=== PATIENT | male | born 1985 | race Hispanic/Latino ===

== ENCOUNTER 2018-01-06 12:58 | Emergency (ER) | payer SELFPAY ==
[2018-01-06] MEDS ORDERED: LIDOCAINE 1% MPF 5 ML VIAL ONE (14:03)
[2018-01-06] MEDS ORDERED: ONDANSETRON 4 MG (ODT) TAB ONE (14:07)
[2018-01-06] MEDS ORDERED: PROMETHAZINE 25 MG TABLET ONE (14:07)
[2018-01-06] MEDS ORDERED: MEPERIDINE HCL 25 MG/0.5 ML ONE (14:07)
[2018-01-06] MEDS ORDERED: SMZ./TMP. 800/160 MG TABLET ONE (14:35)
--- NOTE | 2018-01-06 14:38 | EDPHYS ---
Physician Documentation [facility] Name: Grace Duong Age: 32 yrs Sex: Male : 1985 Arrival Date: 01/06/2018 Time: 13:00 Bed 28 Private MD: None, None ED Physician Lalito Chau HPI: 01/06 14:24 This 32 yrs old Male presents to ER via Ambulatory with complaints of Abscess. jr8 14:24 The patient presents with an abscess of the scalp. Description: The affected area is jr8 small, draining, erythematous, raised, swollen, warm. Onset: The symptoms/episode began/occurred gradually, 3 day(s) ago. Possible cause(s): unknown. Associated signs and symptoms: The patient has no apparent associated signs or symptoms. Modifying factors: the symptoms are alleviated by nothing, the symptoms are aggravated by pressure, squeezing the lesion and expressing the contents, touching. Severity of symptoms: At their worst the symptoms were moderate, in the emergency department the symptoms are unchanged. The patient has experienced a previous episode. The patient has not recently seen a physician. Historical: - Allergies: 13:17 No Known Allergies; sv - Home Meds: 13:17 None [Active]; sv - PMHx: 13:17 Diabetes - IDDM; Hypertension; sv - PSHx: 13:17 None; sv - Immunization history:: Adult Immunizations up to date. - Social history:: Smoking status: Patient uses tobacco products, denies chronic smoking, but will smoke occasionally. - Ebola Screening: : No symptoms or risks identified at this time. ROS: 14:25 Eyes: Negative for injury, pain, redness, and discharge, ENT: Negative for injury, jr8 pain, and discharge, Neck: Negative for injury, pain, and swelling, Cardiovascular: Negative for chest pain, palpitations, and edema, Respiratory: Negative for shortness of breath, cough, wheezing, and pleuritic chest pain, Abdomen/GI: Negative for abdominal pain, nausea, vomiting, diarrhea, and constipation, Back: Negative for injury and pain, MS/Extremity: Negative for injury and deformity, Neuro: Negative for headache, weakness, numbness, tingling, and seizure. 14:25 Skin: Positive for abscess. Exam: 14:25 Eyes: Pupils equal round and reactive to light, extra-ocular motions intact. Lids and jr8 lashes normal. Conjunctiva and sclera are non-icteric and not injected. Cornea within normal limits. Periorbital areas with no swelling, redness, or edema. ENT: Nares patent. No nasal discharge, no septal abnormalities noted. Tympanic membranes are normal and external auditory canals are clear. Oropharynx with no redness, swelling, or masses, exudates, or evidence of obstruction, uvula midline. Mucous membranes moist. Neck: Trachea midline, no thyromegaly or masses palpated, and no cervical lymphadenopathy. Supple, full range of motion without nuchal rigidity, or vertebral point tenderness. No Meningismus. Cardiovascular: Regular rate and rhythm with a normal S1 and S2. No gallops, murmurs, or rubs. Normal PMI, no JVD. No pulse deficits. Respiratory: Lungs have equal breath sounds bilaterally, clear to auscultation and percussion. No rales, rhonchi or wheezes noted. No increased work of breathing, no retractions or nasal flaring. Abdomen/GI: Soft, non-tender, with normal bowel sounds. No distension or tympany. No guarding or rebound. No evidence of tenderness throughout. Back: No spinal tenderness. No costovertebral tenderness. Full range of motion. MS/ Extremity: Pulses equal, no cyanosis. Neurovascular intact. Full, normal range of motion. Neuro: Awake and alert, GCS 15, oriented to person, place, time, and situation. Cranial nerves II-XII grossly intact. Motor strength 5/5 in all extremities. Sensory grossly intact. Cerebellar exam normal. Normal gait. 14:25 Head/face: Noted is Patient has abscess with induration to right base of scalp. Currently draining . Vital Signs: 13:17 BP 158 / 105; Pulse 113; Resp 18; Temp 98.8(O); Pulse Ox 99% ; Weight 97.52 kg; Height sv 5 ft. 8 in. (172.72 cm); Pain 8/10; 14:30 BP 154 / 98; Pulse 100; Resp 17; Pulse Ox 99% on R/A; kr2 13:17 Body Mass Index 32.69 (97.52 kg, 172.72 cm) sv MDM: 13:19 Patient medically screened. 8 14:37 Data reviewed: vital signs, nurses notes, lab test result(s), and as a result, I will jr8 discharge patient. Data interpreted: Pulse oximetry: on room air is 99 %. Interpretation: normal. Counseling: I had a detailed discussion with the patient and/or guardian regarding: the historical points, exam findings, and any diagnostic results supporting the discharge/admit diagnosis, lab results, the need for outpatient follow up, a family practitioner, to return to the emergency department if symptoms worsen or persist or if there are any questions or concerns that arise at home. 01/06 14:22 Order name: Wound Culture kr2 Administered Medications: 14:10 Drug: Phenergan 25 mg Route: PO; kr2 14:37 Follow up: Response: No adverse reaction kr2 14:10 Drug: Demerol 25 mg Route: IM; Site: left deltoid; kr2 14:37 Follow up: Response: No adverse reaction; Pain is decreased kr2 14:37 Drug: Bactrim (160 mg-800 mg (DS) 1 tablet Route: PO; kr2 15:00 Follow up: Response: Medication administered at discharge. kr2 Disposition: 16:50 Co-signature as Attending Physician, Lalito Chau MD. rn Disposition: 01/06/18 14:37 Discharged to Home. Impression: Cutaneous abscess of head [any part, except face]. - Condition is Stable. - Discharge Instructions: Abscess, Incision and Drainage. - Prescriptions for Bactrim DS 800- 160 mg Oral Tablet - take 1 tablet by ORAL route every 12 hours for 10 days; 20 tablet. Tylenol- Codeine #3 300-30 mg Oral Tablet - take 2 tablets by ORAL route every 6 hours As needed; 12 tablet. - Medication Reconciliation Form, Thank You Letter, Antibiotic Education, Prescription Opioid Use, Work release form form. - Follow up: Private Physician; When: 48 Hours; Reason: Wound Recheck, Recheck today's complaints, Continuance of care, Re-evaluation by your physician. - Problem is new. - Symptoms have improved. Signatures: Dispatcher [employer] Gabriella Baum RN RN sv Williams, Irene, RN RN iw Nieto, Roman, MD MD rn Roszak, Josh, PA PA jr8 Connie Arnold RN RN kr2 Corrections: (The following items were deleted from the chart) 15:04 14:37 01/06/2018 14:37 Discharged to Home. Impression: Cutaneous abscess of head [any iw part, except face]. Condition is Stable. Forms are Work release form, Medication Reconciliation Form, Thank You Letter, Antibiotic Education, Prescription Opioid Use. Follow up: Private Physician; When: 48 Hours; Reason: Wound Recheck, Recheck today's complaints, Continuance of care, Re-evaluation by your physician. Problem is new. Symptoms have improved. jr8
--- NOTE | 2018-01-06 14:38 | ER ---
Nurse's Notes [facility] Name: Grace Duong Age: 32 yrs Sex: Male : 1985 Arrival Date: 01/06/2018 Time: 13:00 Bed 28 Private MD: None, None Diagnosis: Cutaneous abscess of head [any part, except face] Presentation: 01/06 13:15 Presenting complaint: Patient states: abscess to back of head that started about 5 days sv ago. Lanced by pt 3 days ago. Tmax 101. Ibuprofen taken this morning. Transition of care: patient was not received from another setting of care. Onset of symptoms was January 01, 2018. Risk Assessment: Do you want to hurt yourself or someone else? Patient reports no desire to harm self or others. Care prior to arrival: None. 13:15 Method Of Arrival: Ambulatory sv 13:15 Acuity: CHAPARRITA 3 sv 13:20 Initial Sepsis Screen: Does the patient meet any 2 criteria? HR > 90 bpm. Does the hj patient have a suspected source of infection? Yes: Skin breakdown/wound. Historical: - Allergies: 13:17 No Known Allergies; sv - Home Meds: 13:17 None [Active]; sv - PMHx: 13:17 Diabetes - IDDM; Hypertension; sv - PSHx: 13:17 None; sv - Immunization history:: Adult Immunizations up to date. - Social history:: Smoking status: Patient uses tobacco products, denies chronic smoking, but will smoke occasionally. - Ebola Screening: : No symptoms or risks identified at this time. Screenin:19 Abuse screen: Denies threats or abuse. Denies injuries from another. Nutritional hj screening: No deficits noted. Tuberculosis screening: No symptoms or risk factors identified. Fall Risk None identified. Assessment: 13:37 General: Appears in no apparent distress. comfortable, well groomed, well developed, kr2 well nourished, Behavior is calm, cooperative, appropriate for age. Pain: Complains of pain in scalp, neck, shoulders Pain currently is 6 out of 10 on a pain scale. Quality of pain is described as aching, tender, Is continuous, Alleviated by medications, rest, Aggravated by increased activity. Neuro: Level of Consciousness is awake, alert, obeys commands, Oriented to person, place, time, situation, Appropriate for age. Cardiovascular: Capillary refill < 3 seconds in bilateral fingers Patient's skin is warm and dry. Respiratory: Airway is patent Respiratory effort is even, unlabored, Respiratory pattern is regular, symmetrical. GI: Abdomen is flat, non-distended. : No signs and/or symptoms were reported regarding the genitourinary system. EENT: Nares are clear bilaterally Oral mucosa is moist. Throat is clear. Derm: Skin is intact, is healthy with good turgor, Skin is pink, warm \T\ dry. Abscess located on scalp has no drainage, is red, is raised, pustules present to scalp. 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 Musculoskeletal: Circulation, motion, and sensation intact. 14:05 Reassessment: Patient appears in no apparent distress at this time. Patient and/or kr2 family updated on plan of care and expected duration. Pain level reassessed. Patient is alert, oriented x 3, equal unlabored respirations, skin warm/dry/pink. 15:00 Reassessment: Patient appears in no apparent distress at this time. Patient and/or kr2 family updated on plan of care and expected duration. Pain level reassessed. Patient is alert, oriented x 3, equal unlabored respirations, skin warm/dry/pink. States pain has decreased. Verbalized understanding of caring for wound and symptoms to report. Dressing to scalp remains intact. Patient states feeling better. Vital Signs: 13:17 BP 158 / 105; Pulse 113; Resp 18; Temp 98.8(O); Pulse Ox 99% ; Weight 97.52 kg; Height sv 5 ft. 8 in. (172.72 cm); Pain 8/10; 14:30 BP 154 / 98; Pulse 100; Resp 17; Pulse Ox 99% on R/A; kr2 13:17 Body Mass Index 32.69 (97.52 kg, 172.72 cm) sv ED Course: 13:00 Patient arrived in ED. mr 13:00 None, None is Private Physician. mr 13:16 Triage completed. sv 13:17 Arm band placed on left wrist. sv 13:18 Peng Ramirez, BERKLEY is Primary Nurse. hj 13:18 Vance Silva PA is PHCP. jr8 13:18 Lalito Chau MD is Attending Physician. jr8 13:20 Patient has correct armband on for positive identification. Bed in low position. Call light in reach. Side rails up X 1. 14:05 Assist provider with I \T\ D: of an abscess on scalp Set up I\T\D tray. Performed by Vance ibarra 2 Shira SPRINGER Culture sent to lab. Wound packed. plain packing strip, covered with gauze and secured with foam tape Dressing with 4X4s, tape Patient tolerated well. 15:00 Patient did not have IV access during this emergency room visit. kr2 Administered Medications: 14:10 Drug: Phenergan 25 mg Route: PO; kr2 14:37 Follow up: Response: No adverse reaction kr2 14:10 Drug: Demerol 25 mg Route: IM; Site: left deltoid; kr2 14:37 Follow up: Response: No adverse reaction; Pain is decreased kr2 14:37 Drug: Bactrim (160 mg-800 mg (DS) 1 tablet Route: PO; kr2 15:00 Follow up: Response: Medication administered at discharge. kr2 Outcome: 14:37 Discharge ordered by . jr8 15:00 Discharged to home ambulatory, with family. kr2 15:00 Condition: good 15:00 Discharge instructions given to patient, family, Instructed on discharge instructions, follow up and referral plans. medication usage, wound care, Demonstrated understanding of instructions, follow-up care, medications, wound care, Prescriptions given X 2. 15:04 Patient left the ED. iw Addendum: 01/10/2018 09:31 Addendum: Culture Results: Positive wound culture. No further action required. Bacteria s s sensitive to prescribed antibiotic. Signatures: Gabriella Mullins RN RN sv Rivera, Maria mr Gretel Corcoran, BERKLEY GOODEN Madeline Ogden RN RN ss Roszak, Josh, PA PA jr8 Peng Ramirez RN RN hj Reaves, Karey, RN RN kr2 Corrections: (The following items were deleted from the chart) 01/06 13:22 13:19 General: Appears in no apparent distress. uncomfortable, Behavior is calm, hj cooperative, appropriate for age, hj 13:22 13:19 Pain: Complains of pain in scalp hj hj
[2018-01-06 15:08] VITALS: BP 158/105; TEMP 98.8; O2SAT 99
== END 2018-01-06 15:04 | disposition home or self-care (01) ==
LOC: ER 12:58
PROC: 0J900ZZ Drainage of Scalp Subcutaneous Tissue and Fascia, Open Approach (ICD-10-PCS; principal; 2018-01-06)
DX: L02.811 Cutaneous abscess of head [any part, except face] (principal); I10 Essential (primary) hypertension; Z72.0 Tobacco use
CPT/HCPCS: 87070; 87077; 87186; 87205; 96372; 99284; J2175

== ENCOUNTER 2018-02-10 12:27 | Emergency (ER) | payer SELFPAY ==
[2018-02-10] MEDS ORDERED: NA CHLORIDE 0.9% 1,000 ML ONE ×2 (14:05→15:43)
[2018-02-10] MEDS ORDERED: LIDOCAINE 2% W/EPI 1:200,000 MPF 20 ML VIAL IM ONE (14:24)
[2018-02-10 14:53] LABS: Potassium 4.3 mmol/L (3.5-5.1)
[2018-02-10 16:19] LABS: Absolute Lymphocytes (CBC) 2.8 K/uL (0.7-4.9); Absolute Monocytes 1.1 K/uL (0.1-1.3); Basophils % 0.5 % (0-1.3); Eosinophils % 0.2 % (0-4.4); Hematocrit 42.8 % (39.6-49.0); Lymphocytes % 25.7 % (15.3-44.8); MCH 29.4 pg (27.0-35.0); MCV 86.5 fL (80-100); MPV 9.8 fL (7.6-11.3); Monocytes % 10.1 % (3.3-12.3); RBC Red Blood Cell Count 4.95 M/uL (4.33-5.43)
--- NOTE | 2018-02-10 17:15 | ER ---
Nurse's Notes [facility] Name: Grace Duong Age: 32 yrs Sex: Male : 1985 Arrival Date: 02/10/2018 Time: 12:27 Bed 20 Private MD: Diagnosis: Abscess of Scalp Presentation: 02/10 13:14 Presenting complaint: Patient states: boil on the back of head for about 2 months, came em to the ER and was drained but never fully resolved, has been squeezing clear/bloody pus out, reports fever but didn't check it, took a Tylenol 3 this morning. Transition of care: patient was not received from another setting of care. Onset of symptoms was November 2017. Risk Assessment: Do you want to hurt yourself or someone else? Patient reports no desire to harm self or others. Initial Sepsis Screen: Does the patient meet any 2 criteria? HR > 90 bpm. No. Patient's initial sepsis screen is negative. Does the patient have a suspected source of infection? No. Patient's initial sepsis screen is negative. Care prior to arrival: None. 13:14 Method Of Arrival: Ambulatory em 13:14 Acuity: CHAPARRITA 4 iw Triage Assessment: 13:20 General: Appears in no apparent distress. uncomfortable, Behavior is calm, cooperative. em Pain: Complains of pain in base of the skull. Historical: - Allergies: 13:20 No Known Allergies; em - PMHx: 13:20 Diabetes - IDDM; Hypertension; em - PSHx: 13:20 None; em - Immunization history:: Adult Immunizations up to date. - Social history:: Smoking status: Patient uses tobacco products, denies chronic smoking, but will smoke occasionally. - Ebola Screening: : Patient negative for fever greater than or equal to 101.5 degrees Fahrenheit, and additional compatible Ebola Virus Disease symptoms Patient denies exposure to infectious person Patient denies travel to an Ebola-affected area in the 21 days before illness onset No symptoms or risks identified at this time. Screenin:23 Abuse screen: Denies threats or abuse. Nutritional screening: No deficits noted. em Tuberculosis screening: No symptoms or risk factors identified. Fall Risk None identified. Assessment: 13:21 General: Appears in no apparent distress. uncomfortable, Behavior is calm, cooperative. em Pain: Complains of pain in base of the skull Pain currently is 8 out of 10 on a pain scale. Pain began 2 months ago. Neuro: Level of Consciousness is awake, alert, obeys commands, Oriented to person, place, time, situation. Cardiovascular: Capillary refill < 3 seconds Patient's skin is warm and dry. Respiratory: Airway is patent Respiratory effort is even, unlabored, Respiratory pattern is regular, symmetrical. GI: Patient currently denies nausea, vomiting. : No signs and/or symptoms were reported regarding the genitourinary system. EENT: No signs and/or symptoms were reported regarding the EENT system. Derm: Skin is intact, Skin is pink, warm \T\ dry. Abscess located on base of the skull is half dollar sized, has no drainage, is red, is raised, was lanced by patient prior to arrival. Musculoskeletal: Range of motion: intact in all extremities. 14:00 Reassessment: Patient appears in no apparent distress at this time. I agree with above iw assessment by Christos Godfrey LVN. 14:30 Reassessment: Patient appears in no apparent distress at this time. Patient and/or em family updated on plan of care and expected duration. Pain level reassessed. Patient is alert, oriented x 3, equal unlabored respirations, skin warm/dry/pink. 15:29 Reassessment: Patient appears in no apparent distress at this time. Patient and/or em family updated on plan of care and expected duration. Pain level reassessed. Patient is alert, oriented x 3, equal unlabored respirations, skin warm/dry/pink. Cade at bedside discussing POC Patient states symptoms have improved. 16:30 Reassessment: Patient appears in no apparent distress at this time. Patient and/or em family updated on plan of care and expected duration. Pain level reassessed. Patient is alert, oriented x 3, equal unlabored respirations, skin warm/dry/pink. 17:39 Reassessment: Patient appears in no apparent distress at this time. Patient and/or em family updated on plan of care and expected duration. Pain level reassessed. Patient is alert, oriented x 3, equal unlabored respirations, skin warm/dry/pink. Patient states feeling better. Vital Signs: 13:20 BP 153 / 96; Pulse 138; Resp 18; Temp 98.8(O); Pulse Ox 99% on R/A; Weight 79.38 kg; em Height 5 ft. 8 in. (172.72 cm); Pain 8/10; 14:00 BP 129 / 86; Pulse 126; Resp 18; Pulse Ox 100% on R/A; em 15:25 BP 150 / 98; Pulse 110; Resp 16; Temp 98.8(O); Pulse Ox 99% on R/A; em 16:39 BP 157 / 103; Pulse 109; Resp 18; Pulse Ox 99% on R/A; em 17:38 BP 165 / 109; Pulse 102; Resp 18; Pulse Ox 99% on R/A; em 13:20 Body Mass Index 26.61 (79.38 kg, 172.72 cm) em ED Course: 12:27 Patient arrived in ED. as 13:13 Cade Lazo PA is PHCP. jm 13:13 Joseph Laguerre MD is Attending Physician. [facility] 13:14 Christos Godfrey LVN is Primary Nurse. em 13:20 Arm band placed on. em 13:23 Patient has correct armband on for positive identification. Bed in low position. Call em light in reach. 14:15 Triage completed. iw 14:15 Initial lab(s) drawn, by me, sent to lab. Inserted saline lock: 20 gauge in right dh3 antecubital area, using aseptic technique. Blood collected. 16:45 Assist provider with I \T\ D: of an abscess on back of head Set up I\T\D tray. Performed by em Cade SPRINGER Wound packed. iodoform gauze, Dressing with 4X4s, Patient tolerated well. IV discontinued, intact, bleeding controlled, No redness/swelling at site. Pressure dressing applied. 17:14 Peng Amaya MD is Referral Physician. jmm Administered Medications: 14:14 Drug: NS 0.9% 1000 ml Route: IV; Rate: 1 bolus; Site: right antecubital; em 15:49 Follow up: IV Status: Completed infusion; IV Intake: 1000ml em 16:00 Drug: NS 0.9% 1000 ml Route: IV; Rate: 1 bolus; Site: right antecubital; em 17:40 Follow up: IV Status: Completed infusion; IV Intake: 1000ml em Point of Care Testing: Blood Glucose: 13:43 Blood Glucose: 278 mg/dL; em Ranges: Intake: 15:49 IV: 1000ml; Total: 1000ml. em 17:40 IV: 1000ml; Total: 2000ml. em Outcome: 17:14 Discharge ordered by . david 17:38 Discharged to home ambulatory. em 17:38 Condition: good 17:38 Discharge instructions given to patient, Instructed on discharge instructions, follow up and referral plans. medication usage, Demonstrated understanding of instructions, follow-up care, medications, Prescriptions given X 2. 17:41 Patient left the ED. em Signatures: Cade Lazo PA PA jmm Munoz, Edgar, KINESIOTHERAPIST KINESIOTHERAPIST Judie Bustamante Irene, RN RN Tereza Echevarria [facility]
--- NOTE | 2018-02-10 17:15 | EDPHYS ---
Physician Documentation [facility] Name: Grace Duong Age: 32 yrs Sex: Male : 1985 Arrival Date: 02/10/2018 Time: 12:27 Bed 20 Private MD: ED Physician Joseph Laguerre HPI: 02/10 13:32 This 32 yrs old Male presents to ER via Ambulatory with complaints of Boil. m 13:32 The patient presents with an abscess of the scalp and base of the skull. Onset: The jmm symptoms/episode began/occurred gradually, 2 month(s) ago. Possible cause(s): unknown. Associated signs and symptoms: Pertinent negatives: fever. This is a 32 year old male with a history of dm that presents to the ED with swelling to his posterior scalp for the past 2 months. The patient states that he was inistially evaluated in the ED and the abscess was drained. Patient denies fever but states he is concerned because of increased swelling and the wound does not currently drain. . Historical: - Allergies: 13:20 No Known Allergies; em - PMHx: 13:20 Diabetes - IDDM; Hypertension; em - PSHx: 13:20 None; em - Immunization history:: Adult Immunizations up to date. - Social history:: Smoking status: Patient uses tobacco products, denies chronic smoking, but will smoke occasionally. - Ebola Screening: : Patient negative for fever greater than or equal to 101.5 degrees Fahrenheit, and additional compatible Ebola Virus Disease symptoms Patient denies exposure to infectious person Patient denies travel to an Ebola-affected area in the 21 days before illness onset No symptoms or risks identified at this time. ROS: 13:32 Constitutional: Negative for fever, chills, and weight loss, Cardiovascular: Negative jmm for chest pain, palpitations, and edema, Respiratory: Negative for shortness of breath, cough, wheezing, and pleuritic chest pain, Abdomen/GI: Negative for abdominal pain, nausea, vomiting, diarrhea, and constipation, Back: Negative for injury and pain. 13:32 Skin: Positive for erythema. 13:32 All other systems are negative. Exam: 13:32 Respiratory: Normal respirations, no respiratory distress appreciated jmm 13:32 Abdomen/GI: Non distended, soft MS/ Extremity: Moves all extremities, no obvious deformities appreciated, no edema noted to the lower extremities 13:32 Constitutional: The patient appears in no acute distress, alert, awake. 13:32 Head/face: posterior scalp swelling appreciated. 13:32 Cardiovascular: Rate: tachycardic. 13:32 Skin: posterior scalp swelling with erythema appreciated. . 13:32 Neuro: Orientation: is normal, Mentation: is normal, Memory: is normal. Vital Signs: 13:20 BP 153 / 96; Pulse 138; Resp 18; Temp 98.8(O); Pulse Ox 99% on R/A; Weight 79.38 kg; em Height 5 ft. 8 in. (172.72 cm); Pain 8/10; 14:00 BP 129 / 86; Pulse 126; Resp 18; Pulse Ox 100% on R/A; em 15:25 BP 150 / 98; Pulse 110; Resp 16; Temp 98.8(O); Pulse Ox 99% on R/A; em 16:39 BP 157 / 103; Pulse 109; Resp 18; Pulse Ox 99% on R/A; em 17:38 BP 165 / 109; Pulse 102; Resp 18; Pulse Ox 99% on R/A; em 13:20 Body Mass Index 26.61 (79.38 kg, 172.72 cm) em Procedures: 16:52 I \T\ D: Incision and drainage was performed for an abscess of the scalp Prepped with [facility] Betadine, Anesthetized with 5 ml's 1% Lidocaine w/ Epi. Incised with #11 blade. Drained moderate amount purulent fluid. Packed with iodoform gauze, Dressing: sterile 4x4 gauze, the patient tolerated the procedure well. MDM: 13:32 Patient medically screened. [facility] 17:13 Data reviewed: vital signs, nurses notes. Counseling: I had a detailed discussion with [facility] the patient and/or guardian regarding: the historical points, exam findings, and any diagnostic results supporting the discharge/admit diagnosis, the need for outpatient follow up, to return to the emergency department if symptoms worsen or persist or if there are any questions or concerns that arise at home. 17:13 ED course: Patient advised of the need to follow up with General Surgery for wound [facility] care. Patient given wound return precautions. Patient understood and agrees with the plan of care. . 02/10 13:36 Order name: [facility]; Complete Time: 15:12 [facility] 02/10 13:36 Order name: CBC with Diff; Complete Time: 17:12 [facility] 02/10 13:36 Order name: Saline Lock; Complete Time: 14:00 [facility] 02/10 13:36 Order name: Glucose, Ancillary Testing EDMS Administered Medications: 14:14 Drug: NS 0.9% 1000 ml Route: IV; Rate: 1 bolus; Site: right antecubital; em 15:49 Follow up: IV Status: Completed infusion; IV Intake: 1000ml em 16:00 Drug: NS 0.9% 1000 ml Route: IV; Rate: 1 bolus; Site: right antecubital; em 17:40 Follow up: IV Status: Completed infusion; IV Intake: 1000ml em Point of Care Testing: Blood Glucose: 13:43 Blood Glucose: 278 mg/dL; em Ranges: Critical Glucose Levels:Adult <50 mg/dl or >400 mg/dl <40 mg/dl or >180 mg/dl Disposition: 02/10/18 17:14 Discharged to Home. Impression: Abscess of Scalp. - Condition is Stable. - Discharge Instructions: Skin Abscess. - Prescriptions for Augmentin 875- 125 mg Oral Tablet - take 1 tablet by ORAL route every 12 hours for 10 days; 20 tablet. Bactrim DS 800- 160 mg Oral Tablet - take 1 tablet by ORAL route every 12 hours for 10 days; 20 tablet. - Medication Reconciliation Form, Thank You Letter, Antibiotic Education, Prescription Opioid Use, Work release form form. - Follow up: Peng Amaya MD; When: 2 - 3 days; Reason: Wound Recheck, Recheck today's complaints, Continuance of care, Re-evaluation by your physician. Addendum: 02/13/2018 10:06 Co-signature as Attending Physician, Joseph Laguerre MD I agree with the assessment and c gautam plan of care. Signatures: Dispatcher [employer] Joseph Varghese MD MD cha Mickail, Joel, PA PA Christos Dillard, SAIL REPAIR PERSON SAIL REPAIR PERSON em Corrections: (The following items were deleted from the chart) 02/10 17:41 17:14 02/10/2018 17:14 Discharged to Home. Impression: Abscess of Scalp. Condition is em Stable. Forms are Medication Reconciliation Form, Thank You Letter, Antibiotic Education, Prescription Opioid Use. Follow up: Peng Amaya; When: 2 - 3 days; Reason: Wound Recheck, Recheck today's complaints, Continuance of care, Re-evaluation by your physician. david
[2018-02-10 18:03] VITALS: TEMP 98.8
[2018-02-10 18:05] VITALS: O2SAT 99
[2018-02-10 18:07] VITALS: BP 165/109
== END 2018-02-10 17:41 | disposition home or self-care (01) ==
LOC: ER 12:27
PROC: 0J900ZZ Drainage of Scalp Subcutaneous Tissue and Fascia, Open Approach (ICD-10-PCS; principal; 2018-02-10)
DX: L02.811 Cutaneous abscess of head [any part, except face] (principal); E13.9 Other specified diabetes mellitus without complications; Z79.4 Long term (current) use of insulin; I10 Essential (primary) hypertension
CPT/HCPCS: 36415; 80048; 82962; 85025; 96360; 96361; 99284; J7030

== ENCOUNTER 2018-03-23 18:14 | Emergency (ER) | payer SELFPAY ==
[2018-03-23 19:36] LABS: Absolute Lymphocytes (CBC) 2.1 K/uL (0.7-4.9); Absolute Monocytes 0.8 K/uL (0.1-1.3); Absolute Neutrophil 3.3 K/uL (1.8-8.0); Eosinophils % 3.4 % (0-4.4); Hematocrit 39.3 % (39.6-49.0); Lymphocytes % 33.1 % (15.3-44.8); MCH 30.4 pg (27.0-35.0); MCV 87.8 fL (80-100); MPV 9.1 fL (7.6-11.3); RBC Red Blood Cell Count 4.48 M/uL (4.33-5.43)
[2018-03-23 19:38] LABS: Protime INR 0.87
[2018-03-23 19:55] LABS: ALT/SGPT 24 U/L (12-78); AST/SGOT 25 U/L (15-37); Albumin 2.2 g/dL (3.4-5.0); Alkaline Phosphatase 136 U/L (45-117); BUN Blood Urea Nitrogen 17 mg/dL (7-18); Bicarbonate 25 mmol/L (21-32); Bilirubin Direct < 0.1 mg/dL (0-0.2); Bilirubin Total 0.1 mg/dL (0.2-1.0); Magnesium 2.2 mg/dL (1.8-2.4); NT PRO-BNP 45 pg/mL (<125); Potassium 4.5 mmol/L (3.5-5.1); Protein, Total 6.4 g/dL (6.4-8.2); Sodium Level 139 mmol/L (136-145); Troponin (Emerg Dept Use Only) < 0.02 ng/mL (0.0-0.045)
[2018-03-23 19:58] LABS: Glucose Level 490 mg/dL (74-106)
[2018-03-23] MEDS ORDERED: INSULIN -REGULAR HUMAN 50 UNIT/0.5 ML ML ONE (20:17)
[2018-03-23] MEDS ORDERED: NA CHLORIDE 0.9% 1,000 ML ONE (20:17)
[2018-03-23] MEDS ORDERED: ASPIRIN 81 MG CHEWABLE TABLET ONE (20:34)
--- NOTE | 2018-03-23 21:16 | RAD REPORT ---
EXAM DESCRIPTION: Cornelius Single View03/23/2018 7:46 pm CLINICAL HISTORY: Chest pain COMPARISON: 2010 FINDINGS: The lungs appear clear of acute infiltrate. The heart is normal size IMPRESSION: No acute abnormalities displayed
[2018-03-23 21:35] LABS: Urine Blood 2+ (NEG); Urine Glucose 3+ (NEG); Urine Protein 2+ (NEG)
--- NOTE | 2018-03-23 23:13 | ER ---
Nurse's Notes [facility] Name: Grace Duong Age: 32 yrs Sex: Male : 1985 Arrival Date: 03/23/2018 Time: 18:15 Bed 15 Private MD: Diagnosis: Chest pain, unspecified;Hyperglycemia, unspecified Presentation: 03/23 18:24 Presenting complaint: Patient states: Intermittent chest pain that started yesterday. aj while patient was "relaxing" at home. Transition of care: patient was not received from another setting of care. Onset of symptoms was March 22, 2018. Risk Assessment: Do you want to hurt yourself or someone else? Patient reports no desire to harm self or others. Initial Sepsis Screen: Does the patient meet any 2 criteria? No. Patient's initial sepsis screen is negative. Does the patient have a suspected source of infection? No. Patient's initial sepsis screen is negative. Care prior to arrival: None. 18:24 Method Of Arrival: Ambulatory aj 18:24 Acuity: CHAPARRITA 3 aj Triage Assessment: 18:26 General: Appears in no apparent distress. comfortable, Behavior is calm, cooperative, aj appropriate for age. Pain: Complains of pain in anterior aspect of right upper chest, xyphoid area, mid-sternal area and right breast. Neuro: Level of Consciousness is awake, alert, obeys commands, Oriented to person, place, time, situation, Appropriate for age. Cardiovascular: Reports chest pain, Capillary refill < 3 seconds in bilateral fingers Patient's skin is warm and dry. Respiratory: Airway is patent Respiratory effort is even, unlabored, Respiratory pattern is regular, symmetrical. Derm: Skin is intact, is healthy with good turgor, Skin is pink, warm \\T\\ dry. normal. Historical: - Allergies: 18:26 No Known Allergies; aj - Home Meds: 18:26 insulin [Active]; aj - PMHx: 18:26 Diabetes - IDDM; Hypertension; aj - PSHx: 18:26 None; aj - Immunization history:: Adult Immunizations up to date. - Social history:: Smoking status: Patient uses tobacco products, smokes one-half pack cigarettes per day, Patient uses alcohol, weekly. - Ebola Screening: : Patient negative for fever greater than or equal to 101.5 degrees Fahrenheit, and additional compatible Ebola Virus Disease symptoms Patient denies exposure to infectious person Patient denies travel to an Ebola-affected area in the 21 days before illness onset No symptoms or risks identified at this time. Screenin:52 Abuse screen: Denies threats or abuse. Nutritional screening: No deficits noted. tl3 Tuberculosis screening: No symptoms or risk factors identified. Fall Risk None identified. Assessment: 18:50 General: Appears uncomfortable, well groomed, well developed, well nourished, Behavior tl3 is cooperative, anxious. Pain: Complains of pain in chest and right breast and mid-sternal area and xyphoid area and anterior aspect of right upper chest Pain does not radiate. Pain began intermittant. Neuro: Level of Consciousness is awake, alert, obeys commands, Oriented to person, place, time, situation, Appropriate for age. Neuro: Reports possible anxiety due to a recent loss in the family. Cardiovascular: Reports chest pain, Heart tones S1 S2 present Patient's skin is warm and dry. Rhythm is regular. Respiratory: Airway is patent Respiratory effort is even, unlabored, Respiratory pattern is regular, symmetrical, Breath sounds are clear bilaterally. GI: No signs and/or symptoms were reported involving the gastrointestinal system. : No signs and/or symptoms were reported regarding the genitourinary system. EENT: No signs and/or symptoms were reported regarding the EENT system. Derm: No signs and/or symptoms reported regarding the dermatologic system. 19:25 Reassessment: Patient appears in no apparent distress at this time. No changes from ak1 previously documented assessment. Patient is alert, oriented x 3, equal unlabored respirations, skin warm/dry/pink. 20:51 Reassessment: Patient appears in no apparent distress at this time. No changes from ak1 previously documented assessment. Patient and/or family updated on plan of care and expected duration. Pain level reassessed. Patient is alert, oriented x 3, equal unlabored respirations, skin warm/dry/pink. pt resting with eyes closed. will continue to monitor. 22:19 Reassessment: Patient appears in no apparent distress at this time. pt repeat lab sent ak1 to outside lab, pt informed of wait for results. pt resting with eyes closed, resp even and unlabored. will continue to monitor. Vital Signs: 18:26 BP 138 / 89; Pulse 103; Resp 16; Temp 97.6; Pulse Ox 98% on R/A; Weight 88.45 kg; aj Height 5 ft. 8 in. (172.72 cm); 20:37 BP 154 / 98; Pulse 91; Resp 17; Pulse Ox 98% ; ms 22:18 BP 133 / 88; Pulse 97; Resp 12; Temp 98.1(O); Pulse Ox 97% on R/A; Pain 0/10; ak1 23:21 BP 130 / 87; Pulse 86; Resp 12; Pulse Ox 97% on R/A; Pain 0/10; ak1 18:26 Body Mass Index 29.65 (88.45 kg, 172.72 cm) aj ED Course: 18:15 Patient arrived in ED. am2 18:25 Triage completed. aj 18:26 Arm band placed on left wrist. Patient placed in an exam room. aj 18:36 Vance Silva PA is PHCP. jr8 18:36 Jose Cruz MD is Attending Physician. jr8 18:49 Deepti Hall, RN is Primary Nurse. tl3 18:49 No provider procedures requiring assistance completed. Inserted saline lock: 20 gauge tl3 in right forearm, using aseptic technique. Blood collected. Patient maintains SpO2 saturation greater than 95% on room air. 18:52 Patient has correct armband on for positive identification. Placed in gown. Bed in low tl3 position. Call light in reach. Side rails up X 1. Pulse ox on. NIBP on. Warm blanket given. 19:42 XRAY Chest (1 view) In Process Unspecified. EDMS 22:19 Primary Nurse role handed off by Deepti Hall, RN ak1 22:19 Nilsa Royal, RN is Primary Nurse. ak1 22:49 Troponin (emerg Dept Use Only) Sent. ak1 23:27 IV discontinued, intact, bleeding controlled, No redness/swelling at site. Pressure ak1 dressing applied. Administered Medications: 20:12 Drug: Insulin Regular Human 10 units {Co-Signature: jlaureen (Fili Gray RN).} Route: ak1 IVP; Site: right forearm; 21:14 Follow up: Response: No adverse reaction ak1 20:14 Drug: NS 0.9% 1000 ml Route: IV; Rate: 1000 ml; Site: right forearm; ak1 21:14 Follow up: IV Status: Completed infusion ak1 20:34 Drug: Aspirin Chewable Tablet 324 mg Route: PO; ak1 21:14 Follow up: Response: No adverse reaction ak1 Point of Care Testing: Blood Glucose: 21:25 Blood Glucose: 149 mg/dL; ak1 22:04 Blood Glucose: 163 mg/dL; ak1 Ranges: Outcome: 23:12 Discharge ordered by MD. gunderson 23:20 Condition: stable ak1 23:27 Discharged to home ambulatory. ak1 23:27 Discharge instructions given to patient. 23:27 Instructed on discharge instructions, follow up and referral plans. Demonstrated understanding of instructions, follow-up care. 23:31 Patient left the ED. ak1 Signatures: Dispatcher [employer] EDMS Alexandria Rico, Shira David RN, ms, Josh, PA PA jr8 Nilsa Royal RN RN ak1 Alexandria Jordan am2 Deepti Hall RN RN tl3 Fili Gray RN jd3
--- NOTE | 2018-03-23 23:13 | EDPHYS ---
Physician Documentation [facility] Name: Grace Duong Age: 32 yrs Sex: Male : 1985 Arrival Date: 03/23/2018 Time: 18:15 Bed 15 Private MD: ED Physician Jose Cruz HPI: 03/23 20:17 This 32 yrs old Male presents to ER via Ambulatory with complaints of Chest jr8 Pain > 30 y/o. 20:17 The patient or guardian reports chest pain that is located primarily in the substernal jr8 area. The pain does not radiate. Associated signs and symptoms: The patient has no apparent associated signs or symptoms. The chest pain is described as sharp. Duration: The patient or guardian reports multiple episodes. Modifying factors: The symptoms are alleviated by nothing. the symptoms are aggravated by nothing. Severity of pain: At its worst the pain was moderate in the emergency department the pain has improved. The patient has not experienced similar symptoms in the past. The patient has not recently seen a physician. Historical: - Allergies: 18:26 No Known Allergies; aj - Home Meds: 18:26 insulin [Active]; aj - PMHx: 18:26 Diabetes - IDDM; Hypertension; aj - PSHx: 18:26 None; aj - Immunization history:: Adult Immunizations up to date. - Social history:: Smoking status: Patient uses tobacco products, smokes one-half pack cigarettes per day, Patient uses alcohol, weekly. - Ebola Screening: : Patient negative for fever greater than or equal to 101.5 degrees Fahrenheit, and additional compatible Ebola Virus Disease symptoms Patient denies exposure to infectious person Patient denies travel to an Ebola-affected area in the 21 days before illness onset No symptoms or risks identified at this time. ROS: 20:17 Eyes: Negative for injury, pain, redness, and discharge, ENT: Negative for injury, jr8 pain, and discharge, Neck: Negative for injury, pain, and swelling, Respiratory: Negative for shortness of breath, cough, wheezing, and pleuritic chest pain, Abdomen/GI: Negative for abdominal pain, nausea, vomiting, diarrhea, and constipation, Back: Negative for injury and pain, MS/Extremity: Negative for injury and deformity, Skin: Negative for injury, rash, and discoloration, Neuro: Negative for headache, weakness, numbness, tingling, and seizure. 20:17 Cardiovascular: Positive for chest pain, Negative for edema, orthopnea, palpitations, paroxysmal nocturnal dyspnea. Exam: 20:17 Eyes: Pupils equal round and reactive to light, extra-ocular motions intact. Lids and jr8 lashes normal. Conjunctiva and sclera are non-icteric and not injected. Cornea within normal limits. Periorbital areas with no swelling, redness, or edema. ENT: Nares patent. No nasal discharge, no septal abnormalities noted. Tympanic membranes are normal and external auditory canals are clear. Oropharynx with no redness, swelling, or masses, exudates, or evidence of obstruction, uvula midline. Mucous membranes moist. Neck: Trachea midline, no thyromegaly or masses palpated, and no cervical lymphadenopathy. Supple, full range of motion without nuchal rigidity, or vertebral point tenderness. No Meningismus. Cardiovascular: Regular rate and rhythm with a normal S1 and S2. No gallops, murmurs, or rubs. Normal PMI, no JVD. No pulse deficits. Respiratory: Lungs have equal breath sounds bilaterally, clear to auscultation and percussion. No rales, rhonchi or wheezes noted. No increased work of breathing, no retractions or nasal flaring. Abdomen/GI: Soft, non-tender, with normal bowel sounds. No distension or tympany. No guarding or rebound. No evidence of tenderness throughout. Back: No spinal tenderness. No costovertebral tenderness. Full range of motion. Skin: Warm, dry with normal turgor. Normal color with no rashes, no lesions, and no evidence of cellulitis. MS/ Extremity: Pulses equal, no cyanosis. Neurovascular intact. Full, normal range of motion. Neuro: Awake and alert, GCS 15, oriented to person, place, time, and situation. Cranial nerves II-XII grossly intact. Motor strength 5/5 in all extremities. Sensory grossly intact. Cerebellar exam normal. Normal gait. Vital Signs: 18:26 BP 138 / 89; Pulse 103; Resp 16; Temp 97.6; Pulse Ox 98% on R/A; Weight 88.45 kg; aj Height 5 ft. 8 in. (172.72 cm); 20:37 BP 154 / 98; Pulse 91; Resp 17; Pulse Ox 98% ; ms 22:18 BP 133 / 88; Pulse 97; Resp 12; Temp 98.1(O); Pulse Ox 97% on R/A; Pain 0/10; ak1 23:21 BP 130 / 87; Pulse 86; Resp 12; Pulse Ox 97% on R/A; Pain 0/10; ak1 18:26 Body Mass Index 29.65 (88.45 kg, 172.72 cm) aj MDM: 19:16 Patient medically screened. [facility] 23:11 Data reviewed: vital signs, nurses notes, lab test result(s), EKG, radiologic studies, jr8 plain films, and as a result, I will discharge patient. Data interpreted: Pulse oximetry: on room air is 97 %. Interpretation: normal. Counseling: I had a detailed discussion with the patient and/or guardian regarding: the historical points, exam findings, and any diagnostic results supporting the discharge/admit diagnosis, lab results, radiology results, the need for outpatient follow up, a family practitioner, to return to the emergency department if symptoms worsen or persist or if there are any questions or concerns that arise at home. 03/23 19:17 Order name: Basic Metabolic Panel; Complete Time: 20:16 03/23 19:17 Order name: CBC with Diff; Complete Time: 19:42 [facility] 03/23 19:17 Order name: LFT's; Complete Time: 20:16 03/23 19:17 Order name: Magnesium; Complete Time: 20:16 03/23 19:17 Order name: NT PRO-BNP; Complete Time: 20:16 03/23 19:17 Order name: PT-INR; Complete Time: 19:42 [facility] 03/23 19:17 Order name: Troponin (emerg Dept Use Only); Complete Time: 20:16 03/23 19:17 Order name: XRAY Chest (1 view); Complete Time: 21:26 [facility] 03/23 20:04 Order name: Urine Dipstick--Ancillary (enter results) rg2 03/23 20:04 Order name: Urine Dipstick-Ancillary; Complete Time: 21:43 EDMS 03/23 21:15 Order name: Troponin (emerg Dept Use Only); Complete Time: 23:11 [facility] 03/23 18:38 Order name: EKG - Nurse/Tech; Complete Time: 18:38 03/23 18:38 Order name: EKG; Complete Time: 18:38 03/23 19:17 Order name: Cardiac monitoring; Complete Time: 19:18 [facility] 03/23 19:17 Order name: EKG - Nurse/Tech; Complete Time: 19:19 [facility] 03/23 19:17 Order name: IV Saline Lock; Complete Time: 19:19 [facility] 03/23 19:17 Order name: Labs collected and sent; Complete Time: 19:24 [facility] 03/23 19:17 Order name: O2 Per Protocol; Complete Time: 19:19 [facility] 03/23 19:17 Order name: O2 Sat Monitoring; Complete Time: 19:19 [facility] 03/23 19:17 Order name: Urine Dipstick-Ancillary (obtain specimen); Complete Time: 19:47 Administered Medications: 20:12 Drug: Insulin Regular Human 10 units {Co-Signature: bart (Flii Gray RN).} Route: ak1 IVP; Site: right forearm; 21:14 Follow up: Response: No adverse reaction ak1 20:14 Drug: NS 0.9% 1000 ml Route: IV; Rate: 1000 ml; Site: right forearm; ak1 21:14 Follow up: IV Status: Completed infusion ak1 20:34 Drug: Aspirin Chewable Tablet 324 mg Route: PO; ak1 21:14 Follow up: Response: No adverse reaction ak1 Point of Care Testing: Blood Glucose: 21:25 Blood Glucose: 149 mg/dL; ak1 22:04 Blood Glucose: 163 mg/dL; ak1 Ranges: Critical Glucose Levels:Adult <50 mg/dl or >400 mg/dl <40 mg/dl or >180 mg/dl Disposition: 03/24 07:31 Co-signature as Attending Physician, Jose Cruz MD I agree with the assessment and kdr plan of care. Disposition: 03/23/18 23:12 Discharged to Home. Impression: Chest pain, unspecified, Hyperglycemia, unspecified. - Condition is Stable. - Discharge Instructions: Nonspecific Chest Pain, Hyperglycemia, Blood Glucose Monitoring, Adult. - Medication Reconciliation Form, Thank You Letter, Antibiotic Education, Prescription Opioid Use, Work release form form. - Follow up: Private Physician; When: 2 - 3 days; Reason: Recheck today's complaints, Continuance of care, Re-evaluation by your physician. - Problem is new. - Symptoms have improved. Signatures: Dispatcher [employer] EDAlexandria Petit, RN RN Jose Shirley MD MD kdr Roszak, Josh, PA PA jr8 Nilsa Royal, RN RN ak1 Peng Ramirez RN RN hj Fili Gray RN jd3 Corrections: (The following items were deleted from the chart) 03/23 23:31 23:12 03/23/2018 23:12 Discharged to Home. Impression: Chest pain, unspecified; ak1 Hyperglycemia, unspecified. Condition is Stable. Forms are Medication Reconciliation Form, Thank You Letter, Antibiotic Education, Prescription Opioid Use. Follow up: Private Physician; When: 2 - 3 days; Reason: Recheck today's complaints, Continuance of care, Re-evaluation by your physician. Problem is new. Symptoms have improved. jr8
[2018-03-24 01:57] VITALS: TEMP 98.1
[2018-03-24 02:05] VITALS: BP 130/96; O2SAT 96
--- NOTE | 2018-03-24 07:34 | EKG ---
Test Date: 2018-03-23 Test Time: 18:33:26 Sheeting Puller: MARCELLE MEASUREMENT RESULTS: Intervals: Rate: 88 PA: 142 QRSD: 76 QT: 358 QTc: 433 Dulce: P: 54 PA: 142 QRS: -27 T: 22 INTERPRETIVE STATEMENTS: Normal sinus rhythm Inferior infarct, age undetermined Abnormal ECG Compared to ECG 12/27/2010 18:45:04 Myocardial infarct finding now present Atrial fibrillation no longer present Ventricular premature complex(es) no longer present Electronically Signed On 03-24-18 07:33:53 CDT by Bennett Butt
== END 2018-03-23 23:31 | disposition home or self-care (01) ==
LOC: ER 18:14
DX: E11.65 Type 2 diabetes mellitus with hyperglycemia (principal); F17.210 Nicotine dependence, cigarettes, uncomplicated; Z79.4 Long term (current) use of insulin
CPT/HCPCS: 36415; 71045; 80048; 80076; 81003; 82962; 83735; 83880; 84484; 85025; 85610; 93005; 96361; 96374; 99284; J7030

== ENCOUNTER 2018-04-18 17:17 | Emergency (ER) | payer SELFPAY ==
--- NOTE | 2018-04-18 19:57 | ER ---
Nurse's Notes [facility] Name: Grace Duong Age: 33 yrs Sex: Male : 1985 Arrival Date: 04/18/2018 Time: 17:22 Bed 9 Private MD: Diagnosis: Pain in left leg Presentation: 04/18 17:30 Presenting complaint: Patient states: He slipped in the shower this morning, now he is aj1 having pain to his left hip and left leg. Denies hitting head, denies LOC. Patient reports pain with ambulation. Transition of care: patient was not received from another setting of care. Onset of symptoms was April 18, 2018 at 09:00. Risk Assessment: Do you want to hurt yourself or someone else? Patient reports no desire to harm self or others. Initial Sepsis Screen: Does the patient meet any 2 criteria? No. Patient's initial sepsis screen is negative. Does the patient have a suspected source of infection? No. Patient's initial sepsis screen is negative. Care prior to arrival: None. 17:30 Method Of Arrival: Ambulatory aj1 17:31 Acuity: CHAPARRITA 3 aj1 Triage Assessment: 17:31 General: Appears in no apparent distress. uncomfortable, Behavior is calm, cooperative, aj1 appropriate for age. 17:31 Pain: Complains of pain in left hip and left leg Pain currently is 7 out of 10 on a aj1 pain scale. Quality of pain is described as tense, tightness Is continuous, Alleviated by rest, Aggravated by increased activity, repositioning, weight bearing. Neuro: Level of Consciousness is awake, alert, obeys commands, Oriented to person, place, time, situation. Cardiovascular: Patient's skin is warm and dry. Respiratory: Airway is patent Respiratory effort is even, unlabored, Respiratory pattern is regular, symmetrical. Musculoskeletal: Range of motion: limited in left hip. Injury Description: Patient states that he fell in the shower. Historical: - Allergies: 17:31 No Known Allergies; aj1 - Home Meds: 17:31 insulin [Active]; aj1 - PMHx: 17:31 Diabetes - IDDM; Hypertension; aj1 - PSHx: 17:31 None; aj1 - Immunization history:: Flu vaccine is not up to date. - Social history:: Smoking status: Patient uses tobacco products, one pack a week. - Ebola Screening: : Patient denies travel to an Ebola-affected area in the 21 days before illness onset. - Family history:: not pertinent. Screenin:36 Abuse screen: Denies threats or abuse. Nutritional screening: No deficits noted. bb Tuberculosis screening: No symptoms or risk factors identified. Fall Risk None identified. Assessment: 19:36 General: Appears in no apparent distress. Behavior is calm, cooperative. Pain: bb Complains of pain in left leg and left hip. Neuro: Level of Consciousness is awake, alert, obeys commands, Oriented to person, place, time, situation. Cardiovascular: No deficits noted. Respiratory: Respiratory effort is even, unlabored, Respiratory pattern is regular. GI: No deficits noted. No signs and/or symptoms were reported involving the gastrointestinal system. Derm: Skin is dry, Skin is normal, Skin temperature is warm. Musculoskeletal: Circulation, motion, and sensation intact. 20:13 Reassessment: No changes from previously documented assessment. Patient is alert, bb oriented x 3, equal unlabored respirations, skin warm/dry/pink. pt verbalized understanding of and agrees to plan of care discharge instructions given pt ambulated with steady gait to exit work note given. Vital Signs: 17:31 BP 138 / 96; Pulse 118; Resp 20; Temp 98.3; Pulse Ox 98% on R/A; Weight 83.91 kg (R); aj1 Height 5 ft. 8 in. (172.72 cm) (R); Pain 7/10; 20:13 BP 146 / 99; Pulse 107; Resp 16 S; Temp 97.8(O); Pulse Ox 98% on R/A; Pain 7/10; bb 17:31 Body Mass Index 28.13 (83.91 kg, 172.72 cm) aj1 ED Course: 17:22 Patient arrived in ED. rg4 17:31 Arm band placed on Patient placed in waiting room, Patient notified of wait time. aj1 17:34 Triage completed. aj1 18:26 Carla Murphy LVN is Primary Nurse. ed1 18:46 Babita Baker MD is Attending Physician. ma2 19:36 Patient has correct armband on for positive identification. Bed in low position. Call bb light in reach. 19:36 No provider procedures requiring assistance completed. Patient did not have IV access bb during this emergency room visit. 19:38 Primary Nurse role handed off by Carla Murphy LVN bb 19:38 Cristal Mendoza, RN is Primary Nurse. bb Administered Medications: No medications were administered Outcome: 19:56 Discharge ordered by . eyal 20:14 Discharged to home ambulatory. bb 20:14 Condition: stable 20:14 Discharge instructions given to patient, Instructed on discharge instructions, follow up and referral plans. Demonstrated understanding of instructions, follow-up care. 20:14 Patient left the ED. bb Signatures: Gauri Mac RN RN aj1 Cristal Mendoza, RN RN bb Carla Murphy LVN LVN ed1 Karoline Duong rg4 Babita Baker MD MD ma2
--- NOTE | 2018-04-18 19:57 | EDPHYS ---
Physician Documentation [facility] Name: Grace Duong Age: 33 yrs Sex: Male : 1985 Arrival Date: 04/18/2018 Time: 17:22 Bed 9 Private MD: ED Physician Babita Baker HPI: 04/18 19:13 This 33 yrs old Male presents to ER via Ambulatory with complaints of Leg ma2 Injury. 19:13 The patient presents with a contusion, an injury, pain. The complaints affect the left ma2 hernandez. Onset: The symptoms/episode began/occurred suddenly, 1 day(s) ago. Modifying factors: The symptoms are alleviated by. Associated signs and symptoms: The patient has no apparent associated signs or symptoms. Treatment prior to arrival includes: no previous treatment. Severity of symptoms: At their worst the symptoms were moderate, in the emergency department the symptoms are unchanged. Severity of symptoms: At their worst the symptoms were mild, moderate, in the emergency department the symptoms. The patient has not experienced similar symptoms in the past. Historical: - Allergies: 17:31 No Known Allergies; aj1 - Home Meds: 17:31 insulin [Active]; aj1 - PMHx: 17:31 Diabetes - IDDM; Hypertension; aj1 - PSHx: 17:31 None; aj1 - Immunization history:: Flu vaccine is not up to date. - Social history:: Smoking status: Patient uses tobacco products, one pack a week. - Ebola Screening: : Patient denies travel to an Ebola-affected area in the 21 days before illness onset. - Family history:: not pertinent. ROS: 19:55 Constitutional: Negative for fever, chills, and weight loss, Cardiovascular: Negative ma2 for chest pain, palpitations, and edema, Abdomen/GI: Negative for abdominal pain, nausea, diarrhea, and constipation. 19:55 MS/extremity: Positive for pain, Negative for injury or acute deformity, contusion, tingling. 19:55 All other systems are negative. Exam: 19:55 Constitutional: This is a well developed, well nourished patient who is awake, alert, ma2 and in no acute distress. Chest/axilla: Normal chest wall appearance and motion. Nontender with no deformity. No lesions are appreciated. Cardiovascular: Regular rate and rhythm with a normal S1 and S2. No gallops, murmurs, or rubs. Normal PMI, no JVD. No pulse deficits. Respiratory: Lungs have equal breath sounds bilaterally, clear to auscultation and percussion. No rales, rhonchi or wheezes noted. No increased work of breathing, no retractions or nasal flaring. Abdomen/GI: Soft, non-tender, with normal bowel sounds. No distension or tympany. No guarding or rebound. No evidence of tenderness throughout. Skin: Warm, dry with normal turgor. Normal color with no rashes, no lesions, and no evidence of cellulitis. MS/ Extremity: Pulses equal, no cyanosis. Neurovascular intact. Full, normal range of motion. Neuro: Awake and alert, GCS 15, oriented to person, place, time, and situation. Cranial nerves II-XII grossly intact. Motor strength 5/5 in all extremities. Sensory grossly intact. Cerebellar exam normal. Normal gait. Vital Signs: 17:31 BP 138 / 96; Pulse 118; Resp 20; Temp 98.3; Pulse Ox 98% on R/A; Weight 83.91 kg (R); aj1 Height 5 ft. 8 in. (172.72 cm) (R); Pain 7/10; 20:13 BP 146 / 99; Pulse 107; Resp 16 S; Temp 97.8(O); Pulse Ox 98% on R/A; Pain 7/10; bb 17:31 Body Mass Index 28.13 (83.91 kg, 172.72 cm) [facility] MDM: 18:46 Patient medically screened. [facility] 19:55 Differential diagnosis: dislocation, open fracture, contusion, abrasion. Data reviewed: [facility] vital signs, nurses notes. Data reviewed: EMS record. Counseling: I had a detailed discussion with the patient and/or guardian regarding: the historical points, exam findings, and any diagnostic results supporting the discharge/admit diagnosis, the presence of at least one elevated blood pressure reading (>120/80) during this emergency department visit, the need for outpatient follow up. Administered Medications: No medications were administered Disposition: 04/18/18 19:56 Discharged to Home. Impression: Pain in left leg. - Condition is Stable. - Discharge Instructions: Form - Excuse from Work, School, or Physical Activity. - Work release form, Medication Reconciliation Form, Thank You Letter, Antibiotic Education, Prescription Opioid Use form. - Follow up: Private Physician; When: Tomorrow; Reason: Continuance of care. Signatures: Dispatcher [employer] Gauri Reid RN RN aj1 Cristal Mendoza RN RN bb Alzahri, Mohammad, MD MD ma2 Corrections: (The following items were deleted from the chart) 20:14 19:56 04/18/2018 19:56 Discharged to Home. Impression: Pain in left leg. Condition is bb Stable. Forms are Medication Reconciliation Form, Thank You Letter, Antibiotic Education, Prescription Opioid Use. Follow up: Private Physician; When: Tomorrow; Reason: Continuance of care. ma2
[2018-04-18 20:34] VITALS: O2SAT 98
[2018-04-18 20:35] VITALS: BP 146/99; TEMP 97.8
== END 2018-04-18 20:14 | disposition home or self-care (01) ==
LOC: ER 17:17
DX: M79.662 Pain in left lower leg (principal); I10 Essential (primary) hypertension; E11.9 Type 2 diabetes mellitus without complications; Z79.4 Long term (current) use of insulin
CPT/HCPCS: 99281

== ENCOUNTER 2018-05-22 14:51 | Emergency (ER) | payer SELFPAY ==
[2018-05-22 16:11] LABS: Urine Blood 1+ (NEG); Urine Glucose 2+ (NEG); Urine Protein 3+ (NEG); Urine Specific Gravity 1.025 (1.005-1.030)
[2018-05-22] MEDS ORDERED: ONDANSETRON 4 MG/2 ML VIAL ONE (16:17)
[2018-05-22] MEDS ORDERED: NA CHLORIDE 0.9% 1,000 ML ONE (16:17)
[2018-05-22] MEDS ORDERED: KETOROLAC 30 MG/ML INJ ONE (16:17)
[2018-05-22 16:24] LABS: Urine Bacteria <20 /HPF (NONE SEEN); Urine Culture Reflex Order NOT NEEDED
[2018-05-22 16:47] LABS: Absolute Lymphocytes (CBC) 3.4 K/uL (0.7-4.9); Absolute Monocytes 1.2 K/uL (0.1-1.3); Absolute Neutrophil 6.5 K/uL (1.8-8.0); Basophils % 0.7 % (0-1.3); Hematocrit 40.9 % (39.6-49.0); Lymphocytes % 29.7 % (15.3-44.8); MCH 29.7 pg (27.0-35.0); MCV 87.6 fL (80-100); MPV 8.3 fL (7.6-11.3); Monocytes % 10.6 % (3.3-12.3); RBC Red Blood Cell Count 4.67 M/uL (4.33-5.43)
[2018-05-22 16:54] LABS: ALT/SGPT 37 U/L (12-78); AST/SGOT 34 U/L (15-37); Albumin 2.3 g/dL (3.4-5.0); Alkaline Phosphatase 90 U/L (45-117); BUN Blood Urea Nitrogen 20 mg/dL (7-18); Bicarbonate 29 mmol/L (21-32); Bilirubin Direct < 0.1 mg/dL (0-0.2); Bilirubin Total 0.2 mg/dL (0.2-1.0); Glucose Level 302 mg/dL (74-106); Lipase 210 U/L (73-393); Potassium 4.3 mmol/L (3.5-5.1); Protein, Total 6.3 g/dL (6.4-8.2); Sodium Level 141 mmol/L (136-145)
--- NOTE | 2018-05-22 16:59 | EDPHYS ---
Physician Documentation [facility] Name: Grace Duong Age: 33 yrs Sex: Male : 1985 Arrival Date: 05/22/2018 Time: 14:53 Bed 28 Private MD: None, None ED Physician Konrad Wade HPI: 05/22 18:03 This 33 yrs old Male presents to ER via Ambulatory with complaints of gs Abdominal Pain. 18:03 The patient presents to the emergency department with nausea, vomiting, diarrhea. gs Onset: The symptoms/episode began/occurred 2 day(s) ago. Possible causes: unknown. The symptoms are aggravated by nothing. The symptoms are alleviated by nothing. Associated signs and symptoms: Pertinent positives: abdominal pain, Pertinent negatives: fever. Severity of symptoms: At their worst the symptoms were moderate in the emergency department the symptoms have improved markedly. The patient has experienced similar episodes in the past, a few times. The patient has not recently seen a physician. Historical: - Allergies: 14:56 No Known Allergies; aa5 - PMHx: 14:56 Diabetes - IDDM; Hypertension; aa5 - PSHx: 14:56 None; aa5 - Immunization history:: Adult Immunizations unknown. - Social history:: Smoking status: Patient uses tobacco products, 1 pack a week . - Ebola Screening: : No symptoms or risks identified at this time. ROS: 18:03 All other systems are negative. gs Exam: 18:03 Head/Face: Normocephalic, atraumatic. Eyes: Pupils equal round and reactive to light, gs extra-ocular motions intact. Lids and lashes normal. Conjunctiva and sclera are non-icteric and not injected. Cornea within normal limits. Periorbital areas with no swelling, redness, or edema. ENT: Nares patent. No nasal discharge, no septal abnormalities noted. Tympanic membranes are normal and external auditory canals are clear. Oropharynx with no redness, swelling, or masses, exudates, or evidence of obstruction, uvula midline. Mucous membranes moist. Neck: Trachea midline, no thyromegaly or masses palpated, and no cervical lymphadenopathy. Supple, full range of motion without nuchal rigidity, or vertebral point tenderness. No Meningismus. Chest/axilla: Normal chest wall appearance and motion. Nontender with no deformity. No lesions are appreciated. Cardiovascular: Regular rate and rhythm with a normal S1 and S2. No gallops, murmurs, or rubs. Normal PMI, no JVD. No pulse deficits. Respiratory: Lungs have equal breath sounds bilaterally, clear to auscultation and percussion. No rales, rhonchi or wheezes noted. No increased work of breathing, no retractions or nasal flaring. Back: No spinal tenderness. No costovertebral tenderness. Full range of motion. Skin: Warm, dry with normal turgor. Normal color with no rashes, no lesions, and no evidence of cellulitis. MS/ Extremity: Pulses equal, no cyanosis. Neurovascular intact. Full, normal range of motion. Neuro: Awake and alert, GCS 15, oriented to person, place, time, and situation. Cranial nerves II-XII grossly intact. Motor strength 5/5 in all extremities. Sensory grossly intact. Cerebellar exam normal. Normal gait. 18:03 Constitutional: The patient appears alert, awake. 18:03 Abdomen/GI: Palpation: mild abdominal tenderness, in all quadrants, rebound tenderness, is not appreciated. Vital Signs: 14:56 BP 164 / 107; Pulse 113; Resp 18; Temp 98.6(TE); Pulse Ox 98% on R/A; Weight 95.25 kg aa5 (R); Height 5 ft. 8 in. (172.72 cm) (R); Pain 8/10; 15:15 BP 156 / 107; Pulse 99; Resp 18; Pulse Ox 100% on R/A; tl3 16:44 BP 153 / 110; Pulse 96; Resp 18; Pulse Ox 100% on R/A; tl3 17:14 BP 156 / 107; Pulse 102; Resp 18; Pulse Ox 99% on R/A; tl3 14:56 Body Mass Index 31.93 (95.25 kg, 172.72 cm) aa5 MDM: 15:57 Patient medically screened. 18:03 Data reviewed: vital signs, nurses notes, lab test result(s). Response to treatment: gs the patient's symptoms have markedly improved after treatment, the patient's symptoms have resolved after treatment, pt wants discharge, no time for CT. 05/22 15:17 Order name: Urine Culture [facility] 05/22 15:17 Order name: Urine Microscopic Only; Complete Time: 16:55 [facility] 05/22 15:56 Order name: Basic Metabolic Panel; Complete Time: 16:55 05/22 15:56 Order name: CBC with Diff; Complete Time: 16:55 05/22 15:56 Order name: Hepatic Function; Complete Time: 16:55 05/22 15:56 Order name: Lipase; Complete Time: 16:55 05/22 15:17 Order name: Urine Dipstick-Ancillary (obtain specimen); Complete Time: 16:07 [facility] 05/22 15:56 Order name: IV Saline Lock; Complete Time: 16:23 05/22 15:56 Order name: Labs collected and sent; Complete Time: 16:23 05/22 16:04 Order name: Urine Dipstick--Ancillary (enter results); Complete Time: 16:55 bd Administered Medications: 16:22 Drug: Zofran 4 mg Route: IVP; Infused Over: 2 mins; Site: left antecubital; tl3 17:16 Follow up: Response: No adverse reaction tl3 16:23 Drug: TORadol 30 mg Route: IVP; Infused Over: 2 mins; Site: left antecubital; tl3 17:15 Follow up: Response: No adverse reaction; Pain is decreased tl3 16:23 Drug: NS 0.9% 1000 ml Route: IV; Rate: 1 bolus; Site: left antecubital; Delivery: tl3 Primary tubing; 17:15 Follow up: IV Status: Completed infusion; IV Intake: 700ml tl3 Disposition: 05/22/18 16:58 Discharged to Home. Impression: Vomiting, Diarrhea, unspecified. - Condition is Stable. - Discharge Instructions: Diarrhea, Adult, Nausea and Vomiting, Adult. - Prescriptions for Zofran 4 mg Oral Tablet - take 1 tablet by ORAL route every 12 hours As needed; 6 tablet. - Medication Reconciliation Form, Thank You Letter, Antibiotic Education, Prescription Opioid Use, Work release form form. - Follow up: None, None; When: 2 - 3 days; Reason: Re-evaluation by your physician. Signatures: Dispatcher [employer] EDLauren Nascimento FNP-C FNP-Rosanna Moss, RN RN aa5 Konrad Wade MD MD gs Lowrey, Tammy RN RN tl3 Corrections: (The following items were deleted from the chart) 15:56 15:17 Urine Test ordered. snw tl3 17:17 16:58 05/22/2018 16:58 Discharged to Home. Impression: Vomiting; Diarrhea, unspecified. tl3 Condition is Stable. Forms are Medication Reconciliation Form, Thank You Letter, Antibiotic Education, Prescription Opioid Use. Follow up: None None; When: 2 - 3 days; Reason: Re-evaluation by your physician. gs
--- NOTE | 2018-05-22 16:59 | ER ---
Nurse's Notes [facility] Name: Grace Duong Age: 33 yrs Sex: Male : 1985 Arrival Date: 05/22/2018 Time: 14:53 Bed 28 Private MD: None, None Diagnosis: Vomiting;Diarrhea, unspecified Presentation: 05/22 14:55 Presenting complaint: Patient states: LLQ pain and left low back pain that began last aa5 night. Pt also reports N/V/D. Transition of care: patient was not received from another setting of care. Onset of symptoms was May 2018. Risk Assessment: Do you want to hurt yourself or someone else? Patient reports no desire to harm self or others. Initial Sepsis Screen: Does the patient meet any 2 criteria? No. Patient's initial sepsis screen is negative. Does the patient have a suspected source of infection? No. Patient's initial sepsis screen is negative. Care prior to arrival: None. 14:55 Method Of Arrival: Ambulatory aa5 14:55 Acuity: CHAPARRITA 3 aa5 Historical: - Allergies: 14:56 No Known Allergies; aa5 - PMHx: 14:56 Diabetes - IDDM; Hypertension; aa5 - PSHx: 14:56 None; aa5 - Immunization history:: Adult Immunizations unknown. - Social history:: Smoking status: Patient uses tobacco products, 1 pack a week . - Ebola Screening: : No symptoms or risks identified at this time. Screenin:15 Abuse screen: Denies threats or abuse. Nutritional screening: No deficits noted. tl3 Tuberculosis screening: No symptoms or risk factors identified. Fall Risk None identified. Assessment: 15:15 General: Appears in no apparent distress. uncomfortable, well groomed, well developed, tl3 well nourished, Behavior is calm, cooperative, appropriate for age. Pain: Complains of pain in abdomen. Neuro: Level of Consciousness is awake, alert, obeys commands, Oriented to person, place, time, situation, Appropriate for age. Cardiovascular: Patient's skin is warm and dry. Respiratory: Airway is patent. GI: Bowel sounds present X 4 quads. Abd is non tender Reports lower abdominal pain, diarrhea, vomiting, since yesterday. 16:44 Reassessment: Patient appears in no apparent distress at this time. No changes from tl3 previously documented assessment. Patient and/or family updated on plan of care and expected duration. Pain level reassessed. Patient is alert, oriented x 3, equal unlabored respirations, skin warm/dry/pink. lights dimmed, no further needs at this time. 17:14 Reassessment: Patient appears in no apparent distress at this time. No changes from tl3 previously documented assessment. Patient and/or family updated on plan of care and expected duration. Pain level reassessed. Patient is alert, oriented x 3, equal unlabored respirations, skin warm/dry/pink. pt needs to be discharged to P/U daughter at school, Dr Wade discussed POC with pt. Vital Signs: 14:56 BP 164 / 107; Pulse 113; Resp 18; Temp 98.6(TE); Pulse Ox 98% on R/A; Weight 95.25 kg aa5 (R); Height 5 ft. 8 in. (172.72 cm) (R); Pain 8/10; 15:15 BP 156 / 107; Pulse 99; Resp 18; Pulse Ox 100% on R/A; tl3 16:44 BP 153 / 110; Pulse 96; Resp 18; Pulse Ox 100% on R/A; tl3 17:14 BP 156 / 107; Pulse 102; Resp 18; Pulse Ox 99% on R/A; tl3 14:56 Body Mass Index 31.93 (95.25 kg, 172.72 cm) aa5 ED Course: 14:53 Patient arrived in ED. mr 14:54 None, None is Private Physician. mr 14:55 Arm band placed on. aa5 14:56 Triage completed. aa5 15:15 Patient has correct armband on for positive identification. tl3 15:15 No provider procedures requiring assistance completed. tl3 15:21 Konrad Wade MD is Attending Physician. gs 15:53 Deepti Hall, BERKLEY is Primary Nurse. tl3 16:20 Initial lab(s) drawn, by me, sent to lab. Inserted saline lock: 20 gauge in left tl3 antecubital area, using aseptic technique. Blood collected. 16:58 None, None is Referral Physician. gs 17:14 IV discontinued, intact, bleeding controlled, No redness/swelling at site. Pressure tl3 dressing applied. Administered Medications: 16:22 Drug: Zofran 4 mg Route: IVP; Infused Over: 2 mins; Site: left antecubital; tl3 17:16 Follow up: Response: No adverse reaction tl3 16:23 Drug: TORadol 30 mg Route: IVP; Infused Over: 2 mins; Site: left antecubital; tl3 17:15 Follow up: Response: No adverse reaction; Pain is decreased tl3 16:23 Drug: NS 0.9% 1000 ml Route: IV; Rate: 1 bolus; Site: left antecubital; Delivery: tl3 Primary tubing; 17:15 Follow up: IV Status: Completed infusion; IV Intake: 700ml tl3 Intake: 17:15 IV: 700ml; Total: 700ml. tl3 Outcome: 16:58 Discharge ordered by . albino 17:14 Discharged to home ambulatory. tl3 17:14 Condition: stable 17:14 Discharge instructions given to patient, Instructed on discharge instructions, follow up and referral plans. medication usage, Demonstrated understanding of instructions, follow-up care, medications, Prescriptions given X 1. 17:17 Patient left the ED. tl3 Signatures: Marie Young Audri, RN RN aa5 Konrad Wade MD MD gs Lowrey, Tammy, RN RN tl3
[2018-05-22 18:37] VITALS: TEMP 98.6
[2018-05-22 18:40] VITALS: BP 156/107; O2SAT 99
== END 2018-05-22 17:17 | disposition home or self-care (01) ==
LOC: ER 14:51
DX: R11.10 Vomiting, unspecified (principal); R19.7 Diarrhea, unspecified; E11.9 Type 2 diabetes mellitus without complications; I10 Essential (primary) hypertension; Z79.4 Long term (current) use of insulin; F17.210 Nicotine dependence, cigarettes, uncomplicated
CPT/HCPCS: 36415; 80048; 80076; 81003; 81015; 83690; 85025; 87077; 87086; 87088; 87186; 96361; 96374; 96375; 99284; J2405; J7030

== ENCOUNTER 2018-08-11 13:10 | Emergency (ER) | payer SELFPAY ==
--- NOTE | 2018-08-11 13:28 | ER ---
Nurse's Notes [facility] Name: Grace Duong Age: 33 yrs Sex: Male : 1985 Arrival Date: 08/11/2018 Time: 13:12 Bed 6 Private MD: Diagnosis: Carpal tunnel syndrome, right upper limb Presentation: 08/11 13:13 Presenting complaint: Patient states: right arm pain x 1 day after moving furniture sv yesterday. Transition of care: patient was not received from another setting of care. Onset of symptoms was August 10, 2018. Care prior to arrival: None. 13:13 Method Of Arrival: Ambulatory sv 13:13 Acuity: CHAPARRITA 3 sv 13:38 Risk Assessment: Do you want to hurt yourself or someone else? Patient reports no sg desire to harm self or others. Initial Sepsis Screen: Does the patient meet any 2 criteria? No. Patient's initial sepsis screen is negative. Does the patient have a suspected source of infection? No. Patient's initial sepsis screen is negative. Triage Assessment: 13:13 General: Appears in no apparent distress. uncomfortable, Behavior is calm, cooperative, sv appropriate for age. Neuro: Level of Consciousness is awake, alert, obeys commands, Oriented to person, place, time, situation. Respiratory: Respiratory effort is even, unlabored, Respiratory pattern is regular, symmetrical. Derm: Skin is normal, right hand is cool to touch and pale. Musculoskeletal: Range of motion: intact in all extremities. Historical: - Allergies: 13:14 No Known Allergies; sv - PMHx: 13:14 Diabetes - IDDM; Hypertension; sv - PSHx: 13:14 None; sv - Immunization history:: Flu vaccine is not up to date. - Social history:: Smoking status: Patient uses tobacco products, denies chronic smoking, but will smoke occasionally, Patient/guardian denies using alcohol, street drugs, The patient lives with family. - Ebola Screening: : No symptoms or risks identified at this time. - Family history:: not pertinent. - Hospitalizations: : No recent hospitalization is reported. Screenin:30 Abuse screen: Denies threats or abuse. Denies injuries from another. Nutritional jl7 screening: No deficits noted. Tuberculosis screening: No symptoms or risk factors identified. Never had TB. Fall Risk None identified. Assessment: 13:30 General: Appears in no apparent distress. comfortable, well groomed, well developed, jl7 well nourished, Behavior is calm, cooperative, appropriate for age. Pain: Complains of pain in right arm Quality of pain is described as aching, sharp. Neuro: No deficits noted. Reports tingling. Cardiovascular: No deficits noted. Respiratory: Airway is patent Respiratory effort is even, unlabored, Respiratory pattern is regular, symmetrical, Breath sounds are clear. GI: No deficits noted. Abdomen is round non-distended. : No signs and/or symptoms were reported regarding the genitourinary system. EENT: No signs and/or symptoms were reported regarding the EENT system. Derm: Skin is pink, warm \\T\\ dry. Musculoskeletal: Circulation, motion, and sensation intact. Range of motion: intact in all extremities, Swelling absent Reports pain in right hand and right arm. 13:40 Reassessment: Patient appears in no apparent distress at this time. pt reports " the sg doctor said i was going to get pills, a shot for pain, and prescription before i go home." notified, at bedside updating pt on POC and po medication, no shot due to no specific medication at this facility, pt and pt family stated understanding, pt to be d/c to home as ordered. Vital Signs: 13:14 BP 130 / 98; Pulse 88; Resp 18; Temp 97.8; Pulse Ox 99% ; Weight 90.72 kg; Height 5 ft. sv 8 in. (172.72 cm); 13:14 Body Mass Index 30.41 (90.72 kg, 172.72 cm) sv ED Course: 13:12 Patient arrived in ED. as 13:13 Triage completed. sv 13:15 Arm band placed on. sv 13:19 Saqib Wiseman, NATALIA is PHCP. pm1 13:19 Babita Baker MD is Attending Physician. pm1 13:30 Patient has correct armband on for positive identification. Adult w/ patient. Pulse ox sg on. NIBP on. 13:35 Rosales Marsh, BERKLEY is Primary Nurse. sg 13:35 No provider procedures requiring assistance completed. Patient did not have IV access sg during this emergency room visit. Administered Medications: 13:35 Drug: Gabapentin 600 mg Route: PO; sg 13:45 Follow up: Response: No adverse reaction sg Outcome: 13:27 Discharge ordered by MD. birch 13:40 Discharged to home ambulatory, with family. 13:40 Condition: good 13:40 Discharge instructions given to patient, Instructed on discharge instructions, follow up and referral plans. medication usage, safety practices, Demonstrated understanding of instructions, follow-up care, medications, Prescriptions given X 1. 13:46 Patient left the ED. sg Signatures: Gabriella Mullins RN RN sv Gay, Steven, RN RN Judie Amaya Patrick, SPECIAL SKILLS OFFICER SPECIAL SKILLS OFFICER pm1 Niko Umaña RN RN jl7 Babita Baker MD MD ma2 Corrections: (The following items were deleted from the chart) 13:15 13:13 Acuity: CHAPARRITA 4 [facility]
--- NOTE | 2018-08-11 13:28 | EDPHYS ---
Physician Documentation [facility] Name: Grace Duong Age: 33 yrs Sex: Male : 1985 Arrival Date: 08/11/2018 Time: 13:12 Bed 6 Private MD: ED Physician Babita Baker HPI: 08/11 13:24 This 33 yrs old Male presents to ER via Ambulatory with complaints of Arm ma2 Pain, Hand Pain. 13:24 The patient or guardian complains of pain. The complaints affect the dorsal aspect of ma2 right forearm, right wrist and right hand. Onset: The symptoms/episode began/occurred gradually, 1 day(s) ago. Associated signs and symptoms: Pertinent negatives: decreased range of motion, deformity, erythema, numbness, pain, swelling, tingling, vomiting, warmth. Severity of symptoms: At their worst the symptoms were mild, in the emergency department the symptoms are unchanged. The patient has not experienced similar symptoms in the past. Historical: - Allergies: 13:14 No Known Allergies; sv - PMHx: 13:14 Diabetes - IDDM; Hypertension; sv - PSHx: 13:14 None; sv - Immunization history:: Flu vaccine is not up to date. - Social history:: Smoking status: Patient uses tobacco products, denies chronic smoking, but will smoke occasionally, Patient/guardian denies using alcohol, street drugs, The patient lives with family. - Ebola Screening: : No symptoms or risks identified at this time. - Family history:: not pertinent. - Hospitalizations: : No recent hospitalization is reported. ROS: 13:25 Constitutional: Negative for fever, chills, and weight loss, Cardiovascular: Negative ma2 for chest pain, palpitations, and edema, Abdomen/GI: Negative for abdominal pain, nausea, diarrhea, and constipation. 13:25 MS/extremity: Positive for pain, tingling, Negative for abrasion, contusion, decreased range of motion, deformity, puncture, rash, swelling. 13:25 All other systems are negative. Exam: 13:25 Constitutional: This is a well developed, well nourished patient who is awake, alert, ma2 and in no acute distress. Chest/axilla: Normal chest wall appearance and motion. Nontender with no deformity. No lesions are appreciated. Cardiovascular: Regular rate and rhythm with a normal S1 and S2. No gallops, murmurs, or rubs. Normal PMI, no JVD. No pulse deficits. Respiratory: Lungs have equal breath sounds bilaterally, clear to auscultation and percussion. No rales, rhonchi or wheezes noted. No increased work of breathing, no retractions or nasal flaring. Abdomen/GI: Soft, non-tender, with normal bowel sounds. No distension or tympany. No guarding or rebound. No evidence of tenderness throughout. Skin: Warm, dry with normal turgor. Normal color with no rashes, no lesions, and no evidence of cellulitis. MS/ Extremity: Pulses equal, no cyanosis. Neurovascular intact. Full, normal range of motion. Neuro: Awake and alert, GCS 15, oriented to person, place, time, and situation. Cranial nerves II-XII grossly intact. Motor strength 5/5 in all extremities. Sensory grossly intact. Cerebellar exam normal. Normal gait. 13:25 Musculoskeletal/extremity: Circulation is intact in all extremities. Vital Signs: 13:14 BP 130 / 98; Pulse 88; Resp 18; Temp 97.8; Pulse Ox 99% ; Weight 90.72 kg; Height 5 ft. sv 8 in. (172.72 cm); 13:14 Body Mass Index 30.41 (90.72 kg, 172.72 cm) sv MDM: 13:19 Patient medically screened. pm1 13:25 Differential diagnosis: contusion, abrasion, tendonitis, likely perephral neuropathy or ma2 CTS. Data reviewed: vital signs, nurses notes. Counseling: I had a detailed discussion with the patient and/or guardian regarding: the historical points, exam findings, and any diagnostic results supporting the discharge/admit diagnosis, the presence of at least one elevated blood pressure reading (>120/80) during this emergency department visit, the need for outpatient follow up. Response to treatment: the patient's symptoms have markedly improved after treatment. Administered Medications: 13:35 Drug: Gabapentin 600 mg Route: PO; sg 13:45 Follow up: Response: No adverse reaction sg Disposition: 08/11/18 13:27 Discharged to Home. Impression: Carpal tunnel syndrome, right upper limb. - Condition is Stable. - Discharge Instructions: Carpal Tunnel Syndrome, Peripheral Neuropathy. - Prescriptions for Neurontin 300 mg Oral Capsule - take 1 capsule by ORAL route At bedtime; 20 capsule. - Work release form, Medication Reconciliation Form, Thank You Letter, Antibiotic Education, Prescription Opioid Use form. - Follow up: Private Physician; When: Tomorrow; Reason: Continuance of care. Signatures: Gabriella Mullins RN RN Rosales Marsh RN RN sg Saqib Wiseman, NATALIA TECHNICAL BUSINESS SYSTEMS ANALYST pm1 Babita Baker MD MD ma2 Corrections: (The following items were deleted from the chart) 13:46 13:27 08/11/2018 13:27 Discharged to Home. Impression: Carpal tunnel syndrome, right sg upper limb. Condition is Stable. Forms are Medication Reconciliation Form, Thank You Letter, Antibiotic Education, Prescription Opioid Use. Follow up: Private Physician; When: Tomorrow; Reason: Continuance of care. ma2
[2018-08-11 14:07] VITALS: BP 130/98; TEMP 97.8; O2SAT 99
== END 2018-08-11 13:46 | disposition home or self-care (01) ==
LOC: ER 13:10
DX: G56.01 Carpal tunnel syndrome, right upper limb (principal); I10 Essential (primary) hypertension; Z72.0 Tobacco use
CPT/HCPCS: 99283

== ENCOUNTER 2018-11-23 18:07 | Emergency (ER) | payer SELFPAY ==
--- OUTSIDE RECORDS SUMMARY | 2018-11-23 18:09 | XMS REPORT ---
:1985 [facility] Address [address] [place] [address] Care Team Providers Name Role Phone Unavailable Unavailable Unavailable Problems This patient has no known problems. Allergies, Adverse Reactions, Alerts This patient has no known allergies or adverse reactions. Medications This patient has no known medications.
--- NOTE | 2018-11-23 21:17 | RAD REPORT ---
EXAM DESCRIPTION: RAD - Chest Single View - 11/23/2018 9:07 pm CLINICAL HISTORY: COUGH Chest pain. COMPARISON: <Comparisons> FINDINGS: Portable technique limits examination quality. The lungs are grossly clear. The heart is normal in size. No displaced fractures. IMPRESSION: No acute intrathoracic process suspected.
--- NOTE | 2018-11-23 21:25 | RAD REPORT ---
EXAM DESCRIPTION: US - Extrem Venous W Compress Lj - 11/23/2018 9:17 pm CLINICAL HISTORY: PAIN Bilateral leg edema and swelling. COMPARISON: <Comparisons> TECHNIQUE: Real-time sonographic interrogation of the left and right lower extremity deep venous sys tems was performed. FINDINGS: Normal compressibility, flow augmentation, phasic flow and spontaneous flow is identified in both the left and right lower extremity deep venous systems. IMPRESSION: No sonographic evidence of left or right lower extremity deep venous thrombosis.
[2018-11-23 21:34] LABS: Absolute Lymphocytes (CBC) 2.8 K/uL (0.7-4.9); Absolute Monocytes 0.9 K/uL (0.1-1.3); Absolute Neutrophil 4.6 K/uL (1.8-8.0); Basophils % 0.8 % (0-1.3); Eosinophils % 4.2 % (0-4.4); Hematocrit 38.8 % (39.6-49.0); Lymphocytes % 32.3 % (15.3-44.8); MPV 7.9 fL (7.6-11.3); Monocytes % 10.5 % (3.3-12.3); RBC Red Blood Cell Count 4.46 M/uL (4.33-5.43)
[2018-11-23 21:47] LABS: Protime INR 1.02
[2018-11-23 21:54] LABS: ALT/SGPT 25 U/L (12-78); AST/SGOT 15 U/L (15-37); Albumin 2.6 g/dL (3.4-5.0); Alkaline Phosphatase 72 U/L (45-117); BUN Blood Urea Nitrogen 26 mg/dL (7-18); Bicarbonate 27 mmol/L (21-32); Bilirubin Direct < 0.1 mg/dL (0-0.2); Bilirubin Total 0.2 mg/dL (0.2-1.0); Glucose Level 235 mg/dL (74-106); Lipase 240 U/L (73-393); NT PRO-BNP 308 pg/mL (<125); Protein, Total 6.3 g/dL (6.4-8.2); Sodium Level 142 mmol/L (136-145); Troponin (Emerg Dept Use Only) < 0.02 ng/mL (0.0-0.045)
[2018-11-23 23:11] LABS: Urine Blood TRACE (NEG); Urine Glucose TRACE (NEG); Urine Protein 3+ (NEG); Urine Specific Gravity >1.030 (1.005-1.030)
--- NOTE | 2018-11-23 23:20 | EDPHYS ---
Physician Documentation [facility] Name: Grace Duong Age: 33 yrs Sex: Male : 1985 Arrival Date: 11/23/2018 Time: 18:08 Bed 25 Private MD: Unknown, Unknown ED Physician Joseph Laguerre HPI: 11/23 20:45 This 33 yrs old Male presents to ER via Ambulatory with complaints of Foot otis Pain and left leg pain. 20:45 The patient presents with decreased range of motion, pain, that is acute. The otis complaints affect the right foot, right leg. Context: The problem was sustained at an unknown location. Onset: The symptoms/episode began/occurred 2 day(s) ago. Modifying factors: The symptoms are alleviated by elevation of extremity, the symptoms are aggravated by nothing. weight bearing. Associated signs and symptoms: The patient has no apparent associated signs or symptoms. Severity of symptoms: At their worst the symptoms were mild, in the emergency department the symptoms are unchanged. The patient has not experienced similar symptoms in the past. Historical: - Allergies: 18:18 No Known Allergies; ss - PMHx: 18:18 Diabetes - IDDM; Hypertension; stroke; ss - PSHx: 18:18 None; ss - Immunization history:: Adult Immunizations up to date. - Social history:: Smoking status: . - Ebola Screening: : No symptoms or risks identified at this time. - Family history:: not pertinent. ROS: 20:45 Constitutional: Negative for fever, chills, and weight loss, Eyes: Negative for injury, otis pain, redness, and discharge, ENT: Negative for injury, pain, and discharge, Neck: Negative for injury, pain, and swelling, Cardiovascular: Negative for chest pain, palpitations, and edema, Respiratory: Negative for shortness of breath, cough, wheezing, and pleuritic chest pain, Abdomen/GI: Negative for abdominal pain, nausea, vomiting, diarrhea, and constipation, Back: Negative for injury and pain, : Negative for injury, bleeding, discharge, and swelling, Skin: Negative for injury, rash, and discoloration, Neuro: Negative for headache, weakness, numbness, tingling, and seizure, Psych: Negative for depression, anxiety, suicide ideation, homicidal ideation, and hallucinations, Allergy/Immunology: Negative for hives, rash, and allergies, Endocrine: Negative for neck swelling, polydipsia, polyuria, polyphagia, and marked weight changes, Hematologic/Lymphatic: Negative for swollen nodes, abnormal bleeding, and unusual bruising. 20:45 MS/extremity: Positive for pain, swelling, tenderness, of the left leg. Exam: 20:45 Constitutional: This is a well developed, well nourished patient who is awake, alert, otis and in no acute distress. Head/Face: Normocephalic, atraumatic. Eyes: Pupils equal round and reactive to light, extra-ocular motions intact. Lids and lashes normal. Conjunctiva and sclera are non-icteric and not injected. Cornea within normal limits. Periorbital areas with no swelling, redness, or edema. ENT: Nares patent. No nasal discharge, no septal abnormalities noted. Tympanic membranes are normal and external auditory canals are clear. Oropharynx with no redness, swelling, or masses, exudates, or evidence of obstruction, uvula midline. Mucous membranes moist. Neck: Trachea midline, no thyromegaly or masses palpated, and no cervical lymphadenopathy. Supple, full range of motion without nuchal rigidity, or vertebral point tenderness. No Meningismus. Chest/axilla: Normal chest wall appearance and motion. Nontender with no deformity. No lesions are appreciated. Cardiovascular: Regular rate and rhythm with a normal S1 and S2. No gallops, murmurs, or rubs. Normal PMI, no JVD. No pulse deficits. Respiratory: Lungs have equal breath sounds bilaterally, clear to auscultation and percussion. No rales, rhonchi or wheezes noted. No increased work of breathing, no retractions or nasal flaring. Abdomen/GI: Soft, non-tender, with normal bowel sounds. No distension or tympany. No guarding or rebound. No evidence of tenderness throughout. Back: No spinal tenderness. No costovertebral tenderness. Full range of motion. Skin: Warm, dry with normal turgor. Normal color with no rashes, no lesions, and no evidence of cellulitis. Neuro: Awake and alert, GCS 15, oriented to person, place, time, and situation. Cranial nerves II-XII grossly intact. Motor strength 5/5 in all extremities. Sensory grossly intact. Cerebellar exam normal. Normal gait. Psych: Awake, alert, with orientation to person, place and time. Behavior, mood, and affect are within normal limits. 20:45 Musculoskeletal/extremity: Extremities: swelling, ROM: limited active range of motion, limited passive range of motion, Circulation is intact in all extremities. Compartment Syndrome exam of affected extremity: is normal. DVT Exam: negative Homans' sign noted on exam, no appreciated bluish discoloration, no erythema, no increased warmth, pain, swelling, tenderness. Vital Signs: 18:18 BP 130 / 69; Pulse 94; Resp 18; Temp 99.9(TE); Pulse Ox 98% on R/A; Weight 89.36 kg; ss Height 5 ft. 8 in. (172.72 cm); 23:54 BP 126 / 66; Pulse 88; Resp 17; Temp 98.5; Pulse Ox 100% ; rv 18:18 Body Mass Index 29.95 (89.36 kg, 172.72 cm) ss MDM: 20:07 Patient medically screened. [facility] 20:48 Data reviewed: vital signs, nurses notes, lab test result(s), EKG, radiologic studies, otis doppler, plain films. 05 20:45 Order name: Basic Metabolic Panel; Complete Time: 23:16 [facility] 11/23 20:45 Order name: CBC with Diff; Complete Time: 23:16 [facility] 11/23 20:45 Order name: LFT's; Complete Time: 23:16 [facility] 11/23 20:45 Order name: Magnesium; Complete Time: 23:16 [facility] 11/23 20:45 Order name: NT PRO-BNP; Complete Time: 23:16 [facility] 11/23 20:45 Order name: PT-INR; Complete Time: 23:16 [facility] 11/23 20:45 Order name: Troponin (emerg Dept Use Only); Complete Time: 23:16 [facility] 11/23 20:45 Order name: XRAY Chest (1 view); Complete Time: 23:16 [facility] 11/23 20:45 Order name: Cardiac monitoring; Complete Time: 22:56 [facility] 11/23 20:45 Order name: US Extremity Venous W Compression Lj; Complete Time: 23:16 [facility] 11/23 20:45 Order name: Lipase; Complete Time: 23:16 [facility] 11/23 20:45 Order name: Urine Culture [facility] 11/23 23:05 Order name: Urine Dipstick--Ancillary (enter results); Complete Time: 23:16 2 11/23 20:45 Order name: EKG - Nurse/Tech; Complete Time: 22:56 [facility] 11/23 20:45 Order name: IV Saline Lock; Complete Time: 22:56 [facility] 11/23 20:45 Order name: Labs collected and sent; Complete Time: 22:56 [facility] 11/23 20:45 Order name: O2 Per Protocol; Complete Time: 22:56 [facility] 11/23 20:45 Order name: O2 Sat Monitoring; Complete Time: 22:56 [facility] 11/23 20:45 Order name: Urine Dipstick-Ancillary (obtain specimen); Complete Time: 22:54 [facility] Administered Medications: No medications were administered Disposition: 11/23/18 23:19 Discharged to Home. Impression: Edema, unspecified, Type 1 diabetes mellitus, Unspecified kidney failure - insufficency. - Condition is Stable. - Discharge Instructions: Type 1 Diabetes Mellitus, Diagnosis, Adult, Edema, Edema, [id number]-[id number], Chronic Kidney Disease, Adult, [id number], Type 1 Diabetes Mellitus, Self Care, Adult, Type 1 Diabetes Mellitus, Diagnosis, Adult, Myru-gc-Ovir, Type 1 Diabetes Mellitus, Self Care, Adult, Arjr-ng-Fonz, Peripheral Edema. - Medication Reconciliation Form, Thank You Letter, Antibiotic Education, Prescription Opioid Use form. - Follow up: Private Physician; When: 2 - 3 days; Reason: Recheck today's complaints, Continuance of care, Re-evaluation by your physician. - Problem is new. - Symptoms have improved. Signatures: Dispatcher [employer] EDNV Joseph Laguerre MD MD cha Smirch, Shelby, RN RN ss Vicente, Ronaldo, RN RN rv Corrections: (The following items were deleted from the chart) 23:56 23:19 11/23/2018 23:19 Discharged to Home. Impression: Edema, unspecified; Type 1 rv diabetes mellitus; Unspecified kidney failure - insufficency. Condition is Stable. Forms are Medication Reconciliation Form, Thank You Letter, Antibiotic Education, Prescription Opioid Use. Follow up: Private Physician; When: 2 - 3 days; Reason: Recheck today's complaints, Continuance of care, Re-evaluation by your physician. Problem is new. Symptoms have improved. otis
--- NOTE | 2018-11-23 23:20 | ER ---
Nurse's Notes [facility] Name: Grace Duong Age: 33 yrs Sex: Male : 1985 Arrival Date: 11/23/2018 Time: 18:08 Bed 25 Private MD: Unknown, Unknown Diagnosis: Edema, unspecified;Type 1 diabetes mellitus;Unspecified kidney failure-insufficency Presentation: 11/23 18:17 Presenting complaint: Patient states: he had stroke September 17 2018 and was home all the ss time, L foot is swollen, he tripped up on it several times;. Transition of care: patient was not received from another setting of care. Onset of symptoms was November 23, 2018. Risk Assessment: Do you want to hurt yourself or someone else? Patient reports no desire to harm self or others. Initial Sepsis Screen: Does the patient meet any 2 criteria? No. Patient's initial sepsis screen is negative. Does the patient have a suspected source of infection? No. Patient's initial sepsis screen is negative. Care prior to arrival: None. 18:17 Method Of Arrival: Ambulatory ss 18:17 Acuity: CHAPARRITA 4 ss Historical: - Allergies: 18:18 No Known Allergies; ss - PMHx: 18:18 Diabetes - IDDM; Hypertension; stroke; ss - PSHx: 18:18 None; ss - Immunization history:: Adult Immunizations up to date. - Social history:: Smoking status: . - Ebola Screening: : No symptoms or risks identified at this time. - Family history:: not pertinent. Screenin:42 Abuse screen: Denies threats or abuse. Denies injuries from another. Nutritional rv screening: No deficits noted. Tuberculosis screening: No symptoms or risk factors identified. Fall Risk None identified. Assessment: 20:41 General: Appears in no apparent distress. comfortable, Behavior is calm, cooperative. rv Pain: Denies pain. Neuro: Level of Consciousness is awake, alert, obeys commands, Oriented to person, place, time, situation. Cardiovascular: Capillary refill < 3 seconds. Respiratory: Airway is patent. GI: No signs and/or symptoms were reported involving the gastrointestinal system. : No signs and/or symptoms were reported regarding the genitourinary system. EENT: No signs and/or symptoms were reported regarding the EENT system. Derm: Skin is intact. Musculoskeletal: Swelling present in left leg. Vital Signs: 18:18 BP 130 / 69; Pulse 94; Resp 18; Temp 99.9(TE); Pulse Ox 98% on R/A; Weight 89.36 kg; Height 5 ft. 8 in. (172.72 cm); 23:54 BP 126 / 66; Pulse 88; Resp 17; Temp 98.5; Pulse Ox 100% ; rv 18:18 Body Mass Index 29.95 (89.36 kg, 172.72 cm) ED Course: 18:08 Patient arrived in ED. ag5 18:09 Unknown, Unknown is Private Physician. ag5 18:18 Triage completed. 18:20 Arm band placed on right wrist. 20:07 Joseph Laguerre MD is Attending Physician. [facility] 20:30 Roman Quinn, RN is Primary Nurse. rv 20:42 Patient has correct armband on for positive identification. Bed in low position. Call rv light in reach. Pulse ox on. NIBP on. 21:07 XRAY Chest (1 view) In Process Unspecified. EDMS 21:16 US Extremity Venous W Compression Lj In Process Unspecified. EDMS 21:30 No provider procedures requiring assistance completed. Inserted saline lock: 20 gauge rv in right forearm, using aseptic technique. Blood collected. 23:55 IV discontinued, intact, bleeding controlled, No redness/swelling at site. Pressure rv dressing applied. Administered Medications: No medications were administered Outcome: 23:19 Discharge ordered by . otis 23:55 Discharged to home via wheelchair. rv 23:55 Condition: good 23:55 Discharge instructions given to patient, Instructed on discharge instructions, follow up and referral plans. Demonstrated understanding of instructions, follow-up care. 23:56 Patient left the ED. rv Signatures: Dispatcher [employer] EDJoseph Woods MD MD cha Smirch, Shelby, RN RN Roman Quinn, RN RN Abdi Galan 5
[2018-11-24 01:10] VITALS: BP 126/66; TEMP 98.5; O2SAT 100
== END 2018-11-23 23:56 | disposition home or self-care (01) ==
LOC: ER 18:07
DX: R60.0 Localized edema (principal); E10.9 Type 1 diabetes mellitus without complications; N19 Unspecified kidney failure; I10 Essential (primary) hypertension; Z79.4 Long term (current) use of insulin
CPT/HCPCS: 36415; 71045; 80048; 80076; 81003; 83690; 83735; 83880; 84484; 85025; 85610; 87086; 87088; 93970; 99284

== ENCOUNTER 2019-07-24 19:21 | Inpatient (IN) | payer OTHER, SELFPAY ==
--- OUTSIDE RECORDS SUMMARY | 2019-07-24 19:23 | XMS REPORT | Summary of Care ---
:1985 Author Organization [facility] Health Address [address] [place] [address] Care Team Providers Name Role Phone Rhonda Pittman Elias ABDI Primary Care Provider Encounter Details Date Type Department Care Team Description 03/06/2019 Orders Only [facility] Doctor Unassigned, No [address] [facility] [place] [address] [address] [place] [address] Allergies No Known Allergiesdocumented as of this encounter (statuses as of 03/13/2019) Medications Medication Sig Dispensed Refills Start Date End Date Status carvedilol 25 mg Take 1 tablet by 60 tablet 5 09/30/2018 03/29/2019 Active tabletIndications: mouth 2 (two) Acute ischemic right times daily with MCA stroke meals for 180 days. atorvastatin 40 mg Take 1 tablet by 30 tablet 11 09/30/2018 09/30/2019 Active tabletIndications: mouth at bedtime. Acute ischemic right MCA stroke metFORMIN 500 mg Take 1 tablet by 60 tablet 11 09/30/2018 09/30/2019 Active tabletIndications: mouth 2 (two) Acute ischemic right times daily with MCA stroke meals. tamsulosin 0.4 mg 24 Take 1 capsule by 30 capsule 5 09/30/2018 03/29/2019 Active hr mouth daily for capsuleIndications: 180 days. Acute ischemic right MCA stroke insulin NPH 100 inject 14 Units 4.2 mL 11 09/30/2018 09/30/2019 Active unit/mL under the skin injectionIndications every evening. : Acute ischemic right MCA stroke insulin regular inject 10 Units 6 mL 11 09/30/2018 09/30/2019 Active human 100 unit/mL under the skin 2 injectionIndications (two) times daily : Acute ischemic before breakfast right MCA stroke and dinner. insulin NPH (HUMULIN inject 16 Units 4.8 mL 11 09/30/2018 09/30/2019 Active N NPH U-100 INSULIN) under the skin 100 unit/mL every morning. injectionIndications : Acute ischemic right MCA stroke aspirin 81 mg Take 1 tablet 30 tablet 5 10/01/2018 Active chewable through enteral tabletIndications: tube daily. Acute ischemic right MCA stroke apixaban 5 mg Take 1 tablet by 60 tablet 5 10/09/2018 Active tabletIndications: mouth 2 (two) Acute ischemic right times daily. MCA stroke vitamin B complex (B Take 100 mg by 0 Active COMPLEX-100 ORAL) mouth 2 (two) times daily. traMADOL 50 mg Take 1 tablet by 28 tablet 0 11/16/2018 Active tabletIndications: mouth every 6 Acute right arterial (six) hours as ischemic stroke, MCA needed for Pain (middle cerebral (scale 7-10). artery) zolpidem 10 mg Take 1 tablet by 30 tablet 2 12/21/2018 Active tabletIndications: mouth at bedtime Adjustment insomnia as needed for Insomnia. documented as of this encounter (statuses as of 03/13/2019) Active Problems Problem Noted Date Received intravenous tissue plasminogen activator (t-PA) in emergency 2018 department Cerebral edema 09/18/2018 Polysubstance abuse 09/18/2018 Noncompliance with medication regimen 09/18/2018 Cigarette smoker 09/18/2018 Alcohol abuse 09/18/2018 Obesity due to excess calories without serious comorbidity 09/18/2018 Subclavian vein thromboembolism, chronic, right 09/18/2018 Cerebral infarction due to occlusion of right internal carotid artery 2018 Acute ischemic right MCA stroke 09/17/2018 documented as of this encounter (statuses as of 03/13/2019) Social History Tobacco Use Types Packs/Day Years Used Date Current Every Day Smoker Cigarettes 0.5 15 Smokeless Tobacco: Never Used Alcohol Use Drinks/Week oz/Week Comments Yes heavy until 09/17/2018 Sex Assigned at Date Recorded Not on file Job Start Date Occupation Industry Not on file Not on file Not on file Travel History Travel Start Travel End No recent travel history available. documented as of this encounter Last Filed Vital Signs Not on filedocumented in this encounter Plan of Treatment Health Maintenance Due Date Last Done Comments PNEUMOCOCCAL 0-64 YEARS COMBINED 1989 SERIES (1 of 1 - PPSV23) EYE EXAM 1993 URINE MICROALBUMIN 1993 VARICELLA VACCINES (1 of 2 - 13+ 1996 2-dose series) FOOT EXAM 2001 DTaP,Tdap,and Td Vaccines (1 - 2002 Tdap) INFLUENZA VACCINE (Retired 03/18/2019 version) HgA1C 07/12/2019 01/10/2019, 09/17/2018 CREATININE (SERUM) 09/27/2019 09/26/2018, 09/25/2018, 09/24/2018, Additional history exists LDL-C 01/11/2020 01/10/2019, 09/18/2018 documented as of this encounter Procedures Procedure Name Priority Date/Time Associated Diagnosis Comments AUTHORIZATION FOR RELEASE Routine 03/06/2019 12:01 AM OF PHI CDT documented in this encounter Results Not on filedocumented in this encounter Insurance Payer Benefit Plan / Subscriber ID Effective Dates Phone Address Type Group [employer] MEDICAID OF xxxxxxxxx 2018-Present [phone] [address] [place] [id number] [place] [phone] documented as of this encounter
--- OUTSIDE RECORDS SUMMARY | 2019-07-24 19:23 | XMS REPORT ---
:1985 Author Organization [facility] Address [address] [place] [address] Dr. Daniel [address] [place] [id number] Care Team Providers Name Role Phone Unavailable Unavailable Unavailable Problems This patient has no known problems. Allergies, Adverse Reactions, Alerts This patient has no known allergies or adverse reactions. Medications This patient has no known medications.
[2019-07-24] MEDS ORDERED: NA CHLORIDE 0.9% 1,000 ML ONE (19:34)
[2019-07-24 19:43] LABS: Absolute Lymphocytes (CBC) 1.7 K/uL (0.7-4.9); Basophils % 0.5 % (0-1.3); Hematocrit 35.9 % (39.6-49.0); Lymphocytes % 17.8 % (15.3-44.8); MPV 7.5 fL (7.6-11.3); RBC Red Blood Cell Count 4.11 M/uL (4.33-5.43)
[2019-07-24 19:47] LABS: Protime INR 0.96
--- NOTE | 2019-07-24 19:57 | RAD REPORT ---
EXAM DESCRIPTION: CT - Head Brain Wo Cont - 07/24/2019 7:49 pm CLINICAL HISTORY: SEIZURE Headache, drowsiness COMPARISON: Head C Spine Mpr Wo Con dated 01/23/2017 TECHNIQUE: All CT scans are performed using dose optimization technique as appropriate and may inclu de automated exposure control or mA/KV adjustment according to patient size. FINDINGS: No intracranial hemorrhage, hydrocephalus or extra-axial fluid collection.Large areas of g liosis are seen in the right cerebral hemisphere presumably related to previous infarct or trauma.No areas of brain edema or evidence of midline shift. The paranasal sinuses and mastoids are clear. The calvarium is intact. IMPRESSION: No acute intracranial abnormality. MRI brain may be considered for further assessment i f clinical symptomology persists or progresses.
[2019-07-24 20:06] LABS: Potassium 4.2 mmol/L (3.5-5.1)
[2019-07-24 20:08] LABS: Troponin (Emerg Dept Use Only) 1.26 ng/mL (0.0-0.045)
--- NOTE | 2019-07-24 20:11 | RAD REPORT ---
EXAM DESCRIPTION: RAD - Chest Single View - 07/24/2019 8:02 pm CLINICAL HISTORY: possible seizure Chest pain. COMPARISON: Chest Single View dated 11/23/2018; Chest Single View dated 03/23/2018; CHEST SINGLE VIEW da roopa 12/27/2010; CHEST SINGLE VIEW dated 12/02/2005; Head Brain Wo Cont dated 07/24/2019 FINDINGS: Portable technique limits examination quality. Moderate to severe bilateral pulmonary opacities are present likely representing pulmonary edema or p neumonia. The heart is normal in size. No displaced fractures.
--- NOTE | 2019-07-24 20:43 | RAD REPORT ---
EXAM DESCRIPTION: CT - Chest For Pe Angio - 07/24/2019 8:31 pm CLINICAL HISTORY: Chest pain. eval for PE COMPARISON: Chest Single View dated 07/24/2019 TECHNIQUE: CT angiogram of the pulmonary arteries was performed with MIP. All CT scans are performed using dose optimization technique as appropriate and may include automated exposure control or mA/KV adjustment according to patient size. FINDINGS: No evidence of pulmonary thromboembolism. No acute aortic finding demonstrated. Moderate bilateral pulmonary opacities are seen which may represent pneumonia or pulmonary edema. Moderate bilateral pleural effusions are present, slightly larger on the right. No concerning bony finding. IMPRESSION: No evidence of pulmonary thromboembolism. Moderate bilateral air opacities which may represent pneumonia or pulmonary edema. Moderate bilateral pleural effusions, slightly greater on the right.
[2019-07-24] MEDS ORDERED: CLOPIDOGREL 75 MG TABLET ONE (21:04)
[2019-07-24] MEDS ORDERED: ASPIRIN 81 MG CHEWABLE TABLET ONE (21:04)
--- NOTE | 2019-07-24 21:31 | EDPHYS ---
Physician Documentation [facility] Name: Grace Duong Age: 34 yrs Sex: Male : 1985 Arrival Date: 07/24/2019 Time: 19:27 Bed 26 Private MD: ED Physician Lalito Chau HPI: 07/24 19:48 This 34 yrs old Male presents to ER via EMS with complaints of possible rn seizure. 19:48 The patient presents with seizure activity. Onset: The symptoms/episode began/occurred rn just prior to arrival. Possible causes: unknown. Current symptoms: In the emergency department the patient's symptoms have improved. The patient has experienced similar episodes in the past. Family called 911 for possible seizure, went blank, seemed confused and had difficulty speaking, unsure how long it lasted, now pretty much back to baseline except for mild confusion. Family states smoked marijuana prior to episode, but same batch he has smoked before without reaction. Had stroke in september that left him weak on left side, no recent trauma, does report seen here recently for difficulty breathing and cleared to go home. No recent trauma. . Historical: - Allergies: 19:37 No Known Allergies; fc - Home Meds: 19:37 atorvastatin oral oral [Active]; carvedilol oral oral [Active]; Levemir subcutaneous fc subcutaneous [Active]; Metformin Oral [Active]; Hydrochlorothiazide Oral [Active]; - PMHx: 19:37 Diabetes - IDDM; Hypertension; CVA; left sided paralysis; High Cholesterol; fc - PSHx: 19:37 None; fc - Immunization history:: Last tetanus immunization: up to date Flu vaccine is not up to date. Patient has never been vaccinated. - Social history:: Smoking status: Patient uses tobacco products, denies chronic smoking, but will smoke occasionally, Patient uses alcohol, occasionally. street drugs, marijuana, once a week. - Ebola Screening: : Patient negative for fever greater than or equal to 101.5 degrees Fahrenheit, and additional compatible Ebola Virus Disease symptoms Patient denies exposure to infectious person Patient denies travel to an Ebola-affected area in the 21 days before illness onset. - Family history:: not pertinent. - Hospitalizations: : No recent hospitalization is reported. ROS: 19:48 Constitutional: Negative for fever, chills, and weight loss, Eyes: Negative for injury, rn pain, redness, and discharge, Neck: Negative for injury, pain, and swelling, Cardiovascular: Negative for chest pain, palpitations, and edema, Respiratory: Negative for shortness of breath, cough, wheezing, and pleuritic chest pain, Abdomen/GI: Negative for abdominal pain, nausea, vomiting, diarrhea, and constipation, Back: Negative for injury and pain, MS/Extremity: Negative for injury and deformity, Skin: Negative for injury, rash, and discoloration, Neuro: Negative for headache Exam: 19:48 Constitutional: This is a well developed, well nourished patient who is awake, alert, rn and in no acute distress. Head/Face: Normocephalic, atraumatic. Eyes: Pupils equal round and reactive to light, extra-ocular motions intact. Lids and lashes normal. Conjunctiva and sclera are non-icteric and not injected. Cornea within normal limits. Periorbital areas with no swelling, redness, or edema. ENT: dry MM Neck: Trachea midline, no thyromegaly or masses palpated, and no cervical lymphadenopathy. Supple, full range of motion without nuchal rigidity, or vertebral point tenderness. No Meningismus. Cardiovascular: Tachycardic, regular, no murmur Respiratory: + mild tachypnea with clear bilaterla breath sounds Abdomen/GI: soft, non-tender Skin: Warm, dry MS/ Extremity: Pulses equal, no cyanosis. Neuro: Awake and alert, GCS 15, oriented to person, place, not time. Mild left lower facial droop, + LUE and RLE 4/5 strength. 5/5 RUE/LLE. Vital Signs: 19:18 BP 144 / 102; Pulse 114; Resp 28; Temp 98.0(O); Pulse Ox 96% on R/A; Weight 97.52 kg fc (R); Height 5 ft. 6 in. (167.64 cm) (R); Pain 0/10; 19:42 jp3 20:30 BP 152 / 112; Pulse 115; Resp 27; Pulse Ox 97% on 5 lpm NC; rv 21:00 BP 166 / 125; Pulse 119; Resp 31; Pulse Ox 99% on 5 lpm NC; rv 22:00 BP 156 / 118; Pulse 130; Resp 29; Pulse Ox 98% on 5 lpm NC; rv 22:38 BP 143 / 101; Pulse 126; Resp 21 A; Pulse Ox 100% on BiPAP; rv 23:57 BP 142 / 107; Pulse 121; Resp 26; Pulse Ox 100% on BiPAP; rv 07/25 00:38 BP 127 / 90; Pulse 118; Resp 24; Pulse Ox 99% on R/A; rv 01:25 BP 157 / 110; Pulse 118; Resp 26; Pulse Ox 98% on BiPAP; rv 07/24 19:18 Body Mass Index 34.70 (97.52 kg, 167.64 cm) fc 07/24 19:42 POC Glucose: 301 jp3 MDM: 19:27 Patient medically screened. rn 21:27 Differential Diagnosis: CVA, pneumonia, seizure, sepsis, TIA, volume depletion, rn pulmonary edema, syncope, cardiac event. Data reviewed: vital signs, nurses notes, lab test result(s), EKG, radiologic studies, CT scan, plain films, and as a result, I will admit patient. Counseling: I had a detailed discussion with the patient and/or guardian regarding: the historical points, exam findings, and any diagnostic results supporting the discharge/admit diagnosis, lab results, radiology results, the need for further work-up and treatment in the hospital. Response to treatment: the patient's symptoms have mildly improved after treatment, and as a result, I will admit patient. Admission orders: after a detailed discussion of the patient's condition and case, the admit orders are written by me. ED course: Admitted to Dr. Sandy for seizure vs syncope, seems on exam and vitals more respiratory/cardiac, placed on bipap and abx ordered, updated family, will need cardiology consult and echo in AM.. 23:04 ED course: Dr Sandy evaluated patient, requests transfer for higher level of care, rn feels patient too ill, and no ICU beds. Attempting transfer to [facility]. Improved on bipap, given lasix and nitro paste. Most likely pulmonary edema with renal insufficiency and heart failure given story and results. . 23:48 ED course: [facility] called back, at capacity, declines transfer. . rn 07/24 19:28 Order name: CBC with Diff; Complete Time: 20:11 rn 07/24 19:28 Order name: Basic Metabolic Panel; Complete Time: 23:00 rn 07/24 19:28 Order name: Protime (+inr); Complete Time: 20:11 rn 07/24 19:28 Order name: Ptt, Activated; Complete Time: 20:11 rn 07/24 19:28 Order name: Troponin (emerg Dept Use Only); Complete Time: 23:00 rn 07/24 19:52 Order name: Glucose, Ancillary Testing; Complete Time: 20:11 EDMS 07/24 19:28 Order name: CT Head Brain wo Cont; Complete Time: 20:11 rn 07/24 19:28 Order name: XRAY Chest (1 view); Complete Time: 20:49 rn 07/24 20:11 Order name: CT Chest For PE Angio; Complete Time: 20:49 rn 07/24 21:07 Order name: Blood Culture Adult (2) rn 07/24 21:16 Order name: BIPAP rn 07/24 22:41 Order name: NT PRO-BNP; Complete Time: 23:00 EDMS 07/24 19:28 Order name: IV Start; Complete Time: 19:34 rn 07/24 19:28 Order name: EKG; Complete Time: 19:29 rn 07/24 19:28 Order name: EKG - Nurse/Tech; Complete Time: 19:42 rn 07/24 19:28 Order name: Glucose Level; Complete Time: 19:41 rn Administered Medications: 19:33 Drug: NS 0.9% 1000 ml Route: IV; Rate: 1000 ml; Site: right antecubital; rv 21:15 Drug: Aspirin Chewable Tablet 324 mg Route: PO; rv 22:34 Follow up: Response: No adverse reaction rv 21:15 Drug: PlaVIX 75 mg Route: PO; rv 22:34 Follow up: Response: No adverse reaction rv 21:33 Drug: Valium 2 mg Route: PO; rv 22:33 Follow up: Response: No adverse reaction rv 21:35 Drug: Rocephin - (cefTRIAXone) 1 grams Route: IVPB; Infused Over: 30 mins; Site: right rv wrist; 21:36 Follow up: IV Status: Completed infusion rv 21:36 Drug: Zithromax 500 mg Route: IVPB; Infused Over: 1 hrs; Site: right wrist; rv 23:16 Follow up: Response: Adverse reaction, Physician notified; IV Status: Completed infusionrv 22:33 Drug: Lovenox 100 mg Route: Sub-Q; Site: left lower abdomen; rv 23:58 Follow up: Response: No adverse reaction rv 22:33 Drug: Lasix 40 mg Route: IVP; Site: right antecubital; rv 23:58 Follow up: Response: No adverse reaction rv 23:04 Drug: Benadryl 25 mg Route: IVP; Site: right wrist; rv 23:58 Follow up: Response: No adverse reaction rv 23:16 Drug: Nitro-Bid Ointment 2 % 1 inches Route: Transdermal; Site: anterior chest wall; rv 23:58 Follow up: Response: No adverse reaction rv Disposition: :27 Critical Care:. rn Disposition: 07/24/19 21:30 Hospitalization ordered by Manish Sandy for Inpatient Admission. Preliminary diagnosis are Dyspnea, unspecified, Altered mental status, unspecified, Pneumonia, Pulmonary edema. - Bed requested for Intensive Care Unit. - Status is Inpatient Admission. rv - Condition is Fair. - Problem is new. - Symptoms have improved. UTI on Admission? No Critical care time excluding procedures: Critical care time: Bedside Care: 25 minutes, Consultation: 5 minutes. Total time: 30 rn minutes Signatures: Dispatcher [employer] [facility] Lilliam James RN RN mw Chretien, Felicia, RN RN fc Nieto, Roman, MD MD rn Vicente, Ronaldo, RN RN rv Corrections: (The following items were deleted from the chart) 22:41 21:08 PROBNP+C.LAB.BRZ ordered. [facility] 07/25 00:51 07/24 21:30 Hospitalization Ordered by Manish Sandy for Inpatient Admission. tyrone Preliminary diagnosis is Dyspnea, unspecified; Altered mental status, unspecified; Pneumonia; Pulmonary edema. Bed requested for Intensive Care Unit. Status is Inpatient Admission. Condition is Fair. Problem is new. Symptoms have improved. UTI on Admission? No. rn 07/25 01:29 00:51 07/24/2019 21:30 Hospitalization Ordered by Manish Sandy for Inpatient rv Admission. Preliminary diagnosis is Dyspnea, unspecified; Altered mental status, unspecified; Pneumonia; Pulmonary edema. Bed requested for Intensive Care Unit. Status is Inpatient Admission. Condition is Fair. Problem is new. Symptoms have improved. UTI on Admission? No. tyrone
--- NOTE | 2019-07-24 21:31 | ER ---
Nurse's Notes [facility] Name: Grace Duong Age: 34 yrs Sex: Male : 1985 Arrival Date: 07/24/2019 Time: 19:27 Bed 26 Private MD: Diagnosis: Dyspnea, unspecified;Altered mental status, unspecified;Pneumonia;Pulmonary edema Presentation: 07/24 19:18 Presenting complaint: EMS states: that they were toned for pt having absent seizure. fc Upon their arrival pt was waking up but could not speak. After approx 2 minutes pt was able to speak but remained confused. Transition of care: patient was not received from another setting of care. Onset of symptoms was July 24, 2019. Risk Assessment: Do you want to hurt yourself or someone else? Patient reports no desire to harm self or others. Initial Sepsis Screen: Does the patient meet any 2 criteria? RR > 20 per min. HR > 90 bpm. Yes Does the patient have a suspected source of infection? No. Patient's initial sepsis screen is negative. Care prior to arrival: IV initiated. 20 GA, in the right antecubital area, Glucose check: 267. 19:18 Method Of Arrival: EMS: [facility] 19:18 Acuity: CHAPARRITA 2 fc Triage Assessment: 19:18 General: Appears in no apparent distress. comfortable, obese, Behavior is calm, fc cooperative, appropriate for age. Pain: Denies pain. EENT: No signs and/or symptoms were reported regarding the EENT system. Neuro: Level of Consciousness is awake, alert, Oriented to person, Bowling Ball Patcher are left side paralysis due to hx of CVA. Paralysis in left arm(s) leg(s) Speech is normal, Facial droop on left, hx of cva. Cardiovascular: No deficits noted. Respiratory: No deficits noted. GI: Abdomen is round non-distended. : No deficits noted. Derm: Skin is pink, warm \\T\\ dry. Historical: - Allergies: 19:37 No Known Allergies; fc - Home Meds: 19:37 atorvastatin oral oral [Active]; carvedilol oral oral [Active]; Levemir subcutaneous fc subcutaneous [Active]; Metformin Oral [Active]; Hydrochlorothiazide Oral [Active]; - PMHx: 19:37 Diabetes - IDDM; Hypertension; CVA; left sided paralysis; High Cholesterol; fc - PSHx: 19:37 None; fc - Immunization history:: Last tetanus immunization: up to date Flu vaccine is not up to date. Patient has never been vaccinated. - Social history:: Smoking status: Patient uses tobacco products, denies chronic smoking, but will smoke occasionally, Patient uses alcohol, occasionally. street drugs, marijuana, once a week. - Ebola Screening: : Patient negative for fever greater than or equal to 101.5 degrees Fahrenheit, and additional compatible Ebola Virus Disease symptoms Patient denies exposure to infectious person Patient denies travel to an Ebola-affected area in the 21 days before illness onset. - Family history:: not pertinent. - Hospitalizations: : No recent hospitalization is reported. Screenin:18 Abuse screen: Denies threats or abuse. Nutritional screening: No deficits noted. fc Tuberculosis screening: No symptoms or risk factors identified. Fall Risk Fall in past 12 months (25 points). Secondary diagnosis (15 points) impaired mobility, CVA, IV access (20 points). Ambulatory Aid- Crutches/Cane/Walker (15 pts). Gait- Impaired (20 pts.). Mental Status- Overestimates/Forgets Limitations (15 pts.). Total Basilio Fall Scale indicates High Risk Score (45 or more points). Fall prevention measures have been instituted. Side Rails Up X 2 Placed Close to Nursing Station 1:1 Attendant Assigned Frequent Obs/Assessments Occuring Family Present and informed to notify staff if the need to leave the bedside As available patient and family educated on Fall Prevention Program and Strategies. Assessment: 20:25 General: Appears in no apparent distress. Pain: Denies pain. Neuro: Level of rv Consciousness is awake, alert, obeys commands, Oriented to person, place, time, situation. Cardiovascular: Patient's skin is warm and dry. Respiratory: Airway is patent. Derm: Skin is intact. 20:59 Reassessment: Patient is ripping seizure pad off the bed rail and throwing it across aj1 the room. Explained to patient that seizure pads are to keep him safe if he has another seizure, Patient states "I DON'T WANT THEM BESIDE ME!!!" and rips the other seizure pad off, throwing it across the room. Patient is sitting on the edge of the bed, explained to patient that he needs to sit back in the bed so he does not fall. Patient was assisted to a comfortable position in the bed, with the help of family. Patient remains restless and soon as he is laying down he is sitting up and scooting forward in the bed. Patient's family is at bedside, reminding patient to lay back and not to get out of the bed. 22:41 Reassessment: patient hooked to Bipap machine by RT. patient is tolerating the machine. rv Respiratory: Respiratory effort is even, relaxed. Vital Signs: 19:18 BP 144 / 102; Pulse 114; Resp 28; Temp 98.0(O); Pulse Ox 96% on R/A; Weight 97.52 kg fc (R); Height 5 ft. 6 in. (167.64 cm) (R); Pain 0/10; 19:42 jp3 20:30 BP 152 / 112; Pulse 115; Resp 27; Pulse Ox 97% on 5 lpm NC; rv 21:00 BP 166 / 125; Pulse 119; Resp 31; Pulse Ox 99% on 5 lpm NC; rv 22:00 BP 156 / 118; Pulse 130; Resp 29; Pulse Ox 98% on 5 lpm NC; rv 22:38 BP 143 / 101; Pulse 126; Resp 21 A; Pulse Ox 100% on BiPAP; rv 23:57 BP 142 / 107; Pulse 121; Resp 26; Pulse Ox 100% on BiPAP; rv 07/25 00:38 BP 127 / 90; Pulse 118; Resp 24; Pulse Ox 99% on R/A; rv 01:25 BP 157 / 110; Pulse 118; Resp 26; Pulse Ox 98% on BiPAP; rv 07/24 19:18 Body Mass Index 34.70 (97.52 kg, 167.64 cm) 07/24 19:42 POC Glucose: 301 jp3 ED Course: 19:18 Arm band placed on Patient placed in an exam room, on a stretcher. 19:18 Patient has correct armband on for positive identification. Placed in gown. Bed in low fc position. Call light in reach. Side rails up X2. Seizure precautions initiated. residential monitor on. Pulse ox on. NIBP on. 19:18 No provider procedures requiring assistance completed. Maintain EMS IV. Dressing fc intact. Good blood return noted. Site clean \\T\\ dry. Gauge \\T\\ site: 20 gauge to right a/c. 19:27 Patient arrived in ED. rn 19:27 Lalito Chau MD is Attending Physician. rn 19:30 Roman Quinn, BERKLEY is Primary Nurse. rv 19:33 Triage completed. fc 19:36 Warm blanket given. Verbal reassurance given. jp3 19:36 Initial lab(s) drawn, by me, sent to lab. Patient maintains SpO2 saturation greater jp3 than 95% on room air. 19:49 CT Head Brain wo Cont In Process Unspecified. EDMS 20:01 XRAY Chest (1 view) In Process Unspecified. EDMS 20:31 CT Chest For PE Angio In Process Unspecified. EDMS 21:15 First set of blood cultures drawn by me. rv 21:15 Inserted saline lock: 20 gauge in right wrist, using aseptic technique. Blood collected.rv 21:29 Manish Sandy is Hospitalizing Provider. rn 21:31 Second set of blood cultures drawn by me. rv 07/25 01:27 Patient admitted, IV remains in place. rv Administered Medications: 07/24 19:33 Drug: NS 0.9% 1000 ml Route: IV; Rate: 1000 ml; Site: right antecubital; rv 21:15 Drug: Aspirin Chewable Tablet 324 mg Route: PO; rv 22:34 Follow up: Response: No adverse reaction rv 21:15 Drug: PlaVIX 75 mg Route: PO; rv 22:34 Follow up: Response: No adverse reaction rv 21:33 Drug: Valium 2 mg Route: PO; rv 22:33 Follow up: Response: No adverse reaction rv 21:35 Drug: Rocephin - (cefTRIAXone) 1 grams Route: IVPB; Infused Over: 30 mins; Site: right rv wrist; 21:36 Follow up: IV Status: Completed infusion rv 21:36 Drug: Zithromax 500 mg Route: IVPB; Infused Over: 1 hrs; Site: right wrist; rv 23:16 Follow up: Response: Adverse reaction, Physician notified; IV Status: Completed infusionrv 22:33 Drug: Lovenox 100 mg Route: Sub-Q; Site: left lower abdomen; rv 23:58 Follow up: Response: No adverse reaction rv 22:33 Drug: Lasix 40 mg Route: IVP; Site: right antecubital; rv 23:58 Follow up: Response: No adverse reaction rv 23:04 Drug: Benadryl 25 mg Route: IVP; Site: right wrist; rv 23:58 Follow up: Response: No adverse reaction rv 23:16 Drug: Nitro-Bid Ointment 2 % 1 inches Route: Transdermal; Site: anterior chest wall; rv 23:58 Follow up: Response: No adverse reaction rv Output: 07/25 00:37 Urine: 700ml (Voided); Total: 700ml. rv Outcome: 07/24 21:30 Decision to Hospitalize by Provider. rn 07/25 01:25 Admitted to ICU accompanied by nurse, via stretcher, room 1, with oxygen, on monitor, rv with chart, Report called to xena vizcaino Condition: good Instructed on the need for admit. 01:29 Patient left the ED. rv Signatures: Dispatcher [employer] EDMS Gauri Mac RN RN aj1 Marisol Garcia RN RN fc Lalito Chau MD MD rn Vicente, Ronaldo, RN RN rv Mohit Wilson jp3 Corrections: (The following items were deleted from the chart) 07/24 21:46 21:46 Rocephin - (cefTRIAXone) 1 grams IVPB in right wrist over 30 mins rv rv 21:49 21:48 Inserted saline lock: 20 gauge in right wrist, using aseptic technique. Blood rv collected. rv
[2019-07-24] MEDS ORDERED: AZITHROMYCIN 500 MG INJ IVPB ONE (21:35)
[2019-07-24] MEDS ORDERED: NA CHLORIDE 0.9% 250 ML ONE (21:35)
[2019-07-24] MEDS ORDERED: CEFTRIAXONE/SWI 1gm 1 GM/10 ML SYR ONE (21:36)
[2019-07-24] MEDS ORDERED: DIAZEPAM 2 MG TABLET ONE (21:37)
[2019-07-24] MEDS ORDERED: FUROSEMIDE 40 MG/4 ML VIAL ONE (22:30)
[2019-07-24] MEDS ORDERED: ENOXAPARIN 100 MG/ML SYR SQ ONE (22:30)
[2019-07-24] MEDS ORDERED: DIPHENHYDRAMINE 50 MG/ML VIAL ONE (23:03)
[2019-07-24] MEDS ORDERED: NITROGLYCERIN 1 GM PKT TD ONE (23:08)
--- NOTE | 2019-07-25 00:26 | P.HP ---
Certification for Inpatient Patient admitted to: Inpatient With expected LOS: >2 Midnights Practitioner: I am a practitioner with admitting privileges, knowledge of patient current condition, hospital course, and medical plan of care. Services: Services provided to patient in accordance with Admission requirements found in Title 42 Section 412.3 of the Code of Federal Regulations Patient History Date of Service: 07/25/19 Reason for admission: Shortness of breath History of Present Illness: 34-year-old unfortunate gentleman with a history large stroke in the right cerebral hemisphere, left-sided hemiplegia presented to the ED with a complaint of progressive shortness of breath since 5 days ago. He developed acute respiratory distress today. There is a report patient experienced an episode where he went blank, not responding calls for a minute. The episode occurred while he was sitting in his wheelchair. Patient noted to be in acute respiratory distress in the ED. He denied any fever or chills or chest pain. He is noted to be tachycardic and tachypneic. The patient is suspected to have had a syncopal episode or seizures. CTA thorax was performed which is negative for pulmonary embolus but reported bilateral lung opacities and bilateral moderate pleural effusion. Troponins elevated to 1.26. Also noted T-wave inversions in the lateral leads. Of note, is a suspected history of clotting issues given that he was treated with Apixaban for 3 months after his stroke diagnosis. Multiple family members also have experienced strokes and heart attacks. The patient states he was diagnosed with "small clots in his hands" at a point in time during his hospitalization for the stroke. Today, patient has no leukocytosis, he denies any fever. His PTT is moderately elevated. I suspect patient has acute systolic heart failure, possible cardiac ischemic event and possible residual seizures from old stroke. An attempt was made to transfer him to [facility] given patient got hospitalized there during his CVA event but family declined. An attempt to transfer him to [facility] was unsuccessful because they stated they are full to capacity. Patient is admitted for further management. Allergies No Known Allergies Allergy (Unverified 08/24/11 20:01) Home Medications: Allopurinol 300 mg PO BID 07/25/19 Atorvastatin Calcium 40 mg PO BEDTIME 07/25/19 Hydralazine HCl 25 mg PO BID 07/25/19 Insulin Detemir [Levemir Flextouch] 40 units SQ BID 07/25/19 Metformin HCl 1,000 mg PO BID 07/25/19 carvediloL [Carvedilol] 25 mg PO BID 07/25/19 - Past Medical/Surgical History Diabetic: Yes -: DM type 2 -: History of CVA -: Clotting problems -: Hypertension - Family History Mother -: Heart disease, Stroke Brother -: Stroke - Social History Alcohol use: Yes CD- Drugs: Yes Place of Residence: Home Review of Systems Other: General: No fever, no malaise, no unintentional weight loss. Eyes: No eye discharge, Respiratory: Nonproductive cough. CVS: No chest pain, no palpitation, no lightheadedness. GI: No abdominal pain, no nausea no vomit, no constipation, no diarrhea. Genitourinary: No dysuria, no urinary frequency, no incontinence, no hematuria. Musculoskeletal: No joint pains, or joint swelling, no gait instability. Neurology: No headache, no problem with swallowing. Except as documented, all other systems reviewed and negative. Physical Examination - Physical Exam General: Alert, Acute distress HEENT: PERRLA, Mucous membr. moist/pink, EOMI Neck: Supple, No Thyromegaly Respiratory: Diminished (Bilateral diminished breath sound) Cardiovascular: Normal pulses, Other (Tachycardia), Edema (Bilateral lower extremity edema, worse on the left) Capillary refill: <2 Seconds Gastrointestinal: Normal bowel sounds, No tenderness Musculoskeletal: No erythema Integumentary: No rashes, No tenderness/swelling Neurological: Normal speech, Other (Left-sided weakness) - Studies Laboratory Data (last 24 hrs) 07/24/19 19:33: PT 11.3, INR 0.96, APTT 42.9 H 07/24/19 19:33: Sodium 143, Potassium 4.2, BUN 25 H, Creatinine 1.35 H, Glucose 338 H 07/24/19 19:33: WBC 9.3, Hgb 11.9 L, Hct 35.9 L, Plt Count 483 H Assessment and Plan - Problems (Diagnosis) (1) Acute respiratory failure Current Visit: Yes Status: Acute (2) Bilateral pneumonia Current Visit: Yes Status: Acute (3) Syncope Current Visit: Yes Status: Acute (4) NSTEMI (non-ST elevated myocardial infarction) Current Visit: Yes Status: Acute (5) Pleural effusion Current Visit: Yes Status: Acute (6) History of CVA (cerebrovascular accident) Current Visit: Yes Status: Acute (7) DM type 2 (diabetes mellitus, type 2) Current Visit: Yes Status: Acute (8) Hypertension Current Visit: Yes Status: Acute - Plan Admit to ICU BiPAP therapy as tolerated IV Lasix Full-dose Lovenox. Aggressive blood pressure control. Nitroglycerin drip as needed to keep SBP less than 140. Coreg, aspirin and Lipitor Obtain echocardiogram Cardiology Consult. Start aggressive antibiotic therapy-IV vancomycin and Zosyn Follow blood cultures. Prophylactic IV Keppra for possible seizures Neurology consult Noted patient's PTT is moderately elevated. Given the history prior CVA, treated with anticoagulation, given history of clotting issues in the family, he will need hypercoagulable workup. - Advance Directives Does patient have a Living Will: No Does patient have a Durable POA for Healthcare: No
[2019-07-25] MEDS ORDERED: GLUCAGON 1 MG/VIAL IM PRN (02:05)
[2019-07-25] MEDS ORDERED: D50W 25 GM/50 ML SYRINGE IV PRN (02:05)
[2019-07-25] MEDS: ALBUTEROL 2.5 MG/3 ML NEB SOL NEB SCH ×4 (02:05→20:00)
[2019-07-25] MEDS ORDERED: ONDANSETRON 4 MG/2 ML VIAL IV PRN (02:05)
[2019-07-25] MEDS ORDERED: ACETAMINOPHEN 500 MG TAB PO PRN (02:05)
[2019-07-25] MEDS: carvediloL 12.5 MG TAB PO SCH ×2 (03:00→17:20)
[2019-07-25] MEDS: IPRATROPIUM BROM 0.5MG/2.5ML NEB SCH ×6 (03:01→23:45)
[2019-07-25 04:01] LABS: Troponin I 1.46 ng/mL (0.0-0.045)
[2019-07-25] MEDS: INSULIN -REGULAR HUMAN 50 UNIT/0.5 ML ML SQ SCH ×4 (06:17→21:01)
[2019-07-25] MEDS ORDERED: levETIRAcetam 500 MG in NA CHLORIDE 0.9% 100 ML IV SCH (06:45)
[2019-07-25] MEDS ORDERED: LEVETIRACETAM 500 MG/5 ML VIAL IV ONE (06:50)
[2019-07-25] MEDS ORDERED: NA CHLORIDE 0.9% 100 ML ONE (06:50)
[2019-07-25] MEDS: ENOXAPARIN 100 MG/ML SYR SQ SCH ×2 (10:08→20:26)
[2019-07-25] MEDS: FUROSEMIDE 40 MG/4 ML VIAL IV SCH ×2 (10:08→17:20)
[2019-07-25] MEDS: ASPIRIN EC 81 MG TAB PO SCH (10:09)
--- NOTE | 2019-07-25 10:38 | ECHO ---
HEIGHT: 5 ft 6 in WEIGHT: 220 lb 14.4 oz DATE OF STUDY: 07/25/[address]: inna marquez 2-DIMENSIONAL: YES M.MODE: YES DOPPLER: YES COLOR FLOW: YES TDS: NO PORTABLE: NO DEFINITY: NO BUBBLE STUDY: NO DIAGNOSIS: NSTEMI CARDIAC HISTORY: CATHERIZATION: NO SURGERY: NO PROSTHETIC VALVE: NO PACEMAKER: NO MEASUREMENTS (cm) DIASTOLIC (NORMALS) SYSTOLIC (NORMALS) IVSd 1.1 (0.6-1.2) LA Diam 4.0 (1.9-4.0) LVEF 30-35% LVIDd 5.5 (3.5-5.7) LVIDs 4.8 (2.0-3.5) %FS 12% LVPWd 1.2 (0.6-1.2) Ao Diam 2.9 (2.0-3.7) 2 DIMENSIONAL ASSESSMENT: RIGHT ATRIUM: NORMAL LEFT ATRIUM: DILATED RIGHT VENTRICLE: NORMAL LEFT VENTRICLE: NORMAL TRICUSPID VALVE: NORMAL MITRAL VALVE: NORMAL PULMONIC VALVE: NORMAL AORTIC VALVE: NORMAL PERICARDIAL EFFUSION: NONE AORTIC ROOT: NORMAL LEFT VENTRICULAR WALL MOTION: GLOBAL HYPOKINESIS. DOPPLER/COLOR FLOW: MILD MITRAL REGURGITATION. COMMENTS: DEPRESSED LEFT VENTRICULAR EJECTION FRACTION. DILATED LEFT ATRIUM. MILD MITRAL REGURGITATION. TECHNOLOGIST: JOSEE SANTOS
--- NOTE | 2019-07-25 12:28 | CON ---
History Of Present Illness: He is a 34-year-old man, who came to the hospital because of seizure occ urred. Apparently, his witnessed some of that grand mal seizure, total loss of consciousness, t onic-clonic motion. When ambulance arrived to bring him to the hospital, he was awakening and the se izure was over. Since being here in the hospital, head CT shows an old stroke in the right cerebral hemisphere. He has a lot of gliosis showing an old stroke on his CAT scan. The patient had his stro ke in September 2018. All his therapy was at [facility] in [place]. There was no angiography, no stents, no surgery. He was on Eliquis and had an unknown seizure medicine for 3 months and both of those were stopped at a followup visit. Not sure what type of physical therapy he has had. Patient had atrial fibrillation in 2010. 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 Since then, he has cut way down on methamphetamine use, but his last dose was about a week ago. He continues to use marijuana. Medications: His outpatient medications have been Lipitor, allopurinol, carvedilol, metformin, hydra lazine, and insulin. Family History: In his family, nearly every family member has had vascular disease and in their 40s or 30s. The patient uses tobacco regularly. Physical Examination: General: He is 5 feet 6 inches, 220 pounds. He is using BiPAP. He can understand speech and answer questions that he offers little in the way of effort to speak. I think he has significant expressiv e aphasia. His answers most of his questions for him. He is able to form a few words. I think maybe he has more dysarthria and dysphagia and aphasia. Heart: Reveals a summation gallop. His heart rate is 105, sinus rhythm. Lungs: Reveal a lot of large airway junky type sounds. His chest x-ray shows bilateral pleural effu sions. The heart seems to be enlarged on the x-ray. I do not appreciate a murmur on the cardiac exa m. Extremities: Mild edema. Distal pulses diminished. Assessment And Plan: The patient's troponin levels are very elevated 1.26, 1.46, 1.32. So, this is a pattern that may indicate he had some myocardial necrosis at the time of his seizure. It certainly is possible. I believe the patient has severe cardiomyopathy. We need to do an echocardiogram. We will probably need a cardiac cath. I would like him to be seen by Dr. Hinojosa and the decision unit rn before we engage in a cardiac cath. Also like to see what the echocardiogram shows before we do veronica t. So, for the time being, we will treat his heart failure using medications, do noninvasive studies , and consider doing a cardiac cath later in the week. PEEWEE Voice ID: [id number] Report ID: [id number]
--- NOTE | 2019-07-25 14:40 | EKG ---
Test Date: 2019-07-24 Test Time: 19:37:45 Sample Grinder: RV MEASUREMENT RESULTS: Intervals: Rate: 113 WY: 148 QRSD: 88 QT: 336 QTc: 460 [place]: P: 62 WY: 148 QRS: 27 T: 178 INTERPRETIVE STATEMENTS: Sinus tachycardia ST & T wave abnormality, consider lateral ischemia Abnormal ECG Compared to ECG 03/23/2018 18:33:26 ST (T wave) deviation now present Possible ischemia now present Sinus rhythm no longer present Myocardial infarct finding no longer present Electronically Signed On 07-25-19 14:39:03 PERFORATOR by Chetan Contreras
--- NOTE | 2019-07-25 14:40 | EKG ---
Test Date: 2019-07-24 Test Time: 19:38:10 Roller Operator: RV MEASUREMENT RESULTS: Intervals: Rate: 0 OK: QRSD: 0 QT: 0 QTc: 0 [place]: P: OK: QRS: 0 T: 0 INTERPRETIVE STATEMENTS: No QRS complexes found, no ECG analysis possible Compared to ECG 07/24/2019 19:37:45 no comparison is possible Electronically Signed On 07-25-19 14:39:00 SENIOR UI UX DEVELOPER by Chetan Contreras
[2019-07-25] MEDS ORDERED: IPRATROPIUM BROM 0.5MG/2.5ML ONE ×3 (16:11→23:44)
[2019-07-25] MEDS ORDERED: carvediloL 25 MG TAB ONE (17:20)
[2019-07-25] MEDS ORDERED: FUROSEMIDE 40 MG/4 ML VIAL ONE (17:20)
[2019-07-25] MEDS ORDERED: carvediloL 12.5 MG TAB ONE (17:21)
[2019-07-25] MEDS ORDERED: MULTIVITAMIN TAB PO ONE (20:23)
[2019-07-25] MEDS ORDERED: ENOXAPARIN 100 MG/ML SYR SQ ONE (20:24)
[2019-07-25] MEDS ORDERED: ATORVASTATIN 40 MG TAB ONE (20:24)
[2019-07-25] MEDS: levETIRAcetam 500 MG in NA CHLORIDE 0.9% 100 ML IV SCH (20:25)
[2019-07-25] MEDS ORDERED: THIAMINE HCL 100 MG TABLET ONE (20:26)
[2019-07-25] MEDS: THIAMINE HCL 100 MG TABLET PO SCH (20:26)
[2019-07-25] MEDS: MULTIVITAMIN TAB PO SCH (20:26)
[2019-07-25] MEDS: FOLIC ACID 1 MG TABLET PO SCH (20:26)
[2019-07-25] MEDS: SACUBITRIL/VALSARTAN 24/26 MG TAB PO SCH (20:26)
[2019-07-25] MEDS: ATORVASTATIN 40 MG TAB PO SCH (20:26)
[2019-07-25 20:29] LABS: Urine Appearance CLEAR; Urine Bilirubin NEGATIVE (NEG); Urine Blood 1+ (NEG); Urine Color YELLOW; Urine Glucose 1+ (NEG); Urine Protein 2+ (NEG); Urine Urobilinogen 0.2 mg/dL (0.2-1.0)
[2019-07-25 20:34] LABS: Barbiturates NEGATIVE (NEGATIVE); Benzodiazepines NEGATIVE (NEGATIVE); Cocaine NEGATIVE (NEGATIVE); METHAMPHETAM NEGATIVE (NEGATIVE); Methadone NEGATIVE (NEGATIVE); Opiates NEGATIVE (NEGATIVE); Phencyclidine NEGATIVE (NEGATIVE); THC Cannibis NEGATIVE (NEGATIVE)
[2019-07-25] MEDS ORDERED: INSULIN -REGULAR HUMAN 50 UNIT/0.5 ML ML ONE (21:04)
[2019-07-25 21:13] LABS: Urine Amorphous Sediment TRACE /HPF (NONE SEEN); Urine Bacteria <20 /HPF (NONE SEEN)
[2019-07-25] MEDS: LORazepam 2 MG/ML VIAL IV PRN (21:46)
[2019-07-25] MEDS ORDERED: LORazepam 2 MG/ML VIAL ONE (21:49)
--- NOTE | 2019-07-25 23:32 | CON ---
Reason For Consultation: Mr. Duong is a 34-year-old patient with consultation called because of jef parmar. History Of Present Illness: Mr. Duong is a 34-year-old patient with a large right hemispheric strok e with dense left arm much more than leg and face paresis, who also has a history of drug abuse inclu ding apparently methamphetamines. He admits to marijuana and heavy alcohol use, comes in with report ed seizure-like activity involving the paretic upper extremity. There is no clear description of the episode and the patient is unable to give one. He was seen in the emergency room with head CT scan done around 7:30 last night. The study identified a large area of gliosis in the right cerebral mo sphere from his prior infarct. With respect to the reason for the infarct, there was reportedly clot ting issues and apparently family members also had clots and he has had clots of the vascular territo regulo besides brain. He was on apixaban for a while. Since hospitalization and being in the ICU, the re is no further seizure-like activity while he is now on Keppra 500 mg every 12 hours IV. The patie nt is now placed on alcohol withdrawal prophylaxis as he admits to drinking perhaps 6 or 12 beers on a daily basis and mixed drinks, and his last drink was just prior to coming into the hospital. Past Medical History: Diabetes mellitus, insulin dependent; hypertension; dyslipidemia; gout; heart failure with low ejection fraction; and history of clotting issues. Family History: Stroke and heart disease in mother and brother also with stroke. Social History: Heavy alcohol and drug abuse. Allergies: NO KNOWN DRUG ALLERGIES. Medications: At home allopurinol 300 mg twice daily, atorvastatin 40 mg at bedtime, hydralazine 25 m g twice daily, Levemir FlexTouch 40 units subcutaneously twice daily, metformin 1000 mg twice daily, carvedilol 25 mg twice daily. Review of Systems: The patient denies any recent chills, fevers, or nausea, vomiting, arthralgias, myalgias. He has a d ense weakness in the left upper extremity with no swallowing issues. He does ambulate despite the we akness in the left lower extremity. He has no other positives on a 10-point systems review. Physical Examination: Vital Signs: Blood pressure 141/100, pulse up to 112, respiratory rate 14 to 19, temperature is afeb rile 97.5, saturation is 97% to 99%. He is on 3 L oxygen by nasal cannula. General/Neurologic: Mr. Duong is resting in bed. He is alert and oriented to person, place, situat ion. He follows commands appropriately. He has no expressive or receptive aphasias. Cranial nerves did not show any obvious deficits, although potentially subtle left facial and left nasolabial fold decreased, but good excursions bilaterally. Labial, lingual, and guttural sounds are good. No signi ficant positives except for mild field deficits on his right. His motor examination in the left uppe r extremity, unable to elicit any movement proximally and distally. In the right, he has 5/5 strengt h. In the left lower extremity, he has 4/5 strength proximally and distally. On the right, he has 5 /5. Sensation decreased in the left upper extremity compared to the right side and decreased in the left lower extremity compared to the right side. Coordination intact in right upper extremity with s ome difficulty due to weakness in the right lower extremity that easily and smoothly moves leg up and down. Reflexes are hyperreflexic in the left upper extremity and depressed in the right upper extre mity and at the patellae bilaterally. The patient will be ambulated with the physical therapist. Laboratory Studies: White blood cell count 9.3, hemoglobin 11.9, hematocrit 35.9, platelets 438. IN R 0.96. Chemistries; sodium 143, potassium 4.3, chloride 112, carbon dioxide 25, BUN 25, creatinine 1.35, glucose range of 151 to 338, calcium is low at 8.0. He does have elevated rapid troponins and being ruled out for myocardial infarction. Echocardiogram shows ejection fraction 30% to 35% with di lated left atrium and mild mitral regurgitation. His chest and thorax CT angiogram shows no evidence of pulmonary embolism. There is moderate bilateral air opacifications, which may represent pneumoni a or pulmonary edema and moderate bilateral pleural effusions slightly greater on the right. His lew ctrocardiogram shows sinus tachycardia, rate 113. There are ST and T-wave abnormalities consider lat eral ischemia. Assessment: Mr. Duong is a 34-year-old patient with apparent clotting issues and history of large r ight hemispheric stroke producing dense arm paresis more than the leg and face. He also has numbness on the left side. Apparently, had a seizure in the setting of heavy alcohol use along with chronic stroke and abuse of drugs. He does have a urine toxicity pending. Plan: 1.Continue Keppra 500 mg twice daily. 2.The patient was strongly advised to stop using drugs and drinking alcohol. He will likely benefit from an alcohol cessation and drug cessation program. 3.His anticoagulation currently aspirin 81 mg daily and may require revision to be placed on stronge r anticoagulation including Xarelto or Eliquis. However, given the patient's history of heavy alcoho l use, this may be not advisable as he will likely be prone to intracerebral hemorrhages. His chest x-ray suggests possibility of pneumonia and that may be treated accordingly by primary team. There i s also the possibility of alcohol withdrawal and should be on the thiamine, folic acid, and multivita min along with lorazepam as needed for potential alcohol withdrawal. NAGA/NARAYAN Voice ID: [id number] Report ID: [id number]
[2019-07-26] MEDS: ALBUTEROL 2.5 MG/3 ML NEB SOL NEB SCH ×5 (01:35→23:25)
[2019-07-26] MEDS: IPRATROPIUM BROM 0.5MG/2.5ML NEB SCH ×6 (03:30→23:25)
[2019-07-26] MEDS ORDERED: IPRATROPIUM BROM 0.5MG/2.5ML ONE ×2 (03:32→16:30)
[2019-07-26 04:54] LABS: Absolute Lymphocytes (CBC) 2.7 K/uL (0.7-4.9); Basophils % 1.2 % (0-1.3); Hematocrit 33.9 % (39.6-49.0); Lymphocytes % 26.8 % (15.3-44.8); MPV 8.5 fL (7.6-11.3); RBC Red Blood Cell Count 3.95 M/uL (4.33-5.43)
[2019-07-26 04:56] LABS: Protime INR 1.09
[2019-07-26 05:12] LABS: Magnesium 1.8 mg/dL (1.8-2.4); Phosphorus 3.8 mg/dL (2.5-4.9); Thyroid Stimulating Hormone 1.43 uIU/mL (0.360-3.740)
[2019-07-26] MEDS ORDERED: carvediloL 12.5 MG TAB ONE (05:52)
[2019-07-26] MEDS ORDERED: MAGNESIUM SULFATE 1 gm IVPB 1 GM/100 ML BAG IV ONE ×2 (05:52→06:00)
[2019-07-26] MEDS: carvediloL 12.5 MG TAB PO SCH ×3 (06:09→17:39)
[2019-07-26] MEDS ORDERED: MULTIVITAMIN TAB PO ONE (08:01)
[2019-07-26] MEDS ORDERED: FOLIC ACID 1 MG TABLET ONE (08:02)
[2019-07-26] MEDS ORDERED: THIAMINE HCL 100 MG TABLET ONE (08:03)
[2019-07-26] MEDS ORDERED: ASPIRIN EC 81 MG TAB PO ONE (08:03)
[2019-07-26] MEDS ORDERED: ENOXAPARIN 100 MG/ML SYR SQ ONE (08:03)
[2019-07-26] MEDS: levETIRAcetam 500 MG in NA CHLORIDE 0.9% 100 ML IV SCH ×2 (08:30→22:32)
[2019-07-26] MEDS: ENOXAPARIN 100 MG/ML SYR SQ SCH ×2 (08:30→22:28)
[2019-07-26] MEDS: ASPIRIN EC 81 MG TAB PO SCH (08:31)
[2019-07-26] MEDS: MULTIVITAMIN TAB PO SCH (08:31)
[2019-07-26] MEDS: FOLIC ACID 1 MG TABLET PO SCH (08:31)
[2019-07-26] MEDS: FUROSEMIDE 40 MG TABLET PO SCH ×2 (08:31→22:27)
[2019-07-26] MEDS: THIAMINE HCL 100 MG TABLET PO SCH (08:31)
[2019-07-26] MEDS: SACUBITRIL/VALSARTAN 24/26 MG TAB PO SCH ×2 (08:33→22:27)
[2019-07-26] MEDS: INSULIN -REGULAR HUMAN 50 UNIT/0.5 ML ML SQ SCH ×4 (08:35→22:29)
[2019-07-26] MEDS ORDERED: INSULIN -REGULAR HUMAN 50 UNIT/0.5 ML ML ONE ×2 (08:40→13:26)
[2019-07-26] MEDS ORDERED: lisinopriL 5 MG TAB PO SCH (09:00)
[2019-07-26] MEDS ORDERED: LORazepam 2 MG/ML VIAL ONE (10:51)
--- NOTE | 2019-07-26 11:21 | PN ---
Date of Progress Note: 07/26/2019 Mr. Duong came in with congestive heart failure. Echocardiogram showed an ejection fraction of 30% to 35%. Creatinine is 1.35. He has dyslipidemia as well. History of drug use. He has improved on IV Lasix, but remains slightly tachycardic. Normal blood pressure. He is on inhalers, aspirin, Lipi tor, Coreg, and Lasix. I am going to add lisinopril 5 mg daily to his regimen. I am going to double his carvedilol to 25 mg twice a day. I am going to switch him to p.o. Lasix 40 twice a day. Hopefu lly, we will get him out to telemetry later on this afternoon. Mr. Duong may require a heart cathet erization sometime down the road, but not at this point. Hopefully, serial echocardiography will amanda w some improvement and we do not have to consider a defibrillator on him. KRISTIN/NARAYAN Voice ID: [id number] Report ID: [id number]
--- NOTE | 2019-07-26 13:28 | P.PN ---
Subjective Date of Service: 07/26/19 Chief Complaint: Shortness of breath Patient weaned off oxygen. Not dyspneic, afebrile. Agitated this morning. Sitter required since high fall risk due to left sided hemiparesis after CVA. He is unable to provide a reliable ROS. Physical Examination - Vital Signs Temperature: 97.6 F Blood Pressure: 131/81 Pulse: 96 Respirations: 16 Pulse Ox (%): 96 - Physical Exam General: In no apparent distress, Confused, Obese, Other (AGITATED but not combattive ) HEENT: Atraumatic, Normocephalic, EOMI Neck: Supple Respiratory: Diminished, Other (Decreased breath sounds in both lung bases) Cardiovascular: No edema, Regular rate/rhythm, Normal S1 S2 Gastrointestinal: Normal bowel sounds, Soft and benign, Non-distended Musculoskeletal: No swelling, No erythema, No tenderness Integumentary: No rashes, Warmth Neurological: Abnormal strength, Abnormal tone, Abnormal affect Assessment & Plan Physician Review Additional Text: Impression: Patient is a 34 year old male with a known PMH of CVA, alcohol abuse brought in by EMS for acute shortness of breath and possible seizure events. He was found to have bilateral pleural effusion and pulmonary edema. PNA could not be excluded. Started empirically on ceftriaxone and azithromycin, required BIPAP due to acute hypoxic respiratory failure. Basic labs with evidence of NSTEMI. Cardiology contemplating a diagnostic angiogram at the end of the week. Neurology was consulted for possible seizure evaluation. Patient counseled to curb alcohol consumption since it can lower seizure threshold post CVA. Problems (Diagnosis) (1) Acute respiratory failure (2) Bilateral pneumonia (3) Syncope (4) NSTEMI (non-ST elevated myocardial infarction) (5) Pleural effusion (6) History of CVA (cerebrovascular accident) (7) DM type 2 (diabetes mellitus, type 2) (8) Hypertension PLAN: 1. Downgrade to floor status with a sitter and telemetry 2. Monitor for EtOH withdrawal syndrome 3. Continue empiric abx coverage, and diuresis 3. PT/OT 4. Will evaluate for psych needs 5. Will defer future plan for angiogram to cardiology
[2019-07-26] MEDS ORDERED: ALBUTEROL 2.5 MG/3 ML NEB SOL ONE (16:30)
[2019-07-26] MEDS: AMPICILLIN/SULBACT 3 GM in NA CHLORIDE 0.9% 100 ML IVPB SCH ×2 (17:34→23:20)
[2019-07-26] MEDS: LORazepam 2 MG/ML VIAL IV PRN (21:38)
[2019-07-26] MEDS: ATORVASTATIN 40 MG TAB PO SCH (22:29)
[2019-07-27] MEDS: IPRATROPIUM BROM 0.5MG/2.5ML NEB SCH ×5 (03:00→19:50)
[2019-07-27 05:22] LABS: Absolute Lymphocytes (CBC) 2.7 K/uL (0.7-4.9); Basophils % 0.8 % (0-1.3); Hematocrit 32.7 % (39.6-49.0); Lymphocytes % 32.2 % (15.3-44.8); MPV 8.9 fL (7.6-11.3); RBC Red Blood Cell Count 3.81 M/uL (4.33-5.43)
[2019-07-27] MEDS: carvediloL 12.5 MG TAB PO SCH ×2 (06:02→17:10)
[2019-07-27 07:06] LABS: Magnesium 1.9 mg/dL (1.8-2.4); Potassium 3.7 mmol/L (3.5-5.1)
[2019-07-27] MEDS: levETIRAcetam 500 MG in NA CHLORIDE 0.9% 100 ML IV SCH ×2 (08:10→21:15)
[2019-07-27] MEDS: SACUBITRIL/VALSARTAN 24/26 MG TAB PO SCH ×2 (08:11→21:15)
[2019-07-27] MEDS: ENOXAPARIN 100 MG/ML SYR SQ SCH ×2 (08:11→21:00)
[2019-07-27] MEDS: INSULIN -REGULAR HUMAN 50 UNIT/0.5 ML ML SQ SCH ×4 (08:11→21:16)
[2019-07-27] MEDS: ASPIRIN EC 81 MG TAB PO SCH (08:11)
[2019-07-27] MEDS: FUROSEMIDE 40 MG TABLET PO SCH ×2 (08:12→21:16)
[2019-07-27] MEDS: MULTIVITAMIN TAB PO SCH (08:12)
[2019-07-27] MEDS: FOLIC ACID 1 MG TABLET PO SCH (08:12)
[2019-07-27] MEDS: THIAMINE HCL 100 MG TABLET PO SCH (08:12)
[2019-07-27] MEDS: ALBUTEROL 2.5 MG/3 ML NEB SOL NEB SCH ×3 (08:23→19:50)
[2019-07-27] MEDS: AMPICILLIN/SULBACT 3 GM in NA CHLORIDE 0.9% 100 ML IVPB SCH ×3 (09:26→17:11)
--- NOTE | 2019-07-27 11:32 | P.PN ---
Subjective Date of Service: 07/27/19 Chief Complaint: Shortness of breath Patient emotionally labile this morning. Uncooperative with staff. at bedside unable to handle patient. Psych consult placed. Physical Examination - Vital Signs Temperature: 97.4 F Blood Pressure: 118/76 Pulse: 96 Respirations: 16 Pulse Ox (%): 92 - Physical Exam General: In no apparent distress, Confused HEENT: Atraumatic, Normocephalic, EOMI Neck: Supple Respiratory: Clear to auscultation bilaterally, Normal air movement Cardiovascular: Normal pulses, Regular rate/rhythm, Normal S1 S2 Gastrointestinal: Normal bowel sounds, Soft and benign, Non-distended Musculoskeletal: No swelling, No contractures, No erythema Integumentary: Warmth Neurological: Normal speech, Normal affect Assessment & Plan Physician Review Additional Text: Impression: Patient is a 34 year old male with a known PMH of CVA, alcohol abuse brought in by EMS for acute shortness of breath and possible seizure events. He was found to have bilateral pleural effusion and pulmonary edema. PNA could not be excluded. Started empirically on ceftriaxone and azithromycin, required BIPAP due to acute hypoxic respiratory failure. Basic labs with evidence of NSTEMI. Cardiology recommends medical management with Coreg and Diovan given an EF of 31%. He has already been started on Coreg. Neurology was consulted for possible seizure evaluation. Patient counseled to curb alcohol consumption since it can lower seizure threshold post CVA. He has been downgraded to general floor. The rest of the hospital course marked by emotional lability. Psychiatry consulted on 07/27/2019 Problems (Diagnosis) (1) Acute respiratory failure (2) Bilateral pneumonia (3) Syncope (4) NSTEMI (non-ST elevated myocardial infarction) (5) Pleural effusion (6) History of CVA (cerebrovascular accident) (7) DM type 2 (diabetes mellitus, type 2) (8) Hypertension PLAN: 1. Consult Psychiatry for behavioral issues 2. Continue Coreg. Diovan to be started if blood pressure tolerates. 3. Lower risk for EtOH withdrawal syndrome. Continue thiamine, folic acid a multi-vitamin 4. Continue UNASYN. Ok to transition to Augmentin if patient cooperative with PO intake 5. Continue insulin sliding scale for diabetes Time Spent Managing Pts Care (In Minutes): 25
--- NOTE | 2019-07-27 11:34 | PN ---
A 34-year-old man. Mr. Duong seems to be comfortable. He has been rather uncooperative with physic al exams, not even wanting to wake up or speak when the doctors are in there. His ejection fraction is in the 30s. I think if we can give him either Entresto and Coreg or if he cannot afford Entresto, Diovan and Coreg, then we will do as well as can be expected. His habits of severe drug abuse have probably caused this. I do not think there is any treatment we could give him that would help him as much as stopping the drugs. Thank you very much for your kind referral of Mr. Duong. LIDYA/NARAYAN Voice ID: [id number] Report ID: [id number]
[2019-07-27] MEDS: ATORVASTATIN 40 MG TAB PO SCH (21:17)
[2019-07-27] MEDS: LORazepam 2 MG/ML VIAL IV PRN (22:30)
[2019-07-28] MEDS: AMPICILLIN/SULBACT 3 GM in NA CHLORIDE 0.9% 100 ML IVPB SCH ×4 (00:18→17:24)
[2019-07-28] MEDS: ALBUTEROL 2.5 MG/3 ML NEB SOL NEB SCH ×4 (02:00→20:05)
[2019-07-28] MEDS: IPRATROPIUM BROM 0.5MG/2.5ML NEB SCH ×6 (04:00→20:05)
[2019-07-28] MEDS: carvediloL 12.5 MG TAB PO SCH (06:03)
[2019-07-28 06:19] LABS: Absolute Lymphocytes (CBC) 3.2 K/uL (0.7-4.9); Basophils % 1.2 % (0-1.3); Hematocrit 34.3 % (39.6-49.0); Lymphocytes % 36.5 % (15.3-44.8); MPV 7.7 fL (7.6-11.3); RBC Red Blood Cell Count 3.96 M/uL (4.33-5.43)
[2019-07-28 06:30] LABS: Magnesium 1.7 mg/dL (1.8-2.4); Phosphorus 3.7 mg/dL (2.5-4.9); Potassium 3.9 mmol/L (3.5-5.1)
[2019-07-28] MEDS: INSULIN -REGULAR HUMAN 50 UNIT/0.5 ML ML SQ SCH ×4 (07:30→20:46)
[2019-07-28] MEDS: levETIRAcetam 500 MG in NA CHLORIDE 0.9% 100 ML IV SCH ×2 (08:55→20:44)
[2019-07-28] MEDS ORDERED: POTASSIUM CL SA 10 MEQ TAB PO ONE (09:00)
[2019-07-28] MEDS ORDERED: MAGNESIUM SULFATE 1 gm IVPB 1 GM/100 ML BAG IV ONE (09:00)
[2019-07-28] MEDS: MULTIVITAMIN TAB PO SCH (09:57)
[2019-07-28] MEDS: THIAMINE HCL 100 MG TABLET PO SCH (09:57)
[2019-07-28] MEDS: SACUBITRIL/VALSARTAN 24/26 MG TAB PO SCH ×2 (09:58→20:44)
[2019-07-28] MEDS: ASPIRIN EC 81 MG TAB PO SCH (09:58)
[2019-07-28] MEDS: FUROSEMIDE 40 MG TABLET PO SCH ×2 (09:58→20:44)
[2019-07-28] MEDS: FOLIC ACID 1 MG TABLET PO SCH (09:58)
[2019-07-28] MEDS: ENOXAPARIN 100 MG/ML SYR SQ SCH ×2 (10:02→21:00)
--- NOTE | 2019-07-28 11:02 | PN ---
Mr. Duong is doing very well with respect to his heart failure, but his heart rate is still high wit h Coreg 25 b.i.d. This is not capable of controlling his heart rate. We are going to switch to Lopr delbert. Continue Adriana. LIDYA/NARAYAN Voice ID: [id number] Report ID: [id number]
[2019-07-28] MEDS ORDERED: ZIPRASIDONE MESYLA 20 MG/VIAL IM ONE (11:41)
[2019-07-28] MEDS ORDERED: WATER FOR INJ,STERILE 10 ML IM PRN (11:41)
[2019-07-28] MEDS: LORazepam 2 MG/ML VIAL IV PRN (11:54)
--- NOTE | 2019-07-28 13:33 | P.PN ---
Subjective Date of Service: 07/28/19 Chief Complaint: Shortness of breath Subjective: Other (-Very drowsy this am - refusing to open eyes , able to voice no to questions of complains - review of notes hsow he does not like to wake when MD rounds - later reported to be agitated and theatening to leave after intially seen) Review of Systems is unable to be obtained Physical Examination - Vital Signs Temperature: 97.5 F Blood Pressure: 142/91 Pulse: 100 Respirations: 16 Pulse Ox (%): 96 - Physical Exam General: Obese HEENT: Atraumatic, Normocephalic Neck: Supple, 2+ carotid pulse no bruit Respiratory: Clear to auscultation bilaterally, Crackles/rales Cardiovascular: Regular rate/rhythm, Normal S1 S2, Edema (1+) Gastrointestinal: Normal bowel sounds, Soft and benign, Non-distended Neurological: Other (Drowsy initially but later awake and agitated) - Studies Laboratory Last Values WBC 8.7 K/uL (4.3-10.9) 07/28/19 06:00 RBC 3.96 M/uL (4.33-5.43) L 07/28/19 06:00 Hgb 11.6 g/dL (13.6-17.9) L 07/28/19 06:00 Hct 34.3 % (39.6-49.0) L 07/28/19 06:00 MCV 86.8 fL (80-100) 07/28/19 06:00 MCH 29.4 pg (27.0-35.0) 07/28/19 06:00 MCHC 33.9 g/dL (32.0-36.0) 07/28/19 06:00 RDW 13.7 % (12.1-15.2) 07/28/19 06:00 Plt Count 471 K/uL (152-406) H 07/28/19 06:00 MPV 7.7 fL (7.6-11.3) D 07/28/19 06:00 Neutrophils % 42.9 % (41.7-73.7) 07/28/19 06:00 Lymphocytes % 36.5 % (15.3-44.8) 07/28/19 06:00 Monocytes % 13.9 % (3.3-12.3) H 07/28/19 06:00 Eosinophils % 5.5 % (0-4.4) H 07/28/19 06:00 Basophils % 1.2 % (0-1.3) 07/28/19 06:00 Absolute Neutrophils 3.7 K/uL (1.8-8.0) 07/28/19 06:00 Absolute Lymphocytes 3.2 K/uL (0.7-4.9) 07/28/19 06:00 Absolute Monocytes 1.2 K/uL (0.1-1.3) 07/28/19 06:00 Absolute Eosinophils 0.5 K/uL (0-0.5) 07/28/19 06:00 Absolute Basophils 0.1 K/uL (0-0.5) 07/28/19 06:00 PT 12.8 SECONDS (9.5-12.5) H 07/26/19 04:27 INR 1.09 07/26/19 04:27 APTT 50.8 SECONDS (24.3-36.9) H 07/26/19 04:27 Sodium 144 mmol/L (136-145) 07/28/19 06:00 Potassium 3.9 mmol/L (3.5-5.1) 07/28/19 06:00 Chloride 110 mmol/L (98-107) H 07/28/19 06:00 Carbon Dioxide 28 mmol/L (21-32) 07/28/19 06:00 BUN 16 mg/dL (7-18) 07/28/19 06:00 Creatinine 1.18 mg/dL (0.55-1.3) 07/28/19 06:00 Estimated GFR 70 mL/min (=/>90) L 07/28/19 06:00 Glucose 136 mg/dL (74-106) H 07/28/19 06:00 POC Glucose 177 mg/dl (65-120) H 07/28/19 11:42 Hemoglobin A1c 8.4 % (4.2-6.3) H 07/26/19 04:27 Calcium 8.0 mg/dL (8.5-10.1) L 07/28/19 06:00 Phosphorus 3.7 mg/dL (2.5-4.9) 07/28/19 06:00 Magnesium 1.7 mg/dL (1.8-2.4) L 07/28/19 06:00 Rapid Troponin I 1.26 ng/mL (0.0-0.045) H* 07/24/19 19:33 Troponin I 1.32 ng/mL (0.0-0.045) H* 07/25/19 07:03 NT-Pro-B Natriuret Pep 2811 pg/mL (<125) H 07/25/19 02:58 Triglycerides 191 mg/dL (<150) H 07/26/19 04:27 Cholesterol 145 mg/dL (<200) 07/26/19 04:27 LDL Cholesterol, Calc 68 (<130) 07/26/19 04:27 HDL Cholesterol 39 mg/dL (40-60) L 07/26/19 04:27 Cholesterol/HDL Ratio 3.72 07/26/19 04:27 TSH 1.430 uIU/mL (0.360-3.740) 07/26/19 04:27 Free T4 0.93 ng/dL (0.76-1.46) 07/26/19 04:27 Urine Color Yellow 07/25/19 19:35 Urine Appearance Clear 07/25/19 19:35 Urine pH 6.0 (5.0-7.0) 07/25/19 19:35 Ur Specific [place] 1.010 (1.005-1.030) 07/25/19 19:35 Urine Ketones Negative (NEG) 07/25/19 19:35 Urine Blood 1+ (NEG) H 07/25/19 19:35 Urine Nitrite Negative (NEG) 07/25/19 19:35 Urine Bilirubin Negative (NEG) 07/25/19 19:35 Urine Urobilinogen 0.2 mg/dL (0.2-1.0) 07/25/19 19:35 Ur Leukocyte Esterase Negative (NEG) 07/25/19 19:35 Urine RBC 5-10 /HPF (NONE SEEN) H 07/25/19 19:35 Urine WBC <5 /HPF (<5) 07/25/19 19:35 Ur Squamous Epith Cells <5 /HPF (NONE SEEN) 07/25/19 19:35 Amorphous Sediment Trace /HPF (NONE SEEN) 07/25/19 19:35 Urine Bacteria <20 /HPF (NONE SEEN) 07/25/19 19:35 Urine Culture Reflexed Not needed 07/25/19 19:35 Urine Glucose 1+ (NEG) H 07/25/19 19:35 Urine Total Protein 2+ (NEG) H 07/25/19 19:35 Opiates Screen Negative (NEGATIVE) 07/25/19 19:35 Methadone Screen Negative (NEGATIVE) 07/25/19 19:35 Ur Barbiturates Screen Negative (NEGATIVE) 07/25/19 19:35 Ur Phencyclidine Scrn Negative (NEGATIVE) 07/25/19 19:35 Amphetamines Screen Negative (NEGATIVE) 07/25/19 19:35 Benzodiazepines Screen Negative (NEGATIVE) 07/25/19 19:35 Cocaine Screen Negative (NEGATIVE) 07/25/19 19:35 Ur THC Screen Negative (NEGATIVE) 07/25/19 19:35 Assessment & Plan Physician Review: Patient Assessed, Agree with Above Assessment and Plan Physician Review Additional Text: Impression: Patient is a 34 year old male with a known PMH of CVA, alcohol abuse brought in by EMS for acute shortness of breath and possible seizure events. He was found to have bilateral pleural effusion and pulmonary edema. PNA could not be excluded. Started empirically on ceftriaxone and azithromycin, required BIPAP due to acute hypoxic respiratory failure. Basic labs with evidence of NSTEMI. Cardiology recommends medical management with Coreg and Diovan given an EF of 31%. He has already been started on Coreg. Neurology was consulted for possible seizure evaluation. Patient counseled to curb alcohol consumption since it can lower seizure threshold post CVA. He has been downgraded to general floor. The rest of the hospital course marked by emotional lability. 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
[2019-07-28] MEDS: METOPROLOL TAR 50 MG TAB PO SCH (18:42)
[2019-07-28] MEDS: ATORVASTATIN 40 MG TAB PO SCH (20:44)
[2019-07-29] MEDS: LORazepam 2 MG/ML VIAL IV PRN (00:06)
[2019-07-29] MEDS: IPRATROPIUM BROM 0.5MG/2.5ML NEB SCH ×4 (00:20→12:00)
[2019-07-29] MEDS: AMPICILLIN/SULBACT 3 GM in NA CHLORIDE 0.9% 100 ML IVPB SCH ×2 (00:27→05:16)
[2019-07-29] MEDS: ALBUTEROL 2.5 MG/3 ML NEB SOL NEB SCH ×2 (02:00→08:00)
[2019-07-29] MEDS: METOPROLOL TAR 50 MG TAB PO SCH ×2 (05:16→17:14)
[2019-07-29 06:26] LABS: Bilirubin Total 0.1 mg/dL (0.2-1.0); Magnesium 1.9 mg/dL (1.8-2.4); Potassium 3.8 mmol/L (3.5-5.1); Protein, Total 6.1 g/dL (6.4-8.2)
[2019-07-29] MEDS: INSULIN -REGULAR HUMAN 50 UNIT/0.5 ML ML SQ SCH ×4 (08:38→21:07)
[2019-07-29] MEDS: SACUBITRIL/VALSARTAN 24/26 MG TAB PO SCH ×2 (08:41→21:06)
[2019-07-29] MEDS: THIAMINE HCL 100 MG TABLET PO SCH (08:41)
[2019-07-29] MEDS: ASPIRIN EC 81 MG TAB PO SCH (08:41)
[2019-07-29] MEDS: FUROSEMIDE 40 MG TABLET PO SCH ×2 (08:42→21:06)
[2019-07-29] MEDS: FOLIC ACID 1 MG TABLET PO SCH (08:42)
[2019-07-29] MEDS: MULTIVITAMIN TAB PO SCH (08:42)
[2019-07-29] MEDS: ENOXAPARIN 100 MG/ML SYR SQ SCH ×2 (08:43→21:05)
[2019-07-29] MEDS ORDERED: POTASSIUM CL SA 10 MEQ TAB PO ONE (09:00)
[2019-07-29] MEDS: levETIRAcetam 500 MG in NA CHLORIDE 0.9% 100 ML IV SCH (09:00)
[2019-07-29] MEDS: LORAZEPAM 0.5 MG TABLET PO PRN (10:05)
--- NOTE | 2019-07-29 10:36 | P.PN ---
Subjective Date of Service: 07/29/19 Chief Complaint: Shortness of breath Subjective: No new changes, No C/O voiced, Doing well (-much improved today , awake , orineted and conversating well -s/p mental status started to improved after geodon yesterday) Review of Systems 10-point ROS is otherwise unremarkable Physical Examination - Vital Signs Temperature: 97.4 F Blood Pressure: 126/81 Pulse: 87 Respirations: 18 Pulse Ox (%): 95 - Physical Exam General: Alert, In no apparent distress, Oriented x3, Cooperative, Obese HEENT: Atraumatic, Normocephalic, PERRLA, Mucous membr. moist/pink Neck: Supple, 2+ carotid pulse no bruit, JVD not distended Respiratory: Clear to auscultation bilaterally, Normal air movement Cardiovascular: No edema, Normal pulses, Regular rate/rhythm, Normal S1 S2 Gastrointestinal: Normal bowel sounds, Soft and benign, Non-distended, W/out succussion splash, No ascites, No tenderness Musculoskeletal: No clubbing, No swelling, No contractures Integumentary: No rashes, No breakdown, No significant lesion Neurological: Normal gait, Abnormal speech (some expressive dysphasia, Power 2/ 5 left UE/LE) - Studies Laboratory Last Values WBC 8.7 K/uL (4.3-10.9) 07/28/19 06:00 RBC 3.96 M/uL (4.33-5.43) L 07/28/19 06:00 Hgb 11.6 g/dL (13.6-17.9) L 07/28/19 06:00 Hct 34.3 % (39.6-49.0) L 07/28/19 06:00 MCV 86.8 fL (80-100) 07/28/19 06:00 MCH 29.4 pg (27.0-35.0) 07/28/19 06:00 MCHC 33.9 g/dL (32.0-36.0) 07/28/19 06:00 RDW 13.7 % (12.1-15.2) 07/28/19 06:00 Plt Count 471 K/uL (152-406) H 07/28/19 06:00 MPV 7.7 fL (7.6-11.3) D 07/28/19 06:00 Neutrophils % 42.9 % (41.7-73.7) 07/28/19 06:00 Lymphocytes % 36.5 % (15.3-44.8) 07/28/19 06:00 Monocytes % 13.9 % (3.3-12.3) H 07/28/19 06:00 Eosinophils % 5.5 % (0-4.4) H 07/28/19 06:00 Basophils % 1.2 % (0-1.3) 07/28/19 06:00 Absolute Neutrophils 3.7 K/uL (1.8-8.0) 07/28/19 06:00 Absolute Lymphocytes 3.2 K/uL (0.7-4.9) 07/28/19 06:00 Absolute Monocytes 1.2 K/uL (0.1-1.3) 07/28/19 06:00 Absolute Eosinophils 0.5 K/uL (0-0.5) 07/28/19 06:00 Absolute Basophils 0.1 K/uL (0-0.5) 07/28/19 06:00 PT 12.8 SECONDS (9.5-12.5) H 07/26/19 04:27 INR 1.09 07/26/19 04:27 APTT 50.8 SECONDS (24.3-36.9) H 07/26/19 04:27 Sodium 143 mmol/L (136-145) 07/29/19 05:55 Potassium 3.8 mmol/L (3.5-5.1) 07/29/19 05:55 Chloride 108 mmol/L (98-107) H 07/29/19 05:55 Carbon Dioxide 28 mmol/L (21-32) 07/29/19 05:55 BUN 18 mg/dL (7-18) 07/29/19 05:55 Creatinine 1.36 mg/dL (0.55-1.3) H 07/29/19 05:55 Estimated GFR 59 mL/min (=/>90) L 07/29/19 05:55 Glucose 248 mg/dL (74-106) H 07/29/19 05:55 POC Glucose 292 mg/dl (65-120) H 07/29/19 07:56 Hemoglobin A1c 8.4 % (4.2-6.3) H 07/26/19 04:27 Calcium 8.1 mg/dL (8.5-10.1) L 07/29/19 05:55 Phosphorus 3.7 mg/dL (2.5-4.9) 07/28/19 06:00 Magnesium 1.9 mg/dL (1.8-2.4) 07/29/19 05:55 Total Bilirubin 0.1 mg/dL (0.2-1.0) L 07/29/19 05:55 AST 112 U/L (15-37) H 07/29/19 05:55 ALT 138 U/L (12-78) H 07/29/19 05:55 Alkaline Phosphatase 103 U/L (45-117) 07/29/19 05:55 Rapid Troponin I 1.26 ng/mL (0.0-0.045) H* 07/24/19 19:33 Troponin I 1.32 ng/mL (0.0-0.045) H* 07/25/19 07:03 NT-Pro-B Natriuret Pep 2811 pg/mL (<125) H 07/25/19 02:58 Serum Total Protein 6.1 g/dL (6.4-8.2) L 07/29/19 05:55 Albumin 2.0 g/dL (3.4-5.0) L 07/29/19 05:55 Globulin 4.1 g/dL (2.3-3.5) H 07/29/19 05:55 Albumin/Globulin Ratio 0.5 (1.1-1.8) L 07/29/19 05:55 Triglycerides 191 mg/dL (<150) H 07/26/19 04:27 Cholesterol 145 mg/dL (<200) 07/26/19 04:27 LDL Cholesterol, Calc 68 (<130) 07/26/19 04:27 HDL Cholesterol 39 mg/dL (40-60) L 07/26/19 04:27 Cholesterol/HDL Ratio 3.72 07/26/19 04:27 TSH 1.430 uIU/mL (0.360-3.740) 07/26/19 04:27 Free T4 0.93 ng/dL (0.76-1.46) 07/26/19 04:27 Urine Color Yellow 07/25/19 19:35 Urine Appearance Clear 07/25/19 19:35 Urine pH 6.0 (5.0-7.0) 07/25/19 19:35 Ur Specific [place] 1.010 (1.005-1.030) 07/25/19 19:35 Urine Ketones Negative (NEG) 07/25/19 19:35 Urine Blood 1+ (NEG) H 07/25/19 19:35 Urine Nitrite Negative (NEG) 07/25/19 19:35 Urine Bilirubin Negative (NEG) 07/25/19 19:35 Urine Urobilinogen 0.2 mg/dL (0.2-1.0) 07/25/19 19:35 Ur Leukocyte Esterase Negative (NEG) 07/25/19 19:35 Urine RBC 5-10 /HPF (NONE SEEN) H 07/25/19 19:35 Urine WBC <5 /HPF (<5) 07/25/19 19:35 Ur Squamous Epith Cells <5 /HPF (NONE SEEN) 07/25/19 19:35 Amorphous Sediment Trace /HPF (NONE SEEN) 07/25/19 19:35 Urine Bacteria <20 /HPF (NONE SEEN) 07/25/19 19:35 Urine Culture Reflexed Not needed 07/25/19 19:35 Urine Glucose 1+ (NEG) H 07/25/19 19:35 Urine Total Protein 2+ (NEG) H 07/25/19 19:35 Opiates Screen Negative (NEGATIVE) 07/25/19 19:35 Methadone Screen Negative (NEGATIVE) 07/25/19 19:35 Ur Barbiturates Screen Negative (NEGATIVE) 07/25/19 19:35 Ur Phencyclidine Scrn Negative (NEGATIVE) 07/25/19 19:35 Amphetamines Screen Negative (NEGATIVE) 07/25/19 19:35 Benzodiazepines Screen Negative (NEGATIVE) 07/25/19 19:35 Cocaine Screen Negative (NEGATIVE) 07/25/19 19:35 Ur THC Screen Negative (NEGATIVE) 07/25/19 19:35 Medications List Reviewed: Yes Assessment & Plan Physician Review: Patient Assessed, Agree with Above Assessment and Plan Physician Review Additional Text: Impression: Patient is a 34 year old male with a known PMH of CVA, alcohol abuse brought in by EMS for acute shortness of breath and possible seizure events. He was found to have bilateral pleural effusion and pulmonary edema. PNA could not be excluded. Started empirically on ceftriaxone and azithromycin, required BIPAP due to acute hypoxic respiratory failure. Basic labs with evidence of NSTEMI. Cardiology recommends medical management with Coreg and Diovan given an EF of 31%. He has already been started on Coreg. Neurology was consulted for possible seizure evaluation. Patient counseled to curb alcohol consumption since it can lower seizure threshold post CVA. He has been downgraded to general floor. The rest of the hospital course marked by emotional lability. Psychiatry consulted on 07/27/2019. His mental status has started to improved after geodon use now Problems (Diagnosis) # Acute respiratory failure-resolved # Bilateral pleural effusions and possible pneumonia- improved , off 02 -due to low EF CHF - c/w diuretics - c/w empirical abx -switch to po # Alcholol abuse hx - resolved delirium tremens/encephalopathy - c/w mag/folic/thiamine - possible underlying psychiatry disorder but since improved post geodon , will add as low dose now . 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 /Atrial fib hx - with low EF -c/w diuretics - risk of starting A/C with Eliquis for low EF and hx of atrial fib vs high risk of bleeding from fall and etoh abuse weighed - plan for no A/C now -patient and relatives agreeable to plan -since no insurance , unable to afford Entresto at discharge , will be good to start him on diovan and coreg at discharge per cardiology -Dr Contreras # Syncope- resolved # NSTEMI (non-ST elevated myocardial infarction)- improved , likley due to CM , follow cardiology # History of prior CVA (cerebrovascular accident)- with left weakness- stable -baseline expressive dysphasia causing patient emotional lability - will keep for evaluation with speech therapy in am - I advised patuient family to establish him with [facility] clinic when his is discharge since he gets all his emeergency care there before and may be able to get better finacial help there # DM type 2 (diabetes mellitus, type 2)- on ISSS # Hypertension- improving plan for dc in am after speech eval Critical Care: No
[2019-07-29] MEDS ORDERED: Magnesium Sulfate 2gm IVPB 2 G/50 ML BAG IV ONE (13:22)
[2019-07-29] MEDS ORDERED: ZIPRASIDONE 20 MG CAP PO SCH ×2 (21:00)
[2019-07-29] MEDS: ATORVASTATIN 40 MG TAB PO SCH (21:06)
[2019-07-29] MEDS: levETIRAcetam 500 MG TAB PO SCH (21:06)
[2019-07-29] MEDS: AMOX/K CLAV 500 MG TAB PO SCH (21:15)
[2019-07-29] MEDS: ALBUTEROL 2.5 MG/3 ML NEB SOL NEB PRN (21:20)
[2019-07-30] MEDS: LORAZEPAM 0.5 MG TABLET PO PRN ×3 (01:34→22:29)
[2019-07-30 04:36] LABS: Magnesium 2.1 mg/dL (1.8-2.4); Potassium 3.9 mmol/L (3.5-5.1)
[2019-07-30] MEDS: METOPROLOL TAR 50 MG TAB PO SCH ×2 (05:37→17:34)
[2019-07-30 06:22] VITALS: BMI 35.4
[2019-07-30] MEDS: INSULIN -REGULAR HUMAN 50 UNIT/0.5 ML ML SQ SCH ×4 (07:30→20:37)
[2019-07-30] MEDS ORDERED: POTASSIUM CL SA 10 MEQ TAB PO ONE (09:00)
[2019-07-30] MEDS: SACUBITRIL/VALSARTAN 24/26 MG TAB PO SCH ×2 (09:53→20:36)
[2019-07-30] MEDS: MULTIVITAMIN TAB PO SCH (09:53)
[2019-07-30] MEDS: AMOX/K CLAV 500 MG TAB PO SCH ×2 (09:54→20:36)
[2019-07-30] MEDS: FUROSEMIDE 40 MG TABLET PO SCH ×2 (09:54→20:36)
[2019-07-30] MEDS: ASPIRIN EC 81 MG TAB PO SCH (09:54)
[2019-07-30] MEDS: THIAMINE HCL 100 MG TABLET PO SCH (09:55)
[2019-07-30] MEDS: levETIRAcetam 500 MG TAB PO SCH ×2 (09:55→20:36)
[2019-07-30] MEDS: FOLIC ACID 1 MG TABLET PO SCH (09:55)
[2019-07-30] MEDS: allopurinoL 100 MG TAB PO SCH (09:55)
[2019-07-30] MEDS: ENOXAPARIN 100 MG/ML SYR SQ SCH ×2 (09:56→20:38)
[2019-07-30] MEDS: ESCITALOPRAM 20 MG TAB PO SCH (17:35)
[2019-07-30] MEDS: ATORVASTATIN 40 MG TAB PO SCH (20:37)
[2019-07-30] MEDS: ALBUTEROL 2.5 MG/3 ML NEB SOL NEB PRN (21:30)
[2019-07-31] MEDS: LORAZEPAM 0.5 MG TABLET PO PRN (03:10)
[2019-07-31 04:20] VITALS: TEMP 98.1
[2019-07-31] MEDS: METOPROLOL TAR 50 MG TAB PO SCH (05:27)
--- NOTE | 2019-07-31 08:23 | PN ---
Subjective: Patient is doing very well. No shortness of breath. No anxiety or depression. Review of Systems: 10-point review of systems is otherwise unremarkable. Physical Examination: Vital Signs: Temperature 97.3, pulse 88, blood pressure 128/81, oxygen saturation 97 on room air. HEENT: PERRLA, EOMI remarkable. Neck: Supple. No JVD. Chest: Clear to auscultation. No labored breathing. No wheezing. Heart: Normal S1, S2. Regular rhythm and rate. No murmur. Abdomen: Soft, nontender. Bowel sounds present. Extremities: Lower extremity; no edema, no cyanosis. Skin: No rashes, no lesions. Neuro: Patient awake, alert, and oriented x3. Left-sided weakness due to CVA. Laboratory Data: WBC 8.7, hemoglobin 11.6, and platelets 471. Sodium 144, potassium 3.9, creatinine 1.25, blood sugar 189. Assessment And Plan: This patient was admitted for shortness of breath due to acute respiratory failure which has resolved. He was treated with antibiotics, including Rocephin and azithromycin. Currently, he is off the BiPAP. Cardiology has been following this patient. No chest pain. His ejection fraction is 31%. He is on Coreg. Neurology was consulted for seizure. He is on the Keppra. I discussed the case with the psychiatrist for anxiety and depression. Psychiatry recommended Lexapro 10 mg daily for depression. This patient does not have insurance benefit for SNF placement. Plan to discharge him to home tomorrow. Discussed the case with patient who agree with our plan. Problems: 1. Acute respiratory failure off BiPAP, oxygen saturation 97 on room air. 2. Bilateral pleural effusion and possible pneumonia. IV antibiotics, we will continue Lasix. Currently, he is on oral Augmentin. No fevers or chills. 3. Alcohol abuse. Patient does have some symptoms of withdrawal. Now he is doing well. No anxiety or tremor. We will continue folic acid and thiamine. 4. Anxiety and depression. Psychiatrist has been following this patient and recommended Lexapro 10 mg. his mood stable. 5. Congestive heart failure. His ejection fraction is 31%. Cardiology has been following this patient. Continue current medication including Coreg. 6. Atrial fibrillation. Cardiology has been following this patient. no anticoagulation at this moment. 7. Syncope is resolved. 8. Non-STEMI. No more chest pain. No shortness of breath. Continue CV medications including Diovan and Coreg. 9. History of cerebrovascular accident with left-sided weakness. This is stable. This patient does not have insurance benefit for physical therapy. 10. Type 2 diabetes. Continue sliding scale. 11. Hypertension. His blood pressure is stable. Continue current BP medication. Patient can be discharged in the morning. QT/MODL Voice ID: [id number] Report ID: [id number] MTDD
[2019-07-31] MEDS: SACUBITRIL/VALSARTAN 24/26 MG TAB PO SCH (08:35)
[2019-07-31] MEDS: FUROSEMIDE 40 MG TABLET PO SCH (08:35)
[2019-07-31] MEDS: levETIRAcetam 500 MG TAB PO SCH (08:35)
[2019-07-31] MEDS: ESCITALOPRAM 20 MG TAB PO SCH (08:35)
[2019-07-31] MEDS: AMOX/K CLAV 500 MG TAB PO SCH (08:36)
[2019-07-31] MEDS: THIAMINE HCL 100 MG TABLET PO SCH (08:36)
[2019-07-31] MEDS: ASPIRIN EC 81 MG TAB PO SCH (08:36)
[2019-07-31] MEDS: allopurinoL 100 MG TAB PO SCH (08:36)
[2019-07-31] MEDS: FOLIC ACID 1 MG TABLET PO SCH (08:36)
[2019-07-31] MEDS: MULTIVITAMIN TAB PO SCH (08:36)
[2019-07-31] MEDS: ENOXAPARIN 100 MG/ML SYR SQ SCH (08:39)
[2019-07-31 08:40] VITALS: O2SAT 98
[2019-07-31] MEDS: INSULIN -REGULAR HUMAN 50 UNIT/0.5 ML ML SQ SCH ×2 (08:40→11:30)
[2019-07-31 08:41] VITALS: BP 142/93
--- NOTE | 2019-07-31 15:53 | CON ---
Reason For Consultation: Combative, and agitated behavior. History Of Present Illness: Mr. Duong is a 34-year-old male with psychiatric history significant for alcohol use disorder, severe; cocaine use disorder severe. Patient also has comorbid medical pathologies, which include right cerebrovascular accident with left hemiparesis, insulin-dependent diabetes mellitus, hypertension, hyperlipidemia, and a recent history of acute respiratory distress, and seizure disorder. He was admitted via the ER on the July on account of acute respiratory distress and unresponsiveness secondary to seizure. In the ER was found to have heart failure and non-ST elevated myocardial infarction. The patient was stabilized in the ER as well as in the ICU and currently on the floor. Per medical team, the patient became agitated and combative 3 days after his admission to the floor and a dianosis of Delirium tremens from possible severe alcohol withdrawal was entertained and patient was started on Geodone 20 mg PO daily for agitation and Ativan protocol for alcohol withdrawal. On interview, patient denies having any withdrawal symptoms, no excessive sweating, anxiety, tremors or confusion. Denies feeling irritable, angry. No further history of combative behavior. He is oriented to his environment. Patient did report some frustration over his current limitations post stroke, stating he has not been able to deal with the fact that he now mostly rely on other people for some of his needs. He states prior to the stroke he was independent and never relied on anyone for his care. Patient states he is now having difficulties with speech as well, which he characterized as a new symptom. Patient admits to extensive substance abuse history. State is dependent on cocaine and alcohol, hence certainly impacted his life. He states his cocaine abuse lead to him having the stroke. He reports he is and has 1 daughter and 2 sons, but has 2 step-children from his . Denies having suicidal ideation. Denies past history of suicidal attempts. Denies history of psychosis. No history of bipolar disorder. Prior to stroke, he was working for [employer] following his stroke and is now on disability. Says his is supportive. He reports sleep is good. His appetite is fair and no past history of psychiatric hospitalization. Objective: Vital Signs: Blood pressure 121/78, pulse rate is 84, O2 sat on room air is 95%, temperature is 98.4F. Mental Status: Patient is not well-nourished male, who is lying on bed in his room, watching TV. He was shirtless but covered with bedsheet with his upper chest and arms exposed (covered with Tattoos) Patient is not in any acute distress. Neurologic: Alert and oriented x3. He is cooperative with interview. Observed to be struggling with finding his words with speech spontaneous slightly slurred. Concentration and Memory is limited. He describes his mood as "dysphoric". Affect is not congruent. Thought process linear to circumstantial. Thought content: No delusions, no suicidal and homicidal ideation Laboratory Results: Chemistry indicates elevated glucose of 189g/dl. Hematology indicates hemoglobin of 11.9, which is low. He had platelet count of 183. Urine is negative for UTI. Urine toxicology screen is negative for substance of abuse screened for Diagnoses: -Substance-induced mood disorder -Alcohol withdrawal, rule out delirium tremens (resolved) -Alcohol use disorder, severe -Cocaine use disorder, severe Recommendations: 1. Recommend psychiatric followup 2 weeks post discharge from hospital. 2. Recommend substance abuse treatment program. 3. Recommend starting the patient on Lexapro 10 mg p.o. daily for depression and anxiety symptoms. 4. Recommend to discontinue Geodon 20 mg Po daily as the patient is no longer combative. 5. Recommend Individual psychotherapy 6. The patient does no require further psychiatric followup Discussed recommendations with patient's managing physician. TAYO Voice ID: [id number] Report ID: [id number] LAWRENCE
--- NOTE | 2019-08-01 02:54 | DS ---
Date of Discharge: 07/31/2019 Hospital Course: This patient is a 34-year-old male, who presented for SOB. He has a past medical history including CVA, alcohol abuse, diabetes, hypertension. The patient was found to have bilateral pleural effusion and pulmonary edema on arrival. Pneumonia cannot be excluded. The patient was put on the BiPAP and treated with IV Rocephin and azithromycin. Basic labs also demonstrated evidence of non-STEMI. Both gold marker and finance lecturer were consulted. He was treated with nebulization, diuresis, beta winnie, and ARB. Echo demonstrated an ejection fraction of 31%. Neurology was consulted for possible seizure and the patient received Keppra 500 mg b.i.d. The patient also being treated for alcohol withdrawal with Ativan and folic acid. Patient experienced anxiety and agitation. Psychiatrist was consulted. No suicidal ideation. We started him on Lexapro for anxiety and depression. Overall, his conditions have been greatly improved. Oxygen saturation is above 95% on room air. There is no sign of alcohol withdrawal. Normal seizure when he is in the hospital. He is stable to be discharged. This patient is known to have insurance benefit for SNF and home health. Extensive education regarding to stop alcohol and medication compliance was given. Physical Examination: Vital Signs: Temperature 98.1, respiratory rate 18, pulse rate 88, blood pressure 142/93. Oxygen saturation 98% on room air. HEENT: Normocephalic, atraumatic. PERRLA. EOMI. Neck: Supple. No JVD. Chest: Clear to auscultation. No labored breathing. Mildly decreased breath sounds. Heart: Normal S1, S2. Regular rhythm and rate. No murmur. Abdomen: Soft, nontender. Bowel sounds present. Extremities: Trace edema. No cyanosis. Skin: No rashes or lesion. Neuro: Patient awake and oriented x3. Nonfocal. PSYCH: Mood stable. No anxiety or agitation. Laboratory Data: On discharge, WBC 8.7, hemoglobin 11.6. Sodium 141, potassium 4, creatinine 1.37, glucose 174. Discharge Diagnoses: 1. Acute respiratory failure, resolved. 2. Bilateral pleural effusions and possible pulmonary edema, improved. 3. Possible pneumonia. 4. [id number] myocardial infarction. 5. History of cerebrovascular accident. 6. Hypertension. 7. Diabetes. 8. Alcohol abuse. 9. Syncope. 10. Seizure. Discharge Medications: aspirin 81 mg daily, Diovan 80 mg daily, metoprolol 50 mg b.i.d. For the rest of the home medication, please see medication list. Discharge Instructions: 1. Please follow finance lecturer in 2 weeks. 2. Please follow neurologist in 2 weeks. 3. Please follow PCP in 2 weeks. 4. Please call ED if having shortness of breath, chest pain, or other concern. Discharge Activity: As tolerated. Discharge Diet: Diabetic diet. I spent at least 35 minutes to discharge patient including review of the chart, home medications prescription, physical examination, and patient education. QT/MODL Voice ID: [id number] Report ID: [id number] LAWRENCE
== END 2019-07-31 12:17 | disposition home or self-care (01) | DRG 280 ==
LOC: ER 19:21 → ERHOLD 07-25 01:02 → 3RD-ICU 07-25 01:05 → 4TH 07-26 12:17
PROVIDERS: ADMIT Internal Medicine; ATTEND Internal Medicine
PROC: 5A09457 Assistance with Respiratory Ventilation, 24-96 Consecutive Hours, Continuous Positive Airway Pressure (ICD-10-PCS; principal; 2019-07-25)
DX: I50.23 Acute on chronic systolic (congestive) heart failure (principal); J18.9 Pneumonia, unspecified organism; I21.4 Non-ST elevation (NSTEMI) myocardial infarction; J96.01 Acute respiratory failure with hypoxia; G92 Toxic encephalopathy; F10.231 Alcohol dependence with withdrawal delirium; I69.354 Hemiplegia and hemiparesis following cerebral infarction affecting left non-dominant side; I48.20 Chronic atrial fibrillation, unspecified; I42.7 Cardiomyopathy due to drug and external agent; I11.0 Hypertensive heart disease with heart failure; I10 Essential (primary) hypertension; R55 Syncope and collapse; E11.9 Type 2 diabetes mellitus without complications; F12.10 Cannabis abuse, uncomplicated; F41.8 Other specified anxiety disorders; F15.14 Other stimulant abuse with stimulant-induced mood disorder; F14.14 Cocaine abuse with cocaine-induced mood disorder; R56.9 Unspecified convulsions; R79.1 Abnormal coagulation profile; Z79.4 Long term (current) use of insulin
CPT/HCPCS: 36415; 70450; 71045; 71275; 80048; 80053; 80061; 80307; 81001; 82947; 83036; 83735; 83880; 84100; 84439; 84443; 84484; 84550; 85025; 85610; 85730; 87040; 92523; 93005; 93306; 94660; 96372; 97116; 97161; 97530; 99285; J0295; J0456; J0696; J1200; J1650; J1940; J1953; J3475; J3486; J7030; Q9967

== ENCOUNTER 2019-08-05 03:41 | Inpatient (IN) | payer SELFPAY ==
--- OUTSIDE RECORDS SUMMARY | 2019-08-05 03:44 | XMS REPORT ---
:1985 [facility] Address [address] [place] [address] Dr. Daniel [address] [place] [id number] Care Team Providers Name Role Phone Unavailable Unavailable Unavailable Problems This patient has no known problems. Allergies, Adverse Reactions, Alerts This patient has no known allergies or adverse reactions. Medications This patient has no known medications.
[2019-08-05] MEDS ORDERED: LEVALBUTEROL 1.25 MG/3 ML NEB ONE (04:21)
[2019-08-05] MEDS ORDERED: IPRATROPIUM BROM 0.5MG/2.5ML ONE (04:21)
[2019-08-05 04:35] LABS: Arterial Blood Carboxyhemoglob 0.8 % (0-1.5); Blood Gas Oxyhemoglobin 87.6 % (94-97); Blood O2 Saturation 89.4 % (92-98.5)
[2019-08-05] MEDS ORDERED: PIPER/TAZO/NS 3.375gm 3.375 GM/100 ML BAG ONE (04:38)
--- NOTE | 2019-08-05 05:03 | EDPHYS ---
Physician Documentation [facility] Name: Grace Duong Age: 34 yrs Sex: Male : 1985 Arrival Date: 08/05/2019 Time: 03:43 Bed 4 Private MD: ED Physician Joseph Laguerre HPI: 08/05 04:11 This 34 yrs old Male presents to ER via EMS with complaints of Shortness Of otis Breath. 04:11 The patient has shortness of breath at rest, with light activity. Onset: The otis symptoms/episode began/occurred 3 day(s) ago. Duration: The symptoms are continuous, and are steadily getting worse. The patient's shortness of breath is aggravated by exertion, light activity, supine position. Associated signs and symptoms: Pertinent positives: non-productive cough, fever. Severity of symptoms: At their worst the symptoms were moderate in the emergency department the symptoms are unchanged. The patient has experienced similar episodes in the past, several times. Historical: - Allergies: 03:47 No Known Allergies; rv - Home Meds: 03:47 atorvastatin Oral [Active]; carvedilol Oral [Active]; Hydrochlorothiazide Oral rv [Active]; Levemir subcutaneous [Active]; Metformin Oral [Active]; - PMHx: 03:47 CVA; Diabetes - IDDM; High Cholesterol; Hypertension; left sided paralysis; rv - PSHx: 03:47 None; rv - Immunization history:: Adult Immunizations up to date. - Social history:: Smoking status: Patient/guardian denies using tobacco. - Ebola Screening: : No symptoms or risks identified at this time. ROS: 04:12 Constitutional: Negative for fever, chills, and weight loss, Eyes: Negative for injury, otis pain, redness, and discharge, ENT: Negative for injury, pain, and discharge, Neck: Negative for injury, pain, and swelling, Cardiovascular: Negative for chest pain, palpitations, and edema, Abdomen/GI: Negative for abdominal pain, nausea, vomiting, diarrhea, and constipation, Back: Negative for injury and pain, : Negative for injury, bleeding, discharge, and swelling, MS/Extremity: Negative for injury and deformity, Skin: Negative for injury, rash, and discoloration, Neuro: Negative for headache, weakness, numbness, tingling, and seizure, Psych: Negative for depression, anxiety, suicide ideation, homicidal ideation, and hallucinations, Allergy/Immunology: Negative for hives, rash, and allergies, Endocrine: Negative for neck swelling, polydipsia, polyuria, polyphagia, and marked weight changes, Hematologic/Lymphatic: Negative for swollen nodes, abnormal bleeding, and unusual bruising. 04:12 Respiratory: Positive for cough, shortness of breath, wheezing, expiratory. Exam: 04:12 Constitutional: This is a well developed, well nourished patient who is awake, alert, otis and in no acute distress. Head/Face: Normocephalic, atraumatic. Eyes: Pupils equal round and reactive to light, extra-ocular motions intact. Lids and lashes normal. Conjunctiva and sclera are non-icteric and not injected. Cornea within normal limits. Periorbital areas with no swelling, redness, or edema. ENT: Nares patent. No nasal discharge, no septal abnormalities noted. Tympanic membranes are normal and external auditory canals are clear. Oropharynx with no redness, swelling, or masses, exudates, or evidence of obstruction, uvula midline. Mucous membranes moist. Neck: Trachea midline, no thyromegaly or masses palpated, and no cervical lymphadenopathy. Supple, full range of motion without nuchal rigidity, or vertebral point tenderness. No Meningismus. Chest/axilla: Normal chest wall appearance and motion. Nontender with no deformity. No lesions are appreciated. Cardiovascular: Regular rate and rhythm with a normal S1 and S2. No gallops, murmurs, or rubs. Normal PMI, no JVD. No pulse deficits. Abdomen/GI: Soft, non-tender, with normal bowel sounds. No distension or tympany. No guarding or rebound. No evidence of tenderness throughout. Back: No spinal tenderness. No costovertebral tenderness. Full range of motion. Skin: Warm, dry with normal turgor. Normal color with no rashes, no lesions, and no evidence of cellulitis. MS/ Extremity: Pulses equal, no cyanosis. Neurovascular intact. Full, normal range of motion. Neuro: Awake and alert, GCS 15, oriented to person, place, time, and situation. Cranial nerves II-XII grossly intact. Motor strength 5/5 in all extremities. Sensory grossly intact. Cerebellar exam normal. Normal gait. Psych: Awake, alert, with orientation to person, place and time. Behavior, mood, and affect are within normal limits. 04:12 Respiratory: mild respiratory distress is noted, Respirations: labored breathing, that is mild, accessory muscle usage, that is mild, Breath sounds: bronchial sounds, decreased breath sounds, rhonchi, wheezing: expiratory is heard in the left upper lobe, left lower lobe, left posterior upper lobe and left posterior lower lobe. Vital Signs: 03:45 BP 165 / 107; Pulse 98; Resp 20; Temp 98.8(O); Pulse Ox 94% on 4 lpm NC; Weight 81.65 rv kg; 04:30 BP 157 / 111; Pulse 93; Resp 18; Pulse Ox 100% on R/A; rv 05:00 BP 147 / 93; Pulse 97; Resp 18; Pulse Ox 98% on 3 lpm NC; rv 05:30 BP 140 / 107; Pulse 95; Resp 15; Pulse Ox 98% on 3 lpm NC; rv 06:40 BP 139 / 91; Pulse 91; Resp 19; Pulse Ox 92% on 3 lpm NC; rv MDM: 03:55 Patient medically screened. [facility] 04:13 Data reviewed: vital signs, nurses notes, lab test result(s), EKG, radiologic studies, otis plain films. 08/05 04:10 Order name: Basic Metabolic Panel; Complete Time: 05:24 [facility] 08/05 04:10 Order name: CBC with Diff; Complete Time: 05:24 [facility] 08/05 04:10 Order name: LFT's; Complete Time: 05:24 [facility] 08/05 04:10 Order name: Magnesium; Complete Time: 05:24 [facility] 08/05 04:10 Order name: NT PRO-BNP; Complete Time: 05:24 [facility] 08/05 04:10 Order name: PT-INR; Complete Time: 05:24 [facility] 08/05 04:10 Order name: Troponin (emerg Dept Use Only); Complete Time: 05:24 [facility] 08/05 04:10 Order name: Blood Culture Adult (2) [facility] 08/05 04:10 Order name: Lactate; Complete Time: 05:24 [facility] 08/05 04:10 Order name: ABG; Complete Time: 04:53 [facility] 08/05 06:26 Order name: CBC with Automated Diff EDMS 08/05 06:26 Order name: CBC with Automated Diff EDMS 08/05 06:27 Order name: Comprehensive Metabolic Panel EDMS 08/05 06:27 Order name: Comprehensive Metabolic Panel EDMS 08/05 04:10 Order name: XRAY Chest (1 view) [facility] 08/05 06:27 Order name: Lipid Profile EDMS 08/05 06:27 Order name: Lipid Profile EDMS 08/05 06:27 Order name: Magnesium EDMS 08/05 06:27 Order name: Magnesium EDMS 08/05 06:27 Order name: Phosphorus EDMS 08/05 06:27 Order name: Phosphorus EDMS 08/05 06:27 Order name: NT PRO-BNP EDMS 08/05 06:27 Order name: NT PRO-BNP EDMS 08/05 06:27 Order name: Troponin I EDOR 08/05 06:27 Order name: Troponin I EDOR 08/05 06:27 Order name: Troponin I EDMS 08/05 08:35 Order name: Glucose, Ancillary Testing EDMS 08/05 12:01 Order name: Glucose, Ancillary Testing EDMS 08/05 04:10 Order name: EKG; Complete Time: 04:12 [facility] 08/05 04:10 Order name: Cardiac monitoring; Complete Time: 04:20 [facility] 08/05 04:10 Order name: EKG - Nurse/Tech; Complete Time: 04:20 [facility] 08/05 04:10 Order name: IV Saline Lock; Complete Time: 04:20 [facility] 08/05 04:10 Order name: Labs collected and sent; Complete Time: 04:20 [facility] 08/05 04:10 Order name: O2 Per Protocol; Complete Time: 04:20 [facility] 08/05 04:10 Order name: O2 Sat Monitoring; Complete Time: 04:20 [facility] 08/05 06:26 Order name: CONS Physician Consult EDOR 08/05 06:26 Order name: Heart Healthy EDMS Administered Medications: 04:21 Drug: Xopenex 2.5 mg Route: Inhalation; jd3 06:39 Follow up: Response: No adverse reaction rv 04:22 Drug: AtroVENT Aerosol 0.5 mg Route: Inhalation; jd3 06:39 Follow up: Response: No adverse reaction rv 04:43 Drug: Zosyn 3.375 grams Route: IVPB; Infused Over: 60 mins; Site: right antecubital; rv 06:38 Follow up: IV Status: Completed infusion rv 05:36 Drug: Pepcid 20 mg Route: IVP; Site: right antecubital; rv 06:36 Follow up: Response: No adverse reaction rv 05:39 Drug: Aspirin 162 mg Route: PO; rv 06:38 Follow up: Response: No adverse reaction rv 05:39 Drug: Lovenox 70 mg Route: Sub-Q; Site: abdomen; rv 06:37 Follow up: Response: No adverse reaction rv 05:40 Drug: Coreg 12.5 mg Route: PO; rv 06:38 Follow up: Response: No adverse reaction rv 05:52 Drug: Nitro-Bid Ointment 2 % 1 inches Route: Transdermal; Site: anterior chest wall; rv 06:39 Follow up: Response: No adverse reaction rv 05:52 Drug: Lasix 40 mg Route: IVP; Site: right antecubital; rv 06:38 Follow up: Response: No adverse reaction rv Disposition: 08/05/19 05:03 Hospitalization ordered by Babita Vora for Inpatient Admission. Preliminary diagnosis are Dyspnea, Unspecified combined systolic (congestive) and diastolic (congestive) heart failure, Hypoxemia, Type 1 diabetes mellitus. - Bed requested for Telemetry/MedSurg (Inpatient). - Status is Inpatient Admission. aa5 - Condition is Fair. - Problem is new. - Symptoms have improved. UTI on Admission? No Signatures: Dispatcher [employer] EDMS Lilliam James RN RN mw Woody, Diana RN Joseph Melchor MD MD cha Calderon, Audri, RN RN aa5 Fili Gray RN RN jRoman Ramirez RN RN rv Corrections: (The following items were deleted from the chart) 05:42 05:03 Hospitalization Ordered by Babita Vora MD for Inpatient Admission. Preliminary tyrone diagnosis is Dyspnea; Unspecified combined systolic (congestive) and diastolic (congestive) heart failure; Hypoxemia; Type 1 diabetes mellitus. Bed requested for Telemetry/MedSurg (Inpatient). Status is Inpatient Admission. Condition is Fair. Problem is new. Symptoms have improved. UTI on Admission? No. otis 15:10 05:42 08/05/2019 05:03 Hospitalization Ordered by Babita Vora MD for Inpatient dw Admission. Preliminary diagnosis is Dyspnea; Unspecified combined systolic (congestive) and diastolic (congestive) heart failure; Hypoxemia; Type 1 diabetes mellitus. Bed requested for [facility] ER HOLD. Status is Inpatient Admission. Condition is Fair. Problem is new. Symptoms have improved. UTI on Admission? No. mw 15:10 15:10 08/05/2019 05:03 Hospitalization Ordered by Babita Vora MD for Inpatient dw Admission. Preliminary diagnosis is Dyspnea; Unspecified combined systolic (congestive) and diastolic (congestive) heart failure; Hypoxemia; Type 1 diabetes mellitus. Bed requested for Telemetry/MedSurg (Inpatient). Status is Inpatient Admission. Condition is Fair. Problem is new. Symptoms have improved. UTI on Admission? No. dw 16:32 15:10 08/05/2019 05:03 Hospitalization Ordered by Babita Vora MD for Inpatient aa5 Admission. Preliminary diagnosis is Dyspnea; Unspecified combined systolic (congestive) and diastolic (congestive) heart failure; Hypoxemia; Type 1 diabetes mellitus. Bed requested for Telemetry/MedSurg (Inpatient). Status is Inpatient Admission. Condition is Fair. Problem is new. Symptoms have improved. UTI on Admission? No. dw
--- NOTE | 2019-08-05 05:03 | ER ---
Nurse's Notes [facility] Name: Grace Duong Age: 34 yrs Sex: Male : 1985 Arrival Date: 08/05/2019 Time: 03:43 Bed 4 Private MD: Diagnosis: Dyspnea;Unspecified combined systolic (congestive) and diastolic (congestive) heart failure;Hypoxemia;Type 1 diabetes mellitus Presentation: 08/05 03:43 Presenting complaint: EMS states: HE WAS DIAGNOSED WITH PNEUMONIA LAST VISIT WITH THE ER. TODAY HE COMPLAINED OF DIFFICULTY BREATHING. AT HOME HIS OXYGEN SAT IS AT 82%. HOOKED HIM TO FACE MASK AND SATS WENT UP TO 99%. HE FELT BETTER THAT HE WAS REFUSING TO COME TO THE ER. Transition of care: patient was not received from another setting of care. Onset of symptoms was August 05, 2019 at 01:00. Risk Assessment: Do you want to hurt yourself or someone else? Patient reports no desire to harm self or others. Initial Sepsis Screen: Does the patient meet any 2 criteria? No. Patient's initial sepsis screen is negative. Does the patient have a suspected source of infection? No. Patient's initial sepsis screen is negative. Care prior to arrival: None. 03:43 Method Of Arrival: EMS: [facility] 03:43 Acuity: CHAPARRITA 3 rv Triage Assessment: 03:47 General: Appears in no apparent distress. Behavior is calm, cooperative. Pain: Denies rv pain. Neuro: Level of Consciousness is awake, alert, obeys commands, Oriented to person, place, time, situation. Cardiovascular: Patient's skin is warm and dry. Respiratory: Reports shortness of breath at rest Onset: The symptoms/episode began/occurred suddenly, the patient has mild shortness of breath. Derm: Skin is intact. Musculoskeletal: LEFT SIDED WEAKNESS. Historical: - Allergies: 03:47 No Known Allergies; rv - Home Meds: 03:47 atorvastatin Oral [Active]; carvedilol Oral [Active]; Hydrochlorothiazide Oral rv [Active]; Levemir subcutaneous [Active]; Metformin Oral [Active]; - PMHx: 03:47 CVA; Diabetes - IDDM; High Cholesterol; Hypertension; left sided paralysis; rv - PSHx: 03:47 None; rv - Immunization history:: Adult Immunizations up to date. - Social history:: Smoking status: Patient/guardian denies using tobacco. - Ebola Screening: : No symptoms or risks identified at this time. Screenin:49 Abuse screen: Denies threats or abuse. Denies injuries from another. Nutritional rv screening: No deficits noted. Tuberculosis screening: No symptoms or risk factors identified. Fall Risk None identified. Assessment: 03:49 Respiratory: Airway is patent Respiratory effort is Breath sounds are clear bilaterally.rv 03:49 Cardiovascular: Rhythm is regular. rv 05:42 Reassessment: Patient appears in no apparent distress at this time. Patient and/or rv family updated on plan of care and expected duration. Pain level reassessed. Patient is alert, oriented x 3, equal unlabored respirations, skin warm/dry/pink. Vital Signs: 03:45 BP 165 / 107; Pulse 98; Resp 20; Temp 98.8(O); Pulse Ox 94% on 4 lpm NC; Weight 81.65 rv kg; 04:30 BP 157 / 111; Pulse 93; Resp 18; Pulse Ox 100% on R/A; rv 05:00 BP 147 / 93; Pulse 97; Resp 18; Pulse Ox 98% on 3 lpm NC; rv 05:30 BP 140 / 107; Pulse 95; Resp 15; Pulse Ox 98% on 3 lpm NC; rv 06:40 BP 139 / 91; Pulse 91; Resp 19; Pulse Ox 92% on 3 lpm NC; rv ED Course: 03:43 Patient arrived in ED. aa1 03:43 Roman Quinn, RN is Primary Nurse. rv 03:45 Triage completed. rv 03:48 Arm band placed on Patient placed Patient notified of wait time. rv 03:49 Patient has correct armband on for positive identification. quality assurance monitor final on. Pulse rv ox on. NIBP on. 03:55 Joseph Laguerre MD is Attending Physician. otis 04:20 Inserted saline lock: 18 gauge in right antecubital area, using aseptic technique. rv Blood collected. 04:20 First set of blood cultures drawn by me. rv 04:43 Second set of blood cultures drawn by me. rv 04:53 XRAY Chest (1 view) In Process Unspecified. EDMS 05:02 Babita Vora MD is Hospitalizing Provider. otis 06:40 No provider procedures requiring assistance completed. Patient admitted, IV remains in rv place. Administered Medications: 04:21 Drug: Xopenex 2.5 mg Route: Inhalation; jd3 06:39 Follow up: Response: No adverse reaction rv 04:22 Drug: AtroVENT Aerosol 0.5 mg Route: Inhalation; jd3 06:39 Follow up: Response: No adverse reaction rv 04:43 Drug: Zosyn 3.375 grams Route: IVPB; Infused Over: 60 mins; Site: right antecubital; rv 06:38 Follow up: IV Status: Completed infusion rv 05:36 Drug: Pepcid 20 mg Route: IVP; Site: right antecubital; rv 06:36 Follow up: Response: No adverse reaction rv 05:39 Drug: Aspirin 162 mg Route: PO; rv 06:38 Follow up: Response: No adverse reaction rv 05:39 Drug: Lovenox 70 mg Route: Sub-Q; Site: abdomen; rv 06:37 Follow up: Response: No adverse reaction rv 05:40 Drug: Coreg 12.5 mg Route: PO; rv 06:38 Follow up: Response: No adverse reaction rv 05:52 Drug: Nitro-Bid Ointment 2 % 1 inches Route: Transdermal; Site: anterior chest wall; rv 06:39 Follow up: Response: No adverse reaction rv 05:52 Drug: Lasix 40 mg Route: IVP; Site: right antecubital; rv 06:38 Follow up: Response: No adverse reaction rv Outcome: 05:03 Decision to Hospitalize by Provider. otis 06:40 Admitted to ER Hold. Please see [facility] for further documentation. rv 06:40 Condition: stable 06:40 Instructed on the need for admit. 16:32 Patient left the ED. aa5 Signatures: Dispatcher [employer] EDAnya Nava RN RN aa1 Joseph Laguerre MD MD cha Calderon, Audri, RN RN aa5 Fili Gray RN RN jd3 Vicente, Ronaldo, RN RN rv
[2019-08-05 05:13] LABS: Absolute Lymphocytes (CBC) 2.4 K/uL (0.7-4.9); Basophils % 0.9 % (0-1.3); Hematocrit 37.2 % (39.6-49.0); Lymphocytes % 23.6 % (15.3-44.8); MPV 10.1 fL (7.6-11.3); Protime INR 1.01
[2019-08-05 05:20] LABS: ALT/SGPT 85 U/L (12-78); AST/SGOT 33 U/L (15-37); Albumin 2.2 g/dL (3.4-5.0); Alkaline Phosphatase 87 U/L (45-117); BUN Blood Urea Nitrogen 23 mg/dL (7-18); Bicarbonate 26 mmol/L (21-32); Bilirubin Direct < 0.1 mg/dL (0-0.2); Bilirubin Total 0.2 mg/dL (0.2-1.0); Glucose Level 149 mg/dL (74-106); NT PRO-BNP 3826 pg/mL (<125); Potassium 3.8 mmol/L (3.5-5.1); Protein, Total 6.2 g/dL (6.4-8.2); Sodium Level 145 mmol/L (136-145); Troponin (Emerg Dept Use Only) 0.05 ng/mL (0.0-0.045)
[2019-08-05] MEDS ORDERED: ASPIRIN 81 MG CHEWABLE TABLET ONE ×2 (05:32→11:05)
[2019-08-05] MEDS ORDERED: ENOXAPARIN 80 MG/0.8 ML SQ ONE (05:32)
[2019-08-05] MEDS ORDERED: FAMOTIDINE 20 MG/2 ML VIAL IV ONE (05:32)
[2019-08-05] MEDS ORDERED: carvediloL 6.25 MG TAB ONE (05:32)
[2019-08-05] MEDS ORDERED: NITROGLYCERIN 1 GM PKT TD ONE (05:49)
[2019-08-05] MEDS ORDERED: FUROSEMIDE 40 MG/4 ML VIAL ONE (05:49)
[2019-08-05] MEDS ORDERED: ONDANSETRON 4 MG/2 ML VIAL IV PRN (06:23)
[2019-08-05] MEDS ORDERED: MAGNESIUM HYDROXIDE 8% 30 ML PO PRN (06:23)
[2019-08-05] MEDS ORDERED: ACETAMINOPHEN 500 MG TAB PO PRN (06:23)
[2019-08-05 06:52] VITALS: BMI 28.1
--- NOTE | 2019-08-05 07:58 | P.HP ---
Certification for Inpatient Patient admitted to: Inpatient With expected LOS: >2 Midnights Patient will require the following post-hospital care: None Practitioner: I am a practitioner with admitting privileges, knowledge of patient current condition, hospital course, and medical plan of care. Services: Services provided to patient in accordance with Admission requirements found in Title 42 Section 412.3 of the Code of Federal Regulations Patient History Date of Service: 08/05/19 Reason for admission: Acute CHF exacerbation History of Present Illness: Patient is a 34-year-old gentleman who came to the hospital with difficulty breathing. Patient was in the hospital earlier this year and was diagnosed with a stroke. Patient came back and a month long ago and was found have acute CHF exacerbation with an ejection fraction of 30%. Patient was discharged on diuretics and cardiac medications. However, patient has not been overly compliant with the medications at home. He is also not compliant with his fluid intake. Patient does not have a lot of knowledge regarding congestive heart failure therapy. We did speak with patient regarding daily weights along with measuring intake and output. Patient will be admitted to the hospital for further evaluation. Patient does have orthopnea and PND. Patient has lower extremity edema. Patient looks to have an acute CHF exacerbation with a right-sided pleural effusion. Further workup during hospitalization. Allergies No Known Allergies Allergy (Unverified 08/24/11 20:01) Home Medications: Allopurinol 300 mg PO BID 07/25/19 Atorvastatin Calcium 40 mg PO BEDTIME 07/25/19 Amox/Clavulanate [Augmentin 500-125 mg Tab*] 500 mg PO BID #14 tab 07/31/19 Aspirin Chewable [Aspirin Chewable*] 81 mg PO DAILY #30 tab.chew 07/31/19 Atorvastatin Calcium [Lipitor] 40 mg PO BEDTIME tab 07/31/19 Escitalopram [Lexapro*] 10 mg PO DAILY #30 tab 07/31/19 Furosemide [Lasix*] 40 mg PO DAILY #30 tab 07/31/19 Insulin Detemir [Levemir Flextouch] 40 units SQ BID #1 insuln.pen 07/31/19 Metformin HCl 1,000 mg PO BID #60 tablet 07/31/19 Metoprolol Tartrate [Lopressor*] 50 mg PO BID 6AM 6PM #60 tab 07/31/19 Multivit,Ther Iron,Ca,FA & Min [Centrum Tablet*] 1 tab PO DAILY #30 tab Thiamine HCl [Vitamin B-1*] 100 mg PO DAILY #30 tablet 07/31/19 Valsartan [Diovan] 80 mg PO DAILY #30 tablet 07/31/19 allopurinoL [Zyloprim*] 100 mg PO DAILY tab 07/31/19 levETIRAcetam [Keppra*] 500 mg PO BID #60 tab 07/31/19 - Past Medical/Surgical History Has patient received pneumonia vaccine in the past: No Diabetic: Yes -: DM type 2 -: History of CVA -: Clotting problems -: Hypertension Past Surgical History: Patient denies surgical history - Family History Mother Medical History: Heart disease, Stroke Brother Medical History: Stroke - Social History Smoking Status: Former smoker Alcohol use: Yes CD- Drugs: No Review of Systems 10-point ROS is otherwise unremarkable Physical Examination - Vital Signs Temperature: 98 F Blood Pressure: 165/90 Pulse: 80 Respirations: 16 Pulse Ox (%): 96 - Physical Exam General: Alert, In no apparent distress, Oriented x3 HEENT: Atraumatic, Normocephalic, PERRLA, Mucous membr. moist/pink Neck: Supple, 2+ carotid pulse no bruit, JVD not distended, No Thyromegaly Respiratory: Clear to auscultation bilaterally, Normal air movement Cardiovascular: Regular rate/rhythm, Normal S1 S2, No murmurs Gastrointestinal: Normal bowel sounds, Soft and benign, Non-distended, No tenderness, No masses, No rebound Musculoskeletal: No clubbing, No swelling, No contractures Integumentary: No rashes Neurological: Normal speech, Sensation intact, Cranial nerves 3-12 intact, Other (Patient with left-sided weakness status post stroke), Abnormal gait, Abnormal strength - Studies Laboratory Data (last 24 hrs) 08/05/19 04:20: PT 11.9, INR 1.01 08/05/19 04:20: WBC 10.0 D, Hgb 12.3 L, Hct 37.2 L, Plt Count 362 D 08/05/19 04:20: Sodium 145, Potassium 3.8, BUN 23 H, Creatinine 1.24, Glucose 149 H, Magnesium 2.0, Total Bilirubin 0.2, AST 33, ALT 85 H, Alkaline Phosphatase 87 Assessment & Plan - Problems (Diagnosis) (1) Acute systolic CHF (congestive heart failure) Current Visit: Yes Status: Acute (2) Cardiac LV ejection fraction 30-35% Current Visit: Yes Status: Acute (3) Pulmonary edema Current Visit: Yes Status: Acute (4) Pleural effusion, right Current Visit: Yes Status: Acute (5) DM type 2 (diabetes mellitus, type 2) Current Visit: No Status: Acute Qualifiers: Diabetes mellitus fpc insulin use: with fpc use (6) History of CVA (cerebrovascular accident) Current Visit: No Status: Acute (7) Hypertension Current Visit: No Status: Acute Qualifiers: Hypertension type: essential hypertension Qualified Code(s): I10 - Essential (primary) hypertension - Plan 1. Echocardiogram showed an ejection fraction of 30%. This may need to be repeated 2. Patient may need to be started on Lasix and Aldactone 3. We will start patient on a Beta winnie; will also start patient on angiotensin receptor winnie 4. Cardiology consultation 5. Aggressive diuresis 6. Strict I's and O's 7. Repeat CXR 8. Daily weights 9. Education regarding diet and treatment of congestive heart failure Discharge Plan: Home Plan to discharge in: Greater than 2 days - Advance Directives Does patient have a Living Will: No Does patient have a Durable POA for Healthcare: No - Code Status/Comfort Care Code Status Assessed: Yes Code Status: Full Code Critical Care: No Time Spent Managing PTS Care (In Minutes): 45
[2019-08-05] MEDS ORDERED: D50W 25 GM/50 ML SYRINGE/VIAL IV PRN (08:46)
[2019-08-05] MEDS ORDERED: GLUCAGON 1 MG/VIAL IM PRN (08:46)
[2019-08-05] MEDS: ENOXAPARIN 40 MG/0.4 ML SQ SCH (08:48)
--- NOTE | 2019-08-05 08:53 | RAD REPORT ---
EXAM DESCRIPTION: RAD - Chest Single View - 08/05/2019 4:53 am CLINICAL HISTORY: Cough, dyspnea, history of recent pneumonia diagnosis COMPARISON: CT chest July 24, portable chest July 24 TECHNIQUE: AP portable chest image was obtained 0450 hours . FINDINGS: Lung volumes are low similar to comparison. Extensive airspace opacification is present th roughout both lung banks worse in the right base. Pattern is worse than seen July 24. Trachea is m idline. Heart size is upper normal. Vasculature is prominent. No measurable pleural effusion and no p neumothorax. No acute bony abnormality seen. No acute aortic findings suspected. IMPRESSION: Diffuse pulmonary edema and/or alveolar infiltrate pattern. Patient could have right lung base pneumonia with superimposed pulmonary edema from cardiogenic or no ncardiogenic etiologies.
[2019-08-05] MEDS: POTASSIUM 25 MEQ EFFERV TAB PO SCH ×2 (09:00→22:19)
[2019-08-05] MEDS ORDERED: ASPIRIN EC 81 MG TAB PO SCH (09:00)
[2019-08-05] MEDS ORDERED: FUROSEMIDE 40 MG/4 ML VIAL IV SCH (09:00)
[2019-08-05] MEDS ORDERED: POTASSIUM 25 MEQ EFFERV TAB ONE (10:05)
[2019-08-05] MEDS: HYDRALAZINE HCL 25 MG TABLET PO SCH ×2 (11:00→22:20)
[2019-08-05] MEDS ORDERED: ESCITALOPRAM 20 MG TAB PO SCH (11:00)
[2019-08-05] MEDS: VALSARTAN 80 MG TAB PO SCH (11:00)
[2019-08-05] MEDS: THIAMINE HCL 100 MG TABLET PO SCH (11:00)
[2019-08-05] MEDS: levETIRAcetam 500 MG TAB PO SCH ×2 (11:00→22:26)
[2019-08-05] MEDS: allopurinoL 300 MG TAB PO SCH ×2 (11:00→22:20)
[2019-08-05] MEDS: FUROSEMIDE 40 MG TABLET PO SCH (11:00)
[2019-08-05] MEDS: INSULIN GLARGINE 100 UNITS/ML SQ SCH ×2 (11:00→22:21)
[2019-08-05] MEDS: MULTIVITAMIN TAB PO SCH (11:00)
[2019-08-05] MEDS: ASPIRIN 81 MG CHEWABLE TABLET PO SCH (11:00)
[2019-08-05] MEDS: carvediloL 25 MG TAB PO SCH ×2 (11:00→22:20)
[2019-08-05] MEDS ORDERED: THIAMINE HCL 100 MG TABLET ONE (11:05)
[2019-08-05] MEDS ORDERED: VALSARTAN 80 MG TAB ONE (11:05)
[2019-08-05] MEDS ORDERED: FUROSEMIDE 40 MG TABLET ONE (11:05)
[2019-08-05] MEDS ORDERED: METFORMIN HCL 500 MG TAB ONE (11:06)
[2019-08-05] MEDS ORDERED: levETIRAcetam 500 MG TAB ONE (11:06)
[2019-08-05] MEDS: METFORMIN HCL 500 MG TAB PO SCH ×2 (11:45→17:03)
[2019-08-05] MEDS ORDERED: INSULIN -REGULAR HUMAN 50 UNIT/0.5 ML ML ONE (12:24)
[2019-08-05] MEDS: INSULIN -REGULAR HUMAN 50 UNIT/0.5 ML ML SQ SCH ×3 (12:35→22:21)
--- NOTE | 2019-08-05 13:59 | EKG ---
Test Date: 2019-08-05 Test Time: 03:53:04 Revenue Cycle Consultant: DAVIS MEASUREMENT RESULTS: Intervals: Rate: 96 TX: 152 QRSD: 92 QT: 360 QTc: 454 [place]: P: 52 TX: 152 QRS: -15 T: 116 INTERPRETIVE STATEMENTS: Normal sinus rhythm Nonspecific T wave abnormality Abnormal ECG Compared to ECG 07/24/2019 19:38:10 T-wave abnormality now present Electronically Signed On 08-05-19 13:58:49 [employer] WORK[employer] INST[employer]ER by Bennett Butt
[2019-08-05] MEDS: METOPROLOL TAR 50 MG TAB PO SCH (17:04)
[2019-08-05 17:31] VITALS: O2SAT 99
--- NOTE | 2019-08-05 20:39 | CON ---
Date of Consultation: 08/05/2019 Reason For Admission: Congestive heart failure, acute on chronic exacerbation. History Of Present Illness: Patient is 34-year-old, has a history of CVA, atrial fibrillation, conge stive heart failure, systolic, ejection fraction of 30% to 35%, alcohol abuse, diabetes, hypertension , dyslipidemia, left-sided paralysis, came in with shortness of breath for few days. Was found to gautam ve CHF on the chest x-ray, troponin was 0.05 and 0.06. BNP was 3026, all consistent with CHF. Allergies: NONE. Review of Systems: Negative. Social History: Positive for alcohol. Family History: Noncontributory. Medications: At home include aspirin, metformin, allopurinol, metoprolol, Lipitor, Diovan, Keppra, i nsulin, Coreg, and Lasix. Physical Examination: General: Patient has mild respiratory distress. Vital Signs: Stable, afebrile. HEENT: Negative. Neck: Supple with no bruit. Chest: Reveals rales in both bases. Cardiac: Revealed S3, gallops. Regular rhythm and rate. Abdomen: Benign. Extremities: Revealed 1+ edema. Diagnostic Data: As stated earlier. Impression And Plan: Acute on chronic systolic congestive heart failure. Patient needs diuresis wit h IV Lasix. He should continue his ALEX inhibitor and his Coreg as well as beta winnie. He should w atch his salt intake and be fluid restricted. He has other issues include cerebrovascular accident, diabetes, hypertension, dyslipidemia, alcohol abuse, atrial fibrillation that has resolved as well as left-sided paralysis. All these problems are stable. We will continue to follow them. No need to repeat the echocardiogram that was just done very recently. KRISTIN/NARAYAN Voice ID: [id number] Report ID: [id number]
[2019-08-05] MEDS ORDERED: HOME MED 1 EA UNK (Metformin Hcl [Metformin Hcl] 1,000 MG) PO SCH (21:00)
[2019-08-05] MEDS ORDERED: HOME MED 1 EA UNK (Insulin Detemir [Levemir Flextouch] 40 UNITS) SQ SCH (21:00)
[2019-08-05] MEDS ORDERED: ATORVASTATIN 40 MG TAB PO SCH (21:00)
[2019-08-05] MEDS ORDERED: TEMAZEPAM 15 MG CAP PO ONE (23:56)
[2019-08-06 00:29] LABS: Urine Appearance CLEAR; Urine Bilirubin NEGATIVE (NEG); Urine Blood 2+ (NEG); Urine Color YELLOW; Urine Glucose TRACE (NEG); Urine Protein 3+ (NEG); Urine Urobilinogen 0.2 mg/dL (0.2-1.0)
[2019-08-06 00:31] LABS: Urine Microscopic Reflex ORDER UMIC
[2019-08-06 01:00] LABS: Urine Bacteria <20 /HPF (NONE SEEN); Urine Culture Reflex Order NOT NEEDED
[2019-08-06 04:29] LABS: Basophils % 0.7 % (0-1.3); Hematocrit 32.4 % (39.6-49.0); Lymphocytes % 36.4 % (15.3-44.8); MPV 10.1 fL (7.6-11.3); RBC Red Blood Cell Count 3.78 M/uL (4.33-5.43)
[2019-08-06 04:41] LABS: Albumin 2.1 g/dL (3.4-5.0); Bilirubin Total 0.2 mg/dL (0.2-1.0); Magnesium 1.9 mg/dL (1.8-2.4); Phosphorus 3.5 mg/dL (2.5-4.9); Potassium 3.6 mmol/L (3.5-5.1); Protein, Total 5.6 g/dL (6.4-8.2)
[2019-08-06] MEDS: METOPROLOL TAR 50 MG TAB PO SCH (06:21)
[2019-08-06] MEDS: INSULIN -REGULAR HUMAN 50 UNIT/0.5 ML ML SQ SCH (07:30)
[2019-08-06] MEDS: HYDRALAZINE HCL 25 MG TABLET PO SCH (07:34)
[2019-08-06] MEDS: levETIRAcetam 500 MG TAB PO SCH (07:35)
[2019-08-06] MEDS: ASPIRIN 81 MG CHEWABLE TABLET PO SCH (07:35)
[2019-08-06] MEDS: VALSARTAN 80 MG TAB PO SCH (07:35)
[2019-08-06] MEDS: carvediloL 25 MG TAB PO SCH (07:36)
[2019-08-06] MEDS: THIAMINE HCL 100 MG TABLET PO SCH (07:36)
[2019-08-06] MEDS: METFORMIN HCL 500 MG TAB PO SCH (07:36)
[2019-08-06] MEDS: FUROSEMIDE 40 MG TABLET PO SCH (07:36)
[2019-08-06] MEDS: POTASSIUM 25 MEQ EFFERV TAB PO SCH (07:37)
[2019-08-06] MEDS: MULTIVITAMIN TAB PO SCH (07:37)
[2019-08-06] MEDS: ENOXAPARIN 40 MG/0.4 ML SQ SCH (07:37)
[2019-08-06] MEDS: allopurinoL 300 MG TAB PO SCH (07:37)
[2019-08-06] MEDS: INSULIN GLARGINE 100 UNITS/ML SQ SCH (07:37)
[2019-08-06 07:39] VITALS: BP 124/78
--- NOTE | 2019-08-06 08:10 | P.DS ---
Admission Date: 08/05/19 Discharge Date: 08/06/19 Disposition: ROUTINE DISCHARGE Discharge Condition: GOOD Reason for Admission: Acute CHF exacerbation Brief History of Present Illness: History Of Present Illness: Patient is 34-year-old, has a history of CVA, atrial fibrillation, congestive heart failure, systolic, ejection fraction of 30 % to 35%, alcohol abuse, diabetes, hypertension, dyslipidemia, left-sided paralysis, came in with shortness of breath for few days. Was found to have CHF on the chest x-ray, troponin was 0.05 and 0.06. BNP was 3026, all consistent with CHF. Hospital Course: on admission patient was counselled on daily weight and fluid restrictions . he was started on IV diuretics with good response. He is doing well now and will be discharge to follow with a PCP at the [facility] clinic where he was diagnosed with CVA and may be able to get more social help since non -insured status and no PCP . He was again eveluated by cardiology but nothing added to regime . his lasix has been switched to bumex Vital Signs/Physical Exam: Temp Pulse Resp BP Pulse Ox 97.1 F 84 18 124/78 98 08/06/19 04:00 08/06/19 07:36 08/06/19 04:00 08/06/19 07:36 08/06/19 04:00 General: Alert, Oriented x3 HEENT: Atraumatic, Normocephalic Neck: Supple, JVD not distended, No Thyromegaly Respiratory: Clear to auscultation bilaterally, Normal air movement Cardiovascular: Regular rate/rhythm, Normal S1 S2, Edema (1+ b/l ) Gastrointestinal: Normal bowel sounds, Soft and benign Musculoskeletal: No clubbing, No swelling Integumentary: No rashes, No breakdown Neurological: Abnormal speech (slight expressive dysphasia), Abnormal strength ( left hemiparesis , ) Laboratory Data at Discharge: WBC 8.4 K/uL (4.3-10.9) D 08/06/19 03:34 Hgb 11.1 g/dL (13.6-17.9) L 08/06/19 03:34 Hct 32.4 % (39.6-49.0) L 08/06/19 03:34 Plt Count 346 K/uL (152-406) 08/06/19 03:34 PT 11.9 SECONDS (9.5-12.5) 08/05/19 04:20 INR 1.01 08/05/19 04:20 Sodium 144 mmol/L (136-145) 08/06/19 03:34 Potassium 3.6 mmol/L (3.5-5.1) 08/06/19 03:34 BUN 25 mg/dL (7-18) H 08/06/19 03:34 Creatinine 1.28 mg/dL (0.55-1.3) 08/06/19 03:34 Glucose 159 mg/dL (74-106) H 08/06/19 03:34 Phosphorus 3.5 mg/dL (2.5-4.9) 08/06/19 03:34 Magnesium 1.9 mg/dL (1.8-2.4) 08/06/19 03:34 Total Bilirubin 0.2 mg/dL (0.2-1.0) 08/06/19 03:34 AST 21 U/L (15-37) 08/06/19 03:34 ALT 52 U/L (12-78) 08/06/19 03:34 Alkaline Phosphatase 78 U/L (45-117) 08/06/19 03:34 Troponin I 0.04 ng/mL (0.0-0.045) 08/05/19 19:11 Triglycerides 207 mg/dL (<150) H 08/06/19 03:34 Cholesterol 151 mg/dL (<200) 08/06/19 03:34 HDL Cholesterol 41 mg/dL (40-60) 08/06/19 03:34 Cholesterol/HDL Ratio 3.68 08/06/19 03:34 Home Medications: Allopurinol 300 mg PO BID 07/25/19 Atorvastatin Calcium 40 mg PO BEDTIME 07/25/19 Amox/Clavulanate [Augmentin 500-125 mg Tab*] 500 mg PO BID #14 tab 07/31/19 Aspirin Chewable [Aspirin Chewable*] 81 mg PO DAILY #30 tab.chew 07/31/19 Atorvastatin Calcium [Lipitor] 40 mg PO BEDTIME tab 07/31/19 Escitalopram [Lexapro*] 10 mg PO DAILY #30 tab 07/31/19 Insulin Detemir [Levemir Flextouch] 40 units SQ BID #1 insuln.pen 07/31/19 Metformin HCl 1,000 mg PO BID #60 tablet 07/31/19 Metoprolol Tartrate [Lopressor*] 50 mg PO BID 6AM 6PM #60 tab 07/31/19 Multivit,Ther Iron,Ca,FA & Min [Centrum Tablet*] 1 tab PO DAILY #30 tab Thiamine HCl [Vitamin B-1*] 100 mg PO DAILY #30 tablet 07/31/19 Valsartan [Diovan] 80 mg PO DAILY #30 tablet 07/31/19 levETIRAcetam [Keppra*] 500 mg PO BID #60 tab 07/31/19 Carvedilol [Coreg] 25 mg PO BID 08/05/19 Hydralazine [Apresoline*] 25 mg PO BID 08/05/19 Bumetanide [Bumex] 1 mg PO BID #60 tablet 08/06/19 New Medications: Bumetanide [Bumex] 1 mg PO BID #60 tablet Patient Discharge Instructions: - follow with a PCP at [facility] clinic. -Daily weights check. - Take your diuretics as ordered. - limit fluid intake to less than 1200cc or 64 ounces per day. -Avoid salt intake Diet: Low sodium Activity: Ad tres Physician Review: Patient Assessed, Agree with Above Assessment and Plan Time spent managing pt's care (in minutes): 35
[2019-08-06 08:19] VITALS: TEMP 97.9
[2019-08-06] MEDS ORDERED: ESCITALOPRAM 20 MG TAB PO SCH (21:00)
== END 2019-08-06 09:48 | disposition home or self-care (01) | DRG 292 ==
LOC: ER 03:41 → ERHOLD 06:23 → 4TH 16:27
PROVIDERS: ADMIT Hospitalist; ATTEND Hospitalist
DX: I11.0 Hypertensive heart disease with heart failure (principal); I69.354 Hemiplegia and hemiparesis following cerebral infarction affecting left non-dominant side; I50.23 Acute on chronic systolic (congestive) heart failure; I48.91 Unspecified atrial fibrillation; E11.9 Type 2 diabetes mellitus without complications; E78.5 Hyperlipidemia, unspecified
CPT/HCPCS: 36415; 71045; 80048; 80053; 80061; 80076; 81003; 81015; 82805; 82947; 83605; 83735; 83880; 84100; 84484; 85025; 85610; 87040; 93005; 96365; 96366; 96372; 96375; 99285; J1650; J1815; J1940; J2543

== ENCOUNTER 2019-08-15 01:45 | Inpatient (IN) | payer SELFPAY ==
--- OUTSIDE RECORDS SUMMARY | 2019-08-15 01:47 | XMS REPORT ---
:1985 [facility] Address [address] [place] [address] Dr. Daniel [address] [place] [id number] Care Team Providers Name Role Phone Unavailable Unavailable Unavailable Problems This patient has no known problems. Allergies, Adverse Reactions, Alerts This patient has no known allergies or adverse reactions. Medications This patient has no known medications.
[2019-08-15 03:38] LABS: Absolute Lymphocytes (CBC) 3.4 K/uL (0.7-4.9); Basophils % 0.7 % (0-1.3); Hematocrit 33.6 % (39.6-49.0); Lymphocytes % 33.3 % (15.3-44.8); RBC Red Blood Cell Count 3.89 M/uL (4.33-5.43)
[2019-08-15 03:42] LABS: Protime INR 1.02
[2019-08-15 03:53] LABS: ALT/SGPT 38 U/L (12-78); AST/SGOT 25 U/L (15-37); Albumin 2.4 g/dL (3.4-5.0); Alkaline Phosphatase 89 U/L (45-117); BUN Blood Urea Nitrogen 31 mg/dL (7-18); Bicarbonate 25 mmol/L (21-32); Bilirubin Direct < 0.1 mg/dL (0-0.2); Bilirubin Total 0.2 mg/dL (0.2-1.0); CKMB Creatine Kinase MB 9.9 ng/mL (0.3-3.6); Creatine Phosphokinase 804 U/L (39-308); Glucose Level 173 mg/dL (74-106); Lipase 138 U/L (73-393); Magnesium 1.9 mg/dL (1.8-2.4); NT PRO-BNP 4926 pg/mL (<125); Potassium 3.9 mmol/L (3.5-5.1); Protein, Total 6.3 g/dL (6.4-8.2); Sodium Level 145 mmol/L (136-145); Troponin (Emerg Dept Use Only) 0.02 ng/mL (0.0-0.045)
--- NOTE | 2019-08-15 03:59 | EDPHYS ---
Physician Documentation [facility] Name: Grace Duong Age: 34 yrs Sex: Male : 1985 Arrival Date: 08/15/2019 Time: 01:48 Bed 8 Private MD: ED Physician Berny Lanier HPI: 08/15 02:34 This 34 yrs old Male presents to ER via Wheelchair with complaints of tw4 Breathing Difficulty. 02:34 The patient has shortness of breath at rest. Onset: The symptoms/episode began/occurred tw4 today. Duration: The symptoms are continuous, and are steadily getting worse. The patient's shortness of breath has no apparent modifying factors. Associated signs and symptoms: The patient has no apparent associated signs or symptoms. Severity of symptoms: At their worst the symptoms were moderate in the emergency department the symptoms are unchanged. The patient has not experienced similar symptoms in the past. Historical: - Allergies: 02:06 No Known Allergies; ea - Home Meds: 02:06 Metformin Oral [Active]; Levemir subcutaneous [Active]; Hydrochlorothiazide Oral ea [Active]; carvedilol Oral [Active]; atorvastatin Oral [Active]; - PMHx: 02:06 left sided paralysis; Hypertension; High Cholesterol; Diabetes - IDDM; CVA; ea - PSHx: 02:06 None; ea - Immunization history:: Adult Immunizations up to date. - Coronavirus screen:: The patient has NOT traveled to [place], [place], or [place] in the past 14 days. - Social history:: Smoking status: Patient denies any tobacco usage or history of. - Ebola Screening: : No symptoms or risks identified at this time. ROS: 02:34 Constitutional: Negative for fever, chills, and weight loss. tw4 02:34 Cardiovascular: Negative for chest pain, palpitations, and edema, Abdomen/GI: Negative for abdominal pain, nausea, vomiting, diarrhea, and constipation, Back: Negative for injury and pain, MS/Extremity: Negative for injury and deformity, Skin: Negative for injury, rash, and discoloration, Neuro: Negative for headache, weakness, numbness, tingling, and seizure. 02:34 Respiratory: Positive for shortness of breath, Negative for cough, dyspnea on exertion, hemoptysis, orthopnea, pleurisy, sputum production. Exam: 02:34 Constitutional: This is a well developed, well nourished patient who is awake, alert, tw4 and in no acute distress. Head/Face: Normocephalic, atraumatic. Chest/axilla: Normal chest wall appearance and motion. Nontender with no deformity. No lesions are appreciated. Cardiovascular: Regular rate and rhythm with a normal S1 and S2. No gallops, murmurs, or rubs. Normal PMI, no JVD. No pulse deficits. Abdomen/GI: Soft, non-tender, with normal bowel sounds. No distension or tympany. No guarding or rebound. No evidence of tenderness throughout. Back: No spinal tenderness. No costovertebral tenderness. Full range of motion. MS/ Extremity: Pulses equal, no cyanosis. Neurovascular intact. Full, normal range of motion. Neuro: Awake and alert, GCS 15, oriented to person, place, time, and situation. Cranial nerves II-XII grossly intact. Motor strength 5/5 in all extremities. Sensory grossly intact. Cerebellar exam normal. Normal gait. Psych: Awake, alert, with orientation to person, place and time. Behavior, mood, and affect are within normal limits. 02:34 Respiratory: the patient does not display signs of respiratory distress, Respirations: asymmetrical chest movement, Breath sounds: rales, that are mild, are located in both bases. Vital Signs: 01:59 BP 145 / 94; Pulse 87; Resp 19; Temp 98.5; Pulse Ox 92% on R/A; Weight 99.79 kg; rv 02:30 BP 137 / 90; Pulse 85; Resp 16; Pulse Ox 91% on R/A; rv 03:00 BP 140 / 104; Pulse 82; Resp 17; Pulse Ox 96% on R/A; rv 03:43 BP 140 / 94; Pulse 87; Resp 18; Pulse Ox 95% ; ea 04:08 BP 137 / 93; Pulse 81; Resp 18; Pulse Ox 97% on R/A; ea 05:37 BP 109 / 53; Pulse 83; Resp 17; Pulse Ox 96% on R/A; rv MDM: 01:55 Patient medically screened. tw4 04:21 Differential diagnosis: Anemia asthma, CHF exacerbation, Myocardial Infarction tw4 pneumonia, pulmonary edema, Pulmonary Embolism reactive airway disease. Antibiotic administration: Not indicated. Data reviewed: vital signs, nurses notes. Data interpreted: Pulse oximetry: Interpretation: normal. Test interpretation: by ED physician or midlevel provider: ECG, plain radiologic studies. Counseling: I had a detailed discussion with the patient and/or guardian regarding: the historical points, exam findings, and any diagnostic results supporting the discharge/admit diagnosis, lab results, radiology results. Physician consultation: Babita Vora MD regarding admission, to the telemetry unit. patient's condition, and will see patient in inpatient room. 08/15 02:10 Order name: Blood Culture Adult (2) 08/15 02:10 Order name: BMP; Complete Time: 04:00 08/15 04:01 Interpretation: Normal except: CL 113; BUN 31; GLUC 173; GFR 65. 08/15 02:10 Order name: CBC with Diff; Complete Time: 04:00 08/15 04:01 Interpretation: Normal except: RBC 3.89; HGB 11.3; HCT 33.6; WBC 10.1; PLT 227. 08/15 02:10 Order name: Ckmb; Complete Time: 04:00 08/15 04:01 Interpretation: Abnormal: CKMB 9.9. 08/15 02:10 Order name: CPK; Complete Time: 04:00 08/15 04:01 Interpretation: Abnormal: CPK 804. 08/15 02:10 Order name: Hepatic Function; Complete Time: 04:00 08/15 04:01 Interpretation: Normal except: A/G 0.6; GLOB 3.9; ALB 2.4; TP 6.3. 08/15 02:10 Order name: Lipase; Complete Time: 04:00 08/15 02:10 Order name: Magnesium; Complete Time: 04:00 08/15 04:02 Interpretation: Within normal limits: MG 1.9. 08/15 02:10 Order name: NT PRO-BNP; Complete Time: 04:00 08/15 04:02 Interpretation: Normal except: NT PRO-BNP 4926. 08/15 02:10 Order name: PT-INR; Complete Time: 04:00 08/15 04:02 Interpretation: Within normal limits: PT 12.0. 08/15 02:10 Order name: Ptt, Activated; Complete Time: 04:00 08/15 04:02 Interpretation: Abnormal: PTT 39.2. 08/15 02:10 Order name: Troponin (emerg Dept Use Only); Complete Time: 04:00 08/15 04:02 Interpretation: Within normal limits: TROPED 0.02. tw4 08/15 04:57 Order name: Comprehensive Metabolic Panel EDMS 08/15 04:57 Order name: Comprehensive Metabolic Panel EDMS 08/15 03:30 Order name: Chest Single View XRAY ea 08/15 04:59 Order name: CBC with Automated Diff EDMS 08/15 04:59 Order name: CBC with Automated Diff EDMS 08/15 04:59 Order name: D-Dimer EDMS 08/15 04:59 Order name: D-Dimer EDMS 08/15 04:59 Order name: Magnesium EDMS 08/15 04:59 Order name: Magnesium EDMS 08/15 04:59 Order name: Procalcitonin EDMS 08/15 04:59 Order name: Procalcitonin EDMS 08/15 04:59 Order name: Phosphorus EDMS 08/15 04:59 Order name: Phosphorus EDMS 08/15 04:59 Order name: NT PRO-BNP EDMS 08/15 04:59 Order name: NT PRO-BNP EDMS 08/15 04:59 Order name: Sedimentation Rate, W[place]gren EDMS 08/15 04:59 Order name: Sedimentation Rate, [place]gren EDMS 08/15 02:10 Order name: EKG; Complete Time: 02:11 08/15 02:10 Order name: Cardiac monitoring; Complete Time: 02:08/15 02:10 Order name: EKG - Nurse/Tech; Complete Time: 02:08/15 02:10 Order name: IV Saline Lock; Complete Time: 02:08/15 02:10 Order name: Labs collected and sent; Complete Time: 02:08/15 02:10 Order name: O2 Per Protocol; Complete Time: 02:08/15 02:10 Order name: O2 Sat Monitoring; Complete Time: 02:29 08/15 04:59 Order name: CONS Physician Consult EDMS 08/15 04:59 Order name: CONS Physician Consult EDMS 08/15 04:59 Order name: Heart Healthy [facility] EC:21 Rate is 85 beats/min. Rhythm is regular. QRS King is Normal. QRS interval is normal. QT tw4 interval is normal. No Q waves. T waves are Inverted in lead V6. No ST changes noted. Clinical impression: NSR w/ Non-specific ST/T Changes and Abnormal EKG without significant change. Interpreted by me. Reviewed by me. Administered Medications: 03:56 Drug: Lasix 40 mg Route: IVP; Site: right antecubital; ea 04:34 Drug: Nitro-Bid Ointment 2 % 0.5 inches Route: Transdermal; Site: anterior chest wall; ea Disposition: 08/15/19 03:59 Hospitalization ordered by Babita Vroa for Inpatient Admission. Preliminary diagnosis are Unspecified combined systolic (congestive) and diastolic (congestive) heart failure, Hypoxemia. - Bed requested for Telemetry/MedSurg (Inpatient). - Status is Inpatient Admission. rv - Condition is Fair. - Problem is an ongoing problem. - Symptoms have worsened. UTI on Admission? No Signatures: Dispatcher [employer] [facility] Cesilia Duong RN RN Kaylee Tripathi RN RN ea Wadley, Terrence, MD MD tw4 Roman Quinn RN RN rv Corrections: (The following items were deleted from the chart) 02:37 02:34 Constitutional: This is a well developed, well nourished patient who is awake, tw4 alert, and in no acute distress. Head/Face: Normocephalic, atraumatic. Chest/axilla: Normal chest wall appearance and motion. Nontender with no deformity. No lesions are appreciated. Cardiovascular: Regular rate and rhythm with a normal S1 and S2. No gallops, murmurs, or rubs. Normal PMI, no JVD. No pulse deficits. Respiratory: Lungs have equal breath sounds bilaterally, clear to auscultation and percussion. No rales, rhonchi or wheezes noted. No increased work of breathing, no retractions or nasal flaring. Abdomen/GI: Soft, non-tender, with normal bowel sounds. No distension or tympany. No guarding or rebound. No evidence of tenderness throughout. Back: No spinal tenderness. No costovertebral tenderness. Full range of motion. MS/ Extremity: Pulses equal, no cyanosis. Neurovascular intact. Full, normal range of motion. Neuro: Awake and alert, GCS 15, oriented to person, place, time, and situation. Cranial nerves II-XII grossly intact. Motor strength 5/5 in all extremities. Sensory grossly intact. Cerebellar exam normal. Normal gait. tw4 05:02 03:59 Hospitalization Ordered by Babita Vora MD for Inpatient Admission. Preliminary cg diagnosis is Unspecified combined systolic (congestive) and diastolic (congestive) heart failure; Hypoxemia. Bed requested for Telemetry/MedSurg (Inpatient). Status is Inpatient Admission. Condition is Fair. Problem is an ongoing problem. Symptoms have worsened. UTI on Admission? No. tw4 05:41 05:02 08/15/2019 03:59 Hospitalization Ordered by Babita Vora MD for Inpatient rv Admission. Preliminary diagnosis is Unspecified combined systolic (congestive) and diastolic (congestive) heart failure; Hypoxemia. Bed requested for Telemetry/MedSurg (Inpatient). Status is Inpatient Admission. Condition is Fair. Problem is an ongoing problem. Symptoms have worsened. UTI on Admission? No. cg
--- NOTE | 2019-08-15 03:59 | ER ---
Nurse's Notes [facility] Name: Grace Duong Age: 34 yrs Sex: Male : 1985 Arrival Date: 08/15/2019 Time: 01:48 Bed 8 Private MD: Diagnosis: Unspecified combined systolic (congestive) and diastolic (congestive) heart failure;Hypoxemia Presentation: 08/15 02:00 Presenting complaint: Patient states: Reports he started having shortness of breath ea last night, reports he was admitted for "too much fluid in the lungs" last week and reports his symptoms are similar. Transition of care: patient was not received from another setting of care. Onset of symptoms was August 15, 2019. Risk Assessment: Do you want to hurt yourself or someone else? Patient reports no desire to harm self or others. Initial Sepsis Screen: Does the patient meet any 2 criteria? No. Patient's initial sepsis screen is negative. Does the patient have a suspected source of infection? No. Patient's initial sepsis screen is negative. Care prior to arrival: None. 02:00 Method Of Arrival: Wheelchair ea 02:00 Acuity: CHAPARRITA 3 ea Triage Assessment: 02:07 General: Appears uncomfortable, Behavior is calm, cooperative, appropriate for age. ea Pain: Denies pain. Neuro: Level of Consciousness is awake, alert, obeys commands, Oriented to person, place, time, situation. Cardiovascular: Patient's skin is warm and dry. Respiratory: Reports shortness of breath at rest Airway is patent Respiratory effort is even, Respiratory pattern is symmetrical, Onset: The symptoms/episode began/occurred yesterday, the patient has mild shortness of breath. Derm: Skin is pink, warm \\T\\ dry. Historical: - Allergies: 02:06 No Known Allergies; ea - Home Meds: 02:06 Metformin Oral [Active]; Levemir subcutaneous [Active]; Hydrochlorothiazide Oral ea [Active]; carvedilol Oral [Active]; atorvastatin Oral [Active]; - PMHx: 02:06 left sided paralysis; Hypertension; High Cholesterol; Diabetes - IDDM; CVA; ea - PSHx: 02:06 None; ea - Immunization history:: Adult Immunizations up to date. - Coronavirus screen:: The patient has NOT traveled to [place], [place], or [place] in the past 14 days. - Social history:: Smoking status: Patient denies any tobacco usage or history of. - Ebola Screening: : No symptoms or risks identified at this time. Screenin:04 Abuse screen: Denies threats or abuse. Nutritional screening: No deficits noted. ea Tuberculosis screening: No symptoms or risk factors identified. Fall Risk Secondary diagnosis (15 points) impaired mobility. Assessment: 02:07 Reassessment: See triage assessment. Respiratory: Airway is patent Respiratory effort ea is even, unlabored, Respiratory pattern is regular, symmetrical, Breath sounds with crackles bilaterally. 03:15 Cardiovascular: Rhythm is sinus rhythm. rv 03:32 Reassessment: Patient and/or family updated on plan of care and expected duration. Pain ea level reassessed. Patient is alert, oriented x 3, equal unlabored respirations, skin warm/dry/pink. 04:08 Reassessment: Patient and/or family updated on plan of care and expected duration. Pain ea level reassessed. Patient is alert, oriented x 3, equal unlabored respirations, skin warm/dry/pink. Vital Signs: 01:59 BP 145 / 94; Pulse 87; Resp 19; Temp 98.5; Pulse Ox 92% on R/A; Weight 99.79 kg; rv 02:30 BP 137 / 90; Pulse 85; Resp 16; Pulse Ox 91% on R/A; rv 03:00 BP 140 / 104; Pulse 82; Resp 17; Pulse Ox 96% on R/A; rv 03:43 BP 140 / 94; Pulse 87; Resp 18; Pulse Ox 95% ; ea 04:08 BP 137 / 93; Pulse 81; Resp 18; Pulse Ox 97% on R/A; ea 05:37 BP 109 / 53; Pulse 83; Resp 17; Pulse Ox 96% on R/A; rv ED Course: 01:48 Patient arrived in ED. ds1 01:55 Berny Lanier MD is Attending Physician. tw4 02:00 Kaylee Tripathi RN is Primary Nurse. ea 02:04 Triage completed. ea 02:05 Patient has correct armband on for positive identification. Bed in low position. Call ea light in reach. Side rails up X2. 02:08 Arm band placed on right wrist. Patient placed in an exam room, on a stretcher, on ea pulse oximetry. 03:00 Inserted saline lock: 20 gauge in right antecubital area, using aseptic technique. ea 03:48 Chest Single View XRAY In Process Unspecified. EDMS 03:58 Babita Vora MD is Hospitalizing Provider. tw4 04:08 No provider procedures requiring assistance completed. Patient admitted, IV remains in ea place. Administered Medications: 03:56 Drug: Lasix 40 mg Route: IVP; Site: right antecubital; ea 04:34 Drug: Nitro-Bid Ointment 2 % 0.5 inches Route: Transdermal; Site: anterior chest wall; ea Outcome: 03:59 Decision to Hospitalize by Provider. tw4 04:11 Instructed on the need for admit, Demonstrated understanding of instructions. ea 05:37 Admitted to Med/surg accompanied by tech, via wheelchair, room 209, with chart, Report rv called to KAYLEE GOODEN 05:37 Condition: good 05:41 Patient left the ED. rv Signatures: [facility] Siena Balbuena ds1 Kaylee Tripathi, RN RN Berny Rubin MD MD tw4 Roman Quinn, RN RN rv Corrections: (The following items were deleted from the chart) 03:13 03:13 Cardiovascular: Rhythm is rv rv 05:41 05:37 Admitted to Med/surg accompanied by nurse, via wheelchair, room 209, with chart, rv Report called to ROMI GOODEN rv
[2019-08-15] MEDS ORDERED: NITROGLYCERIN 1 GM PKT TD ONE (04:35)
[2019-08-15] MEDS ORDERED: ACETAMINOPHEN 500 MG TAB PO PRN (04:52)
[2019-08-15] MEDS ORDERED: ONDANSETRON 4 MG/2 ML VIAL IV PRN (04:52)
[2019-08-15] MEDS ORDERED: PIPER/TAZO/NS 3.375gm 3.375 GM/100 ML BAG ONE (05:36)
[2019-08-15 05:56] VITALS: BMI 33.3
[2019-08-15] MEDS ORDERED: METOPROLOL TAR 25 MG TAB PO SCH (06:00)
[2019-08-15] MEDS ORDERED: PIPER/TAZO/NS 3.375gm 3.375 GM/100 ML BAG IVPB SCH ×2 (06:00→11:00)
--- NOTE | 2019-08-15 06:35 | EKG ---
Test Date: 2019-08-15 Test Time: 02:20:52 Mat Machine Operator: JI MEASUREMENT RESULTS: Intervals: Rate: 85 MT: 146 QRSD: 84 QT: 394 QTc: 468 Gibson: P: 54 MT: 146 QRS: -14 T: 86 INTERPRETIVE STATEMENTS: Normal sinus rhythm Possible Left atrial enlargement Nonspecific T wave abnormality Prolonged QT Abnormal ECG Compared to ECG 08/05/2019 03:53:04 Prolonged QT interval now present T-wave abnormality still present Electronically Signed On 08-15-19 06:34:44 [employer] KENNEL by Chetan Contreras
[2019-08-15] MEDS: ALBUTEROL 2.5 MG/3 ML NEB SOL NEB SCH ×3 (07:45→19:40)
[2019-08-15] MEDS: IPRATROPIUM BROM 0.5MG/2.5ML NEB SCH ×3 (07:45→19:40)
--- NOTE | 2019-08-15 07:58 | RAD REPORT ---
EXAM DESCRIPTION: Cornelius Single View08/15/2019 3:48 am CLINICAL HISTORY: Shortness of breath COMPARISON: August 05, 2019 FINDINGS: Diffuse bilateral pulmonary opacities with bilateral pleural effusions The heart is borderline enlarged IMPRESSION: These findings may represent pulmonary edema or pneumonia
[2019-08-15] MEDS ORDERED: FUROSEMIDE 40 MG/4 ML VIAL IV SCH (09:00)
[2019-08-15] MEDS ORDERED: FUROSEMIDE 40 MG TABLET PO ONE (09:23)
[2019-08-15] MEDS: ENOXAPARIN 40 MG/0.4 ML SQ SCH (09:46)
[2019-08-15] MEDS: POTASSIUM 25 MEQ EFFERV TAB PO SCH (09:46)
[2019-08-15] MEDS: VALSARTAN 80 MG TAB PO SCH (09:46)
[2019-08-15] MEDS: ASPIRIN EC 81 MG TAB PO SCH (09:47)
[2019-08-15] MEDS: SPIRONOLACTONE 25 MG TABLET PO SCH ×2 (09:47→20:05)
--- NOTE | 2019-08-15 12:05 | CON ---
Mr. Duong is 34. He has a cardiomyopathy and came to the hospital with congestive heart failure, pu lmonary edema. The patient has a known cardiomyopathy. At some point, he had a cardiac cath and was told there were no blockages. He does not have a defibrillator and his most recent echocardiogram w as done this month, so about 3 weeks ago. This showed an EF in the 30% to 35% range. The patient gautam s an outpatient prescription for Lasix, carvedilol, valsartan, but he actually was not taking any diu retic for a while. Apparently, a medicine was prescribed that they could not afford. Later his started to give him Lasix 40 but he had developed pulmonary edema. Overnight, he has had diuresis a nd feels back to normal. At this point, I think we could probably give Mr. Duong Laseri order for 80 mg every morning with 80 mg in the afternoon if he ever gains weight, teach him about sodium restric tion, teach him about daily weights and monitoring things, so he can avoid hospitalizations. Mr. Ronaldo rodriguez has significant problems with anger control. He pushed his food tray away and dumped water all o kelley the ground because he was mad about something that he did not want to share. I am not sure exact ly what that might have been, but this situation contributes a lot to his well-being with his EF wher e it is. I do not think I would recommend him being on a LifeVest, but he needs to take his medicati ons appropriately. Thank you very much for your kind referral of Mr. Duong. I will follow him with you. PEEWEE Voice ID: [id number] Report ID: [id number]
--- NOTE | 2019-08-15 13:50 | P.HP ---
Certification for Inpatient Patient admitted to: Inpatient With expected LOS: >2 Midnights Patient will require the following post-hospital care: None Practitioner: I am a practitioner with admitting privileges, knowledge of patient current condition, hospital course, and medical plan of care. Services: Services provided to patient in accordance with Admission requirements found in Title 42 Section 412.3 of the Code of Federal Regulations Patient History Date of Service: 08/15/19 Reason for admission: Acute CHF exacerbation/bilateral pulmonary infiltrates History of Present Illness: Patient is a 34-year-old gentleman who comes in the hospital with chest pain and shortness of breath. Patient was found to have cardiomyopathy with an ejection fraction of 30%. Patient recently also had a stroke a year ago. Patient is clinical conditions have been deteriorating over the last year. He has had 3 admissions over the last 3 weeks or shortness of breath. The patient had a chest x-ray performed on this admission which also shows worsening of the bilateral pulmonary infiltrates. Patient will be diuresed and will also start antibiotic therapy. Will get pulmonary consultation as well as cardiology consultation. White count is stable and there is no evidence of fever. But there is concern for progressive pulmonary infiltrates bilaterally. Allergies No Known Allergies Allergy (Unverified 08/24/11 20:01) Home Medications: Allopurinol 300 mg PO BID 07/25/19 Atorvastatin Calcium 40 mg PO BEDTIME 07/25/19 Aspirin Chewable [Aspirin Chewable*] 81 mg PO DAILY #30 tab.chew 07/31/19 Insulin Detemir [Levemir Flextouch] 40 units SQ BID #1 insuln.pen 07/31/19 Metformin HCl 1,000 mg PO BID #60 tablet 07/31/19 Metoprolol Tartrate [Lopressor*] 50 mg PO BID 6AM 6PM #60 tab 07/31/19 Valsartan [Diovan] 80 mg PO DAILY #30 tablet 07/31/19 levETIRAcetam [Keppra*] 500 mg PO BID #60 tab 07/31/19 Carvedilol [Coreg] 25 mg PO BID 08/05/19 Escitalopram [Lexapro*] 20 mg PO DAILY 08/15/19 - Past Medical/Surgical History Diabetic: Yes -: DM type 2 -: History of CVA -: Hypercoagulability -: Hypertension Past Surgical History: Patient denies surgical history - Family History Mother Medical History: Heart disease, Stroke Brother Medical History: Stroke - Social History Smoking Status: Former smoker Alcohol use: Yes CD- Drugs: Yes Caffeine use: No Place of Residence: Home Review of Systems 10-point ROS is otherwise unremarkable Physical Examination - Vital Signs Temperature: 98.9 F Blood Pressure: 132/81 Pulse: 85 Respirations: 20 Pulse Ox (%): 95 - Physical Exam General: Alert, In no apparent distress, Oriented x3 HEENT: Atraumatic, PERRLA, Mucous membr. moist/pink, EOMI, Sclerae nonicteric Neck: Supple, 2+ carotid pulse no bruit, No LAD, Without JVD or thyroid abnormality Respiratory: Diminished, Crackles/rales Cardiovascular: Regular rate/rhythm, Normal S1 S2, No murmurs Gastrointestinal: Normal bowel sounds, Soft and benign, Non-distended, No tenderness Musculoskeletal: No clubbing, No swelling, No tenderness Integumentary: No rashes Neurological: Normal gait, Normal speech, Normal strength at 5/5 x4 extr, Normal tone, Sensation intact, Cranial nerves 3-12 intact, Normal affect Lymphatics: No axilla or inguinal lymphadenopathy - Studies Laboratory Data (last 24 hrs) 08/15/19 02:45: PT 12.0, INR 1.02, APTT 39.2 H 08/15/19 02:45: WBC 10.1 D, Hgb 11.3 L, Hct 33.6 L, Plt Count 227 D 08/15/19 02:45: Sodium 145, Potassium 3.9, BUN 31 H, Creatinine 1.25, Glucose 173 H, Magnesium 1.9, Total Bilirubin 0.2, AST 25, ALT 38, Alkaline Phosphatase 89, Lipase 138 Assessment & Plan - Problems (Diagnosis) (1) Acute systolic CHF (congestive heart failure) Current Visit: No Status: Acute (2) Bilateral pneumonia Current Visit: No Status: Acute (3) Cardiac LV ejection fraction 30-35% Current Visit: No Status: Acute (4) DM type 2 (diabetes mellitus, type 2) Current Visit: No Status: Acute Qualifiers: Diabetes mellitus [facility] insulin 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 Echocardiogram has been reviewed. Continue with diuretics 2. continue with antibiotic therapy 3. We will start patient on a Beta winnie 4. Cardiology consultation & pulmonary consultation 5. Aggressive diuresis 6. Strict I's and O's 7. Repeat CXR 8. Daily weights 9. Education regarding diet and treatment of congestive heart failure Discharge Plan: Home Plan to discharge in: Greater than 2 days - Advance Directives Does patient have a Living Will: No Does patient have a Durable POA for Healthcare: No - Code Status/Comfort Care Code Status Assessed: Yes Code Status: Full Code Critical Care: No Time Spent Managing PTS Care (In Minutes): 40
[2019-08-15] MEDS: carvediloL 25 MG TAB PO SCH (17:11)
[2019-08-16] MEDS: TEMAZEPAM 15 MG CAP PO PRN ×2 (00:36→21:06)
[2019-08-16] MEDS ORDERED: VANCOMYCIN/NS 1 gm 1 GM/250 ML BAG IVPB ONE (01:10)
--- NOTE | 2019-08-16 01:11 | P.PN ---
Date of Service: 08/16/19 BLOOD CX POSITIVE FOR GRAM POSITIVE COCCI-1/4 BOTTLES; POSSIBLY CONTAMINANT. WILL GIVE VANCOMYCIN 1G IVPB X 1
[2019-08-16] MEDS: ALBUTEROL 2.5 MG/3 ML NEB SOL NEB SCH ×2 (01:15→08:29)
[2019-08-16] MEDS: IPRATROPIUM BROM 0.5MG/2.5ML NEB SCH ×2 (01:15→08:29)
[2019-08-16] MEDS ORDERED: VANCOMYCIN 1 GM/VIAL ONE (02:08)
[2019-08-16] MEDS ORDERED: NA CHLORIDE 0.9% 250 ML ONE (02:10)
[2019-08-16] MEDS: carvediloL 25 MG TAB PO SCH ×2 (05:41→17:18)
[2019-08-16 06:05] LABS: Absolute Lymphocytes (CBC) 3.7 K/uL (0.7-4.9); Basophils % 1.2 % (0-1.3); Hematocrit 30.4 % (39.6-49.0); Lymphocytes % 40.5 % (15.3-44.8); RBC Red Blood Cell Count 3.56 M/uL (4.33-5.43)
[2019-08-16 06:24] LABS: Albumin 2.1 g/dL (3.4-5.0); Bilirubin Total 0.2 mg/dL (0.2-1.0); Magnesium 1.8 mg/dL (1.8-2.4); Phosphorus 3.8 mg/dL (2.5-4.9); Protein, Total 5.5 g/dL (6.4-8.2)
[2019-08-16] MEDS ORDERED: MAGNESIUM SULFATE 1 gm IVPB 1 GM/100 ML BAG IV ONE ×2 (06:34→09:00)
[2019-08-16 08:06] LABS: Anisocytosis 2+; Blood Morphology Comment NOTED (NOT SEEN); Platelet Estimate ADEQ
[2019-08-16 08:07] LABS: Poikilocytosis 1+
[2019-08-16] MEDS: ENOXAPARIN 40 MG/0.4 ML SQ SCH (08:37)
[2019-08-16] MEDS: SPIRONOLACTONE 25 MG TABLET PO SCH ×2 (08:37→21:05)
[2019-08-16] MEDS: VALSARTAN 80 MG TAB PO SCH (08:37)
[2019-08-16] MEDS: ASPIRIN EC 81 MG TAB PO SCH (08:38)
[2019-08-16] MEDS: FUROSEMIDE 40 MG TABLET PO SCH (08:38)
[2019-08-16] MEDS: POTASSIUM 25 MEQ EFFERV TAB PO SCH (08:38)
[2019-08-16] MEDS ORDERED: ALBUTEROL 2.5 MG/3 ML NEB SOL NEB PRN (08:39)
--- NOTE | 2019-08-16 08:40 | P.CNS ---
Date of Consult: 08/16/19 Chief Complaint: Acute CHF exacerbation/bilateral pulmonary infiltrates History of Present Illness: Patient is 34 years of age with a history of congestive heart failure admitted with worsening dyspnea orthopnea PND lower extremity edema. He has had multiple admissions for congestive heart failure compliant with these medications denies any fever chills patient is an active smoker patient's vital sign was stable on admission Allergies No Known Allergies Allergy (Unverified 08/24/11 20:01) Home Medications: Allopurinol 300 mg PO BID 07/25/19 Atorvastatin Calcium 40 mg PO BEDTIME 07/25/19 Aspirin Chewable [Aspirin Chewable*] 81 mg PO DAILY #30 tab.chew 07/31/19 Insulin Detemir [Levemir Flextouch] 40 units SQ BID #1 insuln.pen 07/31/19 Metformin HCl 1,000 mg PO BID #60 tablet 07/31/19 Metoprolol Tartrate [Lopressor*] 50 mg PO BID 6AM 6PM #60 tab 07/31/19 Valsartan [Diovan] 80 mg PO DAILY #30 tablet 07/31/19 levETIRAcetam [Keppra*] 500 mg PO BID #60 tab 07/31/19 Carvedilol [Coreg] 25 mg PO BID 08/05/19 Escitalopram [Lexapro*] 20 mg PO DAILY 08/15/19 Furosemide [Lasix] 40 mg PO DAILY 08/15/19 Metoprolol Tartrate [Lopressor] 50 mg PO BID 08/15/19 - Past Medical/Surgical History Diabetic: Yes -: DM type 2 -: History of CVA -: Hypercoagulability -: Hypertension -: Congestive heart failure - Family History Mother Medical History: Heart disease, Stroke Brother Medical History: Stroke - Social History Smoking Status: Current some day smoker Alcohol use: Yes CD- Drugs: Yes Caffeine use: No Place of Residence: Home Review of Systems 10-point ROS is otherwise unremarkable General: Weakness Respiratory: Cough, Shortness of Breath Cardiovascular: Edema Physical Examination Temp Pulse Resp BP Pulse Ox 98.6 F 83 18 139/90 94 08/16/19 04:00 08/16/19 05:41 08/16/19 04:00 08/16/19 05:41 08/16/19 04:00 General: Alert, In no apparent distress, Oriented x3 Neck: Supple Respiratory: Crackles/rales (Crackles bilaterally) Cardiovascular: Regular rate/rhythm, Normal S1 S2, Edema Gastrointestinal: Normal bowel sounds, Soft and benign - Problems (1) Congestive heart failure Current Visit: Yes Status: Acute Plan: Patient is 34 years of age recurrent admissions for congestive heart failure probably has some volume overload pulmonary edema on the chest x-ray BNP is elevated labs reviewed no evidence of sepsis vital signs in oxygenation satisfactory check room air pulse ox possible discharge apparently he has had a cardiac catheterization done also complains of loud snoring excessive daytime somnolence patient will need an outpatient sleep study may benefit from a CPAP to be done as an outpatient meanwhile check if he qualifies for home O2 Qualifiers: Heart failure type: systolic
[2019-08-16] MEDS ORDERED: ESCITALOPRAM 20 MG TAB PO SCH (09:00)
[2019-08-16 13:44] LABS: Barbiturates NEGATIVE (NEGATIVE); Benzodiazepines NEGATIVE (NEGATIVE); Cocaine NEGATIVE (NEGATIVE); METHAMPHETAM NEGATIVE (NEGATIVE); Methadone NEGATIVE (NEGATIVE); Opiates NEGATIVE (NEGATIVE); Phencyclidine NEGATIVE (NEGATIVE); THC Cannibis NEGATIVE (NEGATIVE)
--- NOTE | 2019-08-16 13:49 | P.PN ---
Subjective Date of Service: 08/16/19 Chief Complaint: Acute CHF exacerbation/bilateral pulmonary infiltrates Subjective: Improving Less Dyspneic. Physical Examination - Vital Signs Temperature: 98.3 F Blood Pressure: 139/90 Pulse: 83 Respirations: 20 Pulse Ox (%): 100 - Physical Exam General: Alert, In no apparent distress HEENT: Atraumatic, PERRLA, EOMI Neck: Supple, JVD not distended Respiratory: Diminished, Crackles/rales (at bases R>L) Cardiovascular: Regular rate/rhythm, Normal S1 S2, Edema (1+ bilateral pitting) Gastrointestinal: Normal bowel sounds, No tenderness Musculoskeletal: No tenderness Integumentary: No rashes Neurological: Normal speech, Normal tone, Normal affect Lymphatics: No axilla or inguinal lymphadenopathy - Studies Laboratory Tests 08/16/19 08/16/19 05:40 05:40 WBC 9.1 RBC 3.56 L Hgb 10.4 L Plt Count 324 D Sodium 143 Potassium 4.0 Chloride 111 H BUN 25 H Estimated GFR 65 L Glucose 211 H Calcium 7.9 L Microbiology Data (last 24 hrs): 08/15/19 02:45 Blood - Blood Gram Stain - Final Medications List Reviewed: Yes Assessment And Plan - Plan # Acute systolic CHF (congestive heart failure)-Cardiac LV ejection fraction 30- 35%. probably related to drug abuse -Non compliant at home. -resumed medications including IV lasix for diuresis. -Strict I&O, Fluid restriction and low salt diet. -Education regarding diet and treatment of congestive heart failure #DM type 2 (diabetes mellitus, type 2)- check Hgba1c - BG AC & HS and cover with ISS #History of CVA (cerebrovascular accident)- continue secondary prevention. #Hypertension- continue antihypertensive. -monitor BP -compliance advised. #Depression- continue home meds. patient requested for psych evaluation. Denies HI or SI -Appreciate psych recommendation. Dispo- possible dc home in a.m Discharge Plan: Home Plan to discharge in: 24 Hours
[2019-08-16] MEDS ORDERED: GLUCAGON 1 MG/VIAL IM PRN (13:50)
[2019-08-16] MEDS ORDERED: D50W 25 GM/50 ML SYRINGE/VIAL IV PRN (13:50)
[2019-08-16] MEDS: levETIRAcetam 500 MG TAB PO SCH ×2 (14:42→21:04)
[2019-08-16] MEDS: allopurinoL 300 MG TAB PO SCH ×2 (14:42→21:06)
[2019-08-16] MEDS: INSULIN -REGULAR HUMAN 50 UNIT/0.5 ML ML SQ SCH ×2 (17:18→21:08)
--- NOTE | 2019-08-16 17:58 | PN ---
Mr. Duong is 34, has a history of idiopathic systolic cardiomyopathy with an ejection fraction 30% t o 35%. Came in with pleural effusion, CHF. He is feeling better, but continues to have some mild pe magdalena edema. Mild rales on physical examination. He would do better if we keep 1 more night. He shou ld be on carvedilol. He should be on Lasix, Aldactone, and he should be on a low-dose ALEX inhibitor and he should have a regular followup appointment with a founder or an internal medicine physici an. He needs to be compliant with his medication. He needs to watch his salt intake and fluid intak e. He can go home tomorrow on the above-mentioned regimen. KRISTIN/NARAYAN Voice ID: [id number] Report ID: [id number]
[2019-08-16] MEDS ORDERED: ATORVASTATIN 40 MG TAB PO SCH (21:00)
[2019-08-17] MEDS: carvediloL 25 MG TAB PO SCH (05:05)
[2019-08-17 06:11] LABS: Potassium 4.1 mmol/L (3.5-5.1)
[2019-08-17] MEDS: INSULIN -REGULAR HUMAN 50 UNIT/0.5 ML ML SQ SCH (08:47)
[2019-08-17] MEDS: ENOXAPARIN 40 MG/0.4 ML SQ SCH (08:47)
[2019-08-17] MEDS: POTASSIUM 25 MEQ EFFERV TAB PO SCH (08:47)
[2019-08-17] MEDS: SPIRONOLACTONE 25 MG TABLET PO SCH (08:48)
[2019-08-17] MEDS: ASPIRIN EC 81 MG TAB PO SCH (08:48)
[2019-08-17] MEDS: levETIRAcetam 500 MG TAB PO SCH (08:48)
[2019-08-17] MEDS: FUROSEMIDE 40 MG TABLET PO SCH (08:48)
[2019-08-17] MEDS: VALSARTAN 80 MG TAB PO SCH (08:48)
[2019-08-17] MEDS: allopurinoL 300 MG TAB PO SCH (08:54)
[2019-08-17] MEDS ORDERED: ESCITALOPRAM 20 MG TAB PO SCH (09:00)
[2019-08-17 09:17] VITALS: O2SAT 98
--- NOTE | 2019-08-17 10:59 | P.DS ---
Admission Date: 08/15/19 Discharge Date: 08/17/19 Disposition: ROUTINE DISCHARGE Discharge Condition: GOOD Reason for Admission: Acute CHF exacerbation/bilateral pulmonary infiltrates - Problems (1) Congestive heart failure Current Visit: Yes Status: Acute Qualifiers: Heart failure type: systolic (2) DM type 2 (diabetes mellitus, type 2) Current Visit: No Status: Acute Qualifiers: Diabetes mellitus [facility] insulin use: with [facility]entiary use (3) History of CVA (cerebrovascular accident) Current Visit: No Status: Acute (4) Hypertension Current Visit: No Status: Acute Qualifiers: Hypertension type: essential hypertension Qualified Code(s): I10 - Essential (primary) hypertension (5) Pleural effusion Current Visit: No Status: Acute Hospital Course: Mr. Duong is a 34-year-old male with a history of drug abuse, cardiomyopathy EF 30%, stroke residual left-sided weakness who presented to the ER with complaints of chest pain and shortness of breath. Patient has a history of noncompliance with the diet, fluid restriction and medication. He was found to be in decompensated heart failure was initiated on IV diuretics. He was also seen by power system electrical engineer and ACS was ruled out. Compliance with medication, fluid restrictionand low-salt diet has been strongly advised. His medications have been optimized by power system electrical engineer recommendation. Patient has a history of diabetes mellitus, uncontrolled. He is on Levemir 40 me in units b.i.d. with metformin. He will likely benefit on prandial insulin however patient has no insurance and unable to afford medication. He reported depression with no suicidal or homicidal ideation. He was evaluated by psychiatrist and medications have been adjusted. He will will benefit from outpatient psychotherapy, he intends to seek resources for recommendation. Patient Has been advised to follow up with an internal medicine physician for his primary care needs due to complicated medical history. He has also been recommended to follow up with power system electrical engineer outpatient. He remained hemodynamically stable for discharge home. Vital Signs/Physical Exam: Temp Pulse Resp BP Pulse Ox 97.7 F 85 15 150/80 H 96 08/17/19 08:00 08/17/19 08:48 08/17/19 08:00 08/17/19 08:48 08/17/19 08:00 General: Alert, In no apparent distress HEENT: Atraumatic, PERRLA, EOMI Neck: Supple, JVD not distended Respiratory: Clear to auscultation bilaterally, Normal air movement Cardiovascular: Regular rate/rhythm, Normal S1 S2, Edema Gastrointestinal: Normal bowel sounds, No tenderness Musculoskeletal: No tenderness, Swelling Integumentary: No rashes Neurological: Normal speech, Abnormal strength, Abnormal tone, Abnormal affect Lymphatics: No axilla or inguinal lymphadenopathy Laboratory Data at Discharge: WBC 9.1 K/uL (4.3-10.9) 08/16/19 05:40 Hgb 10.4 g/dL (13.6-17.9) L 08/16/19 05:40 Hct 30.4 % (39.6-49.0) L 08/16/19 05:40 Plt Count 324 K/uL (152-406) D 08/16/19 05:40 PT 12.0 SECONDS (9.5-12.5) 08/15/19 02:45 INR 1.02 08/15/19 02:45 APTT 39.2 SECONDS (24.3-36.9) H 08/15/19 02:45 Sodium 141 mmol/L (136-145) 08/17/19 05:26 Potassium 4.1 mmol/L (3.5-5.1) 08/17/19 05:26 BUN 26 mg/dL (7-18) H 08/17/19 05:26 Creatinine 1.19 mg/dL (0.55-1.3) 08/17/19 05:26 Glucose 239 mg/dL (74-106) H 08/17/19 05:26 Phosphorus 3.8 mg/dL (2.5-4.9) 08/16/19 05:40 Magnesium 2.0 mg/dL (1.8-2.4) 08/17/19 05:26 Total Bilirubin 0.2 mg/dL (0.2-1.0) 08/16/19 05:40 AST 16 U/L (15-37) 08/16/19 05:40 ALT 28 U/L (12-78) 08/16/19 05:40 Alkaline Phosphatase 80 U/L (45-117) 08/16/19 05:40 Lipase 138 U/L (73-393) 08/15/19 02:45 Home Medications: Allopurinol 300 mg PO BID 07/25/19 Atorvastatin Calcium 40 mg PO BEDTIME 07/25/19 Aspirin Chewable [Aspirin Chewable*] 81 mg PO DAILY #30 tab.chew 07/31/19 Insulin Detemir [Levemir Flextouch] 40 units SQ BID #1 insuln.pen 07/31/19 Metformin HCl 1,000 mg PO BID #60 tablet 07/31/19 Valsartan [Diovan] 80 mg PO DAILY #30 tablet 07/31/19 levETIRAcetam [Keppra*] 500 mg PO BID #60 tab 07/31/19 Carvedilol [Coreg] 25 mg PO BID 08/05/19 Escitalopram [Lexapro*] 20 mg PO DAILY 08/15/19 Furosemide [Lasix] 40 mg PO DAILY 08/15/19 Spironolactone [Aldactone*] 25 mg PO BID #60 tab 08/17/19 New Medications: Spironolactone [Aldactone*] 25 mg PO BID #60 tab Diet: Low sodium Activity: Fall precautions Followup: Bennett Butt MD [ACTIVE - CAN ADMIT] - 1 Week Cruz Swift [ACTIVE - CAN ADMIT] - 1-2 Weeks
[2019-08-17 12:19] VITALS: BP 149/98; TEMP 97.6
--- NOTE | 2019-08-17 14:18 | CON ---
Date of Consultation: 08/16/2019 History Of Present Illness: Mr. Grace Duong is a 34-year-old male with history of major depressive disorder and also anxiety. Patient was admitted via the ER on the 08/15/2019 on account of chest pain and shortness of breath. Er evaluation revealed cardiomyopathy with CHF and ejection fraction of 30%. Patient has a recent history of CVA with hemiparesis. Patient has had 3 admissions in the past 3 weeks. Psychiatry consulted to evaluate patient's depression and recommend treatment. Patient's depressive symptoms is describes as depress mood, hopelessness and helplessness, frustrated and reports poor sleep. Patient was met in his room with his . He continues to ruminate how he now to rely on people for help to care for himself. Says he cries all the time, Says is very supportive. Objective: Vital Signs: Blood pressure 150/80, pulse rate 85, O2 saturation is 98 on room air, temperature is 98.7 lbs. Mental Status: Patient is well-nourished male, lying in bed, not in any acute distress. Alert and oriented x3. Moderate psychomotor retardation observed. Speech is essentially normal. Mood is depress, Affect is mood congruent. Thought process linear. Thought content no delusion, no suicidal and homicidal ideation, ruminate about poor choices and no obsessions. Perceptual disturbance: No Auditory or Visual hallucination Diagnoses: 1. Major depressive disorder, rec., moderate. 2. Adjustment disorder with mixed mood and conduct disorder 3 Cocaine use disorder severe Plan And Recommendations: 1. Recommend continue Lexapro 20 mg PO daily. 2. Recommend Seroquel 50 mg p.o. at bedtime 3. Recommend psychotherapy postdischarge. 4. Recommend psychiatric followup postdischarge. Thank you for the consult ARLEEN/NARAYAN Voice ID: [id number] Report ID: [id number] [place]
== END 2019-08-17 12:20 | disposition home or self-care (01) | DRG 291 ==
LOC: ER 01:45 → 2ND 05:04
PROVIDERS: ADMIT Hospitalist; ATTEND Hospitalist
DX: I11.0 Hypertensive heart disease with heart failure (principal); J18.9 Pneumonia, unspecified organism; F33.1 Major depressive disorder, recurrent, moderate; I69.354 Hemiplegia and hemiparesis following cerebral infarction affecting left non-dominant side; I50.23 Acute on chronic systolic (congestive) heart failure; E11.9 Type 2 diabetes mellitus without complications; R06.01 Orthopnea; F43.24 Adjustment disorder with disturbance of conduct; Z79.4 Long term (current) use of insulin
CPT/HCPCS: 36415; 71045; 80048; 80053; 80076; 80307; 82550; 82553; 82947; 83036; 83690; 83735; 83880; 84100; 84145; 84484; 85025; 85379; 85610; 85652; 85730; 87040; 87205; 93005; 94640; 96374; 99285; J1650; J2543; J3370; J3475; J7030

== ENCOUNTER 2020-09-18 22:25 | Observation (INO) | payer OTHER, SELFPAY ==
--- OUTSIDE RECORDS SUMMARY | 2020-09-18 22:27 | XMS REPORT | Continuity of Care Document ---
:1985 Author Organization [facility] t Address [address] [place] [address] Care Team Providers Name Role Phone Doctor Unassigned, Name Attending Clinician Unavailable Problems This patient has no known problems. Allergies, Adverse Reactions, Alerts This patient has no known allergies or adverse reactions. Medications This patient has no known medications. Procedures This patient has no known procedures. Encounters Start End Encounter Admission Attending Care Care Encounter Source Date/Time Date/Time Type Type Clinicians Facility Department ID 2020-05-23 2020-05-23 Orders Doctor CARINA [id number] 00:00:00 00:00:00 Only UnassignedJOHNNIE [id number] [place] [facility] [id number] 2019-03-06 2019-03-06 Orders Doctor CARINA [id number] 00:00:00 00:00:00 Only UnassignedJOHNNIE [id number] [place] [facility] [id number] Results This patient has no known results.
[2020-09-19] MEDS ORDERED: NA CHLORIDE 0.9% 1,000 ML ONE (00:24)
[2020-09-19] MEDS ORDERED: ONDANSETRON 4 MG/2 ML VIAL ONE (00:24)
[2020-09-19] MEDS ORDERED: MORPHINE 4 MG/ML SYR ONE (00:24)
[2020-09-19] MEDS ORDERED: FAMOTIDINE 20 MG/2 ML VIAL IV ONE (00:24)
[2020-09-19 01:35] LABS: Absolute Lymphocytes (CBC) 1.7 K/uL (0.7-4.9); Hematocrit 40.2 % (39.6-49.0); Lymphocytes % 18.6 % (15.3-44.8); MPV 8.9 fL (7.6-11.3); RBC Red Blood Cell Count 4.56 M/uL (4.33-5.43)
[2020-09-19 01:36] LABS: Protime INR 1.99
[2020-09-19 02:07] LABS: Albumin 2.8 g/dL (3.4-5.0); Bilirubin Direct 0.3 mg/dL (0-0.2); Bilirubin Total 0.5 mg/dL (0.2-1.0); Protein, Total 7.7 g/dL (6.4-8.2); Troponin (Emerg Dept Use Only) 0.05 ng/mL (0.0-0.045)
[2020-09-19 02:15] LABS: Magnesium 2.5 mg/dL (1.8-2.4); Potassium 4.7 mmol/L (3.5-5.1)
--- NOTE | 2020-09-19 02:18 | EDPHYS ---
Physician Documentation [facility] Name: Grace Duong Age: 35 yrs Sex: Male : 1985 Arrival Date: 09/18/2020 Time: 22:27 Bed 8 Private MD: ED Physician Joseph Laguerre HPI: 09/19 00:01 This 35 yrs old Male presents to ER via EMS with complaints of Foot Pain. otis 00:01 The patient presents with pain, that is acute. The complaints affect the right leg and otis left leg. Context: The problem was sustained at home. Onset: The symptoms/episode began/occurred 2 day(s) ago. Modifying factors: The symptoms are alleviated by nothing, the symptoms are aggravated by nothing. Associated signs and symptoms: The patient has no apparent associated signs or symptoms. Severity of symptoms: At their worst the symptoms were moderate, severe, in the emergency department the symptoms are unchanged. The patient has experienced similar episodes in the past, several times. Historical: - Allergies: 09/18 22:42 No Known Allergies; mg2 - Home Meds: 22:42 atorvastatin Oral [Active]; Levemir subcutaneous [Active]; Metformin Oral [Active]; mg2 Aspirin Oral [Active]; Warfarin Oral [Active]; - PMHx: 22:42 CVA; Diabetes - IDDM; High Cholesterol; Hypertension; left sided paralysis; CHF; mg2 09/19 05:38 ESRD; mg2 - PSHx: 05:38 on dialysis; abdominal sx; mg2 - Immunization history:: Flu vaccine is not up to date. - Social history:: Smoking status: Patient denies any tobacco usage or history of. Patient/guardian denies using alcohol, street drugs, IV drugs. - Family history:: not pertinent. ROS: 00:01 Constitutional: Negative for fever, chills, and weight loss, Eyes: Negative for injury, otis pain, redness, and discharge, ENT: Negative for injury, pain, and discharge, Neck: Negative for injury, pain, and swelling, Cardiovascular: Negative for chest pain, palpitations, and edema, Respiratory: Negative for shortness of breath, cough, wheezing, and pleuritic chest pain, Abdomen/GI: Negative for abdominal pain, nausea, vomiting, diarrhea, and constipation, Back: Negative for injury and pain, : Negative for injury, bleeding, discharge, and swelling, Skin: Negative for injury, rash, and discoloration, Neuro: Negative for headache, weakness, numbness, tingling, and seizure, Psych: Negative for depression, anxiety, suicide ideation, homicidal ideation, and hallucinations, Allergy/Immunology: Negative for hives, rash, and allergies, Endocrine: Negative for neck swelling, polydipsia, polyuria, polyphagia, and marked weight changes. 00:01 MS/extremity: Positive for pain, of the right leg and left leg, left bfoot cold to touch, up to the knee, right per patient more painful. Exam: 00:01 Constitutional: This is a well developed, well nourished patient who is awake, alert, otis and in no acute distress. Head/Face: Normocephalic, atraumatic. Eyes: Pupils equal round and reactive to light, extra-ocular motions intact. Lids and lashes normal. Conjunctiva and sclera are non-icteric and not injected. Cornea within normal limits. Periorbital areas with no swelling, redness, or edema. ENT: Nares patent. No nasal discharge, no septal abnormalities noted. Tympanic membranes are normal and external auditory canals are clear. Oropharynx with no redness, swelling, or masses, exudates, or evidence of obstruction, uvula midline. Mucous membranes moist. Neck: Trachea midline, no thyromegaly or masses palpated, and no cervical lymphadenopathy. Supple, full range of motion without nuchal rigidity, or vertebral point tenderness. No Meningismus. Chest/axilla: Normal chest wall appearance and motion. Nontender with no deformity. No lesions are appreciated. Cardiovascular: Regular rate and rhythm with a normal S1 and S2. No gallops, murmurs, or rubs. Normal PMI, no JVD. No pulse deficits. Respiratory: Lungs have equal breath sounds bilaterally, clear to auscultation and percussion. No rales, rhonchi or wheezes noted. No increased work of breathing, no retractions or nasal flaring. Abdomen/GI: Soft, non-tender, with normal bowel sounds. No distension or tympany. No guarding or rebound. No evidence of tenderness throughout. Back: No spinal tenderness. No costovertebral tenderness. Full range of motion. Male : Normal genitalia with no discharge or lesions. Skin: Warm, dry with normal turgor. Normal color with no rashes, no lesions, and no evidence of cellulitis. Neuro: Awake and alert, GCS 15, oriented to person, place, time, and situation. Cranial nerves II-XII grossly intact. Motor strength 5/5 in all extremities. Sensory grossly intact. Cerebellar exam normal. Normal gait. Psych: Awake, alert, with orientation to person, place and time. Behavior, mood, and affect are within normal limits. 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 00:21 ECG was reviewed by the Attending Physician. [facility] Vital Signs: 09/18 22:35 BP 121 / 94; Pulse 110; Resp 18; Temp 98.5; Pulse Ox 100% on R/A; Weight 74.84 kg; mg2 Height 5 ft. 8 in. (172.72 cm); 09/19 00:00 BP 123 / 97; Pulse 108; Resp 18; Pulse Ox 100% on R/A; wh 01:15 BP 116 / 102; Pulse 107; Resp 18; Pulse Ox 99% on R/A; wh 02:16 BP 118 / 93; Pulse 103; Resp 17; Pulse Ox 99% on R/A; mg2 04:00 BP 103 / 89; Pulse 101; Resp 18; Pulse Ox 99% on R/A; wh 09/18 22:35 Body Mass Index 25.09 (74.84 kg, 172.72 cm) mg2 MDM: 09/18 22:41 Patient medically screened. [facility] 09/19 00:04 Differential diagnosis: arthritis, cellulitis. Data reviewed: vital signs, nurses [facility] notes, EMS record. Data interpreted: hospital monitor: rate is 110 beats/min, rhythm is regular, Pulse oximetry: on room air is 100 %. Test interpretation: by ED physician or midlevel provider: ECG, plain radiologic studies. Counseling: I had a detailed discussion with the patient and/or guardian regarding: the historical points, exam findings, and any diagnostic results supporting the discharge/admit diagnosis, lab results, radiology results. 09/19 00:43 Order name: Basic Metabolic Panel; Complete Time: 02:17 EDMD 09/19 00:43 Order name: Liver (Hepatic) Function; Complete Time: 02:17 EDMD 09/19 00:43 Order name: Troponin (Emerg Dept Use Only); Complete Time: 02:17 EDMS 09/19 00:00 Order name: XRAY Chest (1 view) [facility] 09/19 00:00 Order name: US LE Arterial Bilateral [facility] 09/19 00:43 Order name: NT PRO-BNP; Complete Time: 02:17 EDMS 09/19 00:43 Order name: Magnesium; Complete Time: 02:17 EDMS 09/19 00:43 Order name: Lipase; Complete Time: 02:17 EDMS 09/19 00:43 Order name: Lactate; Complete Time: 01:27 EDMS 09/19 00:43 Order name: CBC with Automated Diff; Complete Time: 01:47 EDMS 09/19 00:43 Order name: Protime (+INR); Complete Time: 01:47 EDMS 09/19 00:43 Order name: Blood Culture EDMS 09/19 00:43 Order name: Blood Culture EDMS 09/19 02:25 Order name: SARS-COV-2 RT PCR; Complete Time: 02:36 EDMS 09/19 07:44 Order name: Glucose, Ancillary Testing EDMS 09/19 08:16 Order name: Troponin I EDMS 09/19 08:16 Order name: Lipid Profile EDMS 09/19 08:16 Order name: T4 Free EDMS 09/19 08:16 Order name: Thyroid Stimulating Hormone EDMD 09/19 00:00 Order name: EKG; Complete Time: 00:47 [facility] 09/19 00:00 Order name: Cardiac monitoring; Complete Time: 00:03 [facility] 09/19 00:00 Order name: EKG - Nurse/Tech; Complete Time: 00:21 [facility] 09/19 00:00 Order name: IV Saline Lock; Complete Time: 00:03 [facility] 09/19 00:00 Order name: Labs collected and sent; Complete Time: 00:04 otis 09/19 00:00 Order name: O2 Per Protocol; Complete Time: 00:04 [facility] 09/19 00:00 Order name: O2 Sat Monitoring; Complete Time: 00:04 [facility] 09/19 02:53 Order name: Lower Ext Angio EDMS EC:21 Rate is 110 beats/min. Rhythm is regular. QRS [place] is Normal. [place] interval is normal. [facility] QRS interval is normal. QT interval is normal. No Q waves. T waves are Normal. No ST changes noted. Clinical impression: Abnormal EKG without significant change and No evidence of ischemia. Interpreted by me. Reviewed by me. Administered Medications: 00:24 Drug: Zofran (Ondansetron) 4 mg Route: IVP; Site: right antecubital; mg2 02:16 Follow up: Response: No adverse reaction mg2 00:25 Drug: NS 0.9% 1000 ml Route: IV; Rate: 50 ml/hr; Site: right antecubital; mg2 04:29 Follow up: Response: No adverse reaction; IV Status: Infusion continued upon admission wh 00:25 Drug: Pepcid 20 mg Route: IVP; Site: right antecubital; mg2 02:16 Follow up: Response: No adverse reaction mg2 00:25 Drug: morphine 4 mg Route: IVP; Site: right antecubital; mg2 02:16 Follow up: Response: No adverse reaction mg2 Disposition: 09/19/20 02:17 Hospitalization ordered by Truong Chang for Observation. Preliminary diagnosis are Other peripheral vascular diseases, Type 1 diabetes mellitus, End stage renal disease - on HD, Cardiomegaly. - Bed requested for Telemetry/MedSurg (observation). - Status is Observation. bp - Condition is Stable. - Problem is new. - Symptoms have improved. Signatures: Dispatcher [employer] EDMS Joseph Laguerre MD MD cha Attema, Lee, MANAGER IMPLEMENTATION-C MANAGER IMPLEMENTATION-Cla1 Cesilia Duong, RN RN Messi Yee RN RN bp Botello, Elizabeth eb Gardose, Michele, RN RN mg2 Florentin Torres RN Corrections: (The following items were deleted from the chart) 01:16 00:47 BASIC METABOLIC PANEL+C.LAB.BRZ ordered. EDMS EDMS 01:16 00:47 CBC+H.LAB.BRZ ordered. EDMS EDMS 01:16 00:47 HEPATIC FUNCTION+C.LAB.BRZ ordered. EDMS EDMS 01:16 00:47 MAGNESIUM+C.LAB.BRZ ordered. EDMS EDMS 01:16 00:47 PROBNP+C.LAB.BRZ ordered. EDMS EDMS 01:16 00:47 PROTIME (+INR)+COAG.LAB.BRZ ordered. EDMS EDMS 01:16 00:47 TROPONIN (EMERG DEPT USE ONLY)+C.LAB.BRZ ordered. EDMS EDMS 01:16 00:47 LIPASE+C.LAB.BRZ ordered. EDMS EDMS 01:16 00:47 LACTATE+C.LAB.BRZ ordered. EDMS EDMS 01:16 00:47 CORONAVIRUS+MR.LAB.BRZ ordered. EDMS EDMS 01:16 00:47 BLOOD CULTURE*+BA.LAB.BRZ ordered. EDMS EDMS 02:20 02:17 Hospitalization Ordered by Sampson Chau MD for Observation. Preliminary otis diagnosis is Other peripheral vascular diseases; Type 1 diabetes mellitus; End stage renal disease - on HD. Bed requested for Telemetry/MedSurg (observation). Status is Observation. Condition is Stable. Problem is new. Symptoms have improved. otis 02:39 02:20 09/19/2020 02:17 Hospitalization Ordered by Sampson Chau MD for Observation. la1 Preliminary diagnosis is Other peripheral vascular diseases; Type 1 diabetes mellitus; End stage renal disease - on HD; Cardiomegaly. Bed requested for Telemetry/MedSurg (observation). Status is Observation. Condition is Stable. Problem is new. Symptoms have improved. otis 03:19 02:39 09/19/2020 02:17 Hospitalization Ordered by Truong Chang DO for Observation. cg Preliminary diagnosis is Other peripheral vascular diseases; Type 1 diabetes mellitus; End stage renal disease - on HD; Cardiomegaly. Bed requested for Telemetry/MedSurg (observation). Status is Observation. Condition is Stable. Problem is new. Symptoms have improved. la1 07:40 03:19 09/19/2020 02:17 Hospitalization Ordered by Truong Chang DO for Observation. eb Preliminary diagnosis is Other peripheral vascular diseases; Type 1 diabetes mellitus; End stage renal disease - on HD; Cardiomegaly. Bed requested for [facility] ER HOLD. Status is Observation. Condition is Stable. Problem is new. Symptoms have improved. cg 08:30 07:40 09/19/2020 02:17 Hospitalization Ordered by Truong Chang DO for Observation. bp Preliminary diagnosis is Other peripheral vascular diseases; Type 1 diabetes mellitus; End stage renal disease - on HD; Cardiomegaly. Bed requested for Telemetry/MedSurg (observation). Status is Observation. Condition is Stable. Problem is new. Symptoms have improved. eb
--- NOTE | 2020-09-19 02:18 | ER ---
Nurse's Notes [facility] Name: Grace Duong Age: 35 yrs Sex: Male : 1985 Arrival Date: 09/18/2020 Time: 22:27 Bed 8 Private MD: Diagnosis: Other peripheral vascular diseases;Type 1 diabetes mellitus;End stage renal disease-on HD;Cardiomegaly Presentation: 09/18 22:35 Chief complaint: EMS states: patient was just sitting watching tv when he complains of mg2 pain in the right foot and loss of sensation in the left foot and back of the neck pain. BGL- 321 mg/dl. family gave him 1 gm tylenol an hour ago and he took his insulin. denies chest pain. Coronavirus screen: Client denies travel out of the [place] in the last 14 days. At this time, the client does not indicate any symptoms associated with coronavirus-19. Ebola Screen: No symptoms or risks identified at this time. Initial Sepsis Screen: Does the patient meet any 2 criteria? No. Patient's initial sepsis screen is negative. Does the patient have a suspected source of infection? No. Patient's initial sepsis screen is negative. Risk Assessment: Do you want to hurt yourself or someone else? Patient reports no desire to harm self or others. Onset of symptoms was September 18, 2020. 22:35 Method Of Arrival: EMS: [place] [id number] 22:35 Acuity: CHAPARRITA 3 mg2 Triage Assessment: 22:42 General: Appears in no apparent distress. comfortable, Behavior is calm, cooperative. mg2 Pain: Complains of pain in right foot. EENT: No signs and/or symptoms were reported regarding the EENT system. Neuro: Level of Consciousness is awake, alert, obeys commands, Oriented to person, place, time, situation. Cardiovascular: Capillary refill < 3 seconds Patient's skin is warm and dry. Respiratory: Airway is patent Respiratory effort is even, unlabored, Respiratory pattern is regular, symmetrical. GI: No signs and/or symptoms were reported involving the gastrointestinal system. : No signs and/or symptoms were reported regarding the genitourinary system. Derm: Skin is red, both feet. Musculoskeletal: Historical: - Allergies: 22:42 No Known Allergies; mg2 - Home Meds: 22:42 atorvastatin Oral [Active]; Levemir subcutaneous [Active]; Metformin Oral [Active]; mg2 Aspirin Oral [Active]; Warfarin Oral [Active]; - PMHx: 22:42 CVA; Diabetes - IDDM; High Cholesterol; Hypertension; left sided paralysis; CHF; mg2 09/19 05:38 ESRD; mg2 - PSHx: 05:38 on dialysis; abdominal sx; mg2 - Immunization history:: Flu vaccine is not up to date. - Social history:: Smoking status: Patient denies any tobacco usage or history of. Patient/guardian denies using alcohol, street drugs, IV drugs. - Family history:: not pertinent. Screenin/04 22:43 Abuse screen: Denies threats or abuse. Denies injuries from another. Nutritional mg2 screening: No deficits noted. Tuberculosis screening: No symptoms or risk factors identified. Fall Risk IV access (20 points). Assessment: 22:43 General: see triage note. mg2 09/19 00:00 Reassessment: Patient appears in no apparent distress at this time. Patient and/or wh family updated on plan of care and expected duration. Pain level reassessed. Patient is alert, oriented x 3, equal unlabored respirations, skin warm/dry/pink. 01:15 Reassessment: Patient appears in no apparent distress at this time. Patient and/or wh family updated on plan of care and expected duration. Pain level reassessed. Patient is alert, oriented x 3, equal unlabored respirations, skin warm/dry/pink. 02:15 Reassessment: Patient appears in no apparent distress at this time. Patient and/or mg2 family updated on plan of care and expected duration. Pain level reassessed. Patient is alert, oriented x 3, equal unlabored respirations, skin warm/dry/pink. ultrasound done. 04:00 Reassessment: Patient appears in no apparent distress at this time. Patient and/or wh family updated on plan of care and expected duration. Pain level reassessed. Patient is alert, oriented x 3, equal unlabored respirations, skin warm/dry/pink. Awaiting official reading of imaging. 05:15 Reassessment: Patient appears in no apparent distress at this time. Patient and/or wh family updated on plan of care and expected duration. Pain level reassessed. Patient is alert, oriented x 3, equal unlabored respirations, skin warm/dry/pink. 07:38 Reassessment: Patient and/or family updated on plan of care and expected duration. Pain bw level reassessed. pt states pain 8/10. MD aware. pt o2 desat from 96% to 86%. 2L o2 NC placed on patient. o2 now 98%. . Vital Signs: 09/18 22:35 BP 121 / 94; Pulse 110; Resp 18; Temp 98.5; Pulse Ox 100% on R/A; Weight 74.84 kg; mg2 Height 5 ft. 8 in. (172.72 cm); 09/19 00:00 BP 123 / 97; Pulse 108; Resp 18; Pulse Ox 100% on R/A; wh 01:15 BP 116 / 102; Pulse 107; Resp 18; Pulse Ox 99% on R/A; wh 02:16 BP 118 / 93; Pulse 103; Resp 17; Pulse Ox 99% on R/A; mg2 04:00 BP 103 / 89; Pulse 101; Resp 18; Pulse Ox 99% on R/A; wh 09/18 22:35 Body Mass Index 25.09 (74.84 kg, 172.72 cm) mg2 ED Course: 09/18 22:27 Patient arrived in ED. cl3 22:35 Pierce Senior, RN is Primary Nurse. mg2 22:39 Triage completed. mg2 22:40 Joseph Laguerre MD is Attending Physician. otis 22:43 Arm band placed on. mg2 22:43 Patient has correct armband on for positive identification. residential monitor on. Pulse mg2 ox on. NIBP on. 22:43 No provider procedures requiring assistance completed. mg2 09/19 01:46 XRAY Chest (1 view) In Process Unspecified. EDMS 01:59 Ultrasound completed. Patient tolerated well. lc3 01:59 US LE Arterial Bilateral In Process Unspecified. EDMS 02:15 Sampson Chau MD is Hospitalizing Provider. otis 02:39 Truong Chang DO is Hospitalizing Provider. la1 04:11 Lower Ext Angio In Process Unspecified. EDMS 05:27 Patient admitted, IV remains in place. wh 07:05 Primary Nurse role handed off by Pierce Senior, RN bp 07:05 Messi Yee, BERKLEY is Primary Nurse. bp Administered Medications: 00:24 Drug: Zofran (Ondansetron) 4 mg Route: IVP; Site: right antecubital; mg2 02:16 Follow up: Response: No adverse reaction mg2 00:25 Drug: NS 0.9% 1000 ml Route: IV; Rate: 50 ml/hr; Site: right antecubital; mg2 04:29 Follow up: Response: No adverse reaction; IV Status: Infusion continued upon admission 00:25 Drug: Pepcid 20 mg Route: IVP; Site: right antecubital; mg2 02:16 Follow up: Response: No adverse reaction mg2 00:25 Drug: morphine 4 mg Route: IVP; Site: right antecubital; mg2 02:16 Follow up: Response: No adverse reaction mg2 Outcome: 02:17 Decision to Hospitalize by Provider. [facility] 05:27 Admitted to ER Hold. Please see [facility] for further documentation. 05:27 Condition: stable 05:27 Instructed on the need for admit. 08:30 Patient left the ED. bp Signatures: Dispatcher [employer] EDJoseph Woods MD MD cha Attema, Lee, STRIPER MACHINE-C STRIPER MACHINE-Cla1 Kennedy Newby Winsy, RN RN Messi Yee RN RN Pierce Senior RN RN mg2 Abhay Heaton cl3 Wilda James RN RN
[2020-09-19] MEDS ORDERED: ACETAMINOPHEN 500 MG TAB PO PRN (05:23)
[2020-09-19] MEDS ORDERED: GLUCAGON 1 MG/VIAL IM PRN (05:23)
[2020-09-19] MEDS ORDERED: ONDANSETRON 4 MG/2 ML VIAL IV PRN (05:23)
[2020-09-19] MEDS ORDERED: MORPHINE 2 MG/ML SYR IV PRN (05:23)
[2020-09-19] MEDS ORDERED: D50W 25 GM/50 ML SYRINGE IV PRN (05:23)
--- NOTE | 2020-09-19 05:26 | P.HP ---
Certification for Inpatient Patient admitted to: Observation With expected LOS: <2 Midnights Patient will require the following post-hospital care: None Practitioner: I am a practitioner with admitting privileges, knowledge of patient current condition, hospital course, and medical plan of care. Services: Services provided to patient in accordance with Admission requirements found in Title 42 Section 412.3 of the Code of Federal Regulations Patient History Date of Service: 09/19/20 Primary Care Provider: Jacob gibbons, nephrology Dr. campuzano Reason for admission: Severe PVD, bilateral leg pain History of Present Illness: 35-year-old male with history of ESRD on HD, chronic systolic congestive heart failure, diabetes mellitus type 2, hypertension, hyperlipidemia, history of stroke with left-sided hemiparesis on chronic anticoagulation therapy, ischemic bowel with resection, severe PVD presents the emergency department with complaint of bilateral lower extremity pain. Patient reports that pain began eating significantly worse yesterday describes pain as a pressure/tightness. Patient does report a history of neuropathy but states that this pain is strictly different. Upon arrival to the emergency department patient has left foot noted to be cyanotic with poor capillary refill, patient also complaining of pain to right foot but distal circulation appears intact at the extremity. Patient evaluated in the emergency department, workup significant for hyperglycemia blood sugar 282 known ESRD present with a potassium of 4.7 troponin 0.05. BNP 16979 arterial Doppler performed demonstrating severe diffuse atherosclerotic disease especially considering the patient's age without focal stenosis. Preserve arterial flow to the feet. Case was discussed with cardiology by ED physician who recommended CT angiography for further evaluation and admission if the flow is still preserved similar to the arterial Doppler for further evaluation of options. When I saw the patient in the ER he was awake, alert, oriented x3. Pain had somewhat improved, left foot still cool when compared to the right with sluggish capillary refill again when compared to the right. Patient still complaining of pain to bilateral lower extremities. Will admit under observation for further evaluation and management. Allergies No Known Allergies Allergy (Verified 09/19/20 05:28) Home Medications: Allopurinol 300 mg PO BID 07/25/19 Atorvastatin Calcium 40 mg PO BEDTIME 07/25/19 Aspirin Chewable [Aspirin Chewable*] 81 mg PO DAILY #30 tab.chew 07/31/19 Insulin Detemir [Levemir Flextouch] 40 units SQ BID #1 insuln.pen 07/31/19 Metformin HCl 1,000 mg PO BID #60 tablet 07/31/19 Valsartan [Diovan] 80 mg PO DAILY #30 tablet 07/31/19 levETIRAcetam [Keppra*] 500 mg PO BID #60 tab 07/31/19 Carvedilol [Coreg] 25 mg PO BID 08/05/19 Escitalopram [Lexapro*] 20 mg PO DAILY 08/15/19 Furosemide [Lasix] 40 mg PO DAILY 08/15/19 Spironolactone [Aldactone*] 25 mg PO BID #60 tab 08/17/19 - Past Medical/Surgical History Diabetic: Yes -: DM type 2 -: History of CVA with left-sided hemiparesis -: Hypercoagulability on chronic anticoagulation therapy with Coumadin -: Hypertension -: Chronic systolic Congestive heart failure -: ESRD on HD -: History of ischemic bowel with resection -: Severe PVD -: Bowel resection -: Tessio catheter placement right anterior chest wall Psychosocial/ Personal History: Patient disabled, lives with his brother and [id number] - Family History Mother -: Heart disease, Stroke Brother -: Stroke - Social History Smoking Status: Never smoker Alcohol use: Yes CD- Drugs: Yes Caffeine use: No Place of Residence: Home Review of Systems Respiratory: Shortness of Breath, SOB with Excertion Musculoskeletal: Leg Pain (Bilateral leg pain from the hernandez level down described as pressure/tightness) Physical Examination - Physical Exam General: Alert, In no apparent distress, Oriented x3 HEENT: Atraumatic, Normocephalic, PERRLA Neck: Supple Respiratory: Diminished (Bilaterally), Crackles/rales (Bibasilar) Cardiovascular: No edema, Normal pulses, Regular rate/rhythm, Normal S1 S2 Capillary refill: Other (Cap refills of the right foot risk less than 3 seconds, left foot sluggish greater than 4 seconds) Gastrointestinal: Normal bowel sounds, Soft and benign, No tenderness, No masses, No rebound Musculoskeletal: Other (Left foot cool to the touch, appears cyanotic right foot pale but warm with good capillary refill) Integumentary: No significant lesion, No tenderness/swelling, No erythema, No warmth Neurological: Normal speech, Abnormal strength (Left-sided hemiparesis), Abnormal tone (Left-sided hemiparesis) - Studies Laboratory Data (last 24 hrs) 09/19/20 01:00: PT 23.0 H, INR 1.99 09/19/20 01:00: WBC 9.30, Hgb 12.4 L, Hct 40.2, Plt Count 292 09/19/20 01:00: Sodium 136, Potassium 4.7, BUN 50 H, Creatinine 4.72 H, Glucose 282 H, Magnesium 2.5 H D, Total Bilirubin 0.5, AST 14 L, ALT 15, Alkaline Phosphatase 229 H, Lipase 905 H 09/19/20 00:00: PT Cancelled, INR Cancelled 09/19/20 00:00: WBC Cancelled, Hgb Cancelled, Hct Cancelled, Plt Count Cancelled 09/19/20 00:00: Sodium Cancelled, Potassium Cancelled, BUN Cancelled, Creatinine Cancelled, Glucose Cancelled, Magnesium Cancelled, Total Bilirubin Cancelled, AST Cancelled, ALT Cancelled, Alkaline Phosphatase Cancelled, Lipase Cancelled Assessment and Plan - Plan Assessment Severe PVD to bilateral lower extremities with rest pain and cool, cyanotic left lower extremity-preserved arterial flow to the feet bilaterally ESRD on HD Chronic systolic congestive heart failure Diabetes mellitus type 2 with hyperglycemia Hypertension Hyperlipidemia History of CVA secondary to hypercoagulability on chronic anticoagulation therapy with Coumadin Plan Severe PVD to bilateral lower extremities with rest pain and cool, cyanotic left lower extremity-preserved arterial flow to the feet bilaterally: Arterial Doppler demonstrates monophasic flow bilateral lower extremities, left lower extremity: Cool to the touch, mildly cyanotic when compared to the right foot. Case was discussed with cardiology by ED provider who will see the patient to evaluate for possible angiography of the lower extremities. Patient NPO at this time no critical stenosis identified. DVT prophylaxis heparin 5000 subcuta neous twice daily. ESRD on HD: Nephrology consulted to manage hemodialysis. Chronic systolic congestive heart failure: Obtain and continue home medications last echocardiogram demonstrates ejection fraction of around 30%. Cardiology consult in place. Diabetes mellitus type 2 with hyperglycemia: A.c. HS Accu-Cheks, sliding scale insulin therapy. Continue home dose of long-acting insulin, A1c with morning lab. Hypertension: Home medications continued, may need to be adjusted. Hyperlipidemia: Obtain and continue home medications. Lipid panel with morning labs. History of CVA secondary to hypercoagulability on chronic anticoagulation therapy with Coumadin: Continue Coumadin, fall precautions. Discharge Plan: Home Plan to discharge in: 24 Hours - Advance Directives Does patient have a Living Will: No Does patient have a Durable POA for Healthcare: No - Code Status/Comfort Care Code Status Assessed: Yes (Full code) Critical Care: No Time Spent Managing Pts Care (In Minutes): 55
[2020-09-19 05:43] VITALS: BMI 25.0
[2020-09-19] MEDS ORDERED: METOPROLOL XL 25 MG TAB PO SCH (06:00)
[2020-09-19] MEDS: INSULIN -REGULAR HUMAN 50 UNIT/0.5 ML ML SQ SCH ×3 (07:30→16:30)
[2020-09-19] MEDS ORDERED: INFLUENZA VACCINE (for 3y+) 0.5 ML DOSE IMVAC ONE (08:00)
[2020-09-19] MEDS ORDERED: PNEUMOCOCCAL VACCINE 0.5 ML IMVAC ONE (08:00)
[2020-09-19 08:16] LABS: Thyroid Stimulating Hormone 1.47 uIU/mL (0.360-3.740); Troponin I 0.08 ng/mL (0.0-0.045)
--- NOTE | 2020-09-19 08:35 | RAD REPORT ---
EXAM DESCRIPTION: RAD - Chest Single View - 09/19/2020 1:46 am CLINICAL HISTORY: COUGH, hypertension, history of CHF COMPARISON: July 2019November 2018 TECHNIQUE: AP portable chest image was obtained 09/19/2020 1:46 am . FINDINGS: Lung volumes are low accentuating heart, vasculature and lung markings. Cardiomegaly is pr esent accentuated by the low lung volume. Double-lumen dialysis catheter is in place on the right. Mi ld failure or volume overload could be masked in this setting. Trachea is midline. No measurable pleural effusion and no pneumothorax. No acute bony abnormality se en. No acute aortic findings suspected. IMPRESSION: Limited low lung volume examination showing no peripheral mass or consolidation. Mild failure or volume overload can be masked in this setting.
[2020-09-19 08:41] VITALS: O2SAT 99
--- NOTE | 2020-09-19 08:45 | P.PN ---
Subjective Date of Service: 09/19/20 Primary Care Provider: [facility], nephrology Dr. campuzano Chief Complaint: Severe PVD, bilateral leg pain Subjective: Other (Patient stable. Some pain noted to the legs bilateral.) Physical Examination - Vital Signs Temperature: 98.5 F Blood Pressure: 104/89 Pulse: 88 Respirations: 18 - Studies Laboratory Data (last 24 hrs) 09/19/20 01:00: PT 23.0 H, INR 1.99 09/19/20 01:00: WBC 9.30, Hgb 12.4 L, Hct 40.2, Plt Count 292 09/19/20 01:00: Sodium 136, Potassium 4.7, BUN 50 H, Creatinine 4.72 H, Glucose 282 H, Magnesium 2.5 H D, Total Bilirubin 0.5, AST 14 L, ALT 15, Alkaline Phosphatase 229 H, Lipase 905 H 09/19/20 00:00: PT Cancelled, INR Cancelled 09/19/20 00:00: WBC Cancelled, Hgb Cancelled, Hct Cancelled, Plt Count Cancelled 09/19/20 00:00: Sodium Cancelled, Potassium Cancelled, BUN Cancelled, Creatinine Cancelled, Glucose Cancelled, Magnesium Cancelled, Total Bilirubin Cancelled, AST Cancelled, ALT Cancelled, Alkaline Phosphatase Cancelled, Lipase Cancelled Assessment & Plan Discharge Plan: Home Plan to discharge in: 24 Hours Physician Review Additional Text: Physical exam: Patient alert, cooperative. Heart: Regular rate and rhythm Lungs: Clear to auscultation Abdomen: Soft nontender nondistended Extremities: No significant edema noted to the lower extremities. Extremities appear warm. No evidence of cyanosis or necrosis. Some pain with palpation to the lower extremities. Assessment Pain to the right lower extremity with noted Severe PVD ESRD on HD Chronic systolic congestive heart failure Diabetes mellitus type 2 with hyperglycemia Hypertension Hyperlipidemia History of CVA secondary to hypercoagulability on chronic anticoagulation therapy with Coumadin Plan Pain to the right lower extremity with noted Severe PVD: Continue with pain medication. Spoke with cardiology after review of CT scan. CT angiogram of the lower extremity showed long segment occlusion of the right tibial perineal trunk with reconstitution of flow via collateral vessels. There is also high-grade approximate 80% stenosis of the origin of the right anterior tibial artery. There is reconstitution of blood flow distally to the lower drain with blood flow to the foot in the anterior tibial artery and dorsalis pedis artery. There is also multiple levels of high grade stenosis throughout the right posterior tibial artery. No definitive evidence of flow-limiting stenosis in the left lower extremity noted. This was discussed in detail with cardiology. No intervention needed at this time. Patient is on Coumadin. This appears therapeutic. Continue with Coumadin at this time. Will provide medication for pain. Patient may follow up with cardiology as an outpatient to further evaluate. 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 Anticipate discharge later today after dialysis. ESRD on HD: Will discuss with nephrology. Anticipate dialysis today prior to discharge. Chronic systolic congestive heart failure: Continue with 1500 cc per day fluid restriction. No intervention needed at this time. Reports of ejection fraction around 30%. Diabetes mellitus type 2 with hyperglycemia: Continue Accu-Cheks. Restart home medication. Hypertension: Restart home medication Hyperlipidemia: Restart home medication History of CVA secondary to hypercoagulability on chronic anticoagulation therapy with Coumadin: Restart Coumadin. Maintain INR between 2 and 3. Elvis nue with above recommendations. Will discuss with nephrology. Time Spent Managing Pts Care (In Minutes): 55
[2020-09-19] MEDS ORDERED: ASPIRIN EC 81 MG TAB PO SCH (09:00)
[2020-09-19] MEDS ORDERED: SERTRALINE HCL 100 MG TAB PO SCH (09:00)
[2020-09-19] MEDS ORDERED: DOCUSATE NA 100 MG CAP PO SCH (09:00)
[2020-09-19] MEDS: SEVELAMER CARBONATE 800 MG TABLET PO SCH ×3 (09:44→18:41)
--- NOTE | 2020-09-19 10:19 | RAD REPORT ---
EXAM DESCRIPTION: US - Lower Extremity Arterial Bilat - 09/19/2020 2:00 am CLINICAL HISTORY: Leg pain COMPARISON: None Available. TECHNIQUE: CTA of the abdominal aorta with bilateral lower extremity runoff obtained following the u ncomplicated intravenous administration of iodinated contrast. 3-D/MIP reformatted images available. This exam was performed according to our departmental dose-optimization program, which includes autom ated exposure control, adjustment of the mA and/or kV according to patient size and/or use of iterati ve reconstruction technique. Suboptimal contrast bolus timing as there was infiltration of the IV dur ing the examination. FINDINGS: Bones: No destructive bone lesions identified. CTA: The abdominal aorta has normal caliber with mild nonflow-limiting atherosclerotic plaque. The celiac, superior mesenteric, and inferior mesenteric arteries are patent. The renal arteries are patent. The re is in-line flow within the abdominal aorta and the common iliac, external iliac, common femoral ar teries without flow-limiting stenosis. The internal iliac arteries are patent. Atherosclerotic plaque. There is blood flow from the right common femoral artery to the superficial femoral and popliteal a rteries without flow-limiting stenosis. Calcified atherosclerotic plaque. The profunda femoral artery is patent proximally. The popliteal artery bifurcates into the tibial peroneal trunk and anterior ti bial artery. There is high-grade approximately 80% stenosis at the origin of the right anterior tibia l artery. Collateral blood supply reconstitutes the anterior tibial artery which is otherwise patent. Atherosclerotic plaque. There is long segment occlusion of the tibial peroneal trunk with reconstitu tion of flow via collateral vessels. The peroneal artery is then patent to the level of the ankle. Th ere appears to be intermittent reconstitution of the blood flow in the posterior tibial artery but th ere are likely multiple levels of high-grade stenosis or occlusion throughout the right posterior tib ial artery. There is blood flow from the left common femoral artery to the superficial femoral and popliteal ar teries without flow-limiting stenosis. Calcified atherosclerotic plaque. The profunda femoral artery is patent proximally. The popliteal artery bifurcates into the tibial peroneal trunk and anterior tib ial artery. There is blood flow throughout the visualized anterior tibial, posterior tibial, and tiffanie peter arteries in the left lower extremity. Extensive calcified atherosclerotic plaque. Abdomen: Liver: The visualized liver demonstrates no definite abnormalities. Gallbladder: Small calcified gallstone. Spleen, Pancreas, and Adrenal Glands: Visualized portions of the spleen, pancreas, and adrenal glan ds are unremarkable. Kidneys: No hydronephrosis or obstructing calculus. Vasculature: Normal caliber IVC. Visualized portions of the portal vein are patent. Stomach: No definite abnormalities of the visualized stomach. Other: No free intraperitoneal air. Moderate amount of free fluid. Pelvis: Bladder: Wall thickening of the urinary bladder. Bowel: Mildly dilated loop of small bowel in the left abdomen without well-defined transition point . The bowel proximal to this is not dilated. Well-circumscribed calcific structure in the lower abdom inal mesentery may represent an area of remote fat necrosis. Appendix: Normal appendix. Pelvis: Prostate is not enlarged. IMPRESSION: 1. There is long segment occlusion of the right tibial peroneal trunk with reconstitut ion of flow via collateral vessels. 2. There is high-grade approximately 80% stenosis at the origin of the right anterior tibial artery . There is reconstitution of flow distal to the origin with blood flow to the foot in the anterior ti bial artery and dorsalis pedis artery. 3. There appears to be multiple levels of high-grade stenosis or occlusion throughout the right pos terior tibial artery. 4. No definite evidence of flow-limiting stenosis in the left lower extremity. 5. Mildly dilated loop of small bowel in the left abdomen without well-defined transition point lamont ntified. This may represent ileus however early partial small bowel obstruction could produce this ap pearance. Continued radiographic follow-up recommended. 6. Wall thickening of the urinary bladder. This could be seen with cystitis. Correlation with urina lysis recommended. 7. Moderate amount of free fluid in the abdomen. 8. Cholelithiasis. 9. The combination of extensive vascular wall calcification throughout the lower extremities and gautam boptimal contrast bolus volume may decrease sensitivity for flow-limiting stenoses. Catheter based an giography may be required for definitive characterization of the trifurcated vessels. Electronically signed by: Yao Tijerina 09/19/2020 5:07 AM LENS BLANK GAUGER Due to temporary technical issues with the PACS/Fluency reporting system, reports are being signed by the in house radiologist without review as a courtesy to ensure prompt reporting. The interpreting r adiologist is fully responsible for the content of the report.
[2020-09-19 12:18] VITALS: BP 121/66; TEMP 98.1
--- NOTE | 2020-09-19 14:41 | P.DS ---
Admission Date: 09/19/20 Discharge Date: 09/19/20 Primary Care Provider: [facility], Nephrology-Dr. Hull Disposition: ROUTINE DISCHARGE Discharge Condition: GOOD Reason for Admission: Severe PVD, bilateral leg pain Consultations: Nephrology-Dr. Hull Cardiology-Dr. Samuels Procedures: COVID: Negative CT scan: FINDINGS: Bones: No destructive bone lesions identified. CTA: The abdominal aorta has normal caliber with mild nonflow-limiting atherosclerotic plaque. The celiac, superior mesenteric, and inferior mesenteric arteries are patent. The renal arteries are patent. There is in-line flow within the abdominal aorta and the common iliac, external iliac, common femoral arteries without flow-limiting stenosis. The internal iliac arteries are patent. Atherosclerotic plaque. There is blood flow from the right common femoral artery to the superficial femoral and popliteal arteries without flow-limiting stenosis. Calcified atherosclerotic plaque. The profunda femoral artery is patent proximally. The popliteal artery bifurcates into the tibial peroneal trunk and anterior tibial artery. There is high-grade approximately 80% stenosis at the origin of the right anterior tibial artery. Collateral blood supply reconstitutes the anterior tibial artery which is otherwise patent. Atherosclerotic plaque. There is long segment occlusion of the tibial peroneal trunk with reconstitution of flow via collateral vessels. The peroneal artery is then patent to the level of the ankle. There appears to be intermittent reconstitution of the blood flow in the posterior tibial artery but there are likely multiple levels of high-grade stenosis or occlusion throughout the right posterior tibial artery. There is blood flow from the left common femoral artery to the superficial femoral and popliteal arteries without flow-limiting stenosis. Calcified atherosclerotic plaque. The profunda femoral artery is patent proximally. The popliteal artery bifurcates into the tibial peroneal trunk and anterior tibial artery. There is blood flow throughout the visualized anterior tibial, posterior tibial, and peroneal arteries in the left lower extremity. Extensive calcified atherosclerotic plaque. Abdomen: Liver: The visualized liver demonstrates no definite abnormalities. Gallbladder: Small calcified gallstone. Spleen, Pancreas, and Adrenal Glands: Visualized portions of the spleen, pancreas, and adrenal glands are unremarkable. Kidneys: No hydronephrosis or obstructing calculus. Vasculature: Normal caliber IVC. Visualized portions of the portal vein are patent. Stomach: No definite abnormalities of the visualized stomach. Other: No free intraperitoneal air. Moderate amount of free fluid. Pelvis: Bladder: Wall thickening of the urinary bladder. Bowel: Mildly dilated loop of small bowel in the left abdomen without well- defined transition point. The bowel proximal to this is not dilated. Well- circumscribed calcific structure in the lower abdominal mesentery may represent an area of remote fat necrosis. Appendix: Normal appendix. Pelvis: Prostate is not enlarged. IMPRESSION: 1. There is long segment occlusion of the right tibial peroneal trunk with reconstitution of flow via collateral vessels. 2. There is high-grade approximately 80% stenosis at the origin of the right anterior tibial artery. There is reconstitution of flow distal to the origin with blood flow to the foot in the anterior tibial artery and dorsalis pedis artery. 3. There appears to be multiple levels of high-grade stenosis or occlusion throughout the right posterior tibial artery. 4. No definite evidence of flow-limiting stenosis in the left lower extremity. 5. Mildly dilated loop of small bowel in the left abdomen without well-defined transition point identified. This may represent ileus however early partial small bowel obstruction could produce this appearance. Continued radiographic follow-up recommended. 6. Wall thickening of the urinary bladder. This could be seen with cystitis. Correlation with urinalysis recommended. 7. Moderate amount of free fluid in the abdomen. 8. Cholelithiasis. 9. The combination of extensive vascular wall calcification throughout the lower extremities and suboptimal contrast bolus volume may decrease sensitivity for flow-limiting stenoses. Catheter based angiography may be required for definitive characterization of the trifurcated vessels. Medical Problem List: Pain to the right lower extremity with noted Severe PVD ESRD on HD Chronic systolic congestive heart failure Diabetes mellitus type 2 with hyperglycemia Hypertension Hyperlipidemia History of CVA secondary to hypercoagulability on chronic anticoagulation therapy with Coumadin Seizure disorder Brief History of Present Illness: 35-year-old male with history of ESRD on HD, chronic systolic congestive heart failure, diabetes mellitus type 2, hypertension, hyperlipidemia, history of stroke with left-sided hemiparesis on chronic anticoagulation therapy, ischemic bowel with resection, severe PVD presents the emergency department with complaint of bilateral lower extremity pain. Patient reports that pain began eating significantly worse yesterday describes pain as a pressure/tightness. Patient does report a history of neuropathy but states that this pain is strictly different. Upon arrival to the emergency department patient has left foot noted to be cyanotic with poor capillary refill, patient also complaining of pain to right foot but distal circulation appears intact at the extremity. Patient evaluated in the emergency department, workup significant for hyperglycemia blood sugar 282 known ESRD present with a potassium of 4.7 troponin 0.05. BNP 84754 arterial Doppler performed demonstrating severe diffuse atherosclerotic disease especially considering the patient's age without focal stenosis. Preserve arterial flow to the feet. Patient was admitted for further evaluation and treatment. Hospital Course: Patient presented with Pain to the right lower extremity. Patient with severe PVD. Patient on chronic anti coagulation therapy-Coumadin for history of CVA secondary to hypercoagulability. Patient was seen and evaluated. Case discussed with cardiology. CT scan showed long segment occlusion of the right tibial peroneal trunk with reconstitution of flow via collateral vessels. There is also high-grade approximate 80% stenosis of the origin of the right anterior tibial artery. There is reconstitution of blood flow distally to the lower drain with blood flow to the foot in the anterior tibial artery and dorsalis pedis artery. There is also multiple levels of high grade stenosis throughout the right posterior tibial artery. No definitive evidence of flow-limiting stenosis in the left lower extremity noted. This was discussed in detail with cardiology. No intervention needed at this time. Patient is on Coumadin. This appears therapeutic. At discharge patient may continue with Coumadin 2.5 mg daily. Patient also to continue with aspirin 81 mg daily. Recommend INR to remain between 2 and 3. This can be monitored closely by nephrology during dialysis. During the course of his stay patient received dialysis. Case discussed with nephrology. At discharge patient will be provided tramadol 50 mg 3 times a day as needed for pain. A limited supply will be provided. Recommend follow up with cardiology in 1-2 weeks to follow up this hospitalization. Patient may require chronic pain management referral to help with chronic pain. Patient with end-stage renal disease on hemodialysis. This appears stable. Patient did receive dialysis during the course of his stay. Patient will continue with dialysis as directed. Patient will continue with Renvela 1600 mg 3 times a day. Recommend no further use of nonsteroidal anti-inflammatories. Future medications will need to be renally dose. Patient with chronic systolic CHF. Patient will continue with a 1500 cc per day fluid restriction and low-salt diet. Recommend to monitor weight daily. Recommend follow up with Nephrology to monitor and adjust fluids. Patient with diabetes mellitus type 2 with hyperglycemia. Patient will continue with his current medications-Lantus 10 units subcu daily. Recommend to maintain blood sugars less than 140 fasting and less than 200 meals. Further adjustment can be done by his PCP. Patient with hypertension. At discharge patient will continue with mxibphupjt-Fqnoue-HO 12.5 mg daily. Patient with hyperlipidemia. At discharge he will continue with his current medication-pravastatin 40 mg daily. Patient also with depression. At discharge patient may continue with Zoloft 100 mg daily. Patient also with history of seizures. At discharge patient will continue with Vimpat 100 mg twice daily. Vital Signs/Physical Exam: Temp Pulse Resp BP Pulse Ox 98.1 F 90 18 121/66 99 09/19/20 12:00 09/19/20 12:00 09/19/20 12:00 09/19/20 12:00 09/19/20 12:00 General: Alert, In no apparent distress, Oriented x3, Cooperative HEENT: Atraumatic Neck: Supple Respiratory: Clear to auscultation bilaterally, Normal air movement Cardiovascular: Normal pulses, Regular rate/rhythm Gastrointestinal: Normal bowel sounds, No tenderness, No masses, No rebound, No guarding Integumentary: Other (Circulation to the lower extremity appears uncompromised.) Neurological: Normal speech, Normal strength at 5/5 x4 extr, Normal tone, Normal affect Laboratory Data at Discharge: WBC 9.30 K/uL (4.3-10.9) 09/19/20 01:00 Hgb 12.4 g/dL (13.6-17.9) L 09/19/20 01:00 Hct 40.2 % (39.6-49.0) 09/19/20 01:00 Plt Count 292 K/uL (152-406) 09/19/20 01:00 PT 23.0 SECONDS (9.5-12.5) H 09/19/20 01:00 INR 1.99 09/19/20 01:00 Sodium 136 mmol/L (136-145) 09/19/20 01:00 Potassium 4.7 mmol/L (3.5-5.1) 09/19/20 01:00 BUN 50 mg/dL (7-18) H 09/19/20 01:00 Creatinine 4.72 mg/dL (0.55-1.3) H 09/19/20 01:00 Glucose 282 mg/dL (74-106) H 09/19/20 01:00 Magnesium 2.5 mg/dL (1.8-2.4) H D 09/19/20 01:00 Total Bilirubin 0.5 mg/dL (0.2-1.0) 09/19/20 01:00 AST 14 U/L (15-37) L 09/19/20 01:00 ALT 15 U/L (12-78) 09/19/20 01:00 Alkaline Phosphatase 229 U/L (45-117) H 09/19/20 01:00 Troponin I 0.08 ng/mL (0.0-0.045) H 09/19/20 14:00 Triglycerides 106 mg/dL (<150) 09/19/20 07:30 Cholesterol 74 mg/dL (<200) 09/19/20 07:30 HDL Cholesterol 35 mg/dL (40-60) L 09/19/20 07:30 Cholesterol/HDL Ratio 2.11 09/19/20 07:30 Lipase 905 U/L (73-393) H 09/19/20 01:00 Home Medications: Aspirin 1 tab PO DAILY 09/19/20 Docusate Sodium 200 mg PO BID 09/19/20 Insulin Glargine,Hum.rec.anlog [Lantus] 10 units SQ DAILY 09/19/20 Lacosamide [Vimpat] 100 mg PO BID 09/19/20 Metoprolol Succinate [Toprol Xl*] 12.5 mg PO DAILY 09/19/20 Pravastatin Sodium 40 mg PO BEDTIME 09/19/20 Sertraline [Zoloft*] 100 mg PO DAILY 09/19/20 Sevelamer Carbonate [Renvela] 1,600 mg PO TIDWM 09/19/20 Warfarin Sodium [Coumadin*] 2.5 mg PO DAILY 09/19/20 traMADol HCL [Ultram*] 50 mg PO BID PRN #5 tab 09/19/20 New Medications: traMADol HCL [Ultram*] 50 mg PO BID PRN #5 tab PRN Reason: Pain Physician Discharge Instructions: Patient presented with Pain to the right lower extremity. Patient with severe PVD. Patient on chronic anti coagulation therapy-Coumadin for history of CVA secondary to hyper coagulability. Patient was seen and evaluated. Case discussed with cardiology. CT scan showed long segment occlusion of the right tibial peroneal trunk with reconstitution of flow via collateral vessels. There is also high-grade approximate 80% stenosis of the origin of the right anterior tibial artery. There is reconstitution of blood flow distally to the lower drain with blood flow to the foot in the anterior tibial artery and dorsalis pedis artery. There is also multiple levels of high grade stenosis throughout the right posterior tibial artery. No definitive evidence of flow-limiting stenosis in the left lower extremity noted. This was discussed in detail with cardiology. No intervention needed at this time. Patient is on Coumadin. This appears therapeutic. At discharge patient may continue with Coumadin. Recom mend INR to remain between 2 and 3. This can be monitored closely by nephrology. During the course of his stay patient received dialysis. Case discussed with nephrology. At discharge patient will be provided tramadol 50 mg 3 times a day as needed for pain. A limited supply will be provided. Recommend follow up with cardiology in 1-2 weeks to follow up this hospitalization. Patient may require chronic pain management referral to help with chronic pain. Patient with end-stage renal disease on hemodialysis. This appears stable. Patient did receive dialysis during the course of his stay. Patient will continue with dialysis as directed. Patient with chronic systolic CHF. Patient will continue with a 1500 cc per day fluid restriction and low-salt diet. Recommend to monitor weight daily. Recommend follow up with Nephrology to monitor and adjust fluids. Patient with diabetes mellitus type 2 with hyperglycemia. Patient will continue with his current medications. Recommend to maintain blood sugars less than 140 fasting and less than 200 meals. Further adjustment can be done by his PCP. Patient with hypertension. At discharge patient will continue with medication. Patient with hyperlipidemia. At discharge he will continue with his current medication. Diet: AHA Activity: Fall precautions Followup: NONE,NONE [Primary Care Provider] - Time spent managing pt's care (in minutes): 55
[2020-09-19] MEDS ORDERED: WARFARIN SODIUM 2.5 MG TAB PO SCH (17:00)
[2020-09-19] MEDS ORDERED: D50W 25 GM/50 ML VIAL IV PRN (17:30)
[2020-09-19] MEDS ORDERED: LACOSAMIDE 100 MG PO SCH (21:00)
[2020-09-19] MEDS ORDERED: LACOSAMIDE 50 MG TABLET PO SCH (21:00)
[2020-09-19] MEDS ORDERED: INSULIN GLARGINE 100 UNITS/ML SQ SCH (21:00)
[2020-09-19] MEDS ORDERED: HOME MED 1 EA UNK (Pravastatin Sodium [Pravastatin Sodium] 40 MG Tablet) PO SCH (21:00)
[2020-09-19] MEDS ORDERED: ATORVASTATIN 10 MG TAB PO SCH (21:00)
--- NOTE | 2020-09-19 21:47 | P.CNS ---
Date of Consult: 09/19/20 Reason for Consult: ESRD Requesting Physician: Truong Chang Primary Care Provider: [facility], Nephrology-Dr. Hull Chief Complaint: Severe PVD, bilateral leg pain History of Present Illness: 35-year-old male with history of ESRD on HD, chronic systolic congestive heart failure, diabetes mellitus type 2, hypertension, hyperlipidemia, history of stroke with left-sided hemiparesis on chronic anticoagulation therapy, ischemic bowel with resection, severe PVD presents the emergency department with complaint of bilateral lower extremity pain. Patient reports that pain began eating significantly worse yesterday describes pain as a pressure/tightness. Patient does report a history of neuropathy but states that this pain is strictly different. Upon arrival to the emergency department arnol nuñez has left foot noted to be cyanotic with poor capillary refill, patient also complaining of pain to right foot but distal circulation appears intact at the extremity. Patient evaluated in the emergency department, workup significant for hyperglycemia blood sugar 282 known ESRD present with a potassium of 4.7 troponin 0.05. BNP 89433 arterial Doppler performed demonstrating severe diffuse atherosclerotic disease especially considering the patient's age without focal stenosis. Preserve arterial flow to the feet. Case was discussed with cardiology by ED physician who recommended CT angiography for further evaluation and admission if the flow is still preserved similar to the arterial Doppler for further evaluation of options. 00:01 This 35 yrs old Male presents to ER via EMS with complaints of Foot Pain. otis 00:01 The patient presents with pain, that is acute. The complaints affect the right leg and otis left leg. Context: The problem was sustained at home. Onset: The symptoms/episode began/occurred 2 day(s) ago. Modifying factors: The symptoms are alleviated by nothing, the symptoms are aggravated by nothing. Associated signs and symptoms: The patient has no apparent associated signs or symptoms. Severity of symptoms: At their worst the symptoms were moderate, severe, in the emergency department the symptoms are unchanged. The patient has experienced similar episodes in the past, several times. Allergies No Known Allergies Allergy (Verified 09/19/20 05:28) Home medications list reviewed: Yes Home Medications: Aspirin 1 tab PO DAILY 09/19/20 Docusate Sodium 200 mg PO BID 09/19/20 Insulin Glargine,Hum.rec.anlog [Lantus] 10 units SQ DAILY 09/19/20 Lacosamide [Vimpat] 100 mg PO BID 09/19/20 Metoprolol Succinate [Toprol Xl*] 12.5 mg PO DAILY 09/19/20 Pravastatin Sodium 40 mg PO BEDTIME 09/19/20 Sertraline [Zoloft*] 100 mg PO DAILY 09/19/20 Sevelamer Carbonate [Renvela] 1,600 mg PO TIDWM 09/19/20 Warfarin Sodium [Coumadin*] 2.5 mg PO DAILY 09/19/20 traMADol HCL [Ultram*] 50 mg PO BID PRN #5 tab 09/19/20 - Past Medical/Surgical History Diabetic: Yes -: DM type 2 -: History of CVA with left-sided hemiparesis -: Hypercoagulability on chronic anticoagulation therapy with Coumadin -: Hypertension -: Chronic systolic Congestive heart failure -: ESRD on HD -: History of ischemic bowel with resection -: Severe PVD -: Bowel resection -: Tessio catheter placement right anterior chest wall Psychosocial/ Personal History: Patient disabled, lives with his brother and [id number] - Family History Mother Medical History: Heart disease, Stroke Brother Medical History: Stroke - Social History Smoking Status: Current some day smoker Alcohol use: Yes CD- Drugs: Yes Caffeine use: No Place of Residence: Home Review of Systems 10-point ROS is otherwise unremarkable General: Weakness, Malaise Musculoskeletal: Foot Pain Neurological: Weakness Physical Examination Temp Pulse Resp BP Pulse Ox 98.1 F 90 18 121/66 99 09/19/20 12:00 09/19/20 12:00 09/19/20 12:00 09/19/20 12:00 09/19/20 12:00 General: In no apparent distress, Oriented x3, Cooperative HEENT: Atraumatic Neck: Supple Respiratory: Clear to auscultation bilaterally Cardiovascular: No edema, Regular rate/rhythm Gastrointestinal: Soft and benign, Non-distended Musculoskeletal: No clubbing Integumentary: No rashes, No cyanosis Neurological: Normal speech Laboratory Data (last 24 hrs) 09/19/20 01:00: PT 23.0 H, INR 1.99 09/19/20 01:00: WBC 9.30, Hgb 12.4 L, Hct 40.2, Plt Count 292 09/19/20 01:00: Sodium 136, Potassium 4.7, BUN 50 H, Creatinine 4.72 H, Glucose 282 H, Magnesium 2.5 H D, Total Bilirubin 0.5, AST 14 L, ALT 15, Alkaline Phosphatase 229 H, Lipase 905 H 09/19/20 00:00: PT Cancelled, INR Cancelled 09/19/20 00:00: WBC Cancelled, Hgb Cancelled, Hct Cancelled, Plt Count Cancelled 09/19/20 00:00: Sodium Cancelled, Potassium Cancelled, BUN Cancelled, Creatinine Cancelled, Glucose Cancelled, Magnesium Cancelled, Total Bilirubin Cancelled, AST Cancelled, ALT Cancelled, Alkaline Phosphatase Cancelled, Lipase Cancelled Imagings Data: EXAM DESCRIPTION: RAD - Chest Single View - 09/19/2020 1:46 am CLINICAL HISTORY: COUGH, hypertension, history of CHF COMPARISON: July 2019, November 2018 TECHNIQUE: AP portable chest image was obtained 09/19/2020 1:46 am . FINDINGS: Lung volumes are low accentuating heart, vasculature and lung markings. Cardiomegaly is present accentuated by the low lung volume. Double- lumen dialysis catheter is in place on the right. Mild failure or volume overload could be masked in this setting. Trachea is midline. No measurable pleural effusion and no pneumothorax. No acute bony abnormality seen. No acute aortic findings suspected. IMPRESSION: Limited low lung volume examination showing no peripheral mass or consolidation. Mild failure or volume overload can be masked in this setting. EXAM DESCRIPTION: US - Lower Extremity Arterial Bilat - 09/19/2020 2:00 am CLINICAL HISTORY: Leg pain COMPARISON: None Available. TECHNIQUE: CTA of the abdominal aorta with bilateral lower extremity runoff obtained following the uncomplicated intravenous administration of iodinated contrast. 3-D/MIP reformatted images available. This exam was performed according to our departmental dose-optimization program, which includes automated exposure control, adjustment of the mA and/or kV according to patient size and/or use of iterative reconstruction technique. Suboptimal contrast bolus timing as there was infiltration of the IV during the examination. FINDINGS: Bones: No destructive bone lesions identified. CTA: The abdominal aorta has normal caliber with mild nonflow-limiting atherosclerotic plaque. The celiac, superior mesenteric, and inferior mesenteric arteries are patent. The renal arteries are patent. There is in-line flow within the abdominal aorta and the common iliac, external iliac, common femoral arteries without flow-limiting stenosis. The internal iliac arteries are patent. Atherosclerotic plaque. There is blood flow from the right common femoral artery to the superficial femoral and popliteal arteries without flow-limiting stenosis. Calcified atherosclerotic plaque. The profunda femoral artery is patent proximally. The popliteal artery bifurcates into the tibial peroneal trunk and anterior tibial artery. There is high-grade approximately 80% stenosis at the origin of the right anterior tibial artery. Collateral blood supply reconstitutes the anterior tibial artery which is otherwise patent. Atherosclerotic plaque. There is long segment occlusion of the tibial peroneal trunk with reconstitution of flow via collateral vessels. The peroneal artery is then patent to the level of the ankle. There appears to be intermittent reconstitution of the blood flow in the posterior tibial artery but there are likely multiple levels of high-grade stenosis or occlusion throughout the right posterior tibial artery. There is blood flow from the left common femoral artery to the superficial femoral and popliteal arteries without flow-limiting stenosis. Calcified atherosclerotic plaque. The profunda femoral artery is patent proximally. The popliteal artery bifurcates into the tibial peroneal trunk and anterior tibial artery. There is blood flow throughout the visualized anterior tibial, posterior tibial, and peroneal arteries in the left lower extremity. Extensive calcified atherosclerotic plaque. Abdomen: Liver: The visualized liver demonstrates no definite abnormalities. Gallbladder: Small calcified gallstone. Spleen, Pancreas, and Adrenal Glands: Visualized portions of the spleen, pancreas, and adrenal glands are unremarkable. Kidneys: No hydronephrosis or obstructing calculus. Vasculature: Normal caliber IVC. Visualized portions of the portal vein are patent. Stomach: No definite abnormalities of the visualized stomach. Other: No free intraperitoneal air. Moderate amount of free fluid. Pelvis: Bladder: Wall thickening of the urinary bladder. Bowel: Mildly dilated loop of small bowel in the left abdomen without well- defined transition point. The bowel proximal to this is not dilated. Well- circumscribed calcific structure in the lower abdominal mesentery may represent an area of remote fat necrosis. Appendix: Normal appendix. Pelvis: Prostate is not enlarged. IMPRESSION: 1. There is long segment occlusion of the right tibial peroneal trunk with reconstitution of flow via collateral vessels. 2. There is high-grade approximately 80% stenosis at the origin of the right anterior tibial artery. There is reconstitution of flow distal to the origin with blood flow to the foot in the anterior tibial artery and dorsalis pedis artery. 3. There appears to be multiple levels of high-grade stenosis or occlusion throughout the right posterior tibial artery. 4. No definite evidence of flow-limiting stenosis in the left lower extremity. 5. Mildly dilated loop of small bowel in the left abdomen without well-defined transition point identified. This may represent ileus however early partial small bowel obstruction could produce this appearance. Continued radiographic follow-up recommended. 6. Wall thickening of the urinary bladder. This could be seen with cystitis. Correlation with urinalysis recommended. 7. Moderate amount of free fluid in the abdomen. 8. Cholelithiasis. 9. The combination of extensive vascular wall calcification throughout the lower extremities and suboptimal contrast bolus volume may decrease sensitivity for flow-limiting stenoses. Catheter based angiography may be required for definitive characterization of the trifurcated vessels. Conclusions/Impression: A/ ESRD on HD HTN with CKD/ CHF Diastolic CHF, chronic. DM II with CKD Moderate malnutrition Anemia in CKD JAYSON/ Secondary HyperPTH P/ Continue current POC and Medications Arrange for acute HD Follow up with cardiology for PAD/ CAD. Renal diet. Continue Lantus. Continue metoprolol Continue Renvela. No NSAIDs. AM labs. Daily weight. Thank you kindly for the consultation. Case reviewed with Dr. Chang.
[2020-09-20] MEDS ORDERED: HEPARIN 5000 UNIT/ML 1 ML VIAL SQ SCH (09:00)
== END 2020-09-19 19:30 | disposition home or self-care (01) ==
LOC: ER 22:25 → ERHOLD 09-19 05:11 → 2ND 09-19 08:12
PROVIDERS: ADMIT Family Medicine; ATTEND Family Medicine
DX: E11.51 Type 2 diabetes mellitus with diabetic peripheral angiopathy without gangrene (principal); E11.65 Type 2 diabetes mellitus with hyperglycemia; I13.2 Hypertensive heart and chronic kidney disease with heart failure and with stage 5 chronic kidney disease, or end stage renal disease; N18.6 End stage renal disease; Z99.2 Dependence on renal dialysis; I50.22 Chronic systolic (congestive) heart failure; Z20.822 Contact with and (suspected) exposure to COVID-19; M79.604 Pain in right leg; E78.5 Hyperlipidemia, unspecified; G40.909 Epilepsy, unspecified, not intractable, without status epilepticus; I69.354 Hemiplegia and hemiparesis following cerebral infarction affecting left non-dominant side; Z79.01 Long term (current) use of anticoagulants; Z79.4 Long term (current) use of insulin; E44.0 Moderate protein-calorie malnutrition; D63.1 Anemia in chronic kidney disease; N25.81 Secondary hyperparathyroidism of renal origin; Z68.25 Body mass index [BMI] 25.0-25.9, adult
CPT/HCPCS: 93005; 87040 ×2; 85025; 80048; 36415; 83735; 87205 ×2; 85610; 80061; 82947 ×3; 80076; 83605; 84443; 83036; 84484 ×3; 84439; 83690; 83880; 73706; 71045; 90935; 93925; U0003; Q9967; J1644; J7030; J2405; 96361; 96374; 96375; 99285; G0257; G0378

== ENCOUNTER 2020-11-10 09:08 | Emergency (ER) | payer OTHER ==
--- OUTSIDE RECORDS SUMMARY | 2020-11-10 09:10 | XMS REPORT | Continuity of Care Document ---
:1985 Author Organization [facility] t Address [address] [place] [address] Care Team Providers Name Role Phone Lucía DALY, Margarito Attending Clinician Doctor Unassigned, Name Attending Clinician Unavailable Problems This patient has no known problems. Allergies, Adverse Reactions, Alerts This patient has no known allergies or adverse reactions. Medications This patient has no known medications. Procedures This patient has no known procedures. Encounters Start End Encounter Admission Attending Care Care Encounter Source Date/Time Date/Time Type Type Clinicians Facility Department ID 2020-10-21 2020-10-21 TIEN Mosley [id number] 00:00:00 00:00:00 (Out) Mg Johnson [id number] [place] [id number] [facility] [id number] nal 092 [facility] 2020-10-16 2020-10-16 Orders Doctor LIM [id number] 00:00:00 00:00:00 Only UnassignedJOHNNIE [id number] [place] [id number] 2020-05-23 2020-05-23 Orders Doctor LIM [id number] 00:00:00 00:00:00 Only UnassignedJOHNNIE [id number] [place] [id number] 2019-03-06 2019-03-06 Orders Doctor CARINA [id number] 00:00:00 00:00:00 Only Unassigned, JOHNNIE [id number] [place] [facility] [id number] Results This patient has no known results.
[2020-11-10] MEDS ORDERED: CHLORPROMAZINE 25 MG TAB PO ONE (09:45)
--- NOTE | 2020-11-10 09:55 | RAD REPORT ---
EXAM DESCRIPTION: RAD - Chest Single View - 11/10/2020 9:49 am CLINICAL HISTORY: SOB Chest pain. COMPARISON: Chest Single View dated 09/19/2020; Chest Single View dated 08/15/2019; Chest Single View d ated 08/05/2019; Chest Single View dated 07/24/2019 FINDINGS: Portable technique limits examination quality. The lungs are underinflated with linear atelectasis in both lung bases. The heart is mildly prominent size. Right-sided venous catheter has tip in the SVC.
[2020-11-10 10:04] LABS: Absolute Lymphocytes (CBC) 1.4 K/uL (0.7-4.9); Basophils % 0.4 % (0-1.3); Hematocrit 42.7 % (39.6-49.0); Lymphocytes % 17.4 % (15.3-44.8); MPV 8.5 fL (7.6-11.3); Protime INR 1.97; RBC Red Blood Cell Count 4.86 M/uL (4.33-5.43)
[2020-11-10 10:33] LABS: Albumin 3.7 g/dL (3.4-5.0); Bilirubin Direct 0.4 mg/dL (0-0.2); Bilirubin Total 0.6 mg/dL (0.2-1.0); Magnesium 2.8 mg/dL (1.8-2.4); Protein, Total 8.9 g/dL (6.4-8.2); Troponin (Emerg Dept Use Only) 0.02 ng/mL (0.0-0.045)
[2020-11-10 10:36] LABS: Potassium 5.9 mmol/L (3.5-5.1)
[2020-11-10] MEDS ORDERED: BACLOFEN 10 MG TAB PO ONE (11:30)
--- NOTE | 2020-11-10 12:55 | ER ---
Nurse's Notes [facility] Name: Grace Duong Age: 35 yrs Sex: Male : 1985 Arrival Date: 11/10/2020 Time: 09:13 Bed 2 Private MD: Diagnosis: Hiccough;Shortness of breath Presentation: 11/10 09:14 Chief complaint: EMS states: EMS toned out for SOB/difficulty breathing. Coronavirus ld1 screen: Client denies travel out of the [place] in the last 14 days. At this time, the client does not indicate any symptoms associated with coronavirus-19. Ebola Screen: No symptoms or risks identified at this time. Initial Sepsis Screen: Does the patient meet any 2 criteria? No. Patient's initial sepsis screen is negative. Does the patient have a suspected source of infection? No. Patient's initial sepsis screen is negative. Risk Assessment: Do you want to hurt yourself or someone else? Patient reports no desire to harm self or others. Onset of symptoms was November 03, 2020. 09:14 Method Of Arrival: EMS: [facility] ld1 09:14 Acuity: CHAPARRITA 2 ld1 Triage Assessment: 09:18 General: Appears in no apparent distress. comfortable, Behavior is calm, cooperative, ld1 appropriate for age. Pain: Denies pain. EENT: No deficits noted. Neuro: Level of Consciousness is awake, alert, obeys commands, Oriented to person, place, time, situation. Cardiovascular: Capillary refill < 3 seconds Patient's skin is warm and dry. Cardiovascular: Dialysis shunt: in the anterior aspect of right upper chest. Respiratory: Reports shortness of breath at rest Hiccups x 7 days Airway is patent Respiratory effort is even, unlabored, Respiratory pattern is regular, symmetrical, Onset: The symptoms/episode began/occurred suddenly, the patient has mild shortness of breath. GI: Abdomen is flat, non-distended, Patient states he has been vomiting today. : No deficits noted. Derm: No deficits noted. Musculoskeletal: No deficits noted. Historical: - Allergies: 09:18 No Known Allergies; ld1 - Home Meds: :18 Warfarin Oral [Active]; Metformin Oral [Active]; Colace 50 mg oral cap 1 cap once daily ld1 [Active]; hydroxyzine HCl 10 mg/5 mL Oral soln 12.5 mL 4 times per day [Active]; midodrine oral oral [Active]; atorvastatin Oral [Active]; sertraline oral oral [Active]; tramadol 50 mg Oral tab [Active]; - PMHx: 09:18 CHF; CVA; Diabetes - IDDM; ESRD; High Cholesterol; Hypertension; left sided paralysis; ld1 - Immunization history:: Adult Immunizations unknown. - Social history:: Smoking status: Patient denies any tobacco usage or history of. Screenin:23 Abuse screen: Denies threats or abuse. Denies injuries from another. Nutritional ld1 screening: No deficits noted. Tuberculosis screening:. Fall Risk IV access (20 points). Assessment: :23 Reassessment: See triage assessment. Cardiovascular: Rhythm is. Respiratory: Airway is ld1 patent Respiratory effort is even, unlabored, Respiratory pattern is regular, symmetrical, Breath sounds with wheezes in left lower lobe. 09:28 Reassessment: ERP at bedside discussing POC. ld1 11:34 Reassessment: Patient and/or family updated on plan of care and expected duration. Pain ld1 level reassessed. Patient is alert, oriented x 3, equal unlabored respirations, skin warm/dry/pink. Patient denies pain at this time. 12:52 Reassessment: Karla, pt's [id number], reports his brother is coming to pick him up [id number] and to please notify her if there are any special discharge instructions. 13:27 Reassessment: Patient and/or family updated on plan of care and expected duration. Pain ld1 level reassessed. Patient is alert, oriented x 3, equal unlabored respirations, skin warm/dry/pink. Patient denies pain at this time. Vital Signs: 09:14 BP 115 / 92; Pulse 93; Resp 18; Temp 97.2(TE); Pulse Ox 100% on R/A; Weight 74.84 kg; ld1 Height 5 ft. 8 in. (172.72 cm); Pain 0/10; 09:18 BP 109 / 86; Pulse 94; Resp 20; Pulse Ox 100% on R/A; Pain 0/10; ld1 10:30 BP 107 / 86; Pulse 95; Resp 14; Pulse Ox 99% on R/A; Pain 0/10; ld1 11:38 BP 116 / 90; Pulse 88; Resp 14; Pulse Ox 100% on R/A; ld1 13:27 BP 101 / 79; Pulse 92; Resp 18; Pulse Ox 100% on R/A; ld1 09:14 Body Mass Index 25.09 (74.84 kg, 172.72 cm) ld1 ED Course: 09:13 Patient arrived in ED. ld1 09:14 Sqaib Wiseman NP is PHCP. pm1 09:14 Joseph Laguerre MD is Attending Physician. pm1 09:16 Triage completed. ld1 09:18 Arm band placed on right wrist. Patient placed in an exam room, on a stretcher, on ld1 oxygen, on district court judge, on pulse oximetry. EKG completed in triage. Results shown to MD. 09:23 Patient has correct armband on for positive identification. Placed in gown. Bed in low ld1 position. Call light in reach. Side rails up X2. 09:23 No provider procedures requiring assistance completed. ld1 09:28 Katerine Franklin, BERKLEY is Primary Nurse. ld1 09:46 X-ray completed. Portable x-ray completed in exam room. Patient tolerated procedure sw well. 09:47 XRAY Chest (1 view) In Process Unspecified. EDMS 13:26 IV discontinued, bleeding controlled, No redness/swelling at site. ld1 Administered Medications: 10:14 Drug: chlorproMAZINE 50 mg Route: PO; ld1 12:58 Drug: Baclofen 10 mg Route: PO; jl7 Outcome: 12:55 Discharge ordered by MD. pm1 13:26 Condition: stable ld1 13:26 Discharge instructions given to patient, Instructed on discharge instructions, follow up and referral plans. Demonstrated understanding of instructions, follow-up care. 13:26 Discharged to home via wheelchair. ld1 13:59 Patient left the ED. ld1 Signatures: Dispatcher [employer] EDMS Xiomy Clemente Patrick, NP DIGITAL DIRECTOR pm1 Niko Umaña RN RN jl7 Katerine Franklin, BERKLEY RN ld1
--- NOTE | 2020-11-10 12:56 | EDPHYS ---
Physician Documentation [facility] Name: Grace Duong Age: 35 yrs Sex: Male : 1985 Arrival Date: 11/10/2020 Time: 09:13 Bed 2 Private MD: ED Physician Joseph Laguerre HPI: 11/10 09:29 This 35 yrs old Male presents to ER via EMS with complaints of Shortness Of pm1 Breath. 09:29 The patient has shortness of breath onset with his hiccoughs that started 1 week ago.. pm1 Duration: The symptoms are continuous. The patient's shortness of breath is aggravated by nothing, is alleviated by nothing. Associated signs and symptoms: Pertinent negatives: chest pain, non-productive cough, productive cough, fever, nausea, vomiting. Severity of symptoms: in the emergency department the symptoms are unchanged. The patient has not experienced similar symptoms in the past. Patient reports that he would not have any shortness of breath if his hiccoughs would stop. Historical: - Allergies: 09:18 No Known Allergies; ld1 - Home Meds: 09:18 Warfarin Oral [Active]; Metformin Oral [Active]; Colace 50 mg oral cap 1 cap once daily ld1 [Active]; hydroxyzine HCl 10 mg/5 mL Oral soln 12.5 mL 4 times per day [Active]; midodrine oral oral [Active]; atorvastatin Oral [Active]; sertraline oral oral [Active]; tramadol 50 mg Oral tab [Active]; - PMHx: 09:18 CHF; CVA; Diabetes - IDDM; ESRD; High Cholesterol; Hypertension; left sided paralysis; ld1 - Immunization history:: Adult Immunizations unknown. - Social history:: Smoking status: Patient denies any tobacco usage or history of. ROS: 09:29 Constitutional: Negative for fever, chills, and weight loss, Cardiovascular: Negative pm1 for chest pain, palpitations, and edema. 09:29 Abdomen/GI: Negative for abdominal pain, nausea, vomiting, diarrhea, and constipation, Back: Negative for injury and pain, MS/Extremity: Negative for injury and deformity, Skin: Negative for injury, rash, and discoloration, Neuro: Negative for headache, weakness, numbness, tingling, and seizure. 09:29 Respiratory: Positive for shortness of breath, Negative for cough, sputum production, wheezing. Exam: 09:29 Constitutional: This is a well developed, well nourished patient who is awake, alert, pm1 and in no acute distress. Head/Face: Normocephalic, atraumatic. 09:29 Abdomen/GI: Soft, non-tender, with normal bowel sounds. No distension or tympany. No guarding or rebound. No evidence of tenderness throughout. Back: No spinal tenderness. No costovertebral tenderness. Full range of motion. Skin: Warm, dry with normal turgor. Normal color with no rashes, no lesions, and no evidence of cellulitis. MS/ Extremity: Pulses equal, no cyanosis. Neurovascular intact. Full, normal range of motion. 09:29 Cardiovascular: Exam negative for acute changes, Rate: normal, Rhythm: regular, Pulses: no pulse deficits are appreciated, Edema: is not appreciated. 09:29 Respiratory: the patient does not display signs of respiratory distress, Respirations: normal, Breath sounds: are clear throughout. 09:29 Neuro: Exam negative for acute changes, Orientation: is normal, Mentation: is normal, Motor: is normal, moves all fours, Sensation: is normal, no obvious gross deficits. Vital Signs: 09:14 BP 115 / 92; Pulse 93; Resp 18; Temp 97.2(TE); Pulse Ox 100% on R/A; Weight 74.84 kg; ld1 Height 5 ft. 8 in. (172.72 cm); Pain 0/10; 09:18 BP 109 / 86; Pulse 94; Resp 20; Pulse Ox 100% on R/A; Pain 0/10; ld1 10:30 BP 107 / 86; Pulse 95; Resp 14; Pulse Ox 99% on R/A; Pain 0/10; ld1 11:38 BP 116 / 90; Pulse 88; Resp 14; Pulse Ox 100% on R/A; ld1 13:27 BP 101 / 79; Pulse 92; Resp 18; Pulse Ox 100% on R/A; ld1 09:14 Body Mass Index 25.09 (74.84 kg, 172.72 cm) ld1 MDM: 09:25 Patient medically screened. [facility] 12:47 Physician consultation: Oz Hull DO was contacted at 12:47, regarding consult, pm1 patient's condition, Informed him why the patient came to the ER and treatment for his hiccoughs. Potassium is at 5.9 without any EKG changes. If patient has a ride and a seat at [facility] he can be discharged to outpatient dialysis. No need to address the potassium if he can go to dialysis now. If no seat is available, then he will need to be admitted for dialysis and give Kayexalate . 12:51 ED course: Called [facility] and they have a seat available for the patient pm1 and they will be expecting him. 12:54 Data reviewed: vital signs. Data interpreted: Pulse oximetry: on room air is 100 %. pm1 Interpretation: normal. Counseling: I had a detailed discussion with the patient and/or guardian regarding: the historical points, exam findings, and any diagnostic results supporting the discharge/admit diagnosis, lab results, radiology results, the need for outpatient follow up, to return to the emergency department if symptoms worsen or persist or if there are any questions or concerns that arise at home. 11/10 09:29 Order name: Basic Metabolic Panel pm1 11/10 09:29 Order name: CBC with Diff pm1 11/10 09:29 Order name: LFT's; Complete Time: 10:39 pm11/10 09:29 Order name: Magnesium; Complete Time: 10:39 pm11/10 09:29 Order name: NT PRO-BNP; Complete Time: 10:39 pm11/10 09:29 Order name: PT-INR; Complete Time: 10:09 pm11/10 09:29 Order name: Troponin (emerg Dept Use Only); Complete Time: 10:39 pm11/10 09:29 Order name: XRAY Chest (1 view); Complete Time: 10:06 pm11/10 09:29 Order name: EKG; Complete Time: 09:30 pm11/10 09:29 Order name: Cardiac monitoring; Complete Time: 09:33 pm11/10 09:29 Order name: Basic Metabolic Panel; Complete Time: 10:39 EDMS 11/10 09:29 Order name: CBC with Automated Diff; Complete Time: 10:09 EDMS 11/10 09:29 Order name: EKG - Nurse/Tech; Complete Time: 09:33 pm11/10 09:29 Order name: IV Saline Lock; Complete Time: 09:37 pm1 11/10 09:29 Order name: Labs collected and sent; Complete Time: 09:37 pm1 11/10 09:29 Order name: O2 Per Protocol; Complete Time: 09:32 pm1 11/10 09:29 Order name: O2 Sat Monitoring; Complete Time: 09:32 pm1 Administered Medications: 10:14 Drug: chlorproMAZINE 50 mg Route: PO; ld1 12:58 Drug: Baclofen 10 mg Route: PO; [id number] Disposition: 11/11 07:12 Co-signature as Attending Physician, Joseph Laguerre MD I agree with the assessment and otis plan of care. Disposition: 11/10/20 12:55 Discharged to Home. Impression: Hiccough, Shortness of breath. - Condition is Stable. - Discharge Instructions: Hiccups, Shortness of Breath. - Medication Reconciliation Form, Thank You Letter, Antibiotic Education, Prescription Opioid Use form. - Follow up: Emergency Department; When: As needed; Reason: Worsening of condition. Follow up: Private Physician; When: 2 - 3 days; Reason: Recheck today's complaints, Continuance of care, Re-evaluation by your physician. - Problem is new. - Symptoms have improved. - Notes: As we discussed, go to your dialysis treatment upon discharge. [facility] has a seat for you Signatures: Dispatcher [employer] Joseph Varghese MD MD cha Marinas, Patrick, NATALIA [employer] pm1 Niko Umaña RN RN [id number] Katerine Franklin RN RN ld1 Corrections: (The following items were deleted from the chart) 11/10 13:52 12:47 Physician consultation: Oz Hull DO was contacted at 12:47, regarding pm1 consult, patient's condition, Informed him why the patient came to the ER and treatment for his hiccoughs. Potassium is at 5.9 without any EKG changes. If patient has a ride and a seat at [facility] he can be discharged to outpatient dialysis. If no seat is available, then he will need to be admitted for dialysis, pm1 13:59 12:55 11/10/2020 12:55 Discharged to Home. Impression: Hiccough; Shortness of breath. ld1 Condition is Stable. Forms are Medication Reconciliation Form, Thank You Letter, Antibiotic Education, Prescription Opioid Use. Follow up: Emergency Department; When: As needed; Reason: Worsening of condition. Follow up: Private Physician; When: 2 - 3 days; Reason: Recheck today's complaints, Continuance of care, Re-evaluation by your physician. Problem is new. Symptoms have improved. pm1
[2020-11-10 14:08] VITALS: TEMP 97.2
[2020-11-10 14:12] VITALS: O2SAT 100
[2020-11-10 14:13] VITALS: BP 101/79
--- NOTE | 2020-11-11 11:16 | EKG ---
Test Date: 2020-11-10 Test Time: 09:14:53 Intensive Care Medicine Specialist: ORIN MEASUREMENT RESULTS: Intervals: Rate: 111 MS: 244 QRSD: 164 QT: 412 QTc: 560 [place]: P: 81 MS: 244 QRS: 198 T: -11 INTERPRETIVE STATEMENTS: Sinus tachycardia with 1st degree AV block with occasional premature ventricular complexes Right bundle branch block Lateral infarct, age undetermined Cannot rule out Inferior infarct, age undetermined Abnormal ECG Compared to ECG 09/19/2020 00:19:13 Ventricular premature complex(es) now present First degree AV block now present Myocardial infarct finding still present Electronically Signed On 11-11-20 11:13:40 CDT by Bennett Butt
== END 2020-11-10 13:59 | disposition home or self-care (01) ==
LOC: ER 09:08
DX: R06.6 Hiccough (principal); E11.22 Type 2 diabetes mellitus with diabetic chronic kidney disease; I13.2 Hypertensive heart and chronic kidney disease with heart failure and with stage 5 chronic kidney disease, or end stage renal disease; I50.9 Heart failure, unspecified; N18.6 End stage renal disease; E78.00 Pure hypercholesterolemia, unspecified; Z79.01 Long term (current) use of anticoagulants
CPT/HCPCS: 36415; 71045; 80048; 80076; 83735; 83880; 84484; 85025; 85610; 93005; 99284

== ENCOUNTER 2021-03-03 21:07 | Inpatient (IN) | payer OTHER ==
--- OUTSIDE RECORDS SUMMARY | 2021-03-03 21:13 | XMS REPORT | Continuity of Care Document ---
:1985 Author Organization [facility] t Address [address] Santam[place]. [address] [place] [address] Care Team Providers Name Role Phone Asked, Pcp Primary Care Physician Unavailable Suman DALY Attending Clinician Chilango DALY M. Attending Clinician Liseth VANG Attending Clinician Matt DALY, M. Attending Clinician Parmjit Nina Attending Clinician Miladys DALY, Jorge Attending Clinician Christophe Nick MD Attending Clinician Nelli Ramos MD Attending Clinician MD SUMAN Attending Clinician Unavailable MD Charisma COLLINS Attending Clinician Unavailable Doctor Unassigned, Name Attending Clinician Unavailable Courtney DALY Attending Clinician Ronna ABDI Attending Clinician Lucía DALY, Margarito Attending Clinician SUMAN Admitting Clinician Unavailable MD SUMAN Admitting Clinician Unavailable Payers Payer Name Policy Type Policy Effective Date Expiration Date Sour ce Number MEDICAIDMEDICAIDxxxx [id number] 2020 [place] michaels [id number] 2020-Presen 00:00:00 Hosp ital tMedicaid HUMANA [id number] 2020 [facility] MEDICAREHUMANA 00:00:00 [facility] MEDICARE PPO/PFFS/ERS [id number] 2020 -PresentPPO Problems Condition Condition Condition Status Onset Resolution Last Treating Co mments Source Name Details Category Date Date Treatment Clinician Date Cardiac Cardiac Disease Active [facility] arrest arrest 02-07 st 00:00: Hospita 00 l Acute Acute Disease Active [facility]i respirator respirator 02-07 st y failure y failure 00:00: Hosp syed with with 00 l hypoxemia hypoxemia Ischemic Ischemic Disease Active [facility] di cardiomyop cardiomyop 02-07 athy athy 00:00: Hospita 00 l ESRD (end ESRD (end Disease Active Met hodi stage stage 02-07 st renal renal 00:00: Hospita disease) disease) 00 l on on dialysis dialysis Cardiogeni Cardiogeni Disease Active M ethodi c shock c shock 02-07 st 00:00: Hospita 00 l Congestive Congestive Disease Active M ethodi cardiomyop cardiomyop 02-06 athy athy 00:00: Hospita 00 l Dysphagia Dysphagia Disease Active Overview: Methodi 01-[address] 00:00: g of this Hospita 00 note l might be different from the original. Added automatic ally from request for surgery [id number] Allergies, Adverse Reactions, Alerts This patient has no known allergies or adverse reactions. Social History Social Habit Start Date Stop Date Quantity Comments Source Exposure to Not sure [facility] SARS-CoV-2 [facility] (event) Tobacco use and 2021-02-19 2021-02-19 Never used [facility] exposure 00:00:00 00:00:00 Hospital Alcohol intake 2021-02-19 2021-02-19 Ex-drinker [facility] 00:00:00 00:00:00 (finding) Hospital Sex Assigned At [birth year] [facility] 00:00:00 00:00:00 Hospital Smoking Status Start Date Stop Date Source Former smoker 2021-02-19 00:00:00 2021-02-19 [facility] Or[facility] F[facility] Start Stop Current Ordering Indication Dosage Frequency Signature Comments Components Source Medication Medication Date Date Medication? Clinician (SIG) Name Name epoetin 2020- Yes [id number] Infuse Method[facility] sumit-epbx 03-02 [id number] 13,000 s t 10,000 00:00: 04:59 3W Units into Hosp syed unit/mL 00 :00 a venous l solution catheter 3 10,000 (three) Units, times a epoetin week for sumit-epbx 30 days 3,000 .ESRD on unit/mL Dialysis. solution 3,000 Units injection metoprolol 2020- No 12.5mg QD Take 12.5 Methodi succinate 8-14 08-[address] XL 23:00: 00:00 mouth Hospita (TOPROL-XL) 38 :00 daily. l 25 mg 24 hr tablet hydrOXYzine 2020- No 50mg QD Take 50 mg [facility] (ATARAX) 50 -14 08-[address] MG tablet 23:00: 00:00 nightly. Hos sangita 38 :00 l aspirin 0 Yes 81mg QD Take 81 mg Meth el (ECOTRIN) 8-[address] 81 MG 23:00: daily. Hospita enteric 35 l coated tablet docusate Yes 100mg Q.5D Take 100 Meth el sodium 8-[address] (COLACE) 23:00: mouth 2 Hospit a 100 MG 35 (two) l capsule times a day. insulin Yes 20U QD Inject 20 Metho di GLARGINE 8-[address] (LANTUS) 23:00: under the Hosp syed 100 unit/mL 35 skin l injection nightly. (vial) INSULIN Yes Inject [facility]i SUBCUTANEOU -[address] S PUMP, 23:00: skin Hospita HUMULIN R, 35 continuous l 100 UNIT/ML ly. INSULIN Sliding PUMP scale INFUSION (HumuLIN) lacosamide 0 Yes 100mg Q.5D Take 100 Me thodi (VIMPAT) 8-[address] 100 mg 23:00: mouth 2 Hospita tablet 35 (two) l times a day. pravastatin Yes 40mg QD Take 40 mg [facility] (PRAVACHOL) 8-[address] 40 mg 23:00: nightly. Hospita tablet 35 l sertraline Yes 100mg QD Take 100 Me thodi (ZOLOFT) 8-[address] 100 MG 23:00: mouth Hospita tablet 35 daily. l sevelamer Yes 1600mg Q.[id number] Take 1,600 [facility] (RENAGEL) 8-[id number] 800 MG 23:00: 3D mouth 3 Hospita tablet 35 (three) l times a day with meals. And with snacks warfarin Yes 5mg QD Take 5 mg Meth el (COUMADIN) [address] 5 MG tablet 23:00: daily. Hosp syed 35 Take 1 l tablet (5mg) by mouth daily for 30 days. midodrine Yes 10mg Q.[id number] Take 10 mg [facility] (PROAMATINE 02-28 [id number] by mouth 3 st ) 10 MG 23:00: 3D (three) Hospita tablet 35 times a l day. chlorproMAZ Yes 25mg Q.25D Take 25 mg Methodi INE 8-[address] (THORAZINE) 23:00: (four) Hosp syed 25 MG 35 times a l tablet day. doxylamine Yes 25mg QD Take 25 mg M ethodi (UNISON) 25 8-[address] mg tablet 23:00: nightly as Ho spita 35 needed for l sleep. acetaminoph 2020- Yes 650mg Q6H Take 2 Me thodi en 02-[address] (TYLENOL) 00:00: 04:59 (650 mg Hosp syed 325 MG 00 :00 total) by l tablet mouth every 6 (six) hours as needed for mild pain for up to 30 days. amIODarone 2020- Yes 200mg QD Take 1 Met hodi (PACERONE) 02-[address] 200 MG 00:00: 04:59 (200 mg Hospita tablet 00 :00 total) by l mouth daily for 30 days. bisacodyL 2020- Yes 10mg Q24H Insert 1 Met hodi (DULCOLAX) 02-[address] 10 mg 00:00: 04:59 y (10 mg Hospita suppository 00 :00 total) l into the rectum daily as needed for constipati on for up to 30 days. insulin 2020- Yes 0U Q4H Inject Methodi lispro 02-28 0-[address] (ADMELOG) 00:00: 04:59 under the Ho spita 100 unit/mL 00 :00 skin every l injection 4 (four) hours for 30 days. ipratropium 2020- Yes [id number] .5mg Q.[id number] Take 2.5 Methodi (ATROVENT) 02-28 [id number] mL (0.[address] 0.02 % 00:00: 04:59 3D total) by [facility] ta nebulizer 00 :00 nebulizati l solution on every 6 (six) hours while awake for 30 days. nitroglycer 2020- Yes .5[in_u Q.[id number] Place 0.5 Methodi in 02-28 s] [id number] inches on st (NITROSTAT) 00:00: 04:59 3D the skin H ospita 2 % 00 :00 every 8 l ointment (eight) hours for 30 days. Lower left foot over affected area, mottled Left foot traMADoL 2020- Yes [id number] 50mg Q8H Take 1 Metho di (ULTRAM) 50 02-28 08-20 tablet (50 s t mg tablet 00:00: 04:59 mg total) Ho spita 00 :00 by mouth l every 8 (eight) hours as needed for severe pain for up to 5 days .acute pain. Vital Signs Vital Name Observation Time Observation Value Comments Source Heart rate 2021-02-28 20:52:29 95 /min [facility] O[facility] saturation in 2021-02-28 20:52:29 95 /min [facility] Arterial blood by Pulse oximetry Systolic blood 2021-02-28 20:52:13 106 mm[Hg] Method ist Hospital pressure Diastolic blood 2021-02-28 20:52:13 71 mm[Hg] [facility] pressure Body temperature 2021-02-28 20:52:13 36 Kathryn [facility] Respiratory rate 2021-02-28 20:52:13 18 /min [facility] Body weight 2021-02-28 08:41:37 78.336 kg [facility] BMI 2021-02-28 08:41:37 26.26 kg/m2 [facility] Body height 2021-02-06 14:28:00 172.7 cm [facility] Procedures Procedure Date / Time Performing Clinician Source Performed POC GLUCOSE 2021-02-28 20:52:00 Cesar Collins [facility] POC GLUCOSE 2021-02-28 19:05:00 Cesar Collins [facility] POC GLUCOSE 2021-02-28 17:35:00 Cesar Collins [facility] POC GLUCOSE 2021-02-28 14:30:00 Cesar Collins [facility] POC GLUCOSE 2021-02-28 12:34:00 Cesar Collins [facility] PROTHROMBIN TIME WITH INR 2021-02-28 10:19:00 Cesar Collins [facility] PARTIAL THROMBOPLASTIN 2021-02-28 10:19:00 Dayna Will [facility] TIME (PTT) POC GLUCOSE 2021-02-28 09:45:00 Cesar Collins [facility] POC GLUCOSE 2021-02-28 06:07:00 Cesar Collins [facility] HEMODIALYSIS 2021-02-28 03:53:14 Ez Calix [facility] POC GLUCOSE 2021-02-28 02:02:00 Cesar Collins [facility] POC GLUCOSE 2021-02-27 23:14:00 Cesar Collins [facility] POC GLUCOSE 2021-02-27 19:42:00 Cesar Collins [facility] POC GLUCOSE 2021-02-27 16:34:00 Cesar Collins [facility] COVID-19 QUALITATIVE 2021-02-27 16:18:00 Carrie Rosales [facility] RT-PCR POC GLUCOSE 2021-02-27 12:51:00 Cesar [facility] PROTHROMBIN TIME WITH INR 2021-02-27 08:47:00 Cesar Collins [facility] PARTIAL THROMBOPLASTIN 2021-02-27 08:47:00 [facility] TIME (PTT) POC GLUCOSE 2021-02-27 02:12:00 Cesar Collins [facility] POC GLUCOSE 2021-02-26 21:14:00 Cesar Collins [facility] PARTIAL THROMBOPLASTIN 2021-02-26 20:21:00 [facility] TIME (PTT) POC GLUCOSE 2021-02-26 16:51:00 Cesar Collins [facility] POC GLUCOSE 2021-02-26 14:28:00 Cesar Collins [facility] POC GLUCOSE 2021-02-26 10:32:00 Cesar Collins [facility] PARTIAL THROMBOPLASTIN 2021-02-26 09:20:00 [facility] TIME (PTT) PROTHROMBIN TIME WITH INR 2021-02-26 09:20:00 Cesar Collins [facility] POC GLUCOSE 2021-02-26 06:36:00 Cesar Collins [facility] POC GLUCOSE 2021-02-26 02:03:00 Cesar Collins [facility] POC GLUCOSE 2021-02-25 22:31:00 Cesar Collins [facility]ital PROTHROMBIN TIME WITH INR 2021-02-25 20:01:00 [facility] [place] MODIFIED BARIUM 2021-02-25 18:52:51 Cesar Collins [facility] SWALLOW HEMODIALYSIS 2021-02-25 17:21:14 Ez Calix [facility] POC GLUCOSE 2021-02-25 16:59:00 Cesar Collins [facility] POC GLUCOSE 2021-02-25 12:30:00 Cesar Collins [facility] POC GLUCOSE 2021-02-25 11:06:00 Cesar Collins [facility] HC COMPLETE BLD COUNT 2021-02-25 08:33:00 Rhonda Young [facility] W/AUTO DIFF BASIC METABOLIC PANEL 2021-02-25 08:33:00 Rhonda Young [facility] PHOSPHORUS LEVEL 2021-02-25 08:33:00 Rhonda Youngist H ospital MAGNESIUM LEVEL 2021-02-25 08:33:00 Rhonda Youngist Ho [facility]ital ESTIMATED GFR 2021-02-25 08:33:00 Rhonda Young [facility] SMEAR REVIEW 2021-02-25 08:33:00 Rhonda Young [facility] PARTIAL THROMBOPLASTIN 2021-02-25 08:24:00 Javad Sawyer [facility] TIME (PTT) POC GLUCOSE 2021-02-25 02:21:00 Cesar [facility] XR ABDOMEN 1 VW PORTABLE 2021-02-25 00:41:00 Cesar Collins [facility] POC GLUCOSE 2021-02-24 22:42:00 Cesar Collins [facility] POC GLUCOSE 2021-02-24 18:04:00 Cesar Collins [facility] POC GLUCOSE 2021-02-24 16:18:00 Cesar Collins [facility] POC GLUCOSE 2021-02-24 15:16:00 Cesar Collins [facility] POC GLUCOSE 2021-02-24 12:22:00 [facility] BASIC METABOLIC PANEL 2021-02-24 11:07:00 Cesar Collnis [facility] ESTIMATED GFR 2021-02-24 11:07:00 Cesar Collins [facility] CBC HEMOGRAM 2021-02-24 10:20:00 Cesar Collins [facility] POC GLUCOSE 2021-02-24 09:17:00 Cesar Collins [facility] PARTIAL THROMBOPLASTIN 2021-02-24 09:12:00 C[facility] Collins [facility] TIME (PTT) POC GLUCOSE 2021-02-24 06:13:00 Cesar Collins [facility] POC GLUCOSE 2021-02-24 04:15:00 Cesar Collins [facility] POC GLUCOSE 2021-02-24 02:19:00 [facility] POC GLUCOSE 2021-02-23 23:59:00 Cesar Collins [facility] POC GLUCOSE 2021-02-23 23:16:00 [facility] IR TUNNELED DIALYSIS 2021-02-23 22:18:00 [facility] CATHETER REPLACEMENT/EXCHANGE POC GLUCOSE 2021-02-23 19:48:00 Cesar Collins [facility] POC GLUCOSE 2021-02-23 18:04:00 Cesar Collins [facility] POC GLUCOSE 2021-02-23 17:19:00 Cesar Collins [facility] HEMODIALYSIS 2021-02-23 16:14:51 [facility] PARTIAL THROMBOPLASTIN 2021-02-23 16:03:00 Javad Sawyer [facility] TIME (PTT) XR CHEST 1 VW PORTABLE 2021-02-23 14:05:00 Delfina Vora [facility] POC GLUCOSE 2021-02-23 13:02:00 [facility] 2021-02-23 10:39:42 Claudia Weber [facility] BASIC METABOLIC PANEL 2021-02-23 09:09:00 Cesar Collins [facility] HC COMPLETE BLD COUNT 2021-02-23 09:09:00 Cesar Collins [facility] W/AUTO DIFF PARTIAL THROMBOPLASTIN 2021-02-23 09:09:00 Cesar Collins [facility] Hospital TIME (PTT) ESTIMATED GFR 2021-02-23 09:09:00 Cesar Collins [facility] SMEAR REVIEW 2021-02-23 09:09:00 Cesar Collins [facility] POC GLUCOSE 2021-02-23 06:23:00 Cesar Collins [facility] POC GLUCOSE 2021-02-23 02:31:00 Cesar Collins [facility] PARTIAL THROMBOPLASTIN 2021-02-23 01:41:00 Cesar Collins [facility] Hospital TIME (PTT) POC GLUCOSE 2021-02-22 22:00:00 Cesar Collins [facility] POC GLUCOSE 2021-02-22 18:20:00 Cesar Collins [facility] PARTIAL THROMBOPLASTIN 2021-02-22 17:47:00 Dayna Will [facility] TIME (PTT) CONSULT TO OSTOMY CARE 2021-02-22 14:38:18 Cesar Collins [facility] Hospital NURSE POC GLUCOSE 2021-02-22 12:43:00 Cesar Collins [facility] XR CHEST 1 VW PORTABLE 2021-02-22 12:30:13 [facility] PARTIAL THROMBOPLASTIN 2021-02-22 09:51:00 [facility] TIME (PTT) POC GLUCOSE 2021-02-22 09:48:00 Cesar Collins [facility] POC GLUCOSE 2021-02-22 06:02:00 Cesar Collins [facility] POC GLUCOSE 2021-02-22 01:57:00 Cesar Collins [facility] POC GLUCOSE 2021-02-21 21:51:00 Cesar Collins [facility] POC GLUCOSE 2021-02-21 18:06:00 Cesar Collins [facility] POC GLUCOSE 2021-02-21 14:17:00 Cesar Collins [facility] XR CHEST 1 VW PORTABLE 2021-02-21 12:39:45 [facility] POC GLUCOSE 2021-02-21 10:01:00 Cesar Collins [facility] PARTIAL THROMBOPLASTIN 2021-02-21 09:20:00 [facility] TIME (PTT) POC GLUCOSE 2021-02-21 06:40:00 Cesar Collins [facility] HEMODIALYSIS 2021-02-21 03:43:50 Ez Calix Gianfranco [facility] PARTIAL THROMBOPLASTIN 2021-02-21 02:22:00 [facility] TIME (PTT) POC GLUCOSE 2021-02-21 02:07:00 Chilango, Cesar M. [facility] POC GLUCOSE 2021-02-20 22:41:00 [facility] XR CHEST 1 VW PORTABLE 2021-02-20 22:30:10 [facility] PARTIAL THROMBOPLASTIN 2021-02-20 20:04:00 Javad Sawyer [facility] Hospital TIME (PTT) POC GLUCOSE 2021-02-20 17:30:00 Cesar Collins [facility] PARTIAL THROMBOPLASTIN 2021-02-20 13:17:00 Suman Dayna [facility] Hospital TIME (PTT) POC GLUCOSE 2021-02-20 12:56:00 [facility] HC COMPLETE BLD COUNT 2021-02-20 10:20:00 [facility] W/AUTO DIFF BASIC METABOLIC PANEL 2021-02-20 10:20:00 [facility] PHOSPHORUS LEVEL 2021-02-20 10:20:00 [facility] ospital MAGNESIUM LEVEL 2021-02-20 10:20:00 [facility] Ho spital ESTIMATED GFR 2021-02-20 10:20:00 Jean Elise H ospital POC GLUCOSE 2021-02-20 09:59:00 Cesar Collins [facility] POC GLUCOSE 2021-02-20 06:21:00 [facility] PARTIAL THROMBOPLASTIN 2021-02-20 05:26:00 Dayna Will [facility] Hospital TIME (PTT) POC GLUCOSE 2021-02-20 03:33:00 [facility] POC GLUCOSE 2021-02-19 22:37:00 [facility] Collins [facility] POC GLUCOSE 2021-02-19 20:43:00 Dayna Will [facility] PARTIAL THROMBOPLASTIN 2021-02-19 18:56:00 [facility] Hospital TIME (PTT) HEMODIALYSIS 2021-02-19 16:54:16 Ez Calix [facility] POC GLUCOSE 2021-02-19 16:49:00 Dayna Will [facility] POC GLUCOSE 2021-02-19 13:42:00 Dayna Will spital XR CHEST 1 VW PORTABLE 2021-02-19 11:11:00 [facility] 2021-02-19 10:13:00 Dayna Will Ho spital HC COMPLETE BLD COUNT 2021-02-19 09:04[facility]00 [facility] BASIC METABOLIC PANEL 2021-02-19 09:04:00 [facility] PHOSPHORUS LEVEL 2021-02-19 09:04:00 Diony [facility] MAGNESIUM LEVEL 2021-02-19 09:04:00 Diony [facility] PARTIAL THROMBOPLASTIN 2021-02-19 09:04:00 Jean Elise Amie [facility] TIME (PTT) ESTIMATED GFR 2021-02-19 09:04:00 Jean Elise H ospital IONIZED CALCIUM 2021-02-19 09:04:00 Jean Elise H ospital POC GLUCOSE 2021-02-19 06:03:00 Dayna Will Ho spital POC GLUCOSE 2021-02-19 02:14:00 Dayna Will spital POC GLUCOSE 2021-02-18 21:38:00 Dayna Will spital POC GLUCOSE 2021-02-18 17:44:00 Dayna Will spital PARTIAL THROMBOPLASTIN 2021-02-18 14:54:00 Marisel Irene [facility] TIME (PTT) POC GLUCOSE 2021-02-18 13:37:00 Dayna Will Ho spital HEMODIALYSIS 2021-02-18 13:00:51 Ez Calix [facility] POC GLUCOSE 2021-02-18 09:41:00 Dayna Will spital XR CHEST 1 VW PORTABLE 2021-02-18 08:22:00 [facility] HC COMPLETE BLD COUNT 2021-02-18 07:19:00 [facility] W/AUTO DIFF BASIC METABOLIC PANEL 2021-02-18 07:19:00 Delfina Vora [facility] PHOSPHORUS LEVEL 2021-02-18 07:19:00 Delfina Vora ospital MAGNESIUM LEVEL 2021-02-18 07:19:00 Diony Delfinaoleg Valles spital PARTIAL THROMBOPLASTIN 2021-02-18 07:19:00 [facility] ([facility]TT) ESTIMATED GFR 2021-02-18 07:19:00 Jean Elise ospital POC GLUCOSE 2021-02-18 05:54:00 FaDayna montalvo spital POC GLUCOSE 2021-02-18 02:24:00 Dayna Will spital POC GLUCOSE 2021-02-17 21:47:00 Dayna Will spital EGD, WITH NASOJEJUNAL 2021-02-17 20:30:00 Clyde Gutierrez [facility] TUBE PLACEMENT USING [id number] TECHNIQUE POC GLUCOSE 2021-02-17 17:44:00 Dayna Will spital POC GLUCOSE 2021-02-17 13:45:00 Dayna Will spital COVID-19 QUALITATIVE 2021-02-17 13:16:00 Coco Allan [facility] RT-PCR XR CHEST 1 VW PORTABLE 2021-02-17 11:36:00 Kyra Amalia [facility] POC GLUCOSE 2021-02-17 10:25:00 Dayna Will aztal HC COMPLETE BLD COUNT 2021-02-17 08:55:00 [facility]FF COMPREHENSIVE METABOLIC 2021-02-17 08:55:00 Kyra Amalia [facility] PANEL MAGNESIUM LEVEL 2021-02-17 08:55:00 [facility] PHOSPHORUS LEVEL 2021-02-17 08:55:[facility] PARTIAL THROMBOPLASTIN 2021-02-17 08:55:00 Dayna Will [facility] TIME (PTT) ESTIMATED GFR 2021-02-17 08:55:00 Kyra [facility] POC GLUCOSE 2021-02-17 06:00:00 Dayna Will Ho [facility]ital POC GLUCOSE 2021-02-17 01:58:00 Dayna Will spital PARTIAL THROMBOPLASTIN 2021-02-17 01:27:00 [facility] TIME (PTT) O2 SATURATION, VENOUS 2021-02-17 01:27:00 [facility] POC GLUCOSE 2021-02-16 21:44:00 Dayna Will Ho spital POC GLUCOSE 2021-02-16 17:39:00 Dayna Will spital HEMODIALYSIS 2021-02-16 15:28:02 Ez Calix [facility] POC GLUCOSE 2021-02-16 13:30:00 Dayna Will spital XR CHEST 1 VW PORTABLE 2021-02-16 10:28:48 Kyra [facility] POC GLUCOSE 2021-02-16 09:42:00 Dayna Will spital HC COMPLETE BLD COUNT 2021-02-16 07:42:00 [facility] DIFF COMPREHENSIVE METABOLIC 2021-02-16 07:42:00 [facility] PANEL MAGNESIUM LEVEL 2021-02-16 07:42:00 Greyson [facility] PHOSPHORUS LEVEL 2021-02-16 07:42:00 [facility] 2021-02-16 07:42:00 Jean Elise [facility] TIME (PTT) ESTIMATED GFR 2021-02-16 07:42:00 [facility]SE 2021-02-16 06:13:00 Dayna Will Ho spital POC GLUCOSE 2021-02-16 02:13:00 Dayna Will Ho spital POC GLUCOSE 2021-02-15 22:05:00 Dayna Will spital US ANKLE BRACHIAL INDEX 2021-02-15 [facility] 2021-02-15 19:45:00 [facility] ([facility] PARTIAL THROMBOPLASTIN 2021-02-15 17:10:00 Dayna [facility] TIME (PTT) POC GLUCOSE 2021-02-15 16:58:00 Dayna Will Ho spital HEMODIALYSIS 2021-02-15 15:50:59 Claire [facility] David US DUPLEX ARTERIAL LOWER 2021-02-15 15:30:00 [facility] PART[facility] TH[facility]BOPLASTIN 2021-02-15 14:10:00 Dayna Will [facility] TIME (PTT) POC GLUCOSE 2021-02-15 12:23:00 Dayna Will spital XR CHEST 1 VW PORTABLE 2021-02-15 11:58:55 Kyra [facility] PARTIAL THROMBOPLASTIN 2021-02-15 08:35:00 Dayna Will [facility] TIME (PTT) HC COMPLETE BLD COUNT 2021-02-15 08:35:00 Kyra [facility] W/AUTO DIFF IONIZED CALCIUM 2021-02-15 08:35:00 Kyra [facility] COMPREHENSIVE METABOLIC 2021-02-15 08:35:00 [facility] PANEL MAGNESIUM LEVEL 2021-02-15 08:35:00 [facility]OS[facility] 2021-02-15 08:35:00 [facility] 2021-02-15 08:35:00 Kyra [facility] POC GLUCOSE 2021-02-15 01:25:00 Dayna Will Ho spital POC GLUCOSE 2021-02-14 21:34:00 Dayna Will Ho spital ECG 12-LEAD 2021-02-14 20:07:11 Danielle [place] [facility] POC GLUCOSE 2021-02-14 17:42:00 Dayna Will spital PARTIAL THROMBOPLASTIN 2021-02-14 16:05:00 [facility] 2021-02-14 16:04:58 Sanjana Rangel [facility] David POC GLUCOSE 2021-02-14 13:45:00 Dayna Will spital PARTIAL THROMBOPLASTIN 2021-02-14 12:30:00 Deanna Yun [facility] TIME (PTT) XR CHEST 1 VW PORTABLE 2021-02-14 11:39:38 Sary Dejesus [facility] POC GLUCOSE 2021-02-14 09:07:00 Danya Will [facility] HC COMPLETE BLD COUNT 2021-02-14 07:56:00 Boris Simental [facility] W/AUTO DIFF Manish PARTIAL THROMBOPLASTIN 2021-02-14 07:56:00 Deanna Yun [facility] TIME (PTT) IONIZED CALCIUM 2021-02-14 07:56:00 Sary Dejesus ospital COMPREHENSIVE METABOLIC 2021-02-14 07:56:00 Sary Dejesus [facility] PANEL MAGNESIUM LEVEL 2021-02-14 07:56:00 [facility] PHOSPHORUS L[facility] 2021-02-14 07:56:00 Sary Dejesus [facility] ESTIMATED GFR 2021-02-14 07:56:00 Sary Dejesus ospital POC GLUCOSE 2021-02-14 06:06:00 Dayna Will spital ARTERIAL BLOOD GAS 2021-02-14 04:46:00 [facility] 2021-02-14 03:08:00 Sg Alvarado [facility] TIME (PTT) POC GLUCOSE 2021-02-14 01:29:00 Dayna Will [facility] PARTIAL THROMBOPLASTIN 2021-02-13 22:08:00 [facility] TIME (PTT) POC GLUCOSE 2021-02-13 22:01:00 Dayna Will spital XR CHEST 1 VW PORTABLE 2021-02-13 19:45:00 Kamille [facility] Manish PARTIAL THROMBOPLASTIN 2021-02-13 18:53:00 Rosalbamerigagan Sg [facility] TIME (PTT) POC GLUCOSE 2021-02-13 17:54:00 Dayna Will spital POC GLUCOSE 2021-02-13 13:42:00 Dayna Will spital PARTIAL THROMBOPLASTIN 2021-02-13 13:39:00 Jean Elise [facility] TIME (PTT) MAGNESIUM LEVEL 2021-02-13 13:39:00 [facility] PHOSPHORUS LEVEL 2021-02-13 13:39:00 [facility] POTASSIUM LEVEL 2021-02-13 13:39:00 [facility] IONIZED CALCIUM 2021-02-13 13:39:00 [facility] XR CHEST 1 VW PORTABLE 2021-02-13 10:11:00 [facility]CI[facility], ARTERIAL 2021-02-13 10:08:00 [facility] POC GLUCOSE 2021-02-13 09:15:00 Dayna Will spital HC COMPLETE BLD COUNT 2021-02-13 07:31:00 [facility] W[facility]AUT[facility] DIFF Manish COMPREHENSIVE METABOLIC 2021-02-13 07:31:00 [facility] Manish MAGNESIUM LEVEL 2021-02-13 07:31:00 Boris Simental ospital Barry PARTIAL THROMBOPLASTIN 2021-02-13 07:31:00 Jean Elise [facility] TIME (PTT) BILIRUBIN DIRECT 2021-02-13 07:31:00 Dayna Will ospital ESTIMATED GFR 2021-02-13 07:31:00 Dayna Will spital PROTHROMBIN TIME WITH INR 2021-02-13 07:31:00 Jean Elise [facility] PHOSPHORUS LEVEL 2021-02-13 07:31:00 Dayna Will H ospital POC GLUCOSE 2021-02-13 05:24:00 Dayna Will Ho spital HEPARIN PF4 ANTIBODY 2021-02-13 02:25:00 Jean Elise [facility] (IGG) POC GLUCOSE 2021-02-13 02:05:00 Dayna Will spital ANTI XA, UNFRACTIONATED 2021-02-13 01:11:00 [facility] MAGNESIUM LEVEL 2021-02-12 23:01:00 [facility] POTASSIUM LEVEL 2021-02-12 23:01:00 [facility] PHOSPHORUS LEVEL 2021-02-12 23:01:00 [facility] IONIZED CALCIUM 2021-02-12 23:01:00 [facility] POC GLUCOSE 2021-02-12 23:00:00 Dayna Will Ho spital POC GLUCOSE 2021-02-12 21:25:00 Dayna Will spital POC GLUCOSE 2021-02-12 18:08:00 Dayna Will spital PROTHROMBIN TIME WITH INR 2021-02-12 14:29:00 Edmondson [facility] PARTIAL THROMBOPLASTIN 2021-02-12 14:29:00 [facility] ([facility] ANTI XA, UNFRACTIONATED 2021-02-12 14:29:00 [facility] O2 SATURATION, VENOUS 2021-02-12 14:19:00 [facility]ACT[facility] ACID LEVEL 2021-02-12 14:19:00 [facility] MAGNESIUM LEVEL 2021-02-12 14:19:00 [facility] PHOSPHORUS LEVEL 2021-02-12 14:19:00 [facility] IONIZED CALCIUM 2021-02-12 14:19:00 [facility] POTASSIUM LEVEL 2021-02-12 14:19:00 [facility] POC GLUCOSE 2021-02-12 13:56:00 Dayna Will spital XR CHEST 1 VW PORTABLE 2021-02-12 11:12:00 [facility] P[facility]SE 2021-02-12 10:16:00 Dayna Will spital BASIC METABOLIC PANEL 2021-02-12 06:01:00 [facility] 2021-02-12 06:01:00 [facility] PHOSPHORUS [facility] 2021-02-12 06:01:00 Kamille [facility] Manish ESTIMATED GFR 2021-02-12 06:01:00 Dayna Will spital HC COMPLETE BLD COUNT 2021-02-12 05:51:00 [facility] W/AUTO DIFF ARTERIAL BLOOD GAS 2021-02-12 05:51:00 [facility] 2021-02-12 05:50:00 Dayna Will spital XR CHEST 1 VW PORTABLE 2021-02-12 02:33:00 [facility] ABDOMEN 1 VW PORTABLE 2021-02-12 02:33:00 [facility] XR CHEST 1 VW PORTABLE 2021-02-12 02:13:00 [facility] XR ABDOMEN 1 VW PORTABLE 2021-02-12 02:13:00 [facility] POC GLUCOSE 2021-02-12 02:11:00 Dayna Will Ho spital POC GLUCOSE 2021-02-11 21:58:00 Dayna Will spital POC GLUCOSE 2021-02-11 17:52:00 Dayna Will spital MRSA PCR 2021-02-11 15:48:00 [facility] POC GLUCOSE 2021-02-11 14:15:00 Dayna Will Ho spital O2 SATURATION, VENOUS 2021-02-11 14:03:[address] [facility] LACTIC ACID LEV[facility] 2021-02-11 14:03:00 Delvis [facility] BASIC METABOLIC PANEL 2021-02-11 14:03:00 Claire, [facility] David MAGNESIUM LEVEL 2021-02-11 14:03:00 Claire, [facility] David IONIZED CALCIUM 2021-02-11 14:03:00 Claire, [facility] David PHOSPHORUS LEVEL 2021-02-11 14:03:00 Claire, [facility] David ESTIMATED GFR 2021-02-11 14:03:00 Claire, [facility] BLOOD CULTURE, AEROBIC & 2021-02-11 13:01:[address] [facility] ANAEROBIC BLOOD CULTURE, AEROBIC & 2021-02-11 12:48:[address] [facility] ANAEROBIC XR CHEST 1 VW PORTABLE 2021-02-11 11:53:39 Kyra [facility] ECG 12-LEAD 2021-02-11 09:52:14 Dayna Will spital POC GLUCOSE 2021-02-11 09:45:00 Dayna Will spital BASIC METABOLIC PANEL 2021-02-11 07:41:00 Kyra [facility] HC COMPLETE BLD COUNT 2021-02-11 07:41:00 [facility]O DIFF MAGNESIUM LEVEL 2021-02-11 07:41:00 Kyra [facility] ARTERIAL BLOOD GAS 2021-02-11 07:41:00 [facility] LIP[facility] PANEL 2021-02-11 07:41:00 Boris Simental ospital Manish PHOSPHORUS LEVEL 2021-02-11 07:41:00 Boris Simental [facility] Manish ESTIMATED GFR 2021-02-11 07:41:00 Dayna Will Ho spital PARTIAL THROMBOPLASTIN 2021-02-11 07:41:00 Kyra [facility] TIME (PTT) POC GLUCOSE 2021-02-11 06:02:00 Dayna Will Ho spital BASIC METABOLIC PANEL 2021-02-11 02:33:00 Kyra [facility] IONIZED CALCIUM 2021-02-11 02:33:00 Kyra [facility] HC COMPLETE BLD COUNT 2021-02-11 02:33:00 Kyra [facility] W/AUTO DIFF PARTIAL THROMBOPLASTIN 2021-02-11 02:33:00 Kyra [facility] TIME (PTT) PROTHROMBIN TIME WITH INR 2021-02-11 02:33:00 Kyra [facility] MAGNESIUM LEVEL 2021-02-11 02:33:00 Kyra [facility] ESTIMATED GFR 2021-02-11 02:33:00 Kyra [facility] POC GLUCOSE 2021-02-11 02:16:00 Dayna Will spital AMYLASE LEVEL, [facility] FLUID 2021-02-10 23:25:00 [facility] GLUCOSE LEVEL, [facility] FLUID 2021-02-10 23:25:00 [facility] LDH, [facility] FLUID 2021-02-10 23:25:00 [facility] PROTEIN, [facility] [place]UID 2021-02-10 23:25:00 [facility] CELL COUNT AND 2021-02-10 23:25:00 [facility] DIFFERENTIAL, BODY FLUID ALBUMIN, [facility] FLUID 2021-02-10 23:25:00 [facility] AEROBIC CULTURE 2021-02-10 23:24:00 [facility] ANAEROBIC CULTURE 2021-02-10 23:24:00 [facility] GRAM STAIN 2021-02-10 23:24:00 Sg Alvarado [facility] PARACENTESIS 2021-02-10 21:59:13 Yao Read [facility] Tosneric POC GLUCOSE 2021-02-10 21:53:00 Dayna Will Ho spital SD INSERT NON-TUNNEL CV 2021-02-10 21:35:42 [facility]ST 1 VW PORTABLE 2021-02-10 20:35:00 Stas Edmondson [facility] POC GLUCOSE 2021-02-10 17:34:00 Dayna Will spital BASIC METABOLIC PANEL 2021-02-10 17:17:00 Claire, [facility] MAGNESIUM LEVEL 2021-02-10 17:17:00 Claire, [facility] PHOSPHORUS L[facility] 2021-02-10 17:17:00 Claire, [facility] David IONIZED CALCIUM 2021-02-10 17:17:00 Claire, [facility] David ESTIMATED GFR 2021-02-10 17:17:00 Claire, [facility] David XR ABDOMEN 1 VW PORTABLE 2021-02-10 15:10:[address] [facility] POC GLUCOSE 2021-02-10 13:46:00 Dayna Will spital XR CHEST 1 VW PORTABLE 2021-02-10 11:28:00 Kyra Amalia [facility] BASIC METABOLIC PANEL 2021-02-10 11:15:00 Kyra [facility] MAGNESIUM LEVEL 2021-02-10 11:15:00 Kyra [facility] ESTIMATED GFR 2021-02-10 11:15:00 Kyra [facility] POC GLUCOSE 2021-02-10 10:22:00 Dayna Will spital HC COMPLETE BLD COUNT 2021-02-10 09:26:00 Kyra [facility] W/AUTO DIFF ARTERIAL BLOOD GAS 2021-02-10 09:26:00 Amalia Rae [facility] CALCIUM LEVEL 2021-02-10 05:21:00 Claire, [facility] David MAGNESIUM LEVEL 2021-02-10 05:21:00 Claire, [facility] PHOSPHORUS LEVEL 2021-02-10 05:21:00 Claire, [facility] POTASSIUM LEVEL 2021-02-10 05:21:00 Claire, [facility] PARTIAL THROMBOPLASTIN 2021-02-10 05:21:00 Boris Simental [facility] TIME (PTT) Manish PROTHROMBIN TIME WITH INR 2021-02-10 05:21:00 Dayna Will [facility] POC GLUCOSE 2021-02-10 05:21:00 Dayna Will spital POC GLUCOSE 2021-02-10 02:08:00 Dayna Will spital CALCIUM LEVEL 2021-02-09 22:43:00 Claire, [facility] MAGNESIUM LEVEL 2021-02-09 22:43:00 Claire, [facility] PHOSPHORUS LEVEL 2021-02-09 22:43:00 Claire, [facility] POTASSIUM LEVEL 2021-02-09 22:43:00 Claire, [facility] P[facility]SE 2021-02-09 21:52:00 Dayna Will Ho spital POC GLUCOSE 2021-02-09 17:56:00 Dayna Will spital US DUPLEX VENOUS UPPER 2021-02-09 16:24:00 [facility] EXTREMITY BILATERAL [place] US DUPLEX VENOUS LOWER 2021-02-09 15:43:00 [facility] EXTREMITY BILATERAL [place] POC GLUCOSE 2021-02-09 13:45:00 Dayna Will spital LACTIC ACID LEVEL 2021-02-09 13:27:00 Delvis [facility] VENOUS BLOOD GAS 2021-02-09 13:27:00 Stas Edmondson ospital EEG EXTENDED 41 - 60 MINS 2021-02-09 13:22:26 Kailash Tan [facility] XR CHEST 1 VW PORTABLE 2021-02-09 10:41:52 Amalia Rae [facility] POC GLUCOSE 2021-02-09 10:32:00 Dayna Will Ho spital CT HEAD WO CONTRAST 2021-02-09 08:58:21 Kailash Tan [facility] COMPREHENSIVE METABOLIC 2021-02-09 06:53:00 Roro [facility] PANEL Earl HC COMPLETE BLD COUNT 2021-02-09 06:53:00 Kyra [facility] W/AUTO DIFF MAGNESIUM LEVEL 2021-02-09 06:53:00 Kyra [facility] ARTERIAL BLOOD GAS 2021-02-09 06:53:00 Kyra [facility] ESTIMATED GFR 2021-02-09 06:53:00 Dayna Will Ho spital POC GLUCOSE 2021-02-09 05:19:00 FahedDayna Ho spital POC GLUCOSE 2021-02-09 02:15:00 FahedDayna Ho spital POC GLUCOSE 2021-02-08 22:02:00 FaDayna montalvo Ho spital LACTIC ACID LEVEL 2021-02-08 18:45:00 Kailash Tan [facility] POC GLUCOSE 2021-02-08 17:43:00 FaDayna montalvo Ho spital POC GLUCOSE 2021-02-08 13:50:00 FahedDayna Ho spital POC GLUCOSE 2021-02-08 11:20:00 Dayna Will Ho spital XR CHEST 1 VW PORTABLE 2021-02-08 11:04:13 Kyra Amalia [facility] POC GLUCOSE 2021-02-08 08:51:00 FaDayna montalvo Ho spital COMPREHENSIVE METABOLIC 2021-02-08 07:16:00 Tanguanako [facility] PANEL Earl HC COMPLETE BLD COUNT 2021-02-08 07:16:00 Amalia Rae [facility] W/AUTO DIFF MAGNESIUM LEVEL 2021-02-08 07:16:00 [facility] PROTHROMBIN TIME WITH INR 2021-02-08 07:16:00 Kailash Tan [facility] ARTERIAL BLOOD GAS 2021-02-08 07:16:00 [facility] ESTIMATED GFR 2021-02-08 07:16:00 Fahed, Dayna Valles Ho spital BILIRUBIN DIRECT 2021-02-08 07:16:00 Fahed, Dayna Vallse H ospital PHOSPHORUS LEVEL 2021-02-08 07:16:00 Fahed, Dayna Valles H ospital POC GLUCOSE 2021-02-08 07:15:00 Fahed, Dayna Valles Ho spital POC GLUCOSE 2021-02-08 05:15:00 Fahed, Dayna Valles Ho spital POC GLUCOSE 2021-02-08 03:11:00 Fahed, Dayna Valles Ho spital POC GLUCOSE 2021-02-08 02:23:00 Fahed, Dayna Valles Ho spital POC GLUCOSE 2021-02-07 23:24:00 Fahed, Dayna Valles Ho spital POC GLUCOSE 2021-02-07 22:51:00 Fahed, Dayna Valles Ho spital POC GLUCOSE 2021-02-07 16:47:00 Fahed, Dayna Valles Ho spital POC GLUCOSE 2021-02-07 15:21:00 Fahed, Dayna Valles Ho spital LACTIC ACID LEVEL 2021-02-07 14:30:00 [facility] METABOLIC PANEL 2021-02-07 14:30:00 Kailash Tan [facility] MAGNESIUM LEVEL 2021-02-07 14:30:00 Kailash Tanist Ho spital PHOSPHORUS LEVEL 2021-02-07 14:30:00 [facility] ESTIM[facility] GFR 2021-02-07 14:30:00 [facility] ARTERIAL BLOOD GAS 2021-02-07 14:29:00 Kailash Tan [facility] HEPATITIS B SURFACE 2021-02-07 14:00:00 Ez Calix [facility] ANTIGEN POC GLUCOSE 2021-02-07 12:49:00 Dayna Will Ho spital XR CHEST 1 VW PORTABLE 2021-02-07 11:53:23 Kyra [facility] EEG AWAKE/DROWSY LESS 2021-02-07 10:41:57 Yao Read [facility] THAN 41 MIN [facility] ARTERIAL BLOOD GAS 2021-02-07 10:24:00 Kyar [facility] BASIC METABOLIC PANEL 2021-02-07 10:23:00 Kyra [facility] MAGNESIUM LEVEL 2021-02-07 10:23:00 Kyra [facility] PHOSPHORUS LEVEL 2021-02-07 10:23:[address] [facility] ESTIMATED GFR 2021-02-07 10:23:00 Kyra [facility] POC GLUCOSE 2021-02-07 10:21:00 Dayna Will spital ARTERIAL BLOOD GAS 2021-02-07 06:48:00 [facility]OLIC 2021-02-07 06:47:00 [facility] [place] [facility]EL [facility] HC COMPLETE BLD COUNT 2021-02-07 06:47:00 Kyra [facility] W/AUTO DIFF MAGNESIUM LEVEL 2021-02-07 06:47:00 Kyra [facility] ESTIMATED GFR 2021-02-07 06:47:00 Dayna Will Ho spital HEMOGLOBIN A1C 2021-02-07 06:47:00 Dayna Will Ho spital POC GLUCOSE 2021-02-07 06:45:00 Dayna Will Ho spital TROPONIN 2021-02-07 03:00:00 Roro [facility] ARTERIAL BLOOD GAS 2021-02-07 03:00:00 Kyra [facility] POC GLUCOSE 2021-02-07 02:34:00 [facility] X[facility] ABDOMEN 1 VW PORTABLE 2021-02-07 02:06:16 Antonio Ramirez [facility] TTE COMPLETE, W CONTRAST, 2021-02-07 01:10:00 Roro [facility] W DOPPLER ([id number]) [place] XR CHEST 1 VW PORTABLE 2021-02-07 00:28:[address] [facility]ST [facility] CONTRAST 2021-02-06 23:56:35 [facility] ABDOMEN WO CONTRAST [place] PELVIS WO CONTRAST CT HEAD WO CONTRAST 2021-02-06 23:56:18 Roro [facility] Toshiric SD INSERT NON-TUNNEL CV 2021-02-06 23:22:47 Rhona [facility] CATH XR ABDOMEN 1 VW PORTABLE 2021-02-06 22:35:49 Roro [facility] [place] XR CHEST 1 VW PORTABLE 2021-02-06 22:35:32 Roro [facility] Toscarlos LIPID PANEL 2021-02-06 22:19:00 Roro [facility] Jcneric HC COMPLETE BLD COUNT 2021-02-06 22:19:00 [facility] W/AUTO DIFF Earl COMPREHENSIVE METABOLIC 2021-02-06 22:19:00 [facility] Earl MAGNESIUM LEVEL 2021-02-06 22:19:00 Roro [facility] Tosneric PHOSPHORUS LEVEL 2021-02-06 22:19:00 [facility] PROTHROMBIN TIME WITH INR 2021-02-06 22:19:00 [facility] PARTIAL THROMBOPLASTIN 2021-02-06 22:19:00 Roro [facility] TIME (PTT) Jcneric B NATRIURETIC PEPTIDE 2021-02-06 22:19:00 [facility] Earl THYROID STIMULATING 2021-02-06 22:19:00 [facility] HORMONE [facility] LACTIC ACID LEVEL 2021-02-06 22:19:00 [facility] BASIC METABOLIC PANEL 2021-02-06 22:19:00 [facility] [place] TROPONIN 2021-02-06 22:19:00 [facility] ESTIMATED GFR 2021-02-06 22:19:00 Dayna Will spital ARTERIAL BLOOD GAS 2021-02-06 22:18:00 [facility] POC GLUCOSE 2021-02-06 22:14:00 Dayna Will spital ECG 12-LEAD 2021-02-06 21:55:00 [facility] EP AICD SYSTEM CHANGE W 2021-02-06 21:05:05 Suman, [facility] ELECTRODE SODIUM LEVEL, SYRINGE 2021-02-06 20:53:00 Sofihed, [facility] ARTERIAL BLOOD GAS, 2021-02-06 20:53:00 Sofihed, [facility] CORRECTED IONIZED CALCIUM, ARTERIAL 2021-02-06 20:53:00 Suman, [facility] POTASSIUM, SYRINGE 2021-02-06 20:53:00 Fahed, [facility] HEMOGLOBIN, SYRINGE 2021-02-06 20:53:00 Suman, [facility] GLUCOSE LEVEL, SYRINGE 2021-02-06 20:53:00 Sofihed, [facility] HEMODIALYSIS 2021-02-06 20:14:40 Ez Calix Gianfranco [facility] ARTERIAL LINE 2021-02-06 19:03:48 Bernarda Santa spital SD AN ELECTIVE 2021-02-06 18:39:20 Bernarda Santa spital ENDOTRACHEAL AIRWAY SODIUM LEVEL, SYRINGE 2021-02-06 18:28:00 Suman [facility] ARTERIAL BLOOD GAS, 2021-02-06 18:28:00 Sofihed, [facility] CORRECTED POTASSIUM, SYRINGE 2021-02-06 18:28:00 [facility] HEMOGLOBIN, SYRINGE 2021-02-06 18:28:00 Suman [facility] IONIZED CALCIUM, ARTERIAL 2021-02-06 18:28:00 Suman [facility] GLUCOSE LEVEL, SYRINGE 2021-02-06 18:28:00 Dayna Will [facility] ESTIMATED GFR 2021-02-06 15:54:00 Dayna Will spital POC PANEL 2021-02-06 15:54:00 [facility] TYPE AND SCREEN 2021-02-06 15:35:00 Dayna Will [facility] spital PROTHROMBIN TIME WITH INR 2021-02-06 15:35:00 Suman [facility] ECG 12-LEAD 2021-02-06 14:32:43 Dayna Will spital POC GLUCOSE 2021-02-06 14:31:00 [facility] CV MRI STRESS TEST W 2020-12-18 20:20:19 Dayna Will [facility] CONTRAST ESTIMATED GFR 2020-12-18 18:04:00 Dayna Will [facility] spital POC PANEL 2020-12-18 18:04:00 Sofiwhite hospitalDayna [facility] spital Plan of Care Planned Activity Planned Date Details Comments Source Future Scheduled Test DIABETES: RETINAL EYE [facility] EXAM [code = DIABETES: RETINAL EYE EXAM] Future Scheduled Test DIABETIC FOOT EXAM [facility] [code = DIABETIC FOOT EXAM] Future Scheduled Test COVID-19 VACCINE (1) [facility] [code = COVID-19 VACCINE (1)] Future Scheduled Test Hepatitis C screening [facility] (procedure) [code = 184487636] Future Scheduled Test INFLUENZA VACCINE [facility] [code = INFLUENZA VACCINE] Encounters Start End Encounter Admission Attending Care Care Encounter Source Date/Time Date/Time Type Type Clinicians Facility Department ID 2021-02-06 2021-02-28 [facility] Dayna Will 1.2.840.1 [id number] Method 09:06:00 18:00:00 Encounter Cesar Collins 52959.1.1 [facility] 3.430.2.7 Hospit a .3.188171 l .8 2021-02-06 2021-02-28 Inpatient CESAR COLLINS [facility] [id number] [place] 00:00:00 00:00:[address] 2021-02-18 2021-02-18 Telephone ChildersRAIMUNDO 1.2.840.114 [id number] 00:00:00 00:00:00 Critical access hospital 350.1.13.10 [place] [address].2.7.2.686 [id number] 2021-02-17 2021-02-17 Surgery Matt, 1.2.840.1 [id number] Methodi 15:00:00 16:30:00 Clyde Zafar 22595.1.[address] 3.430.2.7 Hospit a .3.849150 l .8 2021-02-17 2021-02-17 Anesthesia Frantz Nina 1.2.840. 1 [id number] Methodi 15:37:00 16:29:00 Event Kade Hook [address]8631.1.[address] 3.430.2.7 Hospit a .3.641946 l .8 2021-02-06 2021-02-06 Anesthesia Gabriella Nick 1.2.840 .1 [id number] Methodi 12:31:00 16:50:00 Event Deidra Ramos 74589.1.[address] 3.430.2.7 Hospit a .3.768989 l .8 2021-02-06 2021-02-06 Surgery Dayna Will 1.2.840.1 [id number] Methodi 13:10:00 15:00:[address] 3.430.2.7 Hospit a .3.514325 l .8 2021-02-06 2021-02-06 Travel 1.2.840.1 1.2.144.902 [id number] Methodi 00:00:00 00:00:[address] 3.430.2.7 0.2.7.3.698 Ho spita .3.885570 084.8 l .8 2021-02-04 2021-02-04 Travel 1.2.840.1 1.2.322.189 [id number] Methodi 00:00:00 00:00:[address] 3.430.2.7 0.2.7.3.698 Ho spita .3.854483 084.8 l .8 2021-01-15 2021-01-15 Orders Doctor CARINA 1.2.840.114 [id number] 00:00:00 00:00:00 Only Unassigned, JOHNNIE 350.1.13.10 [facility] 4.2.7.2.686 [id number] 2020-12-18 2020-12-18 Hospital Dayna Will 1.2.840.1 [id number] Methodi 12:14:50 23:59:[address] 3.430.2.7 Hospit a .3.369307 l .8 2020-12-18 2020-12-18 Telephone Kota Valdez [facility] 1.2.840.114 [id number] 00:00:00 00:00:00 [facility] 350.1.13.10 CLINICS 4.2.7.2.686 [id number] 2020-12-18 2020-12-18 Outpatient DAYNA WILL [facility] [id number] [place] 00:00:00 00:00:[address] 2020-12-18 2020-12-18 Travel 1.2.840.1 1.2.247.362 [id number] Methodi 00:00:00 00:00:[address] 3.430.2.7 0.2.7.3.698 Ho spita .3.029531 084.8 l .8 2020-12-12 2020-12-12 Travel 1.2.840.1 1.2.214.272 [id number] Methodi 00:00:00 00:00:[address] 3.430.2.7 0.2.7.3.698 Ho spita .3.907017 084.8 l .8 2020-12-11 2020-12-11 Travel 1.2.840.1 1.2.824.184 [id number] Methodi 00:00:00 00:00:[address] 3.430.2.7 0.2.7.3.698 Ho spita .3.653018 084.8 l .8 2020-12-11 2020-12-11 Transcribe Dayna Will 1.2.840.1 [id number] Methodi 00:00:00 00:00:[address] 3.430.2.7 Hospit a .3.150620 l .8 2020-11-25 2020-11-25 Letter CARINA Friend 1.2.840.114 [id number] 00:00:00 00:00:00 (Out) Zenaida BLAIR 350.1.13.10 [facility] 4.2.7.2.686 [id number] 2020-10-30 2020-10-30 Orders Doctor LIM 1.2.840.114 [id number] 00:00:00 00:00:00 Only UnassignedJOHNNIE 350.1.13.10 Secretary [facility] 4.2.7.2.686 [id number] 009 2020-10-21 2020-10-21 Carol Castrejon VAREYES 1.2.840.114 [id number] 00:00:00 00:00:00 (Out) Mg Johnson 350.1.13.10 Anna 4.2.7.2.686 [facility] [phone] formerly [facility] 092 [facility] 2020-10-16 2020-10-16 Orders Doctor LIM 1.2.840.114 [id number] 59 00:00:00 00:00:00 Only UnassignedJOHNNIE 350.1.13.10 Secretary [facility] 4.2.7.2.686 [phone] 009 2020-05-23 2020-05-23 Orders Doctor CARINA Fernandez2.840.114 [id number] 38 00:00:00 00:00:00 Only Unassigned, JOHNNIE 350.1.13.10 Secretary [facility] 42.7.2.686 [phone] 009 2019-03-06 2019-03-06 Orders Doctor CARINA Fernandez2.840.114 [id number] 78 00:00:00 00:00:00 Only Unassigned, JOHNNIE 350.1.13.10 Secretary [facility] 4.2.7.2.686 [id number] 009 Results Test Description Test Time Test Comments Results Result Comments Source POC glucose 2021-02-28 20:54:25 Test Item Value Reference Range Interpretation Comme [facility] POC glucose (test code = 71894-3) 117 mg/dL 65-99 H Lab Interpretation (test code = 47860-5) Abnormal Restoration ZjntwmvmZUQB-FjG-7 (COVID-19) RNA [Presence] in Respiratory specimen by WHITLEY with probe wsflkivor8507-10-66 16:31:39 Test Item Value Reference Range Interpretation Comments SARS-CoV-2 (COVID-19) RNA Not detected Not-Detected [Presence] in Respiratory specimen by WHITLEY with probe detection (test code = 16619-1) Whether 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 employed in a healthcare setting (test code = 04480-4) Whether the patient has symptoms related to condition of interest (test code = 53901-8) Patient was hospitalized because of this condition (test code = 43538-7) Whether the patient was admitted to intensive care unit (ICU) for condition of interest (test code = 32511-0) Whether patient resides in a congregate care setting (test code = 60702-6) ECG 12 [id number] 18:34:14 Test Item Value Reference Range Interpretation Comments Ventricular rate (test code = 253) Atrial rate (test code = 255) SD interval (test code = 266) QRSD interval (test code = 260) QT interval (test code = 264) QTC interval (test code = 265) P axis 1 (test code = 267) QRS axis 1 (test code = 268) T wave axis (test code = 270) EKG impression (test code = 273) [facility] Barium [id number] 19:43:57EXAMINATION: FL MODIFIED BARIUM SWALLOW CLINICAL HISTORY: Aspiration cerebrovascular accident COMPARISON: None. RADIATION DOSE: 1.6 minutes of fluoroscopic time. 4.29 mGy. 7 fluoroscopic series recorded. FINDINGS: The patient swallowed varying consistencies of barium (thin, thick, pudding, solid)under direct lateral fluoroscopic evaluation. The study was performed in conjunction with speech path ology. IMPRESSION:Laryngeal penetration with thin barium. Contrast remained above the vocal folds with residue seen in airway after swallow. No evidence of aspiration. Vallecular residue noted with multiple consistencies throughout the exam. Please refer to Speech Pathology report for further details. [facility]- [id number] Dictated and approved by energy operations vice president/fellow: Phoenix Bedner M.D. I,Bud Zapata M.D., personally reviewed the images and resident's/fellow's findings and agree with the final report.[facility], Radiology Results - 02/25/2021 2:47 PM CDT EXAMINATION: FL MODIFIED BARIUM SWALLOWCLINICAL HISTORY: Aspiration cerebrovascular accidentCOMPARISON: None.RADIATION DOSE: 1.6 minutes of fluoroscopic time. 4.29 mGy. 7 fluoroscopic series recorded.FINDINGS: The patient swallowed varying consistencies of barium (thin, thick, pudding, solid) under direct lateral fluoroscopic evaluation. The study was performed in conjunction with speech pathology.IMPRESSION:Laryngeal penetration with thin barium. Contrast remained above the vocal folds with residue seen in airway after swallow. No evidence of aspiration. Vallecular residue noted with multiple consistencies throughout the exam. Please refer to Speech Pathology report for further details.[facility]-[id number] and approved by energy operations vice president/fellow: Yoly Navarro, Bud Zapata M.D., personally reviewed the images and resident's/fellow's findings and agree with the final report.[facility] Vw [id number] 00:54:25EXAMINATION: XR ABDOMEN 1 VW PORTABLE CLINICAL HISTORY: DH placement COMPARISON: February 03, 2021 FINDINGS: Dobbhoff catheter at the level of the pylorus versus duodenal C-loop. Scattered air and fecalmaterial in the colon No gross obstruction on limited exam IMPRESSION:Dobbhoff catheter at the gastric pylorus versus duodenal bulb [id number] Interface, Radiology Results Incoming - 02/24/2021 7:57 PM CDT EXAMINATION: XR ABDOMEN 1 VWPORTABLECLINICAL HISTORY: DH placementCOMPARISON: February 03, 2021FINDINGS:Dobbhoff catheter at the level of the pylorus versus duodenal C-loop.Scattered air and fecal material in the colonNo gross obstruction on limited examIMPRESSION:Dobbhoff catheter at the gastric pylorus versus duodenal [id number]/[id number] 00:32:40Addendum by Rito Mathis MD on 02/24/2021 11:37 AM ADDENDUM #2 Ex amination: IR TUNNELED DIALYSIS CATHETER REPLACEMENT EXCHANGE Clinical history: "malfucntioning cathteter - high pressure low flow" Comparison: There are no prior studies for comparison. Anesthesia: Lidocaine solution was injected into the involved tissues. Conscious sedation: After the risks and benefits of conscious sedation were discussed, midazolam and fentanyl were administered intravenously. Throughout the conscious sedation duration, the patient was continuously monitored by a registered nurse. The physician intraservice qkpr-qh-smiq time with the patient was 11 minutes. Fluoroscopywas used; the reference air kerma for the procedure was 184 mGy. Technique: The patient was prepared using sterile technique after signed, informed consent was obtained. Maximal sterile barrier technique was implemented. The contents of both lumens of the patient's indwelling tunneled hemodialysis catheter via the right jugular vein were aspirated and the catheter was flushed, per routine. Noted is that the catheter tip was located within the cavoatrial junction. The catheter cuff was bluntly dissected from the soft tissues using routine technique. With the catheter tip positioned as above, angiography of the right atrium/catheter tip was performed by injection of contrast through the catheter with the catheter tip positioned as described. This demonstrated no evidence of a fibrin sheath. The catheter was withdrawn approximately 10 cm so that the catheter tip was located within the superior vena cava. Angiography of the superior vena cava and cavoatrial junction/right atrium was repeated by injection of contrast through the catheter with the catheter tip in this position. This demonstrated a fibrin sheath extending from the lower portion of the superior vena cava and into the upper portion of the cavoatrial junction. Under fluoroscopic guidance and using routine wncc-yqr-hbxn technique, a replacement tunneled/cuffed hemodialysis catheter was introduced and positioned with the catheter tip within the lower portion of the right atrium. Angiography was repeated by injection of contrast through the catheter with the catheter tip in this position. This demonstrated no evidence of a persistent fibrin sheath. The catheter was tested and found to function appropriately. The external portion of the catheter was sutured to the adjacent skin. Estimated blood loss: Less than 2 cc. Complications: None. Specimens removed: Not applicable. Assistants: None. IMPRESSION: As described above, angiographic evaluation of the indwelling right jugular tunneled hemodialysis catheter revealed a fibrin sheath within the lower portion of the superior vena cava and within the cavoatrial junction The patient's indwelling 19 cm in cuff-to-tip length tunneled hemodialysis catheter was exchanged for a replacement 23 cm in cuff-to-tip length Medtronic Palindrome tunneled hemodialysis catheter using image guidance and without incident as described above. The catheter is ready for routine use. [id number] ADDENDUM #1 The initial report below that was created on 02/23/2021 was due to technical error; the correct report will be created once imaging is completed and available.Addendum by Rito Mathis MD on 02/23/2021 8:04 PM ADDENDUM #1 The initial report below that was created on 02/23/2021was due to technical error; the correct report will be created once imaging is completed and available. Examination: IR TUNNELED DIALYSIS CATHETER REPLACEMENT EXCHANGE Clinical history: "malfucntioning cathteter - high pressure low flow" Comparison: There are no prior studies for comparison. Anesthesia: None. Conscious sedation: Conscious sedation medications were not administered. Technique: The patient was prepared using sterile technique after signed, informed consent was obtained. Maximal sterile barrier technique was implemented. The sutures securing the indwelling right internal jugular tunneled hemodialysis catheter to the skin surface were severed. Gentle traction on the catheter freed the catheter and the catheter cuff from the soft tissues without incident; this did not causethe patient discomfort. The catheter was then removed without incident. Hemostasis was establishedat the venotomy/catheter exit site by applying direct pressure. Estimated blood loss: Less than 2 cc. Complications: None. Specimens removed: As above. Assistants: None. IMPRESSION: The patient's indwelling right internal jugular tunneled hemodialysis catheter wasremoved without incident as described above. [facility], Radiology Results Incoming - 02/23/2021 7:35 PM CDT Examination: IR TUNNELED DIALYSIS CATHETER REPLACEMENT EXCHANGEClinical history: "malfucntioning cathteter - high pressure low flow"Comparison: There are no prior studies for comparison.Anesthesia: None.Conscious sedation: Conscious sedation medications were not administered.Technique: The patient wasprepared using sterile technique after signed, informed consent was obtained. Maximal sterile barrier technique was implemented. The sutures securing the indwelling right internal jugular tunneled hemodialysis catheter to the skin surface were severed. Gentle traction on the catheter freed the catheter and the catheter cuff from the soft tissues without incident; this did not cause the patient discomfort. The catheter was then removed without incident. Hemostasis was established at the venotomy/catheter exit site by applying direct pressure.Estimated blood loss: Less than 2 cc. Complications: None. Specimens removed: As above.Assistants: None. IMPRESSION: The patient's indwelling right internal jugular tunneled hemodialysis catheter was removed without incidentas described above.[facility]XR [facility] 1 Vw [id number] 14:39:51EXAMINATION: XR CHEST 1 VW PORTABLE CLINICAL HISTORY: AHRF COMPARISON: 02/22/2021 IMPRESSION: Invasive support lines/devices are stable and appear to be in appropriate position.Low lung volumes and bibasilar atelectasis are stable. The cardiac silhouette is mostly obscured. No pneumothorax or obvious pleural effusion is seen. There is no acute skeletal finding. [id number]_PS01Hm Interface, Radiology Results Incoming - 02/23/2021 9:42 AM CDT EXAMINATION: XR CHEST 1 VW PORTABLECLINICAL HISTORY: AHRFCOMPARISON: 02/22/2021IMPRESSION:Invasive support lines/devices are stable and appear to be in appropriate position.Low lung volumes and bibasilar atelectasis are stable. The cardiac silhouette is mostly obscured. No pneumothorax or obvious pleural effusion is seen. There is no acute skeletal finding.[id number] CenterARS-CoV-[facility] (COVID-19) RNA [Presence] in Respiratory specimen by WHITLEY with probe [id number] 13:38:01 Test Item Value Reference Range Interpretation Comments SARS-CoV-2 (COVID-19) RNA Not detected Not-Detected [Presence] in Respiratory specimen by WHITLEY with probe detection (test code = 04217-5) Whether patient is employed in a healthcare setting (test code = 40061-5) Whether the patient has symptoms related to condition of interest (test code = 24460-7) Patient was hospitalized because of this condition (test code = 90958-8) Whether the patient was admitted to intensive care unit (ICU) for condition of interest (test code = 85720-6) Whether patient resides in a congregate care setting (test code = 74200-6) ankle brachial [id number] 21:41:00 Vascular Diagnostic Laboratory Ankle/Brachial Index Report [id number]Name: CHUYAMARILISAN Rachael Alyse.ID: [id number] .Date: 02/15/2021 Refer.MD: DAYNA WILL MD ExamTime: 3:19:00 PM Study Type:Ankle/Brachial Index Height: 68in Weight: 185lb BSA: 1.98 m2 Age: 9 1985,35Y Sex: MALE Sonogrphr: Maranda Oscar, RVT Pat. Stat.:Inpatient Room: [address] Tape Vol: , CPT - 4: 68609 Echo Event ID:[id number] Order ID: [id number] Reason for Study:NEHEMIAH/TBI. Dusky left toes and mottling left foot. Procedures: Ankle/brachial pressures, Digit pressures, Non- imagingcontinuous wave Doppler, PPG waveform tracingRace: D -------- SUMMARY: DOPPLER SIGNALS / ANALOG WAVEFORMS DOPPLER SIGNALSARTERY RIGHT LEFTPosterior Tibial Abnormal AbnormalDorsalis Pedis Normal AbnormalSEGMENTAL PRESSURE(mmHg): RIGHT LEFTBrachial * 103Ankle DP >255 *Ankle PT >255 *Great Toe 21 0* Left side ankle pressure is not taken due to DVT of the left lowerextremity.ANKLE/BRACHIAL INDEX: RIGHT LEFTDorsalis Pedis Non- compressible *Posterior Tibial Non-compressible *TOE/BRACHIAL INDEX: RIGHT LEFT 0.20 0.00PPG SIGNALS OF DIGITS: RIGHT LTPP8kv Present Fbwf2oi Present Fyeu4xe Flat FlatPRELIMINARY FINDINGS:1. Ankle/brachial index is not obtainable due to non-compressiblevessels of the right and DVT of the left lower extremity.2. Toe/brachial index of the right falls into moderate-severe and leftfalls into severe category due to no PPG signals of the left 1stdigit.3. No PPG signals in left 1st, 2nd and 3rd digits and right 3rd digit.4.Diminished but PPG signals are present in right 1st and 2nd digits.5. Please review the Left duplex arterial study report done in .PHYSICIAN INTERPRETATION: 1. Ankle/brachial index is not obtainable due to non-compressiblevessels of the right and DVT of the left lower extremity.2. Toe/brachial index of the right falls into moderate-severe and leftfalls into severe category due to no PPG si gnals of the left 1stdigit.3. No PPG signals in left 1st, 2nd and 3rd digits and right 3rd digit.4. Diminished but PPG signals are present in right 1st and 2nd digits. -FINDINGS: Signed 02/15/2021 04:41 PMLivan Camarena MD, RPVIInterface, Radiology Results In - 02/15/2021 4:41 PM CDT Vascular Diagnostic Laboratory Ankle/Brachial Index Report [id number] [address]Va[address].Name: MARE VERA Pat.ID: [id number] .Date: 02/15/2021 Refer.MD: DAYNA WILL MD Exam Time: 3:19:00 PM Study Type:Ankle/Brachial Index Height: 68in Weight: 185lb BSA: 1.98 m2 Age: 9 1985,35Y Sex: MALE Sonogrphr: Maranda Oscar RVT Pat. Stat.:Inpatient Room: [address] Vol: YM, CPT - 4: 89744 Echo Event ID:[id number] Order ID: [id number] Reason for Study:NEHEMIAH/TBI. Dusky left toes and mottling left foot. Procedures: Ankle/brachial pressures, Digit pressures, Non-imagingcontinuous wave Doppler, PPG waveform tracingRace: D SUMMARY: DOPPLER SIGNALS / ANALOG WAVEFORMS DOPPLER SIGNALSARTERY RIGHT LEFTPosterior Tibial Abnormal AbnormalDorsalis Pedis Normal AbnormalSEGMENTAL PRESSURE(mmHg): RIGHT LEFTBrachial * 103Ankle DP >255 *Ankle PT >255 *Great Toe 21 0* Left side ankle pressure is not taken due to DVT of the left lowerextremity.ANKLE/BRACHIAL INDEX: RIGHT LEFTDorsalis Pedis Non-compressible *Posterior Tibial Non-compressible *TOE/BRACHIAL INDEX: RIGHT LEFT 0.20 0.00PPG SIGNALS OF DIGITS: RIGHT EAGG8yz Present Iyqd2nc Present Unvw7bj Flat FlatPRELIMINARY FINDINGS:1. Ankle/brachial index is not obtainable due to non-compressiblevessels of the right and DVT of the left lower extremity.2. Toe/brachial index of the right falls into moderate-severe and leftfalls into severe category due to no PPG signals of the left 1stdigit.3. No PPG signals in left 1st, 2nd and 3rd digits and right 3rd digit.4. Diminished but PPG signals are present in right 1st and 2nd digits.5. Please review the Left duplex arterial study report done in .PHYSICIAN INTERPRETATION: 1. Ankle/brachial index is not obtainable due to non-compressiblevessels of the right and DVT of the left lower extremity.2. Toe/brachial index of the right falls into moderate-severe and leftfalls into severe category due to no PPG signals of the left 1stdigit.3. No PPG signals in left 1st, 2nd and 3rd digits and right 3rddigit.4. Diminished but PPG signals are present in right 1st and 2nd digits. FINDINGS: Signed 02/15/2021 04:41 PMLivan Camarena MD, RPVIMethodist [facility] duplex arterial lower extremity 2021-02-15 20:33:00 Vascular Ultrasound LaboratoryLower Extremity Arterial Duplex Report [id number] [address]Ttk.Name: MARE VERA.ID: [id number] .Date: 02/15/2021.MD: DAYNA WILL MD Exam Time: 9:42:00 AM Study Type:LE Arterial Height: 68in Weight: 185lb BSA: 1.98 m2 Age: 9 1985,35Y Sex: MALE Sonogrphr: Maranda Oscar, RVT Pat. Stat.:Inpatient Room: [address] Tape Vol: , [facility] - 4: [address] Echo Event ID:[id number] Order ID: [id number] Reason for Study:Dusky and mottling of left toes. Evaluate leftlower extremity for arterial circulation.Procedures: Colorflow, Grayscale/2D, Pulsed wave DopplerRace: D SUMMARY: DUPLEX SCAN OBSERVATIONS:LEFT: Common femoral artery is patent with triphasic Doppler signals. There is color disturbance at distal common femoral to thebifurcation of profunda femoris and proximal superficial femoralartery with ratio: 4.8 and echogenic material noted in that area. Mid to distal superficial femoral artery, profunda femoris, popliteal,posterior tibial, peroneal and anterior tibial arteries are patentwith triphasic /biphasic Doppler signals. Incidental finding: Commonfemoral vein is partially compressible with echogenic material insideof lumen with colorflow and Doppler signals. PRELIMINARY FINDINGS:1. >75% stenosis of the left proximal superficial femoral artery withratio: 4.8. 2. Patency of the left common femoral, superficial femoral, popliteal,posterior tibial, peroneal and anterior tibial arteries. 3. Incidental finding: Partial deep venous thrombosis of the left common. *The results given to BERKLEY Jacobs at 10:19am 1PHYSICIAN INTERPRETATION:Arterial duplex examination of left lower extremity demonstratesinflowf arterial occlusive disease:>75% stenosis of the left proximal superficial femoral artery withratio: 4.8. Incidental finding: Partial deep venous thrombosis of the left common. FINDINGS: MEASUREMENTS: DOPPLERLeft MOOKIE Distal MOOKIE Distal PSV 46 cm/s Left MOOKIE Mid MOOKIE Mid PSV 29 cm/s Left OMOKIE Prox MOOKIE Prox PSV 33 cm/s Left Peroneal Dist Peroneal Dist P 15 cm/s Left Peroneal Mid Peroneal Mid PS 28 cm/s Left Pop Dist Pop Dist PSV 40 cm/s Left Pop Prox Pop Prox PSV 30 cm/s Left TECHNICAL SOLUTIONS ENGINEER Distal TECHNICAL SOLUTIONS ENGINEER Distal PSV 46 cm/s Left TECHNICAL SOLUTIONS ENGINEER Mid TECHNICAL SOLUTIONS ENGINEER Mid PSV 29 cm/s Left TECHNICAL SOLUTIONS ENGINEER ProxPTA Prox PSV 31 cm/s Left Profunda Profunda PSV 42 cm/s Left SFA Dist SFA Dist PSV 41 cm/s Left SFA Mid SFA Mid PSV 39 cm/s Left RATE ENGINEER Mid CFAMid PSV 33 cm/s Left SFA Prox SFA Prox PSV 160 cm/s Right RATE ENGINEER Mid RATE ENGINEER Mid PSV 70 cm/s Signed 02/15/2021 03:33 PMZsolt Nicol MD, RPVIInterce, Radiology Results In - 02/15/2021 3:33 PM CDT Vascular Ultrasound Laboratory Lower Extremity Arterial Duplex Report [id number] [address]Zbg.Name: MARE VERA Pat.ID: [id number] .Date: 02/15/2021 Refer.MD: DAYNA WILL MD Exam Time: 9:42:00 AM Study Type:LE Arterial Height: 68in Weight: 185lb BSA: 1.98 m2 Age: 9 1985,35Y Sex: MALE Sonogrphr: Maranda Oscar RVT Pat. Stat.:Inpatient Room: [address] Tape Vol: , [facility] - 4: [address] Echo Event ID:[id number] Order ID: [id number] Reason for Study:Dusky and mottling of left toes. Evaluate leftlower extremity for a rterial circulation.Procedures: Colorflow, Grayscale/2D, Pulsed wave DopplerRace: D SUMMARY: DUPLEX SCAN OBSERVATIONS:LEFT: Common femoral artery is patent with triphasic Doppler signals. There is color disturbance at distal common femoral to thebifurcation of profunda femoris and proximal superficial femoralartery with ratio: 4.8 and echogenic material noted in that area. Mid to distal superficial femoral artery, profunda femoris, popliteal,posterior tibial, peroneal and anterior tibial arteries arepatentwith triphasic /biphasic Doppler signals. Incidental finding: Commonfemoral vein is partially compressible with echogenic material insideof lumen with colorflow and Doppler signals. PRELIMINARY FINDINGS:1. >75% stenosis of the left proximal superficial femoral artery withratio: 4.8. 2. Patency of the left common femoral, superficial femoral, popliteal,posterior tibial, peroneal and anterior tibial arteries. 3. Incidental finding: Partial deep venous thrombosis of the left common. * The results given to BERKLEY Jacobs at 10:19am 1PHYSICIAN INTERPRETATION:Arterial duplex examination ofleft lower extremity demonstratesinflowf arterial occlusive disease:>75% stenosis of the left proximal superficial femoral artery withratio: 4.8. Incidental finding: Partial deep venous thrombosisof the left common. FINDINGS: - MEASUREMENTS: ----- DOPPLERLeft MOOKIE Distal MOOKIE Distal PSV 46 cm/s Left MOOKIE Mid MOOKIE Mid PSV 29 cm/s Left MOOKIE Prox MOOKIE Prox PSV 33 cm/s Left Peroneal Dist Peroneal Dist P 15 cm/s Left Peroneal Mid Peroneal Mid PS 28 cm/s Left Pop Dist PopDist PSV 40 cm/s Left Pop Prox Pop Prox PSV 30 cm/s Left TECHNICAL SOLUTIONS ENGINEER Distal TECHNICAL SOLUTIONS ENGINEER Distal PSV 46 cm/s Left TECHNICAL SOLUTIONS ENGINEER Mid TECHNICAL SOLUTIONS ENGINEER Mid PSV 29 cm/s Left TECHNICAL SOLUTIONS ENGINEER Prox TECHNICAL SOLUTIONS ENGINEER Prox PSV 31 cm/s Left Profunda Profunda PSV 42 cm/s Left SFA Dist SFA Dist PSV 41 cm/s Left SFA Mid SFA Mid PSV 39 cm/s Left RATE ENGINEER Mid RATE ENGINEER Mid PSV 33 cm/s Left SFA Prox SFA Prox PSV 160 cm/s Right RATE ENGINEER Mid RATE ENGINEER Mid PSV 70 cm/s Signed 02/15/2021 03:33 PMZsolt Nicol MD, [facility] PflugervilleAmpxpcroKlrrutjlvlty0531-24-66 21:59:13Yao Read MD 02/10/2021 5:02 PMParacentesis Date/Time: 02/10/2021 4:59 PMPerformed by: Yao Read [facility] CENTERuthorized by: Sg Alvarado MD Consent: Consent obtained: Verbal Consent given by: Healthcare agent Risks discussed: Bleeding and infection Alternatives discussed: No treatmentUniversal protocol: Procedure explained and questions answered to patient or proxy's satisfaction: yes Relevant documents present and verified: yes Test results available and properly labeled: yes Imaging studies available: yes Required blood products, implants, devices and special equipment available: yes Site/side marked: yes Patient identity confirmed: Arm bandPre-procedure details: Procedure purpose: Therapeutic Preparation: Patient was prepped and draped in usual sterile fashion Sedation: Sedation Type: Systemic Systemic used:: Propofol (already sedated)Anesthesia (see MAR for exact dosages): Anesthesia method: Local infiltrationProcedure details: Ultrasound guidance: yes Puncture site: R lower quadrant Fluid removed amount: 11.2 L Fluid sent for: Aerobic, anaerobic, glucose, amylase, LDH and cell count and differentialPost-procedure details: Complications: None Patient tolerance of procedure: Tolerated well, no immediate complicationsRestoration HospitalCentral Line Insertion 2021-02-10 21:35:42Boris Simental MD 02/10/2021 4:38 PMCentral Line InsertionPerformed by: Boris Simental MDAuthorized by: Dayna Will MD Consent: Consent obtained: Verbal Consent given by: Guardian Risks discussed: Arterial puncture, bleeding, infection, incorrect placement, nerve damageand pneumothorax Alternatives discussed: No treatmentUniversal protocol: Procedure explained andquestions answered to patient or proxy's satisfaction: yes Relevant documents present and verified: no Test results available and properly labeled: yes Imaging studies available: yes Required blood products, implants, devices, and special equipment available: yes Site/side marked: yes Immediately prior to procedure, a time out was called: no Patient identity confirmed: Anonymousprotocol, patient vented/unresponsivePre-procedure details: Hand hygiene: Hand hygiene performed prior to insertion Sterile barrier technique: All elements of maximal sterile technique followedSkin preparation: Povidone-iodine Skin preparation agent: Skin preparation agent completely dried prior to procedure Sedation: Sedation Type: Systemic Systemic used:: PropofolAnesthesia (see MAR for exact dosages): Anesthesia method: Local infiltration Local anesthetic: Lidocaine 1% w/o epiProcedure details: Catheter type: Triple lumen Catheter site: internal jugular vein CatheterSite Laterality: Left Patient position: Flat Landmarks identified: yes Ultrasound guidance: yes Sterile ultrasound techniques: Sterile gel and sterile probe covers were used Number of attempts: 3 Successful placement: yes Post-procedure details: Post- procedure: Dressing applied and line sutured Assessment: Blood return through all ports Patient tolerance of procedure: [place], no immediate complicationsMethodi HospitalEEG (routine)2021-02-09 20:40:06EEG COMA/SLEEP Date of Service: 02/09/2021 Awake Recording: There is no occipital dominant rhythm. There is 1.5-3 Hz activity and low voltage 18-22 Hz activity and myogenic artifact present in all regions. No change is present with stimulation. Sleep Recording: No sleep was recorded. Hyperventilation:Was not performed. Photic Stimulation: Was not performed. Seizures/Events: No seizures occurred. Impression: The background is severely depressed and unreactive to stimulation. The findings are consistent with a severe diffuse disturbance in brain function. No lateralized or epileptiform activity was recorded. ICD-10 Code: R569 Reena EubanksUs duplex venous lower [id number] 20:23:00 Vascular Ultrasound Laboratory Lower Extremity Venous Report [id number] [address] Pat.Name: MARE VERA Pat.ID: [id number] .Date: 02/09/2021 Refer.MD: DAYNA WILL MD Exam Time: 9:54:00 AM Study Type:LE Venous Height: 68in Weight: 179lb BSA: 1.95 m2 Age: 9 1985,35Y Sex: MALE Sonogrphr: EDWAR Diaz Pat. Stat.:Inpatient Room: [address] Vol: BE, CPT - 4: 91455 Echo Event ID:[id number] Order ID: [id number] Reason for Study:HTN with history of ESRD on hemodialysis, chronicdiastolic and severe systolic heart failure, DM2 and DVT.Procedures: Colorflow, Grayscale/2D, Pulsed wave DopplerRace: D SUM MARBELLA: DUPLEX SCAN OBSERVATIONS Deep Veins Superficial Veins Right Left Right Left GSV (prox) Pulsatile Not VisualizedCFV Pulsatile Not visualized (above knee)Femoral Pulsatile Not Visualized GSV (dist) Normal NormalProfunda Pulsatile Not Visualized (below knee )Popliteal Pulsatile PulsatilePT (prox) Normal Chronic/Partial SSV Normal NormalPT (dist) Normal Normal Peroneal Normal Normal Gastrocs Normal NormalRIGHT: There is normal compressibility with no evidence of echogenicmaterial noted within the lumen of the remaining visualized veins.Colorflow and Doppler signals are pulsatile.LEFT: The left common femoral, profunda, proximal femoral andgreater saphenous above the knee where not visualized due to line anddressing in the left groin. The left mid posterial tibial vein ispartially compressible and filled with bright echogenic material notedwithin the lumen of the visualized veins. Colorflow and Dopplersignals are present. There is normal compressibility with no evidenceof echogenic material noted within the lumen of the remainingvisualized veins.Colorflow and Doppler signals are pulsatile.PRELIMINARY FINDINGS:1. Chronic, partial deep venous thro mbosis noted in the left midposterial tibial vein.2. Pulsatile Doppler signals noted, bilaterally. Preliminary results given to BERKLEY Jenniffer @11:00am 02/09/21.PHYSICIAN INTERPRETATION: Venous examination of the both lower extremities demonstrated chronic,partial deep venous thrombosis in the left mid posterior tibialvein.Volume overload. FINDINGS: Signed 02/09/2021 03:23 PMCristysolt Nicol MD, RPVIInterface, Radiology Results In - 02/09/2021 3:33 PM CDT Vascular Ultrasound Laboratory Lower Extremity Venous Report [id number] [place] [address] Pat.Name: MARE VERA Pat.ID: [id number] .Date: 02/09/2021 Refer.MD: DAYNA WILL MD Exam Time: 9:54:00 AM Study Type:LE Venous Height: 68in Weight: 179lb BSA: 1.95 m2 Age: 9 1985,35Y Sex: MALE Sonogrphr: EDWAR Diaz Pat. Stat.:Inpatient Room: [address] Vol: BE, CPT - 4: 21727 Echo Event ID:[id number] Order ID: [id number] Reason for Study:HTN with history of ESRD on hemodialysis, chronicdiastolic and severe systolic heart failure, DM2 and DVT.Procedures: Colorflow, Grayscale/2D, Pulsed wave DopplerRace: D SUMMARY: DUPLEX SCAN OBSERVATIONS Deep Veins Superficial Veins Right Left Right Left GSV (prox) Pulsatile Not VisualizedCFV Pulsatile Not visualized (above knee)Femoral Pulsatile Not Visualized GSV (dist) Normal NormalProfunda Pulsatile Not Visualized (below knee)Popliteal Pulsatile PulsatilePT (prox) Normal Chronic/Partial SSV Normal NormalPT (dist) Normal Normal Peroneal Normal Normal Gastrocs Normal NormalRIGHT: There is normal compressibility with no evidence of echogenicmaterial noted within the lumen of the remaining visualized veins.Colorflow and Doppler signals are pulsatile.LEFT: The left common femoral, profunda, proximal femoral andgreater saphenous above the knee where not visualized due to line anddressing in the left groin. The left mid posterial tibial vein ispartially compressible and filled with bright echogenic material notedwithin the lumen of the visualized veins. Colorflow and Dopplersignals are present. There is normal compressibility with no evidenceof echogenic material noted within the lumen of the remainingvisualized veins. Colorflow and Doppler signals are pulsatile.PRELIMINARY FINDINGS:1. Chronic, partial deep venous thrombosis noted inthe left midposterial tibial vein.2. Pulsatile Doppler signals noted, bilaterally. Preliminary results given to Jenniffer GOODEN @11:00am 02/09/21.PHYSICIAN INTERPRETATION: Venous examination of the both lower extremities demonstrated chronic,partial deep venous thrombosis in the left mid posterior tibialvein.Volume overload. FINDINGS: Signed 02/09/2021 03:23 Cas Camarena MD, RPVIMethSidney & Lois [facility] duplex venous upper [id number] 20:13:00 Vascular Ultrasound Laboratory Upper Extremity Venous Report [id number] [address].Name: CHUY MAREHOWARD Cullen.ID: [id number] .Date: 02/09/2021 Refer.MD: DAYNA WILL MD Exam Time: 10:44:00 AM Study Type:UE Venous Height: 68in Weight: 179lb BSA: 1.95 m2 Age: 9 1985,35Y Sex: MALE Sonogrphr: EDWAR Diaz Pat. Stat.:Inpatient Room: [address] Vol: BE, CPT - 4: 47555 Echo Event ID:[id number] Order ID: [id number] Reason for Study:HTN with history of ESRD on hemodialysis, chronicdiastolic and severe systolic heart failure, DM2 and DVT.Procedures: Colorflow, Grayscale/2D, Pulsed wave DopplerRace: D SUM MARBELLA: DUPLEX SCAN OBSERVATIONS Right LeftIJ Not Visualized Not VisualizedSubclavian Pulsatile PulsatileAxillary Pulsatile PulsatileBrachial Pulsatile PulsatileBasilic Not Visualized Not VisualizedCephalic Pulsatile PulsatileRIGHT: The internal jugular and distal subclavian veins where notvisualized due to dialysis catheter placement. There is normalcompressibility and no evidence of echogenic material noted within thelumen of the remaining visualized veins. Colorflow and Doppler signalsare pulsatile.LEFT: The internal jugular vein was not visualized due to patientsposition. There is normal compressibility and no evidence of echogenicmaterial noted within the lumen of the remaining visualized veins.Colorflow and Doppler signals are pulsatile.PRELIMINARY FINDINGS1. No evidence of venous thrombosis noted in the bilateral visualizedveins. 2. Pulsatile doppler signals noted, bilaterally. PHYSICIAN INTERPRETATION Venous examination of the both upper extremities and neck demonstratedno evidence of venous thrombosis. JONATHAN AGUILLONS: Signed 02/09/2021 03:13 PMLivan Camarena MD, RPVIInterface,Radiology Results In - 02/09/2021 3:14 PM CDT Vascular Ultrasound Laboratory Upper Extremity Venous Report [id number] [address] Pat.Name: MARE VERA Pat.ID: [id number] .Date: 02/09/2021 Refer.MD: DAYNA WILL MD Exam Time: 10:44:00 AM Study Type:UE Venous Height: 68in Weight: 179lb BSA: 1.95 m2 Age: 9 1985,35Y Sex: MALE Sonogrphr: EDWAR Diaz Pat. Stat.:Inpatient Room: [address] Vol: BE, CPT - 4: 48178 Echo Event ID:[id number] Order ID: [id number] Reason for Study:HTN with history of ESRD onhemodialysis, chronicdiastolic and severe systolic heart failure, DM2 and DVT.Procedures: Colorflow, Grayscale/2D, Pulsed wave DopplerRace: D ---SUMMARY: DUPLEX SCAN OBSERVATIONS Right LeftIJ Not Visualized Not VisualizedSubclavian Pulsatile PulsatileAxillary Pulsatile PulsatileBrachial Pulsatile PulsatileBasilic Not Visualized Not VisualizedCephalic Pulsatile PulsatileRIGHT: The internal jugular and distal subclavian veins where notvisualized due to dialysis catheter placement. There is normalcompressibility and no evidence of echogenic material noted within thelumen of the remaining visualizedveins. Colorflow and Doppler signalsare pulsatile.LEFT: The internal jugular vein was not visualized due to patientsposition. There is normal compressibility and no evidence of echogenicmaterial noted within the lumen of the remaining visualized veins.Colorflow and Doppler signals are pulsatile.PRELIMINARY FINDINGS1. No evidence of venous thrombosis noted in the bilateral visualizedveins. 2. Pulsa tile doppler signals noted, bilaterally. PHYSICIAN INTERPRETATION Venous examination of the both upper extremities and neck demonstratedno evidence of venous thrombosis. ---FINDINGS: Signed 02/09/2021 03:13 Cas Camarena MD, [facility] CenterCT Head Wo [id number] 11:15:11EXAM:CT HEAD WO CONTRAST CLINICAL HISTORY: Follow up s p cardiac arrest TECHNIQUE: Axial noncontrastCT images through the head were obtained. This exam was performed according to our departmental doseoptimization program which includes automated exposure control, adjustment of the mA and/or kV according to patient size and/or use of iterative reconstruction technique. Coronal and sagittal reformats were provided. COMPARISON: CT 02/06/2021 FINDINGS: There is no hemorrhage, extra-axial collection,overt mass or midline shift. Multifocal chronic infarcts involving the right frontal, right parietal, right insula, left frontal and left parietal lobes. Thin linear hyperattenuation within the chroni c left parietal lobe infarct is unchanged and may represent mineralization. Intracranial vascular calcifications are present. No sulcal effacement. No overt loss of verduzco-white matter differentiation. No ventriculomegaly. No air-fluid levels within the visualized paranasal sinuses. The visualized mastoid air cells are well aerated. The calvarium and skull base are intact without evidence of fracture. IMPRESSION: No CT evidence of acute intracranial abnormality. Multifocal chronic infarcts. If clinical concern persists further evaluation with MRI can be obtained. [id number] Interface, Radiology Results Incoming - 02/09/2021 6:18 AM CDT EXAM:CT HEAD WO CONTRASTCLINICAL HISTORY: Follow up s p cardiac arrestTECHNIQUE: Axial noncontrast CT images through the head were obtained.This exam was performed according to our departmental dose optimization program which includes automated exposure control, adjustment of the mA and/or kV accor ding to patient size and/or use of iterative reconstruction technique. Coronal and sagittal reformats were provided. COMPARISON: CT 02/06/2021FINDINGS:There is no hemorrhage, extra-axial collection, overt mass or midline shift. Multifocal chronic infarcts involving the right frontal, right parietal,right insula, left frontal and left parietal lobes. Thin linear hyperattenuation within the chronic left parietal lobe infarct is unchanged and may represent mineralization.Intracranial vascular calcifications are present.No sulcal effacement. No overt loss of verduzco-white matter differentiation.No ventr iculomegaly.No air-fluid levels within the visualized paranasal sinuses.The visualized mastoid air cells are well aerated. The calvarium and skull base are intact without evidence of fracture.IMPRESSION:No CT evidence of acute intracranial abnormality.Multifocal chronic infarcts.If clinical concern per sists further evaluation with MRI can be obtained.[id number] ([facility]ine)2021-02-07 13:19:27EEG COMA/SLEEP Date of Service: 02/07/2021 Awake Recording: There is no occipital dominant rhythm. There is low voltage 2-3 Hz and 18-22 Hz activity and myogenic artifact present in all regions. No change is present with stimulation. Sleep Recording: No sleep was recorded. Hyperventilation: Was not performed. Photic Stimulation: Was not performed. Seizures/Events: No seizures occurred. Impression: Thebackground is severely depressed and unreactive to stimulation. The findings are consistent with a se mana diffuse disturbance in brain function. No lateralized or epileptiform activity was recorded. ICD-10 Code: Y260GovaulojkHemphill County HospitalTransthoracic Echocardiogram Complete, (w Contrast, Strain and 3D if needed)2021-02-07 01:55:00 Echocardiography Report [id number]Name: MARE VERA Pat.ID: [id number] .Date: 02/06/2021 Refer.MD: DAYNA WILL MD Exam Time: 7:37:00 PM Study Type:Routine Echo Height: 68in Weight: 178.63lb BSA: 1.95 m2 Age: 9 1985,35Y Sex: MALE BP: 131/81 HR: 100 bpm Sonogrphr: Geovani Renteria RDCS Pat. Stat.:Inpatient Room: [address] Study Status:Final Echo Event ID:[id number] Order ID: [id number] Reason for Study:Status post cardiac arrestProcedures: 2D Echo, Colorflow Doppler, Portable, Stat, IntravenousLumason ContrastRace: D -------- SUMMARY: Biventri cular dilation.LV EFis severely depressed. Estimated EF is <20%.There is possibly a small layered apical thrombus.RV systolic function is severely depressed.Moderate to severe tricuspid regurgitation.Estimated PA systolic pressure is at least 51 mmHg, assuming a meanRAP of 20 mmHg. FI NDINGS: LV: LV size is qwzudphc-ld-xccuqpwk enlarged. Thereis mild eccentric LV hypertrophy. Suspect a layered apical thrombus on limited views (unable to assess size accurately). LV EF is severely depressed. Global hypokinesis. Septal motion is paradoxical. Intermittent septal diastolic bounce noted. Estimated EF is <20%.RV: RV size is moderate-severely enlarged. RV systolic function is severelydepressed.LA: LA volume is moderately enlarged.RA: RA volume is enlarged.AO: Aortic root diameter is normal.VALERIE: No pericardial effusion.PLE: Pleural effusion is present. Perihepatic ascites noted.IAS: Interatrial septum is aneurysmal.AV: No structural AV abnormalities noted.MV: Dilated annulus + apically tethered leaflets. Mild mitral regurgitation. PV: No structural PV abnormalities noted. Mild pulmonic regurgitation. TV: Dilated tricuspid annulus. Moderate to severe tricuspid regurgitation Other: Estimated PA systolic pressure is at least 51 mmHg, assuming a mean RAP of 20 mmHg. MEASUREMENTS: 2DParasternal Long [place] Ao An 1.9 cm LVPWd 0.64 cm Ao Rtd 3cm Index 1.5 cm/m2 LA Ds 5 cm IVSd 0.67 cm RWT 0.19 LVIDd 6.6 cm Index 3.4 cm/m2 LV Mass 175 g (122-174) LVIDs 5.5 cm LVM Index 90 g/m2LV%fs 17 % LA Sng Plane LA Area 25 cm2 (8.8-23.4) LA Vol 82 ml Index 42 ml/m2 LA LngAx 6 cm RA Sng Plane RA Vol 65 ml Index 33 ml/m2 RA LngAx 6 cm RA Area 21 cm2 (8.3-19.5)LVOT Stroke Vol & Cardiac Out LVOT 2.2 cm LVOT LVOT Area 3.8 cm2 DOPPLERLVOT Stroke Vol & Cardiac Out LVOT TVI 6.7 cm LVOT CI 1.8 l/m/m2 LVOT SV 25 ml HR 140 bpm LVOT CO 3.5 l/min LVOT SVi 13 ml/m2 Signed 02/06/2021 08:55 PMLindsey Fulton MDInterface, Radiology Results In - 02/06/2021 8:56 PM CDT Echocardiography Report [address] [place] [address] Pat.Name: MARE VERA Pat.ID: [id number] .Date: 02/06/2021 Refer.MD: DAYNA WILL MD Exam Time: 7:37:00 PM Study Type:Routine Echo Height: 68in Weight: 178.63lb BSA: 1.95 m2 Age: 9 1985,35Y Sex: MALE BP: 131/81 HR: 100 bpm Sonogrphr: Geovani Renteria RDCS Pat. Stat.:Inpatient Room: [address] Study Status:Final Echo Event ID:[id number] Order ID: [id number] Reason for Study:Status post cardiac arrestProcedures: 2D Echo, Colorflow Doppler, Portable, Stat, IntravenousLumason ContrastRace: D SUMMARY: Biventricular dilation.LV EF is severely depressed. Estimated EF is <20%.Thereis possibly a small layered apical thrombus.RV systolic function is severely depressed.Moderate to severe tricuspid regurgitation.Estimated PA systolic pressure is at least 51 mmHg, assuming a meanRAP of 20 mmHg. FINDINGS: ------LV:LV size is qcdqtcvv-vf-tumrordh enlarged. There is mild eccentric LV hypertrophy. Suspect alayered apical thrombus on limited views (unable to assess size accurately). LV EFis severely depressed. Global hypokinesis. Septal motion is paradoxical. Intermittent septal diastolic bounce noted. Estimated EF is <20%.RV: RV size is moderate-severely enlarged. RV systolic function is severely depressed.LA: LA volume is moderately enlarged.RA: RA volume is enlarged.AO: Aortic root diameter is normal.VALERIE: No pericardial eff usion.PLE: Pleural effusion is present. Perihepatic ascites noted.IAS: Interatrial septum is aneurysmal.AV: No structural AV abnormalities noted.MV: Dilated annulus + apically tethered leaflets. Mild mitral regurgitation. PV: No structural PV abnormalities noted. Mild pulmonic regurgitation. TV: Dilated tricuspid annulus. Moderate to severe tricuspid regurgitation Other: Estimated PA systolic pressure is at least 51 mmHg, assuming a mean RAP of 20 mmHg. MEASUREMENTS: 2DParasternal Long [place] Ao An 1.9 cm LVPWd 0.64 cm Ao Rtd 3 cm Index 1.5 cm/m2 LA Ds 5 cm IVSd 0.67 cm RWT 0.19 LVIDd 6.6 cm Index 3.4 cm/m2 LV Mass 175 g (122-174) LVIDs 5.5 cm LVM Index 90 g/m2 LV%fs 17 % LA Sng Plane LA Area 25 cm2 (8.8-23.4) LA Vol 82 ml Index 42 ml/m2 LA LngAx 6 cm RA Sng Plane RA Vol 65 ml Index 33 ml/m2 RA LngAx 6 cm RA Area 21 cm2 (8.3-19.5)LVOT Stroke Vol & Cardiac Out LVOT 2.2 cm LVOT LVOT Area 3.8 cm2 DOPPLERLVOT Stroke Vol & Cardiac Out LVOT TVI 6.7 cm LVOT CI 1.8 l/m/m2 LVOT SV 25 ml HR 140 bpm LVOT CO 3.5 l/min LVOT SVi 13 ml/m2 [facility] 02/06/2021 08:55 PM[facility] HospitalCT Chest Wo Contrast Abdomen Wo Contrast Pelvis Wo [id number] 00:27:53CT CHEST WO CONTRAST ABDOMEN WO CONTRAST PELVIS WO CONTRAST CLINICAL INDICATION: ascites TECHNIQUE:Multidetector CT examination of the chest, abdomen, and pelvis was performed without the use of contrast with multiplanar reconstructions. CT imaging was performed with iterative reconstruction technique and/or automated exposure control to reduce radiation dose. COMPARISON: None. FINDINGS: The lack of intravenous contrast partially limits evaluation. CHEST: *There is no mediastinal mass or hematoma. There is no mediastinal, hilar, or axillary lymphadenopathy.*There is mild enlargement of both ventricles. There is no pericardial effusion. There is heavy calcified plaque of the coronary arteries. The thoracic aorta and main pulmonary artery are normal in caliber. There is a right subclavian central venous catheter with its tip located at the superior cavoatrial junction.*The trachea and central airways are patent. There is no pleural effusion or pneumothorax. There is an endotracheal tube with its tip located 2.1 cm above the darci.*Aside from mild dependent atelectasis in both lungs, the lungs are clear. No acute airspace disease or suspicious pulmonary nodule is identified. ABDOMEN AND PELVIS:*The liver, spleen, pancreas, and adrenal glands are normal.*There is no renal mass or hydronephrosis. There is atrophy of both kidneys, compatible with chronic renal insufficiency.*There is cholelithiasis without evidence of acute cholecystitis. There is no abnormal biliary ductal dilation.*The large and small bowel are normal in caliber. There are no inflammatory changes of the bowel.*There is calcified atherosclerotic disease of the intra-abdominal vessels. The abdominal aorta is normal in calib er. There is a left femoral approach central venous catheter with its tip located in the left external iliac vein.*There is a large amount of free fluid in the abdomen and pelvis. There is no organizedcollection or pneumoperitoneum.*There is no abdominal or pelvic lymphadenopathy.*The urinary bladderis decompressed, limiting evaluation. MUSCULOSKELETAL:*There are no acute osseous abnormalities.*There are bilateral L5 pars defects without an associated anterolisthesis.*There is a left-sided os acromiale.*Surgical changes related to recent placement of an electronic device in the lateral left chest wall with its lead terminating in the anterior midline chest wall. There is expected postoperative soft tissue gas and soft tissue edema within the left chest wall, no organized fluid collection is identified. IMPRESSION: 1. Surgical changes related to recent placement of a left lateral chest wall AICD. 2. No acute airspace disease. 3. Large volume ascites without an organized intra-abdominal collection. 4. Cholelithiasis. [id number] Interface, Radiology Results Incoming - 02/06/2021 7:[address] CHEST WO CONTRAST ABDOMEN WOCONTRAST PELVIS WO CONTRASTCLINICAL INDICATION: ascitesTECHNIQUE: Multidetector CT examination of the chest, abdomen, and pelvis was performed without the use of contrast with multiplanar reconstructions. CT imaging was performed with iterative reconstruction technique and/or automated exposure control to reduce radiation dose.COMPARISON: None.FINDINGS:The lack of intravenous contrast partially limits evaluation.CHEST: *There is no mediastinal mass or hematoma. There is no mediastinal, hilar, or axillary lymphadenopathy.*There is mild enlargement of both ventricles. There is no pericardial effusion. There is heavy calcified plaque of the coronary arteries. The thoracic aorta and main pulmonary artery are normal in caliber. There is a right subclavian central venous catheter with its tip locatedat the superior cavoatrial junction.*The trachea and central airways are patent. There is no pleuraleffusion or pneumothorax. There is an endotracheal tube with its tip located 2.1 cm above the darci.*Aside from mild dependent atelectasis in both lungs, the lungs are clear. No acute airspace diseaseor suspicious pulmonary nodule is identified.ABDOMEN AND PELVIS:*The liver, spleen, pancreas, and adrenal glands are normal.*There is no renal mass or hydronephrosis. There is atrophy of both kidneys, compatible with chronic renal insufficiency.*There is cholelithiasis without evidence of acute cholecystitis. There is no abnormal biliary ductal dilation.*The large and small bowel are normal in caliber. There are no inflammatory changes of the bowel.*There is calcified atherosclerotic disease of the intra-abdominal vessels. The abdominal aorta is normal in caliber. There is a left femoral approach central venous catheter with its tip located in the left external iliac vein.*There is a large amount of free fluid in the abdomen and pelvis. There is no organized collection or pneumoperitoneum.*There is no abdominal or pelvic lymphadenopathy.*The urinary bladder is decompressed, limiting evaluation.MUSCULOSKELETAL:*There are no acute osseous abnormalities.*There are bilateral L5 pars defects withoutan associated anterolisthesis.*There is a left-sided os acromiale.*Surgical changes related to recent placement of an electronic device in the lateral left chest wall with its lead terminating in the anterior midline chest wall. There is expected postoperative soft tissue gas and soft tissue edema within the left chest wall, no organized fluid collection is identified.IMPRESSION:1. Surgical changes re lated to recent placement of a left lateral chest wall AICD.2. No acute airspace disease.3. Large volume ascites without an organized intra-abdominal collection.4. Cholelithiasis.[id number] HospitalCentral [facility] Insertion 2021-02-06 23:22:47TeFreedom dejesus MD 02/06/2021 6:24 PMCentral Line InsertionPerformed by: Freedom Melgoza MDAuthorized by: Dayna Will MD Consent: Consent obtained: Emergent situationUniversal protocol: Immediately prior to procedure, a time out was called: yes Patient identity confirmed: Anonymous protocol, patient vented/unresponsive, arm band, provided demographic data and hospital-assigned identification numberPre-procedure details: Hand hygiene: Hand hygiene performed prior to insertion Sterile barrier technique: All elements of maximal sterile technique followed Skin preparation: 2% chlorhexidine Skin preparation agent: Skin preparation agent completely dried prior to procedure Anesthesia (see MAR for exact dosages): Anesthesia method: NoneProcedure details: Catheter type: Triple lumen Catheter site: femoral vein Catheter Site Laterality: Left Patient posit ion: Flat Landmarks identified: yes Ultrasound guidance: no Number of attempts: 1 Successful placement: yes Post-procedure details: Post- procedure: Line sutured and dressing applied Assessment: Blood return through all ports and free fluid flow Patient tolerance of procedure: Tolerated well, no immediate complicationsHemphill County HospitalElectrophysiology procedure 2021-02-06 21:39:28Successful sub-cutaneous ICD placement, using the subserratus muscle technique RECOMMENDATIONS:-Admit to ICU-Obtain advanced heart failure consult-Hold Coumadin for now-Ascites work-upDATE OF OPERATION: 02/06/2021 IT HELP DESK ANALYST: Dayna Will MD PREOPERATIVE DIAGNOSES:-Severe ischemic cardiomyopathy with EF of 17% per cardiac MRI-History of CAD and prior infarct- History of stroke with left-sided vdgwwcyafyq-Zxk-bhfza renal disease on hemodialysis-LV thrombus on oral anticoagulation-Prior history of cardiac arrest POSTOPERATIVE DIAGNOSES:-Severe ischemic cardiomyopathy with EF of 17% per cardiac MRI-History of CAD and prior infarct-History of stroke with left-sided kndyfpxpsof-Tvw-ouhad renal disease on hemodialysis-LV thrombus on oral anticoagulation-Prior history of cardiac arrest at an outside hospital, with unclear etiology PROCEDURES PERFORMED:-Subcutaneous ICD (S-ICD) implant-Defibrillationtest (DFT) COMPLICATIONS: None ESTIMATED BLOOD LOSS: <50cc HISTORY OF PRESENT ILLNESS: In brief, this is a 35 years old M with past medical history as above, who presents today for ICD implant for primary prevention. PROCEDURE IN DETAIL: Written informed consent was obtained from the patient and his family after a full explanation of the risks and benefits of the procedure. The risks of bleeding / infection / vascular injury / and were among those discussed. The patient was brought to the lab in the fasting state. Continuous electrocardiographic and hemodynamic monitoring was initiated. Prior to the start of the procedure following induction and intubation, patient had a PEA cardiac arrest requiring~7 minutes of CPR. Patient had ROSC and his blood pressure remained stable for the next30 minutes therefore we decided to proceed with our implant. Of note he was also noted to have diste nded abdomen with possible ascites that was new onset. At this time, the implantation site was meticulously prepared with surgical scrub. Sterile draping was applied to cover the operation site. Localanesthesia was infiltrated subcutaneously at the access sites. IV Vancomycin was given at the beginning of the procedure.A 6cm left lateral incision was made along the submammary fold/anterior axillaryline for pocket formation in the anterior axillary line. Using blunt dissection and electrocautery, the dissection was carried perpendicular to the incision down to the serratus anterior muscle. 2 heads of the third radius anterior were then until submuscular fascia was exposed. Using blunt dissection with our fingers were able to create a pocket in the subserratus compartment. Careful attention was needed for hemostasis requiring at times manual pressure. An angled incision of 3 cm length was carried down to the subcutaneous fascia overlying the xiphoid. A tunneling tool was used to tunnel the lead from the device pocket to the xiphoid, then superiorly along the left edge of the sternum (2 incision technique), under fluoroscopic guidance. The electrode was fixed at the xiphoid incision with an anchoring sleeve and two 1-ethibond sutures. The lead was connected to a subcutaneous ICDgenerator, which was secured to the pocket with 1-ethibond suture and covered with Tyrx antibiotic containing pouch. The pocket was irrigated with copious amount of antibiotic containing fluid, then closed with multiple layers of absorbable suture. Similarly the subxiphoid incision was also closed with interrupted layers of absorbable sutures. Sensing was tested on the device and was good parameters. A 10 J was then given and shock impedance was excellent at 31 ohms. However patient went into tachycardia at 150 bpm that was sustained for more than 10 minutes likely atrial flutter or slow ventricular tachycardia, as the QRS morphology which was wide was mostly unchanged from prior. After done with the procedure and applying the Prineo on the incisions, we decided to externally cardiovert his tachycardia however at this time patient went again into refractory V. fib that was refractory to 2 sh ocks from the device and 2 external shocks at maximal output 360 J followed by PA arrest requiring~2to 3 minutes of CPR until ROSC was obtained again.Patient condition remain critically ill and he will be transferred to ICU. Device: Sales Assistant Institutional Sales: [employer] S-ICD; Model: A219; Serial No =[id number]: Sam S-ICD, Model: 3501; [facility] Fy=[id number], [id number] 21:08:08 Test Item Value Reference Range Interpretation Comments pH, arterial (test code 7.35-7.45 = 2744-1) pCO2, arterial (test See_Comment [Autom ated message] code = 2019-8) The system ich generated this result transmitted ref erence range: 35 - 45 mmHg. The reference r barrett was not used to interpret this result as normal/abnor mal. pO2, arterial (test code See_Comment H [A utomated message] = 2703-7) The system ic h generated this result transmitted ref erence range: 80 - 90 mmHg. The reference r barrett was not used to interpret this result as normal/abnor mal. Temperature, Celsius Degrees C (test code = 8310-5) O2 saturation, arterial 100 % 95-100 (test code = 2708-6) pH, arterial corrected (test code = 45236-6) pCO2, arterial corrected mmHg (test code = 70262-3) pO2, arterial corrected mmHg (test code = 78583-9) Base excess, arterial See_Comment L [Auto mated message] (test code = 1925-7) The [facility] tem which generated this result transmitted ref erence range: -2 - 2 m Eq/L. The reference r barrett was not used to interpret this result as normal/abnor mal. Lab Interpretation (test Abnormal code = 45522-6) [facility] HospitalGlucose level, [id number] 21:08:08 Test Item Value Reference Range Interpretation Comments Glucose, syringe (test code = 267 mg/dL 65-99 H 2345-7) Lab Interpretation (test code = Abnormal 75199-1) [facility] HospitalHemoglobin, [id number] 21:08:08 Test Item Value Reference Range Interpretation Comments Hemoglobin, syringe (test code = 10.4 g/dL 14.0-18.0 L 718-7) Lab Interpretation (test code = Abnormal 08451-6) [facility] HospitalPotassium, [id number] 21:08:08 Test Item Value Reference Range Interpretation Comments Potassium, syringe See_Comment [Automat ed message] The (test code = 2008) system wh ich generated this result tra nsmitted reference range : 3.5 - 5.0 mEq/L. The refe rence range was not used to interpret this result as normal/abnormal . [facility] Centerodium level, [id number] 21:08:08 Test Item Value Reference Range Interpretation Comments Sodium, syringe (test See_Comment [Auto mated message] The code = 2947-0) system which generated this result tra nsmitted reference range : 135 - 148 mEq/L. The refe rence range was not used to interpret this result as normal/abnormal . [facility] HospitalArterial [id number] 19:03:48Bernarda Santa CRNA 02/06/2021 2:04 PMArterial line Patient Location: ORStart Time: 12:03 PMEnd Time: 02/06/2021 2:03 PM Performed by: anesthesiologistAuthorized by: Gabriella Nick MD Pre-procedure: patient identified, IV checked, site and side verified, risks and benefits discussed, procedure verified, surgical consent complete, patient position confirmed, monitors and equipment checked, pre-op evaluation complete and timeout performed prior to procedure MSBT: antiseptic used, all elements of maximal sterile barrier technique followed, hand hygiene performed, cap/gown used by other personnel and solutions labeled Indications: Indications: hemodynamic monitoring Anesthesia: Anesthesia: GeneralProcedure Details: Arterial Line placement: Placed post inductionLine placement site: RadialLine placement side: Right Arterial line gauge: 20 GNumber of attempts: 1Ultrasound guidance used: No Post-procedure: Post- procedure: Sterile dressing applied Post procedure circulation, sensation, movement: Normal and unchanged Patient tolerance: Patient tolerated the procedure well with no immediate complicationsHemphill County [id number] 18:39:20Bernarda Santa CRNA 02/06/2021 2:03 PMAirway Date/Time: 02/06/2021 1:39 PM Location: OR Performed by: AILIN/AAAuthorized by: Gabriella Nick MD Urgency: ElectiveDifficult Airway: No Preoxygenated with 100% O2: Yes C-spine Precautions Maintained Throughout: Yes Mask Ventilation: Not attemptedFinal Airway Type: Endotracheal airwayFinal Endotracheal Airway: ETTCuffed: Yes Technique Used: Direct laryngoscopyDevices/Methods Used in Placement: Intubating styletInsertion Site: OralBlade Type: MillerLaryngoscope Blade/Videolaryngoscope Blade Size: 2ETT Size (mm): 8.0Cuff at minimum occlusion pressure: Yes Measured from: TeethETT to Teeth (cm): 23Placement Verified by: CO2 detection, direct visualization and equal breath sounds Laryngoscopic view: Grade IIa - partial viewof glottisRapid Sequence Induction (RSI): No Modified RSI: No Number of Attempts at Approach: 1 [facility]Type and [id number] 17:03:00 Test Item Value Reference Range Interpretation Comments ABO grouping (test code = 883-9) O Rh type (test code = 29962-0) POS Antibody screen (gel) (test code = NEG 890-4) [facility]merPO [id number] 15:57:22 Test Item Value Reference Range Interpretation Comments POC sodium (test code = 2947-0) 139 mmol/L 135-148 POC potassium (test code = 6298-4) 5.0 mmol/L 3.5-5.0 POC chloride (test code = 2069-3) 104 mmol/L 99-109 POC CO2 (test code = 49744-8) 23 mmol/L 24-31 L POC glucose (test code = 2339-0) 150 mg/dL 65-99 H POC BUN (test code = 6299-2) 55 mg/dL 8-24 H POC creatinine (test code = 8.6 mg/dl 0.7-1.2 H 65707-8) POC hematocrit (test code = 39 % 41-51 L 4544-3) POC anion gap (test code = 18 mmol/L 8-20 8649032) Lab Interpretation (test code = Abnormal 04223-5) [facility] ElmerCardiac MRI Stress w [id number] 15:02:00 Shiva Valles CMR Report Name: MARE VERA : 1985 Scan Date: 2020-12-18 13:34:31 Electronically signed by Jean Sullivan M.D. 10:02:19VITALS HEIGHT: 69.00 in (175.26 cm)WEIGHT: 172.00 lbs(78.02 kgs)BSA: 1.94 m^2BP: 97 / 65 mmHgBASELINE HR: 89 BPMHEART RHYTHM: Normal Sinus RhythmFINAL IMPRESSION A. ISCHEMIC CARDIOMYOPATHY (EF 17%) WITH MODERATE LV ENLARGEMENT. TRANSMURAL [place] IN THE MID-DISTAL LAD WITH SUBENDO [place] IN THE RCA TERRITORY B. MODERATE RV ENLARGEMENT AND SEVERE RV DYSFUNCTION. MODERATE FUNCTIONAL TR.C. PEDUNCULATED 9MM APICAL LV THROMBUS. D. NO STRESS INDUCED ISCHEMIASUMMARY LEFT VENTRICLE: LV wall thickness is normal. LV cavity is moderately enlarged. LV systolic function is severely decreasedwith all motion abnormalities as below. Quantitative LVEF 17 %. There kenn definite apical LV thrombus. LVmass/thrombus size is 9 mmVIABILITY: LV scar size is 39 %.Transmural [place] in the mid-distal LAD with areas of MVO (not viable) and in thebasal-mid inferolateral wall (OM territory-not viable). Subendo [place] in the inferior wall. All otherterritories are viable.STRESS: No evidence of reversible ischemia.RIGHT VENTRICLE: RV is moderately enlarged. RV systolic function is severely decreased globally. Quantitative RVEF 26 %.There is no RV mass/thrombus.LEFT ATRIUM: LA is moderately enlarged. There is no LA mass/thrombus.RIGHT ATRIUM: RA is severely enlarged. There is no RA ma ss/thrombus.PERICARDIUM: There is a trivial pericardial effusion.PLEURAL EFFUSION: There is no pleural effusion.AORTIC VALVE: Aortic valve leaflets are normal. There is no aortic stenosis. There is noaortic regurgitation.MITRAL VALVE: Mitral valve leaflets are normal. There is no mitral stenosis. There is mild functional mitralregurgitation. Mitral regurgitant volume 7 ml. Mitral regurgitant fraction 15 %.TRICUSPID VALVE: The tricuspid valve annulus is dilated. Tricuspid valve leaflets are normal. There is no tricuspidstenosis. There is moderate tricuspid regurgitation. Tricuspid regurgitant volume 27 ml. Tricuspidregurgitant fraction 41 %.PULMONIC VALVE: Pulmonic valve leaflets are normal. There is no pulmonic stenosis. There is no pulmonic regurgitation.AORTIC ROOT: The aortic root is normal.CHEST: The main (2.8 cm) pulmonary artery as well as the right (1.5 cm) and left (1.4 cm) pulmonary arterybranches are normal in size. Artifact present but no clear evidence of central pulmonary emboliA BDOMEN: LARGE AMOUNT OF ASCITES PRESENTOTHER FINDINGS: No CMR criteria for cardiac iron overloadCOREEXAM MEASUREMENTS VOLUMETRIC ANALYSIS . .| | | LV | Reference | RV | Reference |+------+-------+------+ +------+ +| EDV | ml | 277 | (128-196) | 253 | (126-215) || ESV | ml | 231 | (35-76) | 187 | (35-91) || CO | L/min | 3.97 | | 5.68 | || MASS | g | 134 | (114-178) | | || SV | ml | 46 | (83-130) | 66 | (76-138) || EF | % | 17 | (57-75) | 26 | (50- 76) |'------+-------+------+ +------+ ' CARDIAC OUTPUT HR: 86 BPM LV DIMENSIONS ------- WALL THICKNESS - ANTEROSEPTAL: 0.6 cm WALL THICKNESS - INFEROLATERAL: 0.6 cm LV PAULA: 6.3 cm LV ESD: 5.6 cm LA DIMENSIONS (LV SYSTOLE) AREA - 2 CHAMBER: 36 cm^2 LENGTH - 2 CHAMBER: 6.9 cm AREA - 4 CHAMBER: 29 cm^2 LENGTH - 4 CHAMBER: 7.2 cm VOLUME: 129 ml VOLUME NORMALIZED: 66.4 ml/m^2 AORTIC ROOT DIMENSIONS ANNULUS: 2.7 cm SINUS OF VALSALVA: 3.3 cm SINOTUBULAR JUNCTION: 2.5 cm EXTRACELLULAR VOLUME MEASUREMENT HEMATOCRIT: 39 % HEMATOCRIT DATE: 2020-12-18 00:00:00 IRON QUANTIFICATION MYOCARDIAL T2*: 24.2 msec17 SEGMENT - -------. -------.| Segments | Wall Motion | Hyperenhancement | Stress Perfusion | Interpretation |+ ---------+ + + + ---------+| Base Anterior | Severe Hypo | None | Normal | || Base Anteroseptal | Severe Hypo | None | Normal | || Base Inferoseptal | Severe Hypo | 1-25% | Mildly Abnormal | Sub-Endo [place], No Ischemia || Base Inferior | Akinetic | 1-25% | Normal | || BaseInferolateral | Severe Hypo | 1-25% | Normal | Sub-Endo [place], No Ischemia || Base Anterolateral | Severe Hypo | 1- 25% | Normal | || Mid Anterior | Severe Hypo | 1-25% | Normal | Sub-Endo [place], No Ischemia || Mid Anteroseptal | Severe Hypo | 51-75% | Severely Abnormal | Transmural [place] || Mid Inferoseptal | Severe Hypo | 51-75% | Severely Abnormal | Transmural [place] ||Mid Inferior | Akinetic | 26-50% | Normal | Sub-Endo [place], No Ischemia || Mid Inferolateral | Severe Hypo | None | Normal | || Mid Anterolateral | Severe Hypo | None | Normal ||| Apical Anterior | Akinetic | 76-100% | Severely Abnormal | || Apical Septal | Akinetic | 76-100% | Not Seen | Transmural [place] || Apical Inferior | Akinetic | 76-100% | Severely Abnormal | Transmural [place] || Apical Lateral | Akinetic | 76-100% | Severely Abnormal | Transmural [place] || Thornton | Akinetic | 76-100% | Normal | Transmural [place] |+ + + + +---- +| RV Segments | Wall Motion | Hyperenhancement | Stress Perfusion | Interpretation |+ + + + +---- +| RV Basal Anterior | Severe Hypo | None | Normal | || RV Basal Inferior | Severe Hypo | None | Normal | || RV Mid | Severe Hypo | None | Normal | || RV Apical | Severe Hypo | None | Normal | |' + + + +---- ' FINDINGS LV SCAR SIZE (17 SEGMENT): 39 %STRESS STRESS PROTOCOL Regadenoson AMOUNT: 0.4 mg AMINOPHYLLINE DOSE: 125 mgRESTING DATA -------- SYSTOLIC BP: 111 mmHg DIASTOLIC BP: 75 mmHg RESTING HR: 88 BPM MEDICATIONS TAKEN TODAY: None ECG: NSR STRESS DATA PEAK SYSTOLIC BP: 118 mmHg PEAK DIASTOLIC BP: 72 mmHg PEAK HR: 95 BPM REASON FOR TERMINATION: Protocol Complete COMPLICATIONS: None POST STRESS ECG: No changefrom pre-stress ECGSCAN INFO GENERAL SCANNER MELTING OPERATOR: Make YES! Happen MODEL: SignaCert_fit PULSE SEQUENCES: SSFP cine, 2D LGE segmented, 2D LGE single-shot, Pre-contrast T1 mapping, Post-contrast T1 mapping, First-pass perfusion with stress, Phase contrast imaging, HASTE morphology, Bright-blood SSFP morphology CONTRASTAGENT TYPE: Gadavist LOT NUMBER: [id number] EXPIRATION DATE: 2024-11-14 00:00:00 GD CONCENTRATION: 0.5 M VOLUME ADMINISTERED: 8 ml DOSAGE: 0.05 mmol/kg SERUM CREATININE: 6.0 mg/dL GFR: 11.30 ml/min/1.73m^2 CREATININE DATE: 2020-12-18 00:00:00 SEDATION SEDATION USED?: No SETUP SCAN TYPE: Clinical PATIENT TYPE: Outpatient LOCATION: [facility] INCOMPLETE SCAN: No REASON(S) FOR SCAN: Ischemia eval: other, Pre-ICD (LVEF eval), nonischemic CM etiology REFERRING PHYSICIAN: DAYNA WILL TECHNICIANS: 1) Dana SANTOS 2) Mike Duff Patient Account [id number] Codes 52530, 45560, 95018, 60461, [id number] Codes I25.5ADDITIONAL NOTES [facility] Sales Assistant Institutional Sales: [place]: Gather (Serial #: [id number])Scan InfoLVOTFF 39mlPAFF 25ml will use PAFF as LVOTFF MR RVol (mL) = LVSV - LV Forward Flow (AOFF) = 7MR RF (%) = RVol/(LVSV) = 15%TR RVol (mL) = RVSV - RV Forward Flow (PAFF) = 27TR RF (%) = RVol/(RVSV) = 41%Report generated by Precession, aproduct of Heart Imaging TechnologiesInterface, Radiology Results In - 12/19/2020 10:02 AM CDT [facility] CMR Report Name: MARE VERA : 1985 Scan Date: 2020-12-18 13:34:31 Electronically signed by Jean Sullivan M.D. 10:02:19VITALS ==== HEIGHT: 69.00 in (175.26 cm)WEIGHT: 172.00 lbs (78.02 kgs)BSA: 1.94 m^2BP: 97 / 65 mmHgBASELINE HR: 89 BPMHEART RHYTHM: Normal Sinus RhythmFINAL IMPRESSION A. ISCHEMIC CARDIOMYOPATHY (EF 17%) WITH MODERATE LV ENLARGEMENT. TRANSMURAL [place] IN THE MID- DISTAL LAD WITH SUBENDO [place] IN THE RCA TERRITORY B. MODERATE RV ENLARGEMENT AND SEVERE RV DYSFUNCTION. MODERATE FUNCTIONAL TR.C. PEDUNCULATED 9MMAPICAL LV THROMBUS. D. NO STRESS INDUCED ISCHEMIASUMMARY LEFT VENTRICLE: LV wall thickness is normal. LV cavity is moderately enlarged. LV systolic function is severely decreasedwith all motion abnormalities as below. Quantitative LVEF 17 %. There is a definite apical LV thrombus. LVmass/thrombussize is 9 mmVIABILITY: LV scar size is 39 %.Transmural [place] in the mid-distal LAD with areas of MVO (not viable) and in thebasal-mid inferolateral wall (OM territory-not viable). Subendo [place] in the inferior wall. All otherterritories are viable.STRESS: No evidence of reversible ischemia.RIGHT VENTRICLE: RV is moderately enlarged. RV systolic function is severely decreased globally. Quantitative RVEF 26 %.There is no RV mass/thrombus.LEFT ATRIUM: LA is moderately enlarged. There is no LA mass/thrombus.RIGHT ATRIUM: RA is severely enlarged. There is no RA mass/thrombus.PERICARDIUM: There is a trivial per icardial effusion.PLEURAL EFFUSION: There is no pleural effusion.AORTIC VALVE: Aortic valve leaflets are normal. There is no aortic stenosis. There is no aortic regurgitation.MITRAL VALVE: Mitral valve leaflets are normal. There is no mitral stenosis. There is mild functional mitralregurgitation. Mitral regurgitant volume 7 ml. Mitral regurgitant fraction 15 %.TRICUSPID VALVE: The tricuspid valve annulus is dilated. Tricuspid valve leaflets are normal. There is no tricuspidstenosis. There is moderate tricuspid regurgitation. Tricuspid regurgitant volume 27 ml. Tricuspidregurgitant fraction 41 %.PULMONIC VALVE: Pulmonic valve leaflets are normal. There is no pulmonic stenosis. There is no pulmonic regurgitation.AORTIC ROOT: The aortic root is normal.CHEST: The main (2.8 cm) pulmonary artery as well as the right (1.5 cm) and left (1.4 cm) pulmonary arterybranches are normal in size. Artifact present but no clear evidence of central pulmonary emboliABDOMEN: LARGE AMOUNT OF ASCITES PRESENTOTHER FINDINGS: No CMR criteria for cardiac iron overloadCORE EXAM MEASUREMENTS VOLUMETRIC ANALYSIS --------- . .| | | LV | Reference | RV | Reference |+------+-------+------+ +------+ +| EDV | ml | 277 | (128-196) | 253 | (126-215) || ESV | ml | 231 | (35-76) | 187| (35- 91) || CO | L/min | 3.97 | | 5.68 | || MASS | g | 134 | (114-178) | | || SV | ml | 46 | (83-130) | 66 | (76-138) || EF | % | 17 | (57-75) | 26 | (50-76) |'------+-------+------+ +------+ ' CARDIAC OUTPUT HR: 86 BPM LV DIMENSIONS WALL THICKNESS - ANTEROSEPTAL: 0.6 cm WALL THICKNESS - INFEROLATERAL: 0.6 cm LV PAULA: 6.3 cm LV ESD: 5.6 cm LA DIMENSIONS (LV SYSTOLE) AREA - 2 CHAMBER: 36 cm^2 LENGTH - 2 CHAMBER: 6.9 cm AREA - 4 CHAMBER: 29 cm^2 LENGTH - 4 CHAMBER: 7.2 cm VOLUME: 129 ml VOLUME NORMALIZED: 66.4 ml/m^2 AORTIC ROOT DIMENSIONS ANNULUS: 2.7 cm SINUS OF VALSALVA: 3.3 cm SINOTUBULAR JUNCTION: 2.5 cm EXTRACELLULAR VOLUME MEASUREMENT HEMATOCRIT: 39 % HEMATOCRIT DATE: 2020-12-18 00:00:00 IRON QUANTIFICATION MYOCARDIAL T2*: 24.2 msec17 SEGMENT . .| Segments | Wall Motion | Hyperenhancement | Stress Perfusion | Interpretation |+ + + +---- + +| Base Anterior | Severe Hypo | None | Normal | || Base Anteroseptal | Severe Hypo | None | Normal | || Base Inferoseptal | Severe Hypo | 1-25% |Mildly Abnormal | Sub-Endo [place], No Ischemia || Base Inferior | Akinetic | 1- 25% | Normal | || Base Inferolateral | Severe Hypo | 1-25%| Normal | Sub-Endo [place], No Ischemia || Base Anterolateral | Severe Hypo | 1-25% | Normal | || Mid Anterior | Severe Hypo | 1-25% | Normal | Sub-Endo [place], No Ischemia || Mid Anteroseptal | Severe Hypo | 51-75% | Severely Abnormal | Transmural [place] || Mid Inferoseptal | Severe Hypo | 51-75% | Severely Abnormal | Transmural [place] || Mid Inferior | Akinetic | 26-50% | Normal | Sub-Endo [place], No Ischemia || Mid Inferolateral | Severe Hypo | None | Normal | || Mid Anterolateral | Severe Hypo | None | Normal | || Apical Anterior | Akinetic | 76-100% | Severely Abnormal | || Apical Septal | Akinetic | 76-100% | Not Seen | Transmural [place] || Apical Inferior | Akinetic | 76-100% | Severely Abnormal | Transmural [place] || Apical Lateral | Akinetic | 76-100% | Severely Abnormal | Transmural [place] || Thornton | Akinetic | 76-10 0% | Normal | Transmural [place] |+ + +----- + + +| RV Segments | Wall Motion | Hyperenhancement | Stress Perfusion | Interpretation |+ + +--- + + +| RV Basal Anterior | Severe Hypo | None | Normal | || RV Basal Inferior | Severe Hypo |None | Normal | || RV Mid | Severe Hypo | None | Normal | || RV Apical | Severe Hypo| None | Normal | |' + -+ + + ' FINDINGS LV SCAR SIZE (17 SEGMENT): 39 %STRESS ==STRESS PROTOCOL --- ----- Regadenoson AMOUNT: 0.4 mg AMINOPHYLLINE DOSE: 125 mgRESTING DATA SYSTOLIC BP: 111 mmHg DIASTOLIC BP: 75 mmHg RESTING HR: 88 BPM MEDICATIONS TAKEN TODAY: None ECG: NSR STRESS DATA PEAK SYSTOLIC BP: 118 mmHg PEAK DIASTOLIC BP: 72 mmHg PEAK HR: 95 BPM REASON FOR TERMINATION: Protocol Complete COMPLICATIONS: None POST STRESS ECG: No change from pre-stress ECGSCAN INFO ========GENERAL ----- --- SCANNER MELTING OPERATOR: SIEMENS MODEL: Svpplyyra_fit PULSE SEQUENCES: SSFP cine, 2D LGE segmented, 2D LGE single-shot, Pre-contrast T1 mapping, Post- contrast T1 mapping, First-pass perfusion with stress, Phase contrast imaging, HASTEmorphology, Bright-blood SSFP morphology CONTRAST AGENT TYPE: Tonja LOT NUMBER: [id number] EXPIRATION DATE: 2024-11-14 00:00:00 GD CONCENTRATION: 0.5 M VOLUME ADMINISTERED: 8 ml DOSAGE: 0.05 mmol/kg SERUM CREATININE: 6.0 mg/dL GFR: 11.30 ml/min/1.73m^2 CREATININE DATE: 2020-12-18 00:00:00 SEDATION SEDATION USED?: No SETUP SCAN TYPE: Clinical PATIENT TYPE: Outpatient LOCATION: [facility] INCOMPLETE SCAN: No REASON(S) FOR SCAN: Ischemia eval: other, Pre-ICD (LVEF eval), nonischemic CM etiology REFERRING PHYSICIAN: DAYNA WILL TECHNICIANS: 1) Dana SANTOS 2) Jose Duff Patient Account [id number] Codes 38756, 59842, 78381, 28021, [id number] Codes I25.5ADDITIONAL NOTES GeneralScanner Sales Assistant Institutional Sales: Melior Pharmaceuticalsel: SkJousta- [employer] (Serial #: [id number])Scan InfoLVOTFF 39mlPAFF 25ml will use PAFF as LVOTFF MR RVol (mL) = LVSV - LV Forward Flow (AOFF) =7MR RF (%) = RVol/(LVSV) = 15%TR RVol (mL) = RVSV - RV Forward Flow (PAFF) = 27TR RF (%) = RVol/(RVSV) = 41%Report generated by Precession, a product of [employer] [facility]
[2021-03-04 00:18] LABS: Absolute Lymphocytes (CBC) 0.9 K/uL (0.7-4.9); Basophils % 0.5 % (0-1.3); Hematocrit 28.7 % (39.6-49.0); Lymphocytes % 7.2 % (15.3-44.8); MPV 7.7 fL (7.6-11.3)
[2021-03-04 00:29] LABS: Bilirubin Direct 0.4 mg/dL (0-0.2); Bilirubin Total 0.6 mg/dL (0.2-1.0); Potassium 3.9 mmol/L (3.5-5.1); Troponin (Emerg Dept Use Only) 0.06 ng/mL (0.0-0.045)
[2021-03-04 00:33] LABS: Protime INR 4.5
[2021-03-04] MEDS ORDERED: CEFTRIAXONE/SWI 1gm 1 GM/10 ML SYR ONE ×2 (00:43→20:13)
[2021-03-04] MEDS ORDERED: ONDANSETRON 4 MG/2 ML VIAL ONE (00:43)
[2021-03-04] MEDS ORDERED: FAMOTIDINE 20 MG/2 ML VIAL IV ONE (00:43)
[2021-03-04] MEDS ORDERED: FENTANYL CITR 100 MCG/2 ML ONE ×2 (00:43→21:34)
--- NOTE | 2021-03-04 02:11 | ER ---
Nurse's Notes [facility] Name: Grace Duong Age: 35 yrs Sex: Male : 1985 Arrival Date: 03/03/2021 Time: 21:17 Bed 5 Private MD: Diagnosis: Dyspnea;Other ascites;Anemia, unspecified;End stage renal disease-on hd;Hypotension, unspecified Presentation: 03/03 22:01 Chief complaint: EMS states: they were toned out for report of pt with distended bb abdomen he is dialysis pt and did not have dialysis completed yesterday due to low BP pt recently had defibrillator placement after cardiac arrest. Coronavirus screen: At this time, the client does not indicate any symptoms associated with coronavirus-19. Ebola Screen: No symptoms or risks identified at this time. Initial Sepsis Screen: Does the patient meet any 2 criteria? No. Patient's initial sepsis screen is negative. Does the patient have a suspected source of infection? No. Patient's initial sepsis screen is negative. Risk Assessment: Do you want to hurt yourself or someone else? Patient reports no desire to harm self or others. Onset of symptoms was March 03, 2021. 22:01 Method Of Arrival: EMS: [facility] bb 22:01 Acuity: CHAPARRITA 3 bb Historical: - Allergies: 22:04 No Known Allergies; bb - Immunization history:: Adult Immunizations unknown. - Social history:: Smoking status: unknown. - Family history:: not pertinent. Screenin/18 00:00 Abuse screen: Denies threats or abuse. Nutritional screening: No deficits noted. jb4 Tuberculosis screening: No symptoms or risk factors identified. Fall Risk None identified. Assessment: 00:00 General: Appears in no apparent distress. uncomfortable, Behavior is calm, cooperative, jb4 appropriate for age. Pain: Complains of pain in right gluteus belinda Pain does not radiate. Pain currently is 10 out of 10 on a pain scale. Neuro: Level of Consciousness is awake, alert, obeys commands, Oriented to person, place, time, situation. Cardiovascular: Patient's skin is warm and dry. Respiratory: Airway is patent Respiratory effort is even, unlabored, Respiratory pattern is regular, symmetrical. GI: No signs and/or symptoms were reported involving the gastrointestinal system. : No signs and/or symptoms were reported regarding the genitourinary system. EENT: No signs and/or symptoms were reported regarding the EENT system. Derm: Skin is pink, warm \T\ dry. Wound noted right gluteus belinda. Musculoskeletal: Circulation, motion, and sensation intact. Range of motion: intact in all extremities. 01:00 Reassessment: Patient appears in no apparent distress at this time. Patient and/or jb4 family updated on plan of care and expected duration. Pain level reassessed. Patient is alert, oriented x 3, equal unlabored respirations, skin warm/dry/pink. 02:26 Reassessment: Pt is resting in bed with eyes closed, respirations are even and jb4 unlabored with no s/s of pain or distress noted. 03:30 Reassessment: Patient appears in no apparent distress at this time. Patient and/or jb4 family updated on plan of care and expected duration. Pain level reassessed. Patient is alert, oriented x 3, equal unlabored respirations, skin warm/dry/pink. Vital Signs: 03/03 22:01 BP 103 / 65; Pulse 105; Resp 20 S; Temp 99.9(O); Pulse Ox 97% on R/A; Weight 86.18 kg bb (R); Height 5 ft. 8 in. (172.72 cm) (R); 03/04 01:30 BP 88 / 70; Pulse 89; Resp 18; Pulse Ox 100% on 4 lpm NC; jb4 02:26 BP 90 / 70; Pulse 86; Resp 16; Pulse Ox 100% on 4 lpm NC; jb4 03/03 22:01 Body Mass Index 28.89 (86.18 kg, 172.72 cm) ED Course: 03/03 21:17 Patient arrived in ED. mw2 21:35 Karla PATTERSONRosendo [phone]. mw2 22:04 Triage completed. bb 22:04 Arm band placed on pt awaiting room assignment on EMS stretcher. bb 22:50 Door closed. Noise minimized. Lights dimmed. Moved to private room. Warm blanket given. mw2 Pillow given. 22:57 Flavio Guido RN is Primary Nurse. jb4 23:22 Joseph Laguerre MD is Attending Physician. [facility] 23:29 XRAY Chest (1 view) In Process Unspecified. EDMS 23:45 Patient has correct armband on for positive identification. Placed in gown. Bed in low jb4 position. Call light in reach. Side rails up X 1. nuclear monitoring technician on. Pulse ox on. NIBP on. 23:45 Initial lab(s) drawn, by me, sent to lab. EKG done, by ED staff, reviewed by Joseph Laguerre MD. Inserted saline lock: 18 gauge in right forearm, using aseptic technique. Blood collected. 03/04 00:58 CT Chest Abdomen Pelvis W/O Contrast In Process Unspecified. EDMS 02:06 Truong Chang DO is Hospitalizing Provider. otis 03:30 No provider procedures requiring assistance completed. Patient admitted, IV remains in jb4 place. 07:29 Primary Nurse role handed off by Flavio Guido, BERKLEY 19:45 Milly Ray, BERKLEY is Primary Nurse. bs2 20:00 Basic Metabolic Panel Sent. bs2 20:00 CBC with Diff Sent. bs2 Administered Medications: 00:25 Drug: Zofran (Ondansetron) 4 mg Route: IVP; Site: right forearm; jb4 20:28 Follow up: Response: No adverse reaction bs2 00:27 Drug: fentaNYL (PF) 25 mcg Route: IVP; Site: right forearm; jb4 20:28 Follow up: Response: No adverse reaction bs2 00:28 Drug: Pepcid (famotidine) 20 mg Route: IVP; Site: right forearm; jb4 20:28 Follow up: Response: No adverse reaction bs2 00:30 Drug: Rocephin (cefTRIAXone) 1 grams Route: IV; Rate: per protocol; Site: right forearm;jb4 20:28 Follow up: IV Status: Completed infusion bs2 Outcome: 02:10 Decision to Hospitalize by Provider. otis 03:30 [facility]. jb4 03:30 Condition: stable 03:30 Discharge instructions given to patient, Instructed on the need for admit, Demonstrated understanding of instructions. 03/05 18:05 Patient left the ED. ss Signatures: Dispatcher [employer] EDWV Maria Victoria Mariee Joseph Laguerre MD MD cha Ballard, Brenda, RN RN bb Smirch, Shelby, RN RN Flavio Guido RN RN jb4 [place], MyKena 2 Milly Ray, RN RN bs2 Corrections: (The following items were deleted from the chart) 03/03 22:50 21:35 Karla ASNCHEZ [phone] mw2 mw2 03/04 00:34 00:00 Derm: Skin is intact, Skin is pink, warm \T\ dry. jb4 jb4
--- NOTE | 2021-03-04 02:12 | EDPHYS ---
Physician Documentation [facility] Name: Grace Duong Age: 35 yrs Sex: Male : 1985 Arrival Date: 03/03/2021 Time: 21:17 Bed 5 Private MD: ED Physician Joseph Laguerre HPI: 03/04 00:04 This 35 yrs old Male presents to ER via EMS with complaints of sob, abdominal otis distention. 00:04 The patient presents with abdominal pain abdominal distention. Onset: The otis symptoms/episode began/occurred 3 day(s) ago. The symptoms do not radiate. Associated signs and symptoms: none. The symptoms are described as crampy. Modifying factors: The symptoms are alleviated by nothing, the symptoms are aggravated by nothing. Severity of pain: At its worst the pain was mild moderate in the emergency department the pain is unchanged. It is unknown whether or not the patient has had similar symptoms in the past. Historical: - Allergies: 03/03 22:04 No Known Allergies; bb - Immunization history:: Adult Immunizations unknown. - Social history:: Smoking status: unknown. - Family history:: not pertinent. ROS: 03/04 00:04 Constitutional: Negative for fever, chills, and weight loss, Eyes: Negative for injury, otis pain, redness, and discharge, ENT: Negative for injury, pain, and discharge, Neck: Negative for injury, pain, and swelling, Cardiovascular: Negative for chest pain, palpitations, and edema, Back: Negative for injury and pain, : Negative for injury, bleeding, discharge, and swelling, MS/Extremity: Negative for injury and deformity, Skin: Negative for injury, rash, and discoloration, Neuro: Negative for headache, weakness, numbness, tingling, and seizure, Psych: Negative for depression, anxiety, suicide ideation, homicidal ideation, and hallucinations, Allergy/Immunology: Negative for hives, rash, and allergies, Endocrine: Negative for neck swelling, polydipsia, polyuria, polyphagia, and marked weight changes, Hematologic/Lymphatic: Negative for swollen nodes, abnormal bleeding, and unusual bruising. Respiratory: Positive for cough, "sounds productive". Exam: 00:04 Constitutional: This is a well developed, well nourished patient who is awake, alert, otis and in no acute distress. Head/Face: Normocephalic, atraumatic. Eyes: Pupils equal round and reactive to light, extra-ocular motions intact. Lids and lashes normal. Conjunctiva and sclera are non-icteric and not injected. Cornea within normal limits. Periorbital areas with no swelling, redness, or edema. ENT: Nares patent. No nasal discharge, no septal abnormalities noted. Tympanic membranes are normal and external auditory canals are clear. Oropharynx with no redness, swelling, or masses, exudates, or evidence of obstruction, uvula midline. Mucous membranes moist. Neck: Trachea midline, no thyromegaly or masses palpated, and no cervical lymphadenopathy. Supple, full range of motion without nuchal rigidity, or vertebral point tenderness. No Meningismus. Chest/axilla: Normal chest wall appearance and motion. Nontender with no deformity. No lesions are appreciated. Cardiovascular: Regular rate and rhythm with a normal S1 and S2. No gallops, murmurs, or rubs. Normal PMI, no JVD. No pulse deficits. Back: No spinal tenderness. No costovertebral tenderness. Full range of motion. Skin: Warm, dry with normal turgor. Normal color with no rashes, no lesions, and no evidence of cellulitis. MS/ Extremity: Pulses equal, no cyanosis. Neurovascular intact. Full, normal range of motion. Neuro: Awake and alert, GCS 15, oriented to person, place, time, and situation. Cranial nerves II-XII grossly intact. Motor strength 5/5 in all extremities. Sensory grossly intact. Cerebellar exam normal. Normal gait. Psych: Awake, alert, with orientation to person, place and time. Behavior, mood, and affect are within normal limits. 00:04 Respiratory: the patient does not display signs of respiratory distress, Respirations: normal, no acute changes, labored breathing, is not present, Breath sounds: decreased breath sounds, that are mild, are located in both bases. 00:04 Abdomen/GI: Inspection: distension, Bowel sounds: normal, Palpation: abdomen is soft and non-tender, Liver: no appreciated palpable abnormalities, Hernia: not appreciated. 00:10 ECG was reviewed by the Attending Physician. otis Vital Signs: 03/03 22:01 BP 103 / 65; Pulse 105; Resp 20 S; Temp 99.9(O); Pulse Ox 97% on R/A; Weight 86.18 kg bb (R); Height 5 ft. 8 in. (172.72 cm) (R); 03/04 01:30 BP 88 / 70; Pulse 89; Resp 18; Pulse Ox 100% on 4 lpm NC; 02:26 BP 90 / 70; Pulse 86; Resp 16; Pulse Ox 100% on 4 lpm NC; jb4 03/03 22:01 Body Mass Index 28.89 (86.18 kg, 172.72 cm) bb MDM: 03/03 23:22 Patient medically screened. otis 03/04 00:04 Differential diagnosis: bowel obstruction, coronary artery disease, cholecystitis, otis Cholelithiasis, diverticulitis, gastritis, Irritable bowel syndrome, non-specific abd pain, pancreatitis, Peptic Ulcer Disease. Data reviewed: vital signs, nurses notes, lab test result(s), EKG, radiologic studies, CT scan, plain films. Data interpreted: monitoring analyst: rate is 105 beats/min, rhythm is regular, Pulse oximetry: on room air is 97 %. Test interpretation: by ED physician or midlevel provider: ECG, plain radiologic studies. Counseling: I had a detailed discussion with the patient and/or guardian regarding: the historical points, exam findings, and any diagnostic results supporting the discharge/admit diagnosis, lab results, radiology results, the need for further work-up and treatment in the hospital. 03/03 23:09 Order name: Basic Metabolic Panel [facility] 03/03 23:09 Order name: CBC with Diff 03/03 23:09 Order name: LFT's; Complete Time: 01:21 [facility] 03/03 23:09 Order name: Magnesium; Complete Time: 01: [facility] 03/03 23:09 Order name: NT PRO-BNP; Complete Time: 01:21 [facility] 03/03 23:09 Order name: PT-INR; Complete Time: 01:21 [facility] 03/03 23:09 Order name: Troponin (emerg Dept Use Only); Complete Time: 01:21 [facility] 03/03 23:09 Order name: Lactate; Complete Time: 00:28 [facility] 03/03 23:09 Order name: Lipase; Complete Time: 01:21 [facility] 03/03 23:09 Order name: Blood Culture Adult (2) [facility] 03/03 23:10 Order name: Basic Metabolic Panel; Complete Time: 01:21 EDMS 03/03 23:10 Order name: CBC with Automated Diff; Complete Time: 00:28 EDMS 03/04 00:02 Order name: AMMONIA; Complete Time: 02:02 otis 03/04 01:36 Order name: SARS-COV-2 RT PCR; Complete Time: 02:02 EDMS 03/04 07:49 Order name: Troponin I EDMS 03/04 08:08 Order name: Glucose, Ancillary Testing EDMS 03/04 08:48 Order name: Glucose, Ancillary Testing EDMS 03/04 09:50 Order name: Glucose, Ancillary Testing EDMS 03/04 10:20 Order name: Procalcitonin EDMS 03/04 12:10 Order name: Glucose, Ancillary Testing EDMS 03/04 14:00 Order name: Gram Stain--Aerobic Bottle EDMS 03/04 17:01 Order name: Glucose, Ancillary Testing EDMS 03/04 19:15 Order name: Gram Stain--Anaerobic Bottle EDMS 03/04 19:17 Order name: Gram Stain--Anaerobic Bottle EDMS 03/04 20:20 Order name: Troponin I EDMS 03/04 21:07 Order name: Glucose, Ancillary Testing EDMS 03/05 01:02 Order name: Glucose, Ancillary Testing EDMS 03/05 03:18 Order name: CBC with Automated Diff EDMS 03/05 04:17 Order name: Protime (+INR) EDMS 03/03 23:09 Order name: XRAY Chest (1 view) mw 03/03 23:09 Order name: EKG; Complete Time: 23:10 2 03/03 23:09 Order name: Cardiac monitoring; Complete Time: 23:11 mw2 03/03 23:09 Order name: EKG - Nurse/Tech; Complete Time: 00:00 mw2 03/03 23:09 Order name: IV Saline Lock; Complete Time: 00:00 mw2 03/03 23:09 Order name: Labs collected and sent; Complete Time: 23:10 mw2 03/03 23:09 Order name: O2 Per Protocol; Complete Time: 23:10 mw2 03/03 23:09 Order name: O2 Sat Monitoring; Complete Time: 23:10 mw2 03/04 00:04 Order name: CT Chest Abdomen Pelvis W/O Contrast [facility] 03/04 08:54 Order name: US EDMS 03/04 12:24 Order name: US EDMO 03/05 05:29 Order name: Comprehensive Metabolic Panel EDMS 03/05 05:29 Order name: Phosphorus EDMS 03/05 05:29 Order name: Lipid Profile EDMS 03/05 05:29 Order name: T4 Free EDMS 03/05 05:29 Order name: Magnesium EDMS 03/05 05:29 Order name: Vancomycin Level Trough EDMS 03/05 05:29 Order name: Thyroid Stimulating Hormone EDMS 03/05 05:29 Order name: Transferrin Sat/Iron Binding EDMS 03/05 05:29 Order name: Ferritin EDMS 03/05 06:59 Order name: Gram Stain--Aerobic Bottle EDMS 03/05 08:23 Order name: Glucose, Ancillary Testing EDMS 03/05 12:28 Order name: Glucose, Ancillary Testing EDMS 03/05 16:38 Order name: Glucose, Ancillary Testing EDMS EC:10 Rate is 97 beats/min. Rhythm is regular. QRS [place] is Normal. RI interval is normal. QRS otis interval is prolonged at 68 msec. QT interval is normal. No Q waves. T waves are Normal. No ST changes noted. Clinical impression: Abnormal EKG without significant change. Interpreted by me. Reviewed by me. Administered Medications: 00:25 Drug: Zofran (Ondansetron) 4 mg Route: IVP; Site: right forearm; jb4 20:28 Follow up: Response: No adverse reaction bs2 00:27 Drug: fentaNYL (PF) 25 mcg Route: IVP; Site: right forearm; jb4 20:28 Follow up: Response: No adverse reaction bs2 00:28 Drug: Pepcid (famotidine) 20 mg Route: IVP; Site: right forearm; jb4 20:28 Follow up: Response: No adverse reaction bs2 00:30 Drug: Rocephin (cefTRIAXone) 1 grams Route: IV; Rate: per protocol; Site: right forearm;jb4 20:28 Follow up: IV Status: Completed infusion bs2 Disposition Summary: 03/04/21 02:10 Hospitalization Ordered Hospitalization Status: Inpatient Admission otis Provider: Truong Chang otis Condition: Stable otis Problem: new otis Symptoms: have improved otis Bed/Room Type: Standard otis Location: [facility] ER HOLD(03/04/21 03:16) mw Room Assignment: ERHOLD-(03/04/21 03:16) mw Diagnosis - Dyspnea otis - Other ascites otis - Anemia, unspecified otis - End stage renal disease - on hd otis - Hypotension, unspecified otis Forms: - Medication Reconciliation Form otis - SBAR form otis Signatures: Dispatcher [employer] EDMS Lilliam James RN RN mw Anderson, Corey, MD MD cha Ballard, Brenda, RN RN bb Attema, Lee, FNP-C [employer] TENDER-Cla1 Flavio Guido RN RN jb4 Vadim Winslow 2 Milly Ray RN bs2 Corrections: (The following items were deleted from the chart) 03/03 23:20 23:10 CORONAVIRUS+MR.LAB.BRZ ordered. [facility] EDMO 03/04 03:16 02:10 Telemetry/MedSurg (Inpatient) [facility] 03:16 02:10 [facility]
--- NOTE | 2021-03-04 02:57 | P.HP ---
Certification for Inpatient Patient admitted to: Inpatient With expected LOS: >2 Midnights Patient will require the following post-hospital care: None Practitioner: I am a practitioner with admitting privileges, knowledge of patient current condition, hospital course, and medical plan of care. Services: Services provided to patient in accordance with Admission requirements found in Title 42 Section 412.3 of the Code of Federal Regulations Patient History Date of Service: 03/04/21 Reason for admission: Dyspnea, ascites, elevated INR History of Present Illness: 35-year-old male with history of ESRD on HD, chronic systolic congestive heart failure, diabetes mellitus type 2, hypertension, hyperlipidemia history of CVA secondary to hypercoagulability state on chronic anticoagulation with Coumadin, seizure disorder presents emergency department for abdominal distention, shortness of breath. Patient reports increasing shortness of breath and abdominal distention of the course of the last week. Patient was evaluated the emergency department, labs were significant for white blood cell count 11.8 hemoglobin 9.2 INR 4.5 sodium 134 creatinine 4.96 GFR 13 potassium 3.9 BNP 30,[address] chest abdomen pelvis demonstrates cardiomegaly with moderate amount of dependent atelectasis and a few bilateral groundglass opacities representing edema small left pleural effusion, mild anasarca CT abdomen pelvis demonstrates large volume ascites and moderate anasarca erosive L5-S1 endplate changes. Patient abdomen distended with positive fluid wave, not tense at this time. Blood pressure soft in the emergency department around 90/70. ED provider wishes to admit for further evaluation and management. Allergies No Known Allergies Allergy (Verified 09/19/20 05:28) Home Medications: Aspirin 1 tab PO DAILY 09/19/20 Docusate Sodium 200 mg PO BID 09/19/20 Insulin Glargine,Hum.rec.anlog [Lantus] 10 units SQ DAILY 09/19/20 Lacosamide [Vimpat] 100 mg PO BID 09/19/20 Metoprolol Succinate [Toprol Xl*] 12.5 mg PO DAILY 09/19/20 Pravastatin Sodium 40 mg PO BEDTIME 09/19/20 Sertraline [Zoloft*] 100 mg PO DAILY 09/19/20 Sevelamer Carbonate [Renvela] 1,600 mg PO TIDWM 09/19/20 Warfarin Sodium [Coumadin*] 2.5 mg PO DAILY 09/19/20 traMADol HCL [Ultram*] 50 mg PO BID PRN #5 tab 09/19/20 - Past Medical/Surgical History Diabetic: Yes -: DM type 2 -: History of CVA with left-sided hemiparesis -: Hypercoagulability on chronic anticoagulation therapy with Coumadin -: Hypertension -: Chronic systolic Congestive heart failure -: ESRD on HD -: History of ischemic bowel with resection -: Severe PVD -: Bowel resection -: Tessio catheter placement right anterior chest wall Psychosocial/ Personal History: Patient disabled, currently resides at [facility] - Family History Mother -: Heart disease, Stroke Brother -: Stroke - Social History Smoking Status: Never smoker Alcohol use: Yes CD- Drugs: Yes Caffeine use: No Place of Residence: Home Review of Systems is unable to be obtained Physical Examination - Physical Exam General: Alert, In no apparent distress, Oriented x3 HEENT: Atraumatic, Normocephalic Neck: Supple Respiratory: Diminished Cardiovascular: No edema Capillary refill: <2 Seconds Gastrointestinal: Hypoactive, Distended, Ascites Musculoskeletal: No contractures, No erythema, No tenderness Integumentary: Other (Left great toe appears necrotic, dry) Neurological: Normal tone, Sensation intact - Studies Laboratory Data (last 24 hrs) 03/03/21 23:45: PT 52.5 H, INR 4.50 H* 03/03/21 23:45: WBC 11.80 H D, Hgb 9.2 L, Hct 28.7 L, Plt Count 335 03/03/21 23:45: Sodium 134 L, Potassium 3.9, BUN 41 H, Creatinine 4.96 H, Glucose 97, Magnesium 2.0 D, Total Bilirubin 0.6, AST 12 L, ALT 17, Alkaline Ph osphatase 196 H, Lipase 199 Assessment and Plan - Plan Assessment: Dyspnea secondary to ascites/abdominal distention Supratherapeutic INR History of CVA secondary to hypercoagulable state on chronic anticoagulation therapy with Coumadin ESRD on HD Diabetes mellitus type 2 Normocytic anemia Chronic systolic congestive heart failure Hypertension currently with hypotension Seizure disorder Dry gangrene left great toe Plan: Dyspnea secondary to ascites/abdominal distention: No tense ascites noted at this time, supratherapeutic INR noted blood pressure also soft at this time. May not be appropriate time to perform paracentesis, will discuss further with hospitalist attending. Additional volume management with dialysis per nephrology who has been consulted. Gastroenterology available for consult if necessary. Supratherapeutic INR: Hold Coumadin, will titrate dose to maintain INR between 2 and 3 History of CVA secondary to hypercoagulable state on chronic anticoagulation therapy with Coumadin: Stable continue as above ESRD on HD: Nephrology consulted for additional assistance and volume management/dialysis. Diabetes mellitus type 2: AC at bedtime Accu-Chek, sliding scale insulin therapy. Continue home medications when verified. Normocytic anemia: We will obtain BRANDON labs, transfuse to maintain hemoglobin greater than 7.5. Chronic systolic congestive heart failure: Obtain and continue medications, additional assistance and volume management with dialysis. Hypertension currently with hypotension: Continue as above, patient may require small fluid boluses at this time blood pressure stable with systolic around 90- 100. Seizure disorder: Continue home medications. Dry gangrene left great toe: Without surrounding cellulitis at this time, patient known to have significant PAD. Appears stable at this time. Patient being treated at half-way for this. DVT PPX: Code status: Discharge Plan: Residential Plan to discharge in: 48 Hours - Advance Directives Does patient have a Living Will: No Does patient have a Durable POA for Healthcare: No - Code Status/Comfort Care Code Status Assessed: Yes (Full code) Critical Care: No Time Spent Managing Pts Care (In Minutes): 55
[2021-03-04] MEDS ORDERED: ACETAMINOPHEN 500 MG TAB PO PRN (06:12)
[2021-03-04] MEDS ORDERED: ONDANSETRON 4 MG/2 ML VIAL IV PRN (06:12)
[2021-03-04 06:20] VITALS: BMI 28.8
--- NOTE | 2021-03-04 06:28 | P.PN ---
Subjective Date of Service: 03/04/21 Primary Care Provider: halfway resident Chief Complaint: Dyspnea, ascites, elevated INR Subjective: Other (Patient stable at this time. Patient still smokes.) Physical Examination - Studies Laboratory Data (last 24 hrs) 03/03/21 23:45: PT 52.5 H, INR 4.50 H* 03/03/21 23:45: WBC 11.80 H D, Hgb 9.2 L, Hct 28.7 L, Plt Count 335 03/03/21 23:45: Sodium 134 L, Potassium 3.9, BUN 41 H, Creatinine 4.96 H, Glucose 97, Magnesium 2.0 D, Total Bilirubin 0.6, AST 12 L, ALT 17, Alkaline Phosphatase 196 H, Lipase 199 Assessment & Plan Discharge Plan: Senior Care Plan to discharge in: Greater than 2 days Physician Review Additional Text: COVID: Negative Chest x-ray: COMPARISON: Chest Single View dated 11/10/2020; Chest Single View dated 09/19/2020; Chest Single View dated 08/15/2019; Chest Single View dated 08/05/2019 FINDINGS: Low lung volumes with increased right basilar opacities. Right IJ approach dialysis catheter with tip overlying the right atrium. A defibrillator is present. Cardiomegaly.No acute osseous abnormality. No significant pleural effusions or pneumothorax. IMPRESSION: Low lung volumes which accentuates the pulmonary vasculature. There is likely atelectasis at the right lung base but difficult to exclude an acute air space process. ECHO July 2019: MEASUREMENTS (cm) DIASTOLIC (NORMALS) SYSTOLIC (NORMALS) IVSd 1.1 (0.6-1.2) LA Diam 4.0 (1.9-4.0) LVEF 30-35% LVIDd 5.5 (3.5-5.7) LVIDs 4.8 (2.0-3.5) %FS 12% LVPWd 1.2 (0.6-1.2) Ao Diam 2.9 (2.0-3.7) 2 DIMENSIONAL ASSESSMENT: RIGHT ATRIUM: NORMAL LEFT ATRIUM: DILATED RIGHT VENTRICLE: NORMAL LEFT VENTRICLE: NORMAL TRICUSPID VALVE: NORMAL MITRAL VALVE: NORMAL PULMONIC VALVE: NORMAL AORTIC VALVE: NORMAL PERICARDIAL EFFUSION: NONE AORTIC ROOT: NORMAL LEFT VENTRICULAR WALL MOTION: GLOBAL HYPOKINESIS. DOPPLER/COLOR FLOW: MILD MITRAL REGURGITATION. COMMENTS: DEPRESSED LEFT VENTRICULAR EJECTION FRACTION. DILATED LEFT ATRIUM. MILD MITRAL REGURGITATION. CTA scan September 2020: COMPARISON: None Available. TECHNIQUE: CTA of the abdominal aorta with bilateral lower extremity runoff obtained following the uncomplicated intravenous administration of iodinated contrast. 3-D/MIP reformatted images available. This exam was performed according to our departmental dose-optimization program, which includes automated exposure control, adjustment of the mA and/or kV according to patient size and/or use of iterative reconstruction technique. Suboptimal contrast bolus timing as there was infiltration of the IV during the examination. FINDINGS: Bones: No destructive bone lesions identified. CTA: The abdominal aorta has normal caliber with mild nonflow-limiting atherosclerotic plaque. The celiac, superior mesenteric, and inferior mesenteric arteries are patent. The renal arteries are patent. There is in-line flow within the abdominal aorta and the common iliac, external iliac, common femoral arteries without flow-limiting stenosis. The internal iliac arteries are patent. Atherosclerotic plaque. There is blood flow from the right common femoral artery to the superficial femoral and popliteal arteries without flow-limiting stenosis. Calcified atherosclerotic plaque. The profunda femoral artery is patent proximally. The popliteal artery bifurcates into the tibial peroneal trunk and anterior tibial artery. There is high-grade approximately 80% stenosis at the origin of the right anterior tibial artery. Collateral blood supply reconstitutes the anterior tibial artery which is otherwise patent. Atherosclerotic plaque. There is long segment occlusion of the tibial peroneal trunk with reconstitution of flow via collateral vessels. The peroneal artery is then patent to the level of the ankle. There appears to be intermittent reconstitution of the blood flow in the posterior tibial artery but there are likely multiple levels of high-grade stenosis or occlusion throughout the right posterior tibial artery. There is blood flow from the left common femoral artery to the superficial femoral and popliteal arteries without flow-limiting stenosis. Calcified atherosclerotic plaque. The profunda femoral artery is patent proximally. The popliteal artery bifurcates into the tibial peroneal trunk and anterior tibial artery. There is blood flow throughout the visualized anterior tibial, posterior tibial, and peroneal arteries in the left lower extremity. Extensive calcified atherosclerotic plaque. Abdomen: Liver: The visualized liver demonstrates no definite abnormalities. Gallbladder: Small calcified gallstone. Spleen, Pancreas, and Adrenal Glands: Visualized portions of the spleen, pancreas, and adrenal glands are unremarkable. Kidneys: No hydronephrosis or obstructing calculus. Vasculature: Normal caliber IVC. Visualized portions of the portal vein are patent. Stomach: No definite abnormalities of the visualized stomach. Other: No free intraperitoneal air. Moderate amount of free fluid. Pelvis: Bladder: Wall thickening of the urinary bladder. Bowel: Mildly dilated loop of small bowel in the left abdomen without well- defined transition point. The bowel proximal to this is not dilated. Well-circum scribed calcific structure in the lower abdominal mesentery may represent an area of remote fat necrosis. Appendix: Normal appendix. Pelvis: Prostate is not enlarged. IMPRESSION: 1. There is long segment occlusion of the right tibial peroneal trunk with reconstitution of flow via collateral vessels. 2. There is high-grade approximately 80% stenosis at the origin of the right anterior tibial artery. There is reconstitution of flow distal to the origin with blood flow to the foot in the anterior tibial artery and dorsalis pedis artery. 3. There appears to be multiple levels of high-grade stenosis or occlusion throughout the right posterior tibial artery. 4. No definite evidence of flow-limiting stenosis in the left lower extremity. 5. Mildly dilated loop of small bowel in the left abdomen without well-defined transition point identified. This may represent ileus however early partial small bowel obstruction could produce this appearance. Continued radiographic follow-up recommended. 6. Wall thickening of the urinary bladder. This could be seen with cystitis. Correlation with urinalysis recommended. 7. Moderate amount of free fluid in the abdomen. 8. Cholelithiasis. 9. The combination of extensive vascular wall calcification throughout the lower extremities and suboptimal contrast bolus volume may decrease sensitivity for flow-limiting stenoses. Catheter based angiography may be required for definitive characterization of the trifurcated vessels. Arterial doppler: COMPARISON: None FINDINGS: The common femoral, superficial femoral and popliteal arteries bilaterally demonstrate triphasic waveforms The posterior tibial and dorsalis pedis arteries demonstrate triphasic waveforms in the right lower extremity. The left posterior tibial artery and dorsal pedis arteries demonstrate monophasic flow. IMPRESSION: Monophasic flow in the left posterior tibial and dorsal pedis artery consistent with a hemodynamically significant stenoses. No flow-limiting stenoses in the right lower extremity. Physical exam: General: Alert, In no apparent distress, Oriented x3 HEENT: Atraumatic, Normocephalic Neck: Supple Respiratory: Diminished Cardiovascular: No edema Capillary refill: <2 Seconds Gastrointestinal: Hypoactive, Distended, Ascites Musculoskeletal: No contractures, No erythema, No tenderness Integumentary: Other (Left great toe appears necrotic, dry) Neurological: Normal tone, Sensation intact Impression: Dyspnea secondary to ascites/abdominal distention Chronic anticoagulation therapy with history of CVA, supratherapeutic INR ESRD on HD Diabetes mellitus type 2 Normocytic anemia Chronic systolic congestive heart failure Hypertension currently with hypotension Seizure disorder 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 Patient stable at this time. Will discuss with nephrology about dialysis. Blood pressure slightly low. Will add midodrine. Will obtain abdominal sound to evaluate for possible paracentesis. Will discuss with nephrology about plan of care. Spoke with surgery concerning dry gangrene. No intervention needed at this time. Continue with vancomycin. Pharmacy to monitor and adjust. Surgery wants patient to be evaluated by cardiology for possible intervention in the future. Chronic anticoagulation therapy with history of CVA, supratherapeutic INR: Hold Coumadin. Will monitor INR. Maintain INR between 2 and 3. ESRD on HD: Nephrology consulted. Continue with dialysis. Monitor input output closely. Monitor weight daily. Diabetes mellitus type 2: Accu-Cheks in place. Will check A1c. Need to obtain an verify home medication. Blood sugar low this morning. D50 given. Will restart diet. Dietary to address daily needs. Normocytic anemia: Monitor closely. Maintain hemoglobin above 7.0. Chronic systolic congestive heart failure with prior ejection fraction around 30%: Obtain and verify home medication. Continue with dialysis. Will check echocardiogram. Prior echocardiogram showed ejection fraction around 30%. Cardiology consulted. Await recommendation. Hypertension currently with hypotension: Blood pressure low. Hold blood pressure medication. Will start midodrine. Will discuss with nephrology and cardiology. 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 Surgery evaluated patient. No intervention needed at this time. Surgery recommends cardiology evaluation of the lower extremity to consider possible intervention in the near future. Patient will likely require amputation in the future. Continue with vancomycin. Order wound care to further evaluate and treat. Will also order physical therapy to evaluate ambulation status. DVT PPX: Patient takes Coumadin. Currently supratherapeutic. Code status: Full code Discharge Plan: Senior Care Time Spent Managing Pts Care (In Minutes): 55
--- NOTE | 2021-03-04 07:14 | RAD REPORT ---
EXAM DESCRIPTION: RAD - Chest Single View - 03/03/2021 11:29 pm CLINICAL HISTORY: CHEST PAIN COMPARISON: Chest Single View dated 11/10/2020; Chest Single View dated 09/19/2020; Chest Single View d ated 08/15/2019; Chest Single View dated 08/05/2019 FINDINGS: Low lung volumes with increased right basilar opacities. Right IJ approach dialysis cathet er with tip overlying the right atrium. A defibrillator is present. Cardiomegaly.No acute osseous abn ormality. No significant pleural effusions or pneumothorax. IMPRESSION: Low lung volumes which accentuates the pulmonary vasculature. There is likely atelectasi s at the right lung base but difficult to exclude an acute air space process.
[2021-03-04] MEDS: INSULIN -REGULAR HUMAN 50 UNIT/0.5 ML ML SQ SCH ×4 (07:30→20:56)
--- NOTE | 2021-03-04 08:53 | RAD REPORT ---
EXAM DESCRIPTION: US - Lower Extremity Arterial Bilat - 03/04/2021 7:05 am CLINICAL HISTORY: Leg pain COMPARISON: None FINDINGS: The common femoral, superficial femoral and popliteal arteries bilaterally demonstrate triphasic wave forms The posterior tibial and dorsalis pedis arteries demonstrate triphasic waveforms in the right lower e xtremity. The left posterior tibial artery and dorsal pedis arteries demonstrate monophasic flow. IMPRESSION: Monophasic flow in the left posterior tibial and dorsal pedis artery consistent with a h emodynamically significant stenoses. No flow-limiting stenoses in the right lower extremity.
[2021-03-04] MEDS ORDERED: GLUCAGON 1 MG/VIAL IM PRN (09:00)
[2021-03-04] MEDS: D50W 25 GM/50 ML SYRINGE IV PRN ×2 (09:00→12:15)
[2021-03-04] MEDS ORDERED: D50W 25 GM/50 ML SYRINGE IV ONE ×2 (09:17→12:23)
--- NOTE | 2021-03-04 10:35 | RAD REPORT ---
EXAM DESCRIPTION: CT - Chest Abd Pelvis Wo Con - 03/04/2021 2:11 am COMPARISON: None. CLINICAL HISTORY: [facility] MAIN Cough;Abdominal distention TECHNIQUE: CT images through the chest, abdomen, and pelvis without IV contrast. Multiplanar reforma ts. Automated exposure control was utilized on this examination as a dose lowering technique. CT CHEST FINDINGS: Heart and mediastinum: Cardiomegaly. No lymphadenopathy. Thyroid gland: Visualized portions are normal. Lungs: Dependent atelectasis. A few mild bilateral groundglass opacities are noted. Airways: No filling defects. No bronchiectasis. Pleura: No pneumothorax. Small left pleural effusion. Musculoskeletal and soft tissues: An implanted device is noted in the left chest wall. Right IJ centr al line tip terminates within the inferior right atrium. Mild anasarca is present. CHEST IMPRESSION: 1. Cardiomegaly with a moderate amount of dependent atelectasis. A few bilateral g roundglass opacities may represent atelectasis, pulmonary edema, or early pneumonia. 2. Small left pleural effusion. 3. Mild anasarca. CT ABDOMEN & PELVIS FINDINGS: *Evaluation of solid organs is limited due to lack of IV contrast. Liver: Normal. Gallbladder and biliary: Normal gallbladder. Unremarkable biliary tree. Pancreas: Normal. Spleen: Normal. Kidneys and adrenal glands: Normal adrenal glands. Normal kidneys Stomach and Small Bowel: The stomach and small bowel are normal. Urinary bladder: Normal. Prostate/Male Urogenital: Normal. Colon and Appendix: A few colonic diverticula are noted. No evidence of appendicitis. Peritoneal cavity: Large-volume ascites. Retroperitoneum and lymph nodes: Normal. Vascular: Mild atherosclerosis. Musculoskeletal and soft tissues: Moderate anasarca.No aggressive bone lesions. No compression frac ture. Lumbar spondylosis with degenerative disease is greatest at L5-S1. Bilateral chronic appearing L5 pars defects are noted. ABDOMEN AND PELVIS IMPRESSION: 1. Large volume ascites and moderate anasarca. 2. Erosive L5-S1 endplate changes which could be degenerative or due to discitis osteomyelitis. Electronically signed by: Vik Sparrow MD 03/04/2021 1:19 AM CDT Due to temporary technical issues with the PACS/Fluency reporting system, reports are being signed by the in house radiologist without review as a courtesy to ensure prompt reporting. The interpreting r adiologist is fully responsible for the content of the report.
[2021-03-04] MEDS ORDERED: VANCOMYCIN 1.75 GM in NA CHLORIDE 0.9% 500 ML IVPB ONE (11:30)
--- NOTE | 2021-03-04 12:24 | RAD REPORT ---
EXAM DESCRIPTION: US - Abdomen Exam Limited - 03/04/2021 11:58 am CLINICAL HISTORY: evaluate ascites for possible paracentesis COMPARISON: No comparisons FINDINGS: Focused abdominal ultrasound in all 4 quadrants was obtained to evaluate for ascites. A la rge volume of ascites is noted. IMPRESSION: Large volume of ascites.
[2021-03-04] MEDS: MIDODRINE HCL 5 MG TABLET PO SCH ×2 (13:00→17:00)
--- NOTE | 2021-03-04 16:26 | EKG ---
Test Date: 2021-03-03 Test Time: 23:30:45 Hospice Care Consultant: TAHIR MEASUREMENT RESULTS: Intervals: Rate: 97 MA: 128 QRSD: 68 QT: 404 QTc: 513 [place]: P: -27 MA: 128 QRS: 160 T: -4 INTERPRETIVE STATEMENTS: Normal sinus rhythm Indeterminate axis Pulmonary disease pattern Right ventricular hypertrophy with repolarization abnormality Septal infarct, age undetermined Inferolateral injury pattern Prolonged QT Compared to ECG 11/10/2020 09:14:53 Indeterminate axis now present Right ventricular hypertrophy now present inus tachycardia no longer present Electronically Signed On 03-04-21 16:24:00 CDT by Bennett Butt
--- NOTE | 2021-03-04 19:42 | CON ---
Date of Consultation: 03/04/2021 Reason For Consultation: Dry gangrene, sacral decubitus, peripheral vascular disease. History Of Present Illness: The patient is a 35-year-old gentleman, who came in with ascites with ab dominal distention, shortness of breath which was increasing over the last week. He is a nursing [facility] patient who I first evaluated yesterday and saw him for the dry gangrene and sacral decubitus, and I was awaiting further workup; however, over the last 24 hours, his condition worse and he came to [facility] ER. He was admitted for medical issues and I was consulted regarding the dry gangrene and sacral d ecubitus. He is awake, alert, confused. He has had an extensive workup in the ER. He had leukocyto sis slightly at 11.8. A CT of the chest, abdomen, and pelvis showed cardiomegaly, moderate amount de pendent atelectasis, bilateral opacities and small pleural effusion, anasarca, large volum e ascites, and dry gangrene with edema in the left lower extremity. No sore throat, runny nose, coug h, headaches, dizziness. No chest pain. No fever or chills at this time. Review of Systems: Otherwise unremarkable. Past Medical History: Significant for type 2 diabetes, history of stroke, hypercoagulability with ch ronic anticoagulation therapy with Coumadin, hypertension, congestive heart failure, end-stage renal disease. Past Surgical History: Bowel resection for ischemic bowel, Tesio catheter placement on the right ant erior chest wall. Allergies: NONE. Social History: The patient does not smoke. Drinks occasionally. Family History: Noncontributory. Physical Examination: Vital Signs: Stable. He is afebrile. General: He is awake, alert, confused. Head and neck: No neck masses. Minimal JVD. Throat clear. Neck is supple. Chest: Diminished breath sounds. Heart: S1, S2. Abdomen: Distended, soft. Fluid in the abdomen. Extremities: Dorsalis pedis and posterior tibial pulses are not palpable. Dry gangrene in the dista l forefoot on the left side, approximately 10 x 9 cm. On the sacrum, there is approximately 5.5 x 3. 5 x 0.1 cm, stage III sacral decubitus with fibrin present. No surrounding erythema, warmth, and sabrina ma. Diagnostic Data: As per HPI. The patient did have an arterial Doppler done after admission, which s howed monophasic flow in the left posterior tibial and dorsalis pedis consistent with a hemodynamical ly significant stenosis. No flow limiting stenosis in the right lower extremity. Assessment: A 35-year-old gentleman with multiple medical problems including severe peripheral vascu lar disease, dry gangrene of left lower extremity, sacral decubitus, and heart and kidney disease cur rently which are being addressed by the medical team and the renal team. Recommendations: I discussed the case with Dr. Chang to see if intervention regarding le ft lower extremity salvage can be accomplished in this patient. If not, the patient will require an amputation. He is not medically optimized for any intervention at this time. He needs to be taken o ff his Coumadin, put on Lovenox, and then fluid needs to be removed from him and get an optimal fluid status, at which time, I would recommend either an angiogram with intervention or surgery for removal of the left leg as indicated. We will follow this patient while in the hospital. /MODL Voice ID: [id number] Report ID: [id number]
[2021-03-04] MEDS ORDERED: CEFTRIAXONE 1 GM/NS 50 ML 1 GM/50 ML BAG IV SCH (19:43)
[2021-03-04] MEDS ORDERED: CEFTRIAXONE/SWI 1gm 1 GM/10 ML SYR IV SCH (20:00)
[2021-03-04] MEDS ORDERED: ATORVASTATIN 40 MG TAB PO SCH (21:00)
[2021-03-04] MEDS: FENTANYL CITR 100 MCG/2 ML IV PRN (21:18)
[2021-03-04] MEDS ORDERED: ATORVASTATIN 20 MG TAB ONE ×2 (21:34→21:59)
--- NOTE | 2021-03-04 22:44 | P.CNS ---
Date of Consult: 03/04/21 Reason for Consult: ESRD Requesting Physician: Truong Chang Primary Care Provider: correction resident Chief Complaint: Dyspnea, ascites, elevated INR History of Present Illness: 35-year-old male with history of ESRD on HD, chronic systolic congestive heart failure, diabetes mellitus type 2, hypertension, hyperlipidemia history of CVA secondary to hypercoagulability state on chronic anticoagulation with Coumadin, seizure disorder presents emergency department for abdominal distention, shortness of breath. Patient reports increasing shortness of breath and abdominal distention of the course of the last week. Patient was evaluated the emergency department, labs were significant for white blood cell count 11.8 hemoglobin 9.2 INR 4.5 sodium 134 creatinine 4.96 GFR 13 potassium 3.9 BNP 30, [address] chest abdomen pelvis demonstrates cardiomegaly with moderate amount of dependent atelectasis and a few bilateral groundglass opacities representing edema small left pleural effusion, mild anasarca CT abdomen pelvis demonstrates large volume ascites and moderate anasarca erosive L5-S1 endplate changes. Patient abdomen distended with positive fluid wave, not tense at this time. Blood pressure soft in the emergency department around 90/70. 00:04 This 35 yrs old Male presents to ER via EMS with complaints of sob, abdominal otis distention. 00:04 The patient presents with abdominal pain abdominal distention. Onset: The otis symptoms/episode began/occurred 3 day(s) ago. The symptoms do not radiate. Associated signs and symptoms: none. The symptoms are described as crampy. Modifying factors: The symptoms are alleviated by nothing, the symptoms are aggravated by nothing. Severity of pain: At its worst the pain was mild moderate in the emergency department the pain is unchanged. It is unknown whether or not the patient has had similar symptoms in the past. Allergies No Known Allergies Allergy (Verified 09/19/20 05:28) Home medications list reviewed: Yes Home Medications: Aspirin 1 tab PO DAILY 09/19/20 Docusate Sodium 200 mg PO BID 09/19/20 Insulin Glargine,Hum.rec.anlog [Lantus] 10 units SQ DAILY 09/19/20 Lacosamide [Vimpat] 100 mg PO BID 09/19/20 Metoprolol Succinate [Toprol Xl*] 12.5 mg PO DAILY 09/19/20 Pravastatin Sodium 40 mg PO BEDTIME 09/19/20 Sertraline [Zoloft*] 100 mg PO DAILY 09/19/20 Sevelamer Carbonate [Renvela] 1,600 mg PO TIDWM 09/19/20 Warfarin Sodium [Coumadin*] 2.5 mg PO DAILY 09/19/20 traMADol HCL [Ultram*] 50 mg PO BID PRN #5 tab 09/19/20 - Past Medical/Surgical History Diabetic: Yes -: DM type 2 -: History of CVA with left-sided hemiparesis -: Hypercoagulability on chronic anticoagulation therapy with Coumadin -: Hypertension -: Chronic systolic Congestive heart failure -: ESRD on HD -: History of ischemic bowel with resection -: Severe PVD -: Bowel resection -: Tessio catheter placement right anterior chest wall Psychosocial/ Personal History: Patient disabled, currently resides at [facility] - Family History Mother Medical History: Heart disease, Stroke Brother Medical History: Stroke - Social History Smoking Status: Current some day smoker Alcohol use: Yes CD- Drugs: Yes Caffeine use: No Place of Residence: Home Review of Systems 10-point ROS is otherwise unremarkable General: Weakness, Malaise Respiratory: SOB with Excertion Neurological: Weakness Physical Examination Temp Pulse Resp BP Pulse Ox 97.6 F 106 H 15 108/92 H 99 03/04/21 20:00 03/04/21 20:00 03/04/21 21:18 03/04/21 20:00 03/04/21 21:18 General: In no apparent distress HEENT: Atraumatic Neck: Supple Respiratory: Diminished Cardiovascular: Regular rate/rhythm, Edema Gastrointestinal: Soft and benign, Distended Musculoskeletal: No clubbing, No contractures Integumentary: No rashes, No cyanosis Neurological: Abnormal speech Laboratory Data (last 24 hrs) 03/03/21 23:45: PT 52.5 H, INR 4.50 H* 03/03/21 23:45: WBC 11.80 H D, Hgb 9.2 L, Hct 28.7 L, Plt Count 335 03/03/21 23:45: Sodium 134 L, Potassium 3.9, BUN 41 H, Creatinine 4.96 H, Glucose 97, Magnesium 2.0 D, Total Bilirubin 0.6, AST 12 L, ALT 17, Alkaline Phosphatase 196 H, Lipase 199 Imagings Data: EXAM DESCRIPTION: CT - Chest Abd Pelvis Wo Con - 03/04/2021 2:11 am COMPARISON: None. CLINICAL HISTORY: [facility] MAIN Cough;Abdominal distention TECHNIQUE: CT images through the chest, abdomen, and pelvis without IV contrast. Multiplanar reformats. Automated exposure control was utilized on this examination as a dose lowering technique. CT CHEST FINDINGS: Heart and mediastinum: Cardiomegaly. No lymphadenopathy. Thyroid gland: Visualized portions are normal. Lungs: Dependent atelectasis. A few mild bilateral groundglass opacities are noted. Airways: No filling defects. No bronchiectasis. Pleura: No pneumothorax. Small left pleural effusion. Musculoskeletal and soft tissues: An implanted device is noted in the left chest wall. Right IJ central line tip terminates within the inferior right atrium. Mild anasarca is present. CHEST IMPRESSION: 1. Cardiomegaly with a moderate amount of dependent atelectasis. A few bilateral groundglass opacities may represent atelectasis, pulmonary edema, or early pneumonia. 2. Small left pleural effusion. 3. Mild anasarca. CT ABDOMEN & PELVIS FINDINGS: *Evaluation of solid organs is limited due to lack of IV contrast. Liver: Normal. Gallbladder and biliary: Normal gallbladder. Unremarkable biliary tree. Pancreas: Normal. Spleen: Normal. Kidneys and adrenal glands: Normal adrenal glands. Normal kidneys Stomach and Small Bowel: The stomach and small bowel are normal. Urinary bladder: Normal. Prostate/Male Urogenital: Normal. Colon and Appendix: A few colonic diverticula are noted. No evidence of appendicitis. Peritoneal cavity: Large-volume ascites. Retroperitoneum and lymph nodes: Normal. Vascular: Mild atherosclerosis. Musculoskeletal and soft tissues: Moderate anasarca.No aggressive bone lesions. No compression fracture. Lumbar spondylosis with degenerative disease is greatest at L5-S1. Bilateral chronic appearing L5 pars defects are noted. ABDOMEN AND PELVIS IMPRESSION: 1. Large volume ascites and moderate anasarca. 2. Erosive L5-S1 endplate changes which could be degenerative or due to discitis osteomyelitis. Conclusions/Impression: ESRD -HD TIW Hypotension -Continue Midodrine Systolic CHF, chronic LVEF 15% -Low sodium diet DM II with CKD, Polyneuropathy & Hyperglycemia -RISS DM II with peripheral angiopathy DM Ulcer/ Left foot gangrene -Follow up with surgery -Continue abx Protein Calorie Malnutrition -Encourage nutrition Anemia in CKD -Start Retacrit CKD MBD -Start Calcitriol Case reviewed with Dr. Chang Greater than 30min patient care. Critical Care: Yes
[2021-03-05] MEDS: FENTANYL CITR 100 MCG/2 ML IV PRN ×2 (01:07→06:45)
[2021-03-05] MEDS ORDERED: FENTANYL CITR 100 MCG/2 ML ONE ×2 (01:16→06:16)
[2021-03-05 03:18] LABS: Absolute Lymphocytes (CBC) 0.7 K/uL (0.7-4.9); Basophils % 0.6 % (0-1.3); Hematocrit 29.6 % (39.6-49.0); Lymphocytes % 7.4 % (15.3-44.8); MPV 7.6 fL (7.6-11.3); RBC Red Blood Cell Count 3.23 M/uL (4.33-5.43)
[2021-03-05 04:17] LABS: Protime INR 5.11
[2021-03-05 05:18] LABS: Albumin 1.9 g/dL (3.4-5.0); Bilirubin Total 0.6 mg/dL (0.2-1.0); Ferritin 582.1 ng/mL (26-388); Magnesium 2.2 mg/dL (1.8-2.4); Phosphorus 6.1 mg/dL (2.5-4.9); Potassium 4.6 mmol/L (3.5-5.1); Protein, Total 6.6 g/dL (6.4-8.2); Thyroid Stimulating Hormone 1.62 uIU/mL (0.360-3.740)
--- NOTE | 2021-03-05 06:27 | P.PN ---
Subjective Date of Service: 03/05/21 Primary Care Provider: long term resident Chief Complaint: Dyspnea, ascites, elevated INR Subjective: Other (Patient stable at this time. Currently on 4 L per nasal cannula.) Physical Examination - Vital Signs Temperature: 97.6 F Blood Pressure: 103/82 Pulse: 96 Respirations: 16 Pulse Ox (%): 100 - Studies Microbiology Data (last 24 hrs): 03/03/21 23:45 Blood - Blood Blood Culture Gram Stain - Final Assessment & Plan Discharge Plan: Transfer Plan to discharge in: 48 Hours Physician Review Additional Text: COVID: Negative Chest x-ray: COMPARISON: Chest Single View dated 11/10/2020; Chest Single View dated 09/19/2020; Chest Single View dated 08/15/2019; Chest Single View dated 08/05/2019 FINDINGS: Low lung volumes with increased right basilar opacities. Right IJ approach dialysis catheter with tip overlying the right atrium. A defibrillator is present. Cardiomegaly.No acute osseous abnormality. No significant pleural effusions or pneumothorax. IMPRESSION: Low lung volumes which accentuates the pulmonary vasculature. There is likely atelectasis at the right lung base but difficult to exclude an acute air space process. ECHO July 2019: MEASUREMENTS (cm) DIASTOLIC (NORMALS) SYSTOLIC (NORMALS) IVSd 1.1 (0.6-1.2) LA Diam 4.0 (1.9-4.0) LVEF 30-35% LVIDd 5.5 (3.5-5.7) LVIDs 4.8 (2.0-3.5) %FS 12% LVPWd 1.2 (0.6-1.2) Ao Diam 2.9 (2.0-3.7) 2 DIMENSIONAL ASSESSMENT: RIGHT ATRIUM: NORMAL LEFT ATRIUM: DILATED RIGHT VENTRICLE: NORMAL LEFT VENTRICLE: NORMAL TRICUSPID VALVE: NORMAL MITRAL VALVE: NORMAL PULMONIC VALVE: NORMAL AORTIC VALVE: NORMAL PERICARDIAL EFFUSION: NONE AORTIC ROOT: NORMAL LEFT VENTRICULAR WALL MOTION: GLOBAL HYPOKINESIS. DOPPLER/COLOR FLOW: MILD MITRAL REGURGITATION. COMMENTS: DEPRESSED LEFT VENTRICULAR EJECTION FRACTION. DILATED LEFT ATRIUM. MILD MITRAL REGURGITATION. CTA scan September 2020: COMPARISON: None Available. TECHNIQUE: CTA of the abdominal aorta with bilateral lower extremity runoff obtained following the uncomplicated intravenous administration of iodinated contrast. 3-D/MIP reformatted images available. This exam was performed according to our departmental dose-optimization program, which includes automated exposure control, adjustment of the mA and/or kV according to patient size and/or use of iterative reconstruction technique. Suboptimal contrast bolus timing as there was infiltration of the IV during the examination. FINDINGS: Bones: No destructive bone lesions identified. CTA: The abdominal aorta has normal caliber with mild nonflow-limiting atherosclerotic plaque. The celiac, superior mesenteric, and inferior mesenteric arteries are patent. The renal arteries are patent. There is in-line flow within the abdominal aorta and the common iliac, external iliac, common femoral arteries without flow-limiting stenosis. The internal iliac arteries are patent. Atherosclerotic plaque. There is blood flow from the right common femoral artery to the superficial femoral and popliteal arteries without flow-limiting stenosis. Calcified atherosclerotic plaque. The profunda femoral artery is patent proximally. The popliteal artery bifurcates into the tibial peroneal trunk and anterior tibial artery. There is high-grade approximately 80% stenosis at the origin of the right anterior tibial artery. Collateral blood supply reconstitutes the anterior tibial artery which is otherwise patent. Atherosclerotic plaque. There is long segment occlusion of the tibial peroneal trunk with reconstitution of flow via collateral vessels. The peroneal artery is then patent to the level of the ankle. There appears to be intermittent reconstitution of the blood flow in the posterior tibial artery but there are likely multiple levels of high-grade stenosis or occlusion throughout the right posterior tibial artery. There is blood flow from the left common femoral artery to the superficial femoral and popliteal arteries without flow-limiting stenosis. Calcified atherosclerotic plaque. The profunda femoral artery is patent proximally. The popliteal artery bifurcates into the tibial peroneal trunk and anterior tibial artery. There is blood flow throughout the visualized anterior tibial, posterior tibial, and peroneal arteries in the left lower extremity. Extensive calcified atherosclerotic plaque. Abdomen: Liver: The visualized liver demonstrates no definite abnormalities. Gallbladder: Small calcified gallstone. Spleen, Pancreas, and Adrenal Glands: Visualized portions of the spleen, pancreas, and adrenal glands are unremarkable. Kidneys: No hydronephrosis or obstructing calculus. Vasculature: Normal caliber IVC. Visualized portions of the portal vein are patent. Stomach: No definite abnormalities of the visualized stomach. Other: No free intraperitoneal air. Moderate amount of free fluid. Pelvis: Bladder: Wall thickening of the urinary bladder. Bowel: Mildly dilated loop of small bowel in the left abdomen without well- defined transition point. The bowel proximal to this is not dilated. Well- circumscribed calcific structure in the lower abdominal mesentery may represent an area of remote fat necrosis. Appendix: Normal appendix. Pelvis: Prostate is not enlarged. IMPRESSION: 1. There is long segment occlusion of the right tibial peroneal trunk with reconstitution of flow via collateral vessels. 2. There is high-grade approximately 80% stenosis at the origin of the right anterior tibial artery. There is reconstitution of flow distal to the origin with blood flow to the foot in the anterior tibial artery and dorsalis pedis artery. 3. There appears to be multiple levels of high-grade stenosis or occlusion th roughout the right posterior tibial artery. 4. No definite evidence of flow-limiting stenosis in the left lower extremity. 5. Mildly dilated loop of small bowel in the left abdomen without well-defined transition point identified. This may represent ileus however early partial small bowel obstruction could produce this appearance. Continued radiographic follow-up recommended. 6. Wall thickening of the urinary bladder. This could be seen with cystitis. Correlation with urinalysis recommended. 7. Moderate amount of free fluid in the abdomen. 8. Cholelithiasis. 9. The combination of extensive vascular wall calcification throughout the lower extremities and suboptimal contrast bolus volume may decrease sensitivity for flow-limiting stenoses. Catheter based angiography may be required for definitive characterization of the trifurcated vessels. Arterial doppler: COMPARISON: None FINDINGS: The common femoral, superficial femoral and popliteal arteries bilaterally demonstrate triphasic waveforms The posterior tibial and dorsalis pedis arteries demonstrate triphasic waveforms in the right lower extremity. The left posterior tibial artery and dorsal pedis arteries demonstrate monophasic flow. IMPRESSION: Monophasic flow in the left posterior tibial and dorsal pedis artery consistent with a hemodynamically significant stenoses. No flow-limiting stenoses in the right lower extremity. ECHO: MEASUREMENTS (cm) DIASTOLIC (NORMALS) SYSTOLIC (NORMALS) IVSd 0.7 (0.6-1.2) LA Diam 3.6 (1.9-4.0) LVEF 18% LVIDd 6.1 (3.5-5.7) LVIDs 5.5 (2.0-3.5) %FS 8% LVPWd 1.0 (0.6-1.2) Ao Diam 2.9 (2.0-3.7) 2 DIMENSIONAL ASSESSMENT: RIGHT ATRIUM: NORMAL LEFT ATRIUM: NORMAL RIGHT VENTRICLE: NORMAL LEFT VENTRICLE: NORMAL TRICUSPID VALVE: NORMAL MITRAL VALVE: NORMAL PULMONIC VALVE: NORMAL AORTIC VALVE: NORMAL PERICARDIAL EFFUSION: NONE AORTIC ROOT: NORMAL LEFT VENTRICULAR WALL MOTION: SEVERE GLOBAL HYPOKINESIS DOPPLER/COLOR FLOW: MILD AORTIC, MITRAL AND TRICUSPID REGURGITATION COMMENTS: SEVERE GLOBAL HYPOKINESIS. EJECTION FRACTION 18%. MILD AORTIC, MITRAL AND TRICUSPID REGURGITATION. NO THROMBUS. ABUS: COMPARISON: No comparisons FINDINGS: Focused abdominal ultrasound in all 4 quadrants was obtained to evaluate for ascites. A large volume of ascites is noted. IMPRESSION: Large volume of ascites. Physical exam: General: Alert, In no apparent distress, Oriented x3. Vital signs stable. Blood pressure systolic around 90-1 08 systolic. HEENT: Atraumatic, Normocephalic Neck: Supple Respiratory: Diminished, currently on 4 L per nasal cannula Cardiovascular: No edema Capillary refill: <2 Seconds Gastrointestinal: Hypoactive, Distended, Ascites Musculoskeletal: No contractures, No erythema, No tenderness Integumentary: Other (Left great toe appears necrotic, dry) Neurological: Normal tone, Sensation intact Impression: Dyspnea secondary to ascites/abdominal distention complicated with acute on chronic systolic CHF with ejection fraction of 18% with echo showing severe global hypokinesis Chronic anticoagulation therapy with history of CVA, supratherapeutic INR Hypertension currently with hypotension Recent cardiac arrest and hospitalization at [facility] now with cardiac defibrillator ESRD on HD Dry gangrene of the left great toe with severe PAD Diabetes mellitus type 2 Normocytic anemia Seizure disorder Plan: Dyspnea secondary to ascites/abdominal distention complicated with acute on chronic systolic CHF with ejection fraction of 18% with echo showing severe global hypokinesis: Patient recently hospitalized at [facility] for cardiac arrest and eventually cardiac defibrillator placement. New echo finding shows ejection fraction around 18% with severe global hypokinesis. Case discussed with cardiology. Cardiology recommends transfer to high-level center to further address his CHF. Patient likely requires CHF team. Patient may be a candidate for heart transplant or LVAD. Plus with his low blood pressures patient will likely require CRRT for dialysis. 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 Fontana at [facility]. Transfer was initiated. [facility] is full. Initiation to [facility] initiated. Spoke with cardiology for CCU bed. Cardiology recommends that the patient be transferred to ICU bed due to current needs. Patient not a candidate for heart transplant as per Dr. Mcclellan and CHF team at [facility]. Continue current medical management at this time. Blood pressure stable on midodrine. Patient remains on IV vancomycin and cefepime for dry gangrene. Coumadin currently on hold due to supratherapeutic INR. Continue to discuss with cardiology and nephrology. Case discussed with surgery earlier. Will discuss with nephrology and team to determine if abdominal paracentesis is required. Continue in trying to transfer to high- level center to further address his multiple medical problems. This was discussed with POA who agrees with plan of care. Chronic anticoagulation therapy with history of CVA, supratherapeutic INR: Continue to hold Coumadin. Will monitor INR. Maintain INR between 2 and 3. ESRD on HD: Discussed with nephrology. Nephrology had planned for dialysis but due to his low blood pressure this will be on hold. Diabetes mellitus type 2: Accu-Cheks in place. Will check A1c. Need to obtain an verify home medication. Will monitor for hypoglycemia Normocytic anemia: Monitor closely. Hemoglobin stable. Maintain hemoglobin above 7.0. Hypertension currently with hypotension: As mentioned above patient currently on midodrine. Dialysis currently on hold. Trying to transfer for [employer]. Blood pressure medications have been discontinued. Seizure disorder: Continue with his current medication Vimpat 100 mg 1 pill twice daily Dry gangrene left great toe with severe PAD: Spoke with surgery. Surgery wants patient to be evaluated by cardiology initially. Continue with IV antibiotic therapy. Continue with plan above to transfer for further evaluation by cardiology before any intervention is done. Patient high risk for surgery. DVT PPX: Patient takes Coumadin. Currently supratherapeutic. Coumadin currently on hold. Code status: Full code Discharge Plan: Currently trying to transfer for high-level care. Time Spent Managing Pts Care (In Minutes): 55
--- NOTE | 2021-03-05 06:32 | ECHO ---
HEIGHT: 5 ft 8 in WEIGHT: 190 lb 0 oz DATE OF STUDY: 03/04/[address]: Truong Chang DO 2-DIMENSIONAL: YES M.MODE: YES DOPPLER: YES COLOR FLOW: YES TDS: PORTABLE: DEFINITY: BUBBLE STUDY: DIAGNOSIS: HYPERTENSION/ END STAGE RENAL DISEASE CARDIAC HISTORY: CATHERIZATION: SURGERY: PROSTHETIC VALVE: PACEMAKER: MEASUREMENTS (cm) DIASTOLIC (NORMALS) SYSTOLIC (NORMALS) IVSd 0.7 (0.6-1.2) LA Diam 3.6 (1.9-4.0) LVEF 18% LVIDd 6.1 (3.5-5.7) LVIDs 5.5 (2.0-3.5) %FS 8% LVPWd 1.0 (0.6-1.2) Ao Diam 2.9 (2.0-3.7) 2 DIMENSIONAL ASSESSMENT: RIGHT ATRIUM: NORMAL LEFT ATRIUM: NORMAL RIGHT VENTRICLE: NORMAL LEFT VENTRICLE: NORMAL TRICUSPID VALVE: NORMAL MITRAL VALVE: NORMAL PULMONIC VALVE: NORMAL AORTIC VALVE: NORMAL PERICARDIAL EFFUSION: NONE AORTIC ROOT: NORMAL LEFT VENTRICULAR WALL MOTION: SEVERE GLOBAL HYPOKINESIS DOPPLER/COLOR FLOW: MILD AORTIC, MITRAL AND TRICUSPID REGURGITATION COMMENTS: SEVERE GLOBAL HYPOKINESIS. EJECTION FRACTION 18%. MILD AORTIC, MITRAL AND TRICUSPID REGURGITATION. NO THROMBUS. TECHNOLOGIST: JOSEE PIERCE
[2021-03-05] MEDS: INSULIN -REGULAR HUMAN 50 UNIT/0.5 ML ML SQ SCH ×2 (07:30→11:30)
[2021-03-05] MEDS ORDERED: TRAMADOL HCL 50 MG TAB PO PRN (07:46)
[2021-03-05] MEDS: SEVELAMER CARBONATE 800 MG TABLET PO SCH ×2 (08:00→12:00)
[2021-03-05] MEDS ORDERED: FAMOTIDINE 20 MG TAB PO SCH (09:00)
[2021-03-05] MEDS ORDERED: CALCITROL 0.25 MCG CAP PO SCH (09:00)
[2021-03-05] MEDS ORDERED: SERTRALINE HCL 100 MG TAB PO SCH (09:00)
[2021-03-05] MEDS ORDERED: ASPIRIN EC 81 MG TAB PO SCH (09:00)
[2021-03-05] MEDS ORDERED: EPOETIN ALFA 10,000 UNIT/ML VIAL SQ SCH (09:00)
[2021-03-05] MEDS: MIDODRINE HCL 5 MG TABLET PO SCH ×2 (09:00→13:00)
[2021-03-05] MEDS ORDERED: LACOSAMIDE 50 MG TABLET PO SCH (09:00)
[2021-03-05] MEDS ORDERED: CEFEPIME/SWI 1gm 10 ML IV SCH (09:00)
[2021-03-05] MEDS ORDERED: FOLIC ACID 1 MG TABLET PO SCH (09:00)
[2021-03-05] MEDS ORDERED: CEFEPIME 1 GM/VIAL IV SCH (09:00)
[2021-03-05] MEDS ORDERED: THIAMINE HCL 100 MG TABLET PO SCH (09:00)
[2021-03-05] MEDS ORDERED: ASPIRIN 81 MG CHEWABLE TABLET ONE (10:19)
[2021-03-05] MEDS ORDERED: LACOSAMIDE 50 MG TABLET ONE (10:19)
[2021-03-05] MEDS ORDERED: THIAMINE HCL 100 MG TABLET ONE (10:20)
[2021-03-05] MEDS ORDERED: FOLIC ACID 1 MG TABLET ONE (10:20)
[2021-03-05] MEDS ORDERED: CEFEPIME/SWI 1gm 10 ML ONE (10:20)
[2021-03-05] MEDS ORDERED: FAMOTIDINE 20 MG TAB ONE (10:20)
[2021-03-05] MEDS ORDERED: ALBUMIN HUMAN 25% 100 ML IV PRN (11:44)
--- NOTE | 2021-03-05 12:19 | PN ---
The case was discussed with Dr. Chang this morning. Mr. Duong has severe peripheral arterial disea se on the left side that really requires angiography to see if we can perform an intervention. The p atient is a very high risk for any procedures. His creatinine is elevated. He is on hemodialysis. He has an ejection fraction of 17%. His INR is actually higher today, probably secondary to congesti ve heart failure and liver passive congestion. We need to continue to hold the Coumadin. Mr. Duong is only 35 and would really be very beneficial. I think if he goes back to [place] to his cardiolog ist over there, he just had a defibrillator recently, I think that he should consider heart transplan tation and kidney transplantation. At this point, I would not perform any angiography on him until h e is cleared from a cardiovascular standpoint and his INR is back to normal. I will be available for questions. KRISTIN/NARAYAN Voice ID: [id number] Report ID: [id number]
--- NOTE | 2021-03-05 13:11 | P.CNS ---
Date of Consult: 03/05/21 Primary Care Provider: senior living resident Chief Complaint: Dyspnea, ascites, elevated INR History of Present Illness: Patient is a 35-year-old male with a past medical history ESRD on HD, chronic systolic heart failure, diabetes type 2, hypertension, hyperlipidemia, history of CVA x2 secondary to hypercoagulability currently on chronic anticoagulation with Coumadin, seizure disorder who presented to the emergency department due to abdominal distension, shortness of breath. Patient states he symptoms had been ongoing for the past week. In the ED labs to significant for WBC of 11.8, hemoglobin 9.2, INR 4.5, creatinine 4.96, GFR 13. Surgery consulted. Patient noted to has left lower extremity dry gangrene to all toes. Patient also with sacral decubitus ulcer. And patient found be back drain meant with blood cultures growing gram-negative rods in 4/4 bottles, awaiting full culture report. Patient not currently utilizing 4 L oxygen via nasal cannula, a complaints of shortness of breath, abdominal pain. Patient denies pain to his lower extremities, nausea, vomiting, diarrhea. Allergies No Known Allergies Allergy (Verified 09/19/20 05:28) Home Medications: Aspirin 1 tab PO DAILY 09/19/20 Docusate Sodium 200 mg PO BID 09/19/20 Insulin Glargine,Hum.rec.anlog [Lantus] 10 units SQ DAILY 09/19/20 Lacosamide [Vimpat] 100 mg PO BID 09/19/20 Metoprolol Succinate [Toprol Xl*] 12.5 mg PO DAILY 09/19/20 Pravastatin Sodium 40 mg PO BEDTIME 09/19/20 Sertraline [Zoloft*] 100 mg PO DAILY 09/19/20 Sevelamer Carbonate [Renvela] 1,600 mg PO TIDWM 09/19/20 Warfarin Sodium [Coumadin*] 2.5 mg PO DAILY 09/19/20 traMADol HCL [Ultram*] 50 mg PO BID PRN #5 tab 09/19/20 - Past Medical/Surgical History Diabetic: Yes -: DM type 2 -: History of CVA with left-sided hemiparesis -: Hypercoagulability on chronic anticoagulation therapy with Coumadin -: Hypertension -: Chronic systolic Congestive heart failure -: ESRD on HD -: History of ischemic bowel with resection -: Severe PVD -: Bowel resection -: Tessio catheter placement right anterior chest wall Psychosocial/ Personal History: Patient disabled, currently resides at [facility] - Family History Mother Medical History: Heart disease, Stroke Brother Medical History: Stroke - Social History Smoking Status: Current some day smoker Alcohol use: Yes CD- Drugs: Yes Caffeine use: No Place of Residence: Home Review of Systems 10-point ROS is otherwise unremarkable Physical Examination Temp Pulse Resp BP Pulse Ox 98.7 F 96 H 18 96/76 100 03/05/21 08:00 03/05/21 12:00 03/05/21 12:00 03/05/21 12:00 03/05/21 12:00 General: Alert, Oriented x3, Cachectic, Confused HEENT: Atraumatic, Normocephalic Neck: Supple, 2+ carotid pulse no bruit Respiratory: Diminished Cardiovascular: Normal pulses, Regular rate/rhythm, Edema Capillary refill: <2 Seconds Gastrointestinal: Other (No tenderness), Distended Integumentary: Other (Left foot she dry gangrene extending from great hallux to his 5th phalanx) Conclusions/Impression: Antibiotics: Vancomycin Start: 03/05 Stops: -- Cefepime Start: 03/04 Stop: -- Assessment: -left foot dry gangrenous changes extending from great hallux to 5th phalanx -sacral decubitus ulcer -bacteremia -L5 through S1 endplate erosion -pulmonary edema versus early pneumonia versus atelectasis is noted on a CT chest -ESRD on HD -anemia -protein caloric malnutrition -seizures disease -severe peripheral vascular disease Plan: -left foot dry gangrenous changes: Dr. Quiñones consulted. Patient will likely need surgical intervention. Surgery team currently recommending angiogram. Continue broad-spectrum IV antibiotic coverage. -sacral decubitus ulcer: Unstageable. Base of wound shows 100% slough tissue/biofilm. Unable to determine depth of wound. Recommend placing santal today 7 and covering with Mepilex. Recommend offloading the wound and repositioning patient bed every 2 hr during waking hr. Patient is bed- bound/wheelchair bound status. -blood cultures taken on 03/03: Gram-negative rods growing in 4/4 bottles. Awaiting full culture report. Continue vancomycin and cefepime. Vancomycin trough goal between -. -CT abdomen pelvis showed erosive changes to the L5 through S1 endplates. Radiologist stated this could be degenerate changes versus diskitis osteomyelitis. Unknown if patient has ever had a bacteremia or been treated for osteomyelitis in the past. Recommend obtaining MRI of spine. -CT chest showed bilateral ground-glass opacities concerning for pulmonary edema, early pneumonia, or atelectasis. Patient is volume overload, recommend repeating imaging. -medical management per primary team Plan of care discussed with Dr. Calderón Thank you for consultation
--- NOTE | 2021-03-05 13:34 | CON ---
The patient admitted on 03/03/2021 with peripheral arterial disease. Reason for consultation by me w as congestive heart failure and peripheral arterial disease. History Of Present Illness: Mr. Duong is a 35-year-old Latin-[place] male with a very complicated past medical history including end-stage renal disease, congestive heart failure, chronic systolic wi th a defibrillator, was recently discharged from [place]. Comes in basically with abdominal distenti on, found to have severe peripheral arterial disease. I was consulted for possible angiogram. No ca rdiac complaint at the present. Before I saw the patient, an echocardiogram was done showing ejectio n fraction of 18%. He has had a Doppler study arterial showing monophasic flow in the posterior, tib ial and dorsalis pedis artery consistent with a hemodynamically significant stenosis in the left lowe r extremity. No flow-limiting stenosis on the right lower extremity. Past Medical History: As stated above. He has diabetes, dyslipidemia, and hypertension, and he is o n Coumadin for congestive heart failure. Allergies: NONE. Review of Systems: Negative. Social History: Negative. Family History: Noncontributory. Medications: At home include aspirin, insulin, metoprolol, pravastatin, Coumadin, and Ultram. Physical Examination: General: When I saw him, his vital signs are stable. He was afebrile, sinus rhythm. HEENT: Negative. Neck: Supple with no bruit. Chest: Clear. Cardiac: Revealed S3 gallops. Regular rhythm and rate. Abdomen: Positive for ascites. Extremities: Revealed severe peripheral vascular disease on the left side. Laboratory Data: His creatinine was 5.89. His INR was 4.50, hemoglobin 9.2, white count of 11. His glucose was 136. Troponin is 0.06. BNP was 30,185. Chest x-ray, EKG and arterial Doppler were men tioned earlier. Impression And Plan: 1.Severe systolic congestive heart failure that is chronic with borderline blood pressure. 2.Renal failure, on hemodialysis. 3.Hypertension. 4.Dyslipidemia. 5.Peripheral arterial disease. 6.Elevated INR. Certainly an angiography of the leg is warranted, but we will have to wait for his INR to get better. I am very concerned about his congestive heart failure. I will discuss the case further with Dr. Rosendo smith and Dr. Ponce regarding the possibility of using Entresto if his blood pressure tolerated. F or now no change in medical therapy. We will await the Coumadin level to come down before we discuss further intervention. KRISTIN/NARAYAN Voice ID: [id number] Report ID: [id number]
[2021-03-05 13:51] VITALS: BP 103/82; TEMP 97.6
[2021-03-05] MEDS ORDERED: VANCOMYCIN 500 MG in NA CHLORIDE 0.9% 100 ML IVPB SCH (15:00)
[2021-03-05] MEDS ORDERED: ALBUMIN HUMAN 25% 100 ML IV ONE (15:57)
--- NOTE | 2021-03-05 16:31 | P.DS ---
Admission Date: 03/04/21 Discharge Date: 03/05/21 Primary Care Provider: halfway resident Disposition: TRANSFER TO [facility] Discharge Condition: GOOD Reason for Admission: Dyspnea, ascites, elevated INR Consultations: Nephrology-Dr. Hull Surgery-Dr. Quiñones Cardiology-Dr. Butt Procedures: COVID: Negative Chest x-ray: COMPARISON: Chest Single View dated 11/10/2020; Chest Single View dated 09/19/2020; Chest Single View dated 08/15/2019; Chest Single View dated 08/05/2019 FINDINGS: Low lung volumes with increased right basilar opacities. Right IJ approach dialysis catheter with tip overlying the right atrium. A defibrillator is present. Cardiomegaly.No acute osseous abnormality. No significant pleural effusions or pneumothorax. IMPRESSION: Low lung volumes which accentuates the pulmonary vasculature. There is likely atelectasis at the right lung base but difficult to exclude an acute air space process. ECHO July 2019: MEASUREMENTS (cm) DIASTOLIC (NORMALS) SYSTOLIC (NORMALS) IVSd 1.1 (0.6-1.2) LA Diam 4.0 (1.9-4.0) LVEF 30-35% LVIDd 5.5 (3.5-5.7) LVIDs 4.8 (2.0-3.5) %FS 12% LVPWd 1.2 (0.6-1.2) Ao Diam 2.9 (2.0-3.7) 2 DIMENSIONAL ASSESSMENT: RIGHT ATRIUM: NORMAL LEFT ATRIUM: DILATED RIGHT VENTRICLE: NORMAL LEFT VENTRICLE: NORMAL TRICUSPID VALVE: NORMAL MITRAL VALVE: NORMAL PULMONIC VALVE: NORMAL AORTIC VALVE: NORMAL PERICARDIAL EFFUSION: NONE AORTIC ROOT: NORMAL LEFT VENTRICULAR WALL MOTION: GLOBAL HYPOKINESIS. DOPPLER/COLOR FLOW: MILD MITRAL REGURGITATION. COMMENTS: DEPRESSED LEFT VENTRICULAR EJECTION FRACTION. DILATED LEFT ATRIUM. MILD MITRAL REGURGITATION. CTA scan September 2020: COMPARISON: None Available. TECHNIQUE: CTA of the abdominal aorta with bilateral lower extremity runoff obtained following the uncomplicated intravenous administration of iodinated contrast. 3-D/MIP reformatted images available. This exam was performed according to our departmental dose-optimization program, which includes automated exposure control, adjustment of the mA and/or kV according to patient size and/or use of iterative reconstruction technique. Suboptimal contrast bolus timing as there was infiltration of the IV during the examination. FINDINGS: Bones: No destructive bone lesions identified. CTA: The abdominal aorta has normal caliber with mild nonflow-limiting atherosclerotic plaque. The celiac, superior mesenteric, and inferior mesenteric arteries are patent. The renal arteries are patent. There is in-line flow within the abdominal aorta and the common iliac, external iliac, common femoral arteries without flow-limiting stenosis. The internal iliac arteries are patent. Atherosclerotic plaque. There is blood flow from the right common femoral artery to the superficial femoral and popliteal arteries without flow-limiting stenosis. Calcified atherosclerotic plaque. The profunda femoral artery is patent proximally. The popliteal artery bifurcates into the tibial peroneal trunk and anterior tibial artery. There is high-grade approximately 80% stenosis at the origin of the right anterior tibial artery. Collateral blood supply reconstitutes the anterior tibial artery which is otherwise patent. Atherosclerotic plaque. There is long segment occlusion of the tibial peroneal trunk with reconstitution of flow via collateral vessels. The peroneal artery is then patent to the level of the ankle. There appears to be intermittent reconstitution of the blood flow in the posterior tibial artery but there are likely multiple levels of high-grade stenosis or occlusion throughout the right posterior tibial artery. There is blood flow from the left common femoral artery to the superficial femoral and popliteal arteries without flow-limiting stenosis. Calcified atherosclerotic plaque. The profunda femoral artery is patent proximally. The popliteal artery bifurcates into the tibial peroneal trunk and anterior tibial artery. There is blood flow throughout the visualized anterior tibial, posterior tibial, and peroneal arteries in the left lower extremity. Extensive calcified atherosclerotic plaque. Abdomen: Liver: The visualized liver demonstrates no definite abnormalities. Gallbladder: Small calcified gallstone. Spleen, Pancreas, and Adrenal Glands: Visualized portions of the spleen, pancreas, and adrenal glands are unremarkable. Kidneys: No hydronephrosis or obstructing calculus. Vasculature: Normal caliber IVC. Visualized portions of the portal vein are patent. Stomach: No definite abnormalities of the visualized stomach. Other: No free intraperitoneal air. Moderate amount of free fluid. Pelvis: Bladder: Wall thickening of the urinary bladder. Bowel: Mildly dilated loop of small bowel in the left abdomen without well- defined transition point. The bowel proximal to this is not dilated. Well- circumscribed calcific structure in the lower abdominal mesentery may represent an area of remote fat necrosis. Appendix: Normal appendix. Pelvis: Prostate is not enlarged. IMPRESSION: 1. There is long segment occlusion of the right tibial peroneal trunk with reconstitution of flow via collateral vessels. 2. There is high-grade approximately 80% stenosis at the origin of the right anterior tibial artery. There is reconstitution of flow distal to the origin with blood flow to the foot in the anterior tibial artery and dorsalis pedis artery. 3. There appears to be multiple levels of high-grade stenosis or occlusion throughout the right posterior tibial artery. 4. No definite evidence of flow-limiting stenosis in the left lower extremity. 5. Mildly dilated loop of small bowel in the left abdomen without well-defined transition point identified. This may represent ileus however early partial small bowel obstruction could produce this appearance. Continued radiographic follow-up recommended. 6. Wall thickening of the urinary bladder. This could be seen with cystitis. Correlation with urinalysis recommended. 7. Moderate amount of free fluid in the abdomen. 8. Cholelithiasis. 9. The combination of extensive vascular wall calcification throughout the lower extremities and suboptimal contrast bolus volume may decrease sensitivity for flow-limiting stenoses. Catheter based angiography may be required for definitive characterization of the trifurcated vessels. Arterial doppler: COMPARISON: None FINDINGS: The common femoral, superficial femoral and popliteal arteries bilaterally demonstrate triphasic waveforms The posterior tibial and dorsalis pedis arteries demonstrate triphasic waveforms in the right lower extremity. The left posterior tibial artery and dorsal pedis arteries demonstrate monophasic flow. IMPRESSION: Monophasic flow in the left posterior tibial and dorsal pedis artery consistent with a hemodynamically significant stenoses. No flow-limiting stenoses in the right lower extremity. ECHO: MEASUREMENTS (cm) DIASTOLIC (NORMALS) SYSTOLIC (NORMALS) IVSd 0.7 (0.6-1.2) LA Diam 3.6 (1.9-4.0) LVEF 18% LVIDd 6.1 (3.5-5.7) LVIDs 5.5 (2.0-3.5) %FS 8% LVPWd 1.0 (0.6-1.2) Ao Diam 2.9 (2.0-3.7) 2 DIMENSIONAL ASSESSMENT: RIGHT ATRIUM: NORMAL LEFT ATRIUM: NORMAL RIGHT VENTRICLE: NORMAL LEFT VENTRICLE: NORMAL TRICUSPID VALVE: NORMAL MITRAL VALVE: NORMAL PULMONIC VALVE: NORMAL AORTIC VALVE: NORMAL PERICARDIAL EFFUSION: NONE AORTIC ROOT: NORMAL LEFT VENTRICULAR WALL MOTION: SEVERE GLOBAL HYPOKINESIS DOPPLER/COLOR FLOW: MILD AORTIC, MITRAL AND TRICUSPID REGURGITATION COMMENTS: SEVERE GLOBAL HYPOKINESIS. EJECTION FRACTION 18%. MILD AORTIC, MITRAL AND TRICUSPID REGURGITATION. NO THROMBUS. ABUS: COMPARISON: No comparisons FINDINGS: Focused abdominal ultrasound in all 4 quadrants was obtained to evaluate for ascites. A large volume of ascites is noted. IMPRESSION: Large volume of ascites. Medical Problem List: Dyspnea secondary to ascites/abdominal distention complicated with acute on chronic systolic CHF with ejection fraction of 18% with echo showing severe global hypokinesis Bacteremia with gram-negative rods suspect related to dry gangrena versus other etiology Chronic anticoagulation therapy with history of CVA, supratherapeutic INR Hypertension currently with hypotension Recent cardiac arrest and hospitalization at [facility] now with cardiac defibrillator ESRD on HD Dry gangrene of the left great toe with severe PAD Diabetes mellitus type 2 Anemia of chronic disease Seizure disorder Brief History of Present Illness: 35-year-old male with history of ESRD on HD, chronic systolic c ongestive heart failure, diabetes mellitus type 2, hypertension, hyperlipidemia history of CVA secondary to hypercoagulability state on chronic anticoagulation with Coumadin, seizure disorder presents emergency department for abdominal distention, shortness of breath. Patient reports increasing shortness of breath and abdominal distention of the course of the last week. Patient was evaluated the emergency department, labs were significant for white blood cell count 11.8 hemoglobin 9.2 INR 4.5 sodium 134 creatinine 4.96 GFR 13 potassium 3.9 BNP 30,[address] chest abdomen pelvis demonstrates cardiomegaly with moderate amount of dependent atelectasis and a few bilateral groundglass opacities representing edema small left pleural effusion, mild anasarca CT abdomen pelvis demonstrates large volume ascites and moderate anasarca erosive L5-S1 endplate changes. Patient abdomen distended with positive fluid wave, not tense at this time. Blood pressure soft in the emergency department around 90/70. Patient was admitted for treatment. Hospital Course: Patient presented with dyspnea secondary to ascites/abdominal distention complicated with acute on chronic systolic CHF with ejection fraction of 18% with echo also showing severe global hypokinesis. The patient was admitted for treatment. Patient recently hospitalized at [facility] for cardiac arrest and eventual cardiac defibrillator placement. The patient developed gangrene to the left lower extremity. Patient now with dry gangrene to the toe. Patient with severe PAD. This is further complicated with bacteremia with gram-negative rods noted. Patient currently on IV vancomycin and cefepime. Due to his multiple medical problems including end-stage renal disease on hemodialys is, history of CVA on Coumadin, anemia of chronic disease, seizure disorder, it was recommended that the patient be transferred to heart transplant team. Transfer was initiated to [facility]. They were full. I was able to speak to his public relations supervisor Dr. Fontana at [facility]. Transfer was then initiated to [facility]. I did speak to Dr. Smith with the transplant team who accepted the patient. Patient will be further evaluated at [facility]. Patient may require heart transplant versus LVAD versus other intervention. At this time patient remains on IV antibiotic therapy. Midodrine has been increased to 10 mg 1 pill 3 times a day. Patient would likely require CRRT for hemodialysis. Further evaluation of ascites with paracentesis may need to be considered especially with his bacteremia. This can be further addressed at [facility]. Patient with chronic anticoagulation therapy due to his history of CVA. Supratherapeutic INR noted. Coumadin currently on hold. Patient with end-stage renal disease on hemodialysis. Patient usually gets dialysis every Tuesday, Tuesday and Tuesday. Dialysis currently on hold due to his low blood pressure. Patient will likely require CRRT due to his low blood pressure. Patient currently on midodrine 10 mg 1 pill 3 times a day. Patient with diabetes mellitus type 2. Patient remains on sliding scale. Patient with anemia of chronic disease. Maintain hemoglobin above 7.0. Patient may require transfusion. Patient with history of hypertension. Currently with hypotension. Currently on midodrine at this time. Patient with seizure disorder. Continue with Vimpat 100 mg 1 pill twice daily. Patient with dry gangrene of the left great toe with severe PAD. Surgery has evaluated patient. Surgery recommended cardiology evaluation. Cardiology recommended transfer to heart transplant team. Patient will likely require amputation. Patient high risk for procedure. This can be further evaluated in [place]. As mentioned above patient with bacteremia. Patient also with ascites. Consider paracentesis at [facility] for further evaluation. Patient would likely require infectious disease evaluation as well. Vital Signs/Physical Exam: Temp Pulse Resp BP Pulse Ox 97.6 F 96 H 16 103/82 100 03/05/21 13:58 08/19/21 13:58 03/05/21 13:58 03/05/21 13:58 03/05/21 13:58 General: Alert, In no apparent distress, Cooperative HEENT: Atraumatic Neck: Supple Respiratory: Other (Decreased to the bases. Currently on 4 L per nasal cannula) Cardiovascular: Normal pulses, Regular rate/rhythm Gastrointestinal: Normal bowel sounds, Other (Ascites noted), Ascites Musculoskeletal: Other (Dry gangrene to the left foot) Integumentary: Other (Dry gangrene to the left foot) Neurological: Normal speech, Normal strength at 5/5 x4 extr, Normal tone Laboratory Data at Discharge: WBC 9.40 K/uL (4.3-10.9) D 03/05/21 03:00 Hgb 9.5 g/dL (13.6-17.9) L 03/05/21 03:00 Hct 29.6 % (39.6-49.0) L 03/05/21 03:00 Plt Count 309 K/uL (152-406) 03/05/21 03:00 PT 59.8 SECONDS (9.5-12.5) H 03/05/21 03:59 INR 5.11 H* 03/05/21 03:59 Sodium 133 mmol/L (136-145) L 03/05/21 03:59 Potassium 4.6 mmol/L (3.5-5.1) 03/05/21 03:59 BUN 53 mg/dL (7-18) H 03/05/21 03:59 Creatinine 5.89 mg/dL (0.55-1.3) H* 03/05/21 03:59 Glucose 101 mg/dL (74-106) 03/05/21 03:59 Phosphorus 6.1 mg/dL (2.5-4.9) H 03/05/21 03:59 Magnesium 2.2 mg/dL (1.8-2.4) 03/05/21 03:59 Total Bilirubin 0.6 mg/dL (0.2-1.0) 03/05/21 03:59 AST 14 U/L (15-37) L 03/05/21 03:59 ALT 13 U/L (12-78) 03/05/21 03:59 Alkaline Phosphatase 183 U/L (45-117) H 03/05/21 03:59 Troponin I 0.02 ng/mL (0.0-0.045) 03/04/21 19:37 Triglycerides 123 mg/dL (<150) 03/05/21 03:59 Cholesterol 81 mg/dL (<200) 03/05/21 03:59 HDL Cholesterol 19 mg/dL (40-60) L 03/05/21 03:59 Cholesterol/HDL Ratio 4.26 03/05/21 03:59 Lipase 199 U/L (73-393) 03/03/21 23:45 Home Medications: Aspirin 1 tab PO DAILY 09/19/20 Docusate Sodium 200 mg PO BID 09/19/20 Insulin Glargine,Hum.rec.anlog [Lantus] 10 units SQ DAILY 09/19/20 Lacosamide [Vimpat] 100 mg PO BID 09/19/20 Metoprolol Succinate [Toprol Xl*] 12.5 mg PO DAILY 09/19/20 Pravastatin Sodium 40 mg PO BEDTIME 09/19/20 Sertraline [Zoloft*] 100 mg PO DAILY 09/19/20 Sevelamer Carbonate [Renvela] 1,600 mg PO TIDWM 09/19/20 Warfarin Sodium [Coumadin*] 2.5 mg PO DAILY 09/19/20 traMADol HCL [Ultram*] 50 mg PO BID PRN #5 tab 09/19/20 Physician Discharge Instructions: Okay to transfer to [facility] Diet: Renal Activity: Bedrest Followup: Unknown,U [Primary Care Provider] - Time spent managing pt's care (in minutes): 55
[2021-03-05] MEDS ORDERED: MIDODRINE HCL 5 MG TABLET PO SCH (17:00)
[2021-03-05 18:25] VITALS: O2SAT 100
--- NOTE | 2021-03-05 20:34 | P.PN ---
Date of Service: 03/05/21 Vital Signs Temp Pulse Resp BP Pulse Ox 97.6 F 96 H 16 103/82 100 03/05/21 13:58 03/05/21 16:00 03/05/21 16:00 03/05/21 16:00 03/05/21 16:00 Microbiology Results 03/03/21 23:45 Blood - Blood Blood Culture Gram Stain - Final 03/03/21 23:45 Blood - Blood Anaerobic Blood Culture - Preliminary 03/03/21 23:45 Blood - Blood Gram Stain - Final 03/03/21 23:45 Blood - Blood Aerobic Blood Culture - Preliminary 03/03/21 23:45 Blood - Blood Blood Culture Gram Stain - Final 03/03/21 23:45 Blood - Blood Anaerobic Blood Culture - Preliminary 03/03/21 23:45 Blood - Blood Gram Stain - Preliminary Assessment/ Plan: Nephrology Progress Note Malaise and fatigue. Poor historian. No chest pain or dyspnea No acute events overnight Vitals, medications blood work and imaging reviewed in the chart General: In no apparent distress HEENT: Atraumatic Neck: Supple Respiratory: Diminished Cardiovascular: Regular rate/rhythm, Edema Gastrointestinal: Soft and benign, Distended Musculoskeletal: No clubbing, No contractures Integumentary: No rashes, No cyanosis Neurological: Abnormal speech Laboratory Data (last 24 hrs) 03/03/21 23:45: PT 52.5 H, INR 4.50 H* 03/03/21 23:45: WBC 11.80 H D, Hgb 9.2 L, Hct 28.7 L, Plt Count 335 03/03/21 23:45: Sodium 134 L, Potassium 3.9, BUN 41 H, Creatinine 4.96 H, Glucose 97, Magnesium 2.0 D, Total Bilirubin 0.6, AST 12 L, ALT 17, Alkaline Phosphatase 196 H, Lipase 199 Imagings Data: EXAM DESCRIPTION: CT - Chest Abd Pelvis Wo Con - 03/04/2021 2:11 am COMPARISON: None. CLINICAL HISTORY: [facility] MAIN Cough;Abdominal distention TECHNIQUE: CT images through the chest, abdomen, and pelvis without IV contrast. Multiplanar reformats. Automated exposure control was utilized on this examination as a dose lowering technique. CT CHEST FINDINGS: Heart and mediastinum: Cardiomegaly. No lymphadenopathy. Thyroid gland: Visualized portions are normal. Lungs: Dependent atelectasis. A few mild bilateral groundglass opacities are noted. Airways: No filling defects. No bronchiectasis. Pleura: No pneumothorax. Small left pleural effusion. Musculoskeletal and soft tissues: An implanted device is noted in the left chest wall. Right IJ central line tip terminates within the inferior right atrium. Mild anasarca is present. CHEST IMPRESSION: 1. Cardiomegaly with a moderate amount of dependent atelectasis. A few bilateral groundglass opacities may represent atelectasis, pulmonary edema, or early pneumonia. 2. Small left pleural effusion. 3. Mild anasarca. CT ABDOMEN & PELVIS FINDINGS: *Evaluation of solid organs is limited due to lack of IV contrast. Liver: Normal. Gallbladder and biliary: Normal gallbladder. Unremarkable biliary tree. Pancreas: Normal. Spleen: Normal. Kidneys and adrenal glands: Normal adrenal glands. Normal kidneys Stomach and Small Bowel: The stomach and small bowel are normal. Urinary bladder: Normal. Prostate/Male Urogenital: Normal. Colon and Appendix: A few colonic diverticula are noted. No evidence of appendicitis. Peritoneal cavity: Large-volume ascites. Retroperitoneum and lymph nodes: Normal. Vascular: Mild atherosclerosis. Musculoskeletal and soft tissues: Moderate anasarca.No aggressive bone lesions. No compression fracture. Lumbar spondylosis with degenerative disease is greatest at L5-S1. Bilateral chronic appearing L5 pars defects are noted. ABDOMEN AND PELVIS IMPRESSION: 1. Large volume ascites and moderate anasarca. 2. Erosive L5-S1 endplate changes which could be degenerative or due to discitis osteomyelitis. Conclusions/Impression: ESRD -HD TIW Hypotension -Continue Midodrine -Give IV Albumin Systolic CHF, chronic LVEF 15% -Low sodium diet DM II with CKD, Polyneuropathy & Hyperglycemia -RISS DM II with peripheral angiopathy DM Ulcer/ Left foot gangrene -Follow up with surgery -Continue abx Protein Calorie Malnutrition -Encourage nutrition Anemia in CKD -Continue Retacrit CKD MBD -Continue Calcitriol Case reviewed with Dr. Chang. Plan for transfer due to high risk surgical patient. Greater than 30min patient care.
[2021-03-05] MEDS ORDERED: ATORVASTATIN 10 MG TAB PO SCH (21:00)
[2021-03-05] MEDS ORDERED: HOME MED 1 EA UNK (Pravastatin Sodium [Pravastatin Sodium] 40 MG Tablet) PO SCH (21:00)
[2021-03-06] MEDS ORDERED: VANCOMYCIN 500 MG in NA CHLORIDE 0.9% 100 ML IVPB SCH (15:00)
== END 2021-03-05 17:35 | disposition short-term general hospital (02) | DRG 291 ==
LOC: ER 21:07 → ERHOLD 03-04 02:42
PROVIDERS: ADMIT Family Medicine; ATTEND Family Medicine
DX: I13.2 Hypertensive heart and chronic kidney disease with heart failure and with stage 5 chronic kidney disease, or end stage renal disease (principal); L89.153 Pressure ulcer of sacral region, stage 3; I50.23 Acute on chronic systolic (congestive) heart failure; N18.6 End stage renal disease; R18.8 Other ascites; E11.52 Type 2 diabetes mellitus with diabetic peripheral angiopathy with gangrene; I96 Gangrene, not elsewhere classified; R78.81 Bacteremia; J98.11 Atelectasis; E46 Unspecified protein-calorie malnutrition; I69.354 Hemiplegia and hemiparesis following cerebral infarction affecting left non-dominant side; E11.22 Type 2 diabetes mellitus with diabetic chronic kidney disease; R79.1 Abnormal coagulation profile; G40.909 Epilepsy, unspecified, not intractable, without status epilepticus; I95.9 Hypotension, unspecified; D63.8 Anemia in other chronic diseases classified elsewhere; Z68.28 Body mass index [BMI] 28.0-28.9, adult; Z95.810 Presence of automatic (implantable) cardiac defibrillator; Z79.01 Long term (current) use of anticoagulants; Z99.3 Dependence on wheelchair; Z74.01 Bed confinement status; Z86.74 Personal history of sudden cardiac arrest; Z99.2 Dependence on renal dialysis; Z20.822 Contact with and (suspected) exposure to COVID-19
CPT/HCPCS: 36415; 71045; 71250; 74176; 76705; 80048; 80053; 80061; 80076; 80202; 82140; 82728; 82947; 83540; 83605; 83690; 83735; 83880; 84100; 84145; 84439; 84443; 84466; 84484; 85025; 85610; 87040; 87077; 87186; 87205; 93005; 93306; 93925; 96365; 96366; 96375; 97161; 97530; 99251; 99285; J0692; J0696; J2405; J3010; J3370; J7040; P9047; Q5105; U0003